=== PATIENT | male | born 1960 | race Caucasian/White ===

== ENCOUNTER 2022-02-22 08:51 | Emergency (ER) | payer OTHER, SELFPAY ==
[2022-02-22 09:31] VITALS: BP 150/79; PULSE 61; RESP 18; TEMP 36.1; O2SAT 99; BMI 26.2
--- NOTE | 2022-02-22 10:17 | ED_ITS ---
HPI - Dental/Oral General Chief complaint: Dental/Oral Stated complaint: Mouth abscess Time Seen by Provider: 02/22/22 09:41 Source: patient Mode of arrival: ambulatory History of Present Illness HPI Narrative: 61-year-old male with past medical history of dental abscesses, presenting to the ED complaining of recurrent dental abscess to left upper tooth times a couple days. States at home usually pops them on his own, however this one is too painful. Denies drainage from area, fever, oral swelling, difficulty swallowing, inability to swallow MD Complaint: tooth pain Related Data Previous Rx's Medication Instructions Recorded amoxicillin 875 mg-potassium 1 tab PO BID 7 Days #14 tab 02/22/22 clavulanate 125 mg tablet Allergies Allergy/AdvReac Type Severity Reaction Status Date / Time naproxen [Naproxen] AdvReac Mild STOMACH Unverified 07/09/20 16:04 UPSET Naproxen Allergy Unknown Uncoded 10/01/12 00:00 Review of Systems Review of Systems: Constitutional: No Fever, No Chills ENT/Mouth: No Ear Pain, No Nasal Congestion, No Sinus Pain, No Hoarseness, No sore throat, No Rhinorrhea, No Swallowing Difficulty, + dental pain Cardiovascular: No Chest Pain, No SOB Respiratory: No Cough, No Sputum, No Wheezing Gastrointestinal: No Nausea, No Vomiting, No Diarrhea, No Constipation, No Abdominal pain Musculoskeletal: No joint pain, No Myalgias, No Joint Swelling Skin: No Skin Lesions, No rash Neuro: No Weakness, No Numbness, No Paresthesias Yes all other systems are reviewed and are negative [facility] Past Medical History Attestation statement: The following information was validated with the patient. Social History Social History Advance Directives: No Advance Directives Information Provided: Yes Physical Exam Vital Signs: Vital Signs: Last Vital Signs Temp 97 F 02/22/22 09:31 Pulse 61 02/22/22 09:31 Resp 18 02/22/22 09:31 BP 150/79 H 02/22/22 09:31 Pulse Ox 99 02/22/22 09:31 BMI result Body Mass Index 26.2 Const: General: cooperative, healthy appearing and no acute distress Orientation/consciousness: patient oriented x3 Limitations: no limitations HEENT: Other: + left upper 2nd molar with gingival swelling, erythema, and tenderness to palpation. No appreciable pointing, fluctuance or induration. No draining No appreciable facial swelling Head: Yes normal to inspection and Yes atraumatic Ears: hearing grossly normal bilaterally General nose exam: Normal external nose present Face and sinus: Yes normal facial exam Mouth: Normal oral and palatal mucosa present and no drooling Teeth and gingiva: poor dentition Throat: Yes posterior oropharynx normal, Yes uvula midline and No uvular edema Eyes: General: appearance normal, both eyes and all related structures EOM: EOMs intact bilaterally Neck: Neck: Yes normal visual inspection and Yes no meningeal signs Resp: Effort & Inspection: normal respiratory effort and no respiratory distress Cardio: Rate: regular rate Skin: Rashes: no rashes Wounds: no wounds Neuro: General: patient oriented x3, tone normal and no meningeal signs Gait exam (Neuro): Normal gait present Extrem: General: Yes normal to inspection MDM - Dental/Oral MDM Narrative Medical decision making narrative: 61-year-old male with past medical history of dental abscesses, presenting to the ED complaining of recurrent dental abscess to left upper tooth times a couple days. On exam vital signs stable, NAD/nontoxic, physical exam as above. Concern for dental abscess versus infection versus gingivitis. No drainable area at this time. Will give patient Augmentin and stressed importance of Dentistry follow-up Differential Diagnosis Differential diagnosis: Likely gingival abscess, dental caries, toothache and dental abscess Medical Records Attestation: I reviewed the patient's medical records. Lab Data Attestation: I reviewed the patient's lab results. Discharge Plan Discharge Clinical Impression: Dental abscess Patient Disposition: Home, Self-Care Instructions: Dental Abscess (ED) Additional Instructions: Augmentin is an antibiotic please take as prescribed. In addition take Tylenol for pain. You need to follow-up with her dentist LIA. if area begins to worsen, you have fever, swelling in your mouth, or inability to swallow please return to the ED Prescriptions: New amoxicillin-pot clavulanate 875-125 mg tablet 1 tab PO BID 7 Days Qty: 14 0RF Referrals: Prince Darling MD [Primary Care Provider] - 3 days
== END 2022-02-22 10:49 | disposition home or self-care (01) ==
PROVIDERS: Emergency Provider Emergency Medicine; PCP Family Medicine
DX: K04.7 Periapical abscess without sinus (principal); Z79.899 Other long term (current) drug therapy
CPT/HCPCS: 99283

== ENCOUNTER 2022-04-05 06:03 | Outpatient (REF) | payer OTHER, SELFPAY ==
[2022-04-05 06:13] LABS: MANUAL DIFF FLAG NO
[2022-04-05 07:27] LABS: Basophils Percent Auto 0.3 % (0-2); Eosinophils Absolute Auto 0.2 X10*3/uL (0.0-0.4); Eosinophils Percent Auto 2.1 % (0-4); Hematocrit 44.4 % (42.0-52.0); Hemoglobin 14.3 g/dl (14.0-18.0); Imm Gran Abs Auto 0.03 X10*3/uL (0.00-0.03); Imm Gran Pct Auto 0.4 % (0.0-0.4); Lymphocytes Absolute Auto 2.3 X10*3/uL (1.2-4.9); Lymphocytes Percent Auto 30.9 % (20-40); Mean Corpuscular HGB Conc 32.2 g/dl (31.0-36.0); Mean Corpuscular Hemoglobin 28.6 pg (27.0-33.0); Mean Corpuscular Volume 88.8 fL (80.0-98.0); Mean Platelet Volume 10.9 fL (9.4-12.4); Monocytes Absolute Auto 0.7 X10*3/uL (0.1-1.2); Monocytes Percent Auto 9.1 % (2-11); Neutrophils Absolute Auto 4.3 x10*3/uL (2.0-8.3); Neutrophils Percent Auto 57.2 % (45-73); Platelet Count 321 X10*3/uL (160-400); Red Cell Distribution Width 12.5 % (11.0-16.0); White Blood Count 7.5 X10*3/uL (4.8-10.8)
[2022-04-05 08:01] LABS: Alanine Aminotransferase 17 U/L (0-40); Albumin Level 4.1 g/dL (3.5-5.0); Alkaline Phosphatase 62 U/L (39-117); Anion Gap 12 (12-20); Aspartate Amino Transferase 19 U/L (5-37); Bilirubin Total 0.5 mg/dL (0.0-1.0); Blood Urea Nitrogen 18 mg/dL (9-16); Calcium 9.8 mg/dL (8.4-10.2); Carbon Dioxide 30 mmol/L (22-29); Chloride 103 mmol/L (96-108); Cholesterol 233 mg/dL; Estimated Glomerular Filt Rate > 60; Glucose Fasting 101 mg/dL (60-99); HDL Cholesterol 52 mg/dL; LDL Cholesterol Calculated 164 mg/dl; Potassium 5.5 mmol/L (3.3-5.1); Sodium 139 mmol/L (135-145); Total Protein 8.2 g/dL (6.5-8.0); Triglycerides 87 mg/dL
[2022-04-05 09:17] LABS: Prostate Specific Antigen Scr 8.67 ng/mL (<0.05-4.0)
[2022-04-05 09:49] LABS: Free T4 (Free Thyroxine) 0.85 ng/dL (0.71-1.85)
== END 2022-04-05 06:04 | disposition home or self-care (01) ==
LOC: HO.LAB 06:03
PROVIDERS: PCP Family Medicine; Visit Provider Family Medicine
DX: Z00.00 Encounter for general adult medical examination without abnormal findings (principal); I10 Essential (primary) hypertension; Z12.5 Encounter for screening for malignant neoplasm of prostate
CPT/HCPCS: 36415; 80053; 80061; 84153; 84439; 84443; 85025

== ENCOUNTER 2022-06-13 13:09 | Outpatient (REF) | payer OTHER, SELFPAY ==
--- NOTE | ~2022-06-13 | XR_ITS ---
EXAMINATION: XR CHEST CLINICAL INFORMATION: Other specified symptoms and signs involving the circulatory system . COMPARISON: Chest radiograph 10/02/2012. TECHNIQUE: 2 views of the chest were obtained. FINDINGS: Normal cardiomediastinal silhouette. No focal airspace opacity, pleural effusion or pneumothorax. Thoracic spondylosis. No acute osseous abnormalities. The visualized upper abdomen is within normal limits. XR/XR chest 2V IMPRESSION: No acute cardiopulmonary findings.
[2022-06-13 14:40] LABS: Influenza A PCR NEGATIVE (Negative); Influenza B PCR NEGATIVE (Negative); Resp Syncy Virus RNA Qual PCR NEGATIVE (Negative); SARS COV2 PCR INHOUSE NEGATIVE (Negative)
== END 2022-06-13 13:10 | disposition home or self-care (01) ==
LOC: HO.XRAY 13:09
PROVIDERS: PCP Family Medicine; Visit Provider Family Medicine
DX: R09.89 Other specified symptoms and signs involving the circulatory and respiratory systems (principal); Z20.822 Contact with and (suspected) exposure to COVID-19
CPT/HCPCS: 0241U; 71046

== ENCOUNTER 2022-08-12 08:44 | Outpatient (REF) | payer OTHER, SELFPAY ==
[2022-08-12 09:25] LABS: Appearance Urine Clear; Color Urine Yellow; Glucose Urine UA Negative (Negative); Leukocyte Esterase Urine Negative (Negative); Nitrite Urine Negative (Negative); Specific Gravity - Urine 1.015 (1.005-1.025); Urine Blood Negative (Negative); Urine Ketones Negative (Negative); Urine Protein Negative (Neg-Trace)
[2022-08-12 09:48] LABS: Anion Gap 16 (12-20); Blood Urea Nitrogen 19 mg/dL (9-16); Calcium 9.8 mg/dL (8.4-10.2); Carbon Dioxide 27 mmol/L (22-29); Chloride 106 mmol/L (96-108); Estimated Glomerular Filt Rate > 60; Glucose Random 101 mg/dL (60-115); Potassium 5.6 mmol/L (3.3-5.1); Sodium 143 mmol/L (135-145)
[2022-08-12 10:00] LABS: Creatinine Urine 109.86 mg/dL; Microalbumin Urine < 5.0 mg/L
[2022-08-12 10:10] LABS: Free T4 (Free Thyroxine) 0.94 ng/dL (0.71-1.85); Thyroid Stimulating Hormone 2.79 uIU/mL (0.32-4.0)
[2022-08-14 15:37] LABS: Triiodothyronine T3 Total 123 ng/dL (76-181)
== END 2022-08-12 08:45 | disposition home or self-care (01) ==
LOC: HO.LAB 08:44
PROVIDERS: PCP Family Medicine; Visit Provider Family Medicine
DX: Z00.00 Encounter for general adult medical examination without abnormal findings (principal); E03.9 Hypothyroidism, unspecified; R79.89 Other specified abnormal findings of blood chemistry; E87.5 Hyperkalemia; I10 Essential (primary) hypertension
CPT/HCPCS: 36415; 80048; 81003; 82043; 84439; 84443; 84480

== ENCOUNTER → 2022-09-29 10:58 | Outpatient (BNVA) | payer OTHER, SELFPAY | PROVIDERS: PCP Family Medicine; Visit Provider Urology | DX: N40.1 Benign prostatic hyperplasia with lower urinary tract symptoms (principal); R97.20 Elevated prostate specific antigen [PSA]; R39.11 Hesitancy of micturition; R35.1 Nocturia | CPT/HCPCS: 51798; 99202 ==

== ENCOUNTER 2022-10-04 06:58 | Outpatient (REF) | payer OTHER, SELFPAY ==
[2022-10-04 08:15] LABS: Alanine Aminotransferase 17 U/L (0-40); Albumin Level 4.2 g/dL (3.5-5.0); Alkaline Phosphatase 54 U/L (39-117); Anion Gap 12 (12-20); Aspartate Amino Transferase 19 U/L (5-37); Bilirubin Total 0.6 mg/dL (0.0-1.0); Blood Urea Nitrogen 22 mg/dL (9-16); Calcium 9.3 mg/dL (8.4-10.2); Carbon Dioxide 28 mmol/L (22-29); Chloride 106 mmol/L (96-108); Cholesterol 225 mg/dL; Estimated Glomerular Filt Rate > 60; Glucose Fasting 97 mg/dL (60-99); Glucose Random 97 mg/dL (60-115); HDL Cholesterol 47 mg/dL; LDL Cholesterol Calculated 149 mg/dl; PSA,Total (Free>4and<10) 1.27 ng/mL (0.00-4.00); Potassium 4.2 mmol/L (3.3-5.1); Sodium 142 mmol/L (135-145); Total Protein 7.4 g/dL (6.5-8.0); Triglycerides 145 mg/dL
[2022-10-04 09:17] LABS: Appearance Urine Clear; Color Urine Yellow; Glucose Urine UA Negative (Negative); Leukocyte Esterase Urine Negative (Negative); Nitrite Urine Negative (Negative); PH 5.5 (5.0-9.0); Specific Gravity - Urine 1.025 (1.005-1.025); Urine Blood Negative (Negative); Urine Ketones Negative (Negative); Urine Protein Negative (Neg-Trace)
[2022-10-04 09:34] LABS: Creatinine Urine 137.73 mg/dL; Microalbumin Urine < 5.0 mg/L
== END 2022-10-04 06:59 | disposition home or self-care (01) ==
LOC: HO.LAB 06:58
PROVIDERS: PCP Family Medicine; Visit Provider Urology
DX: Z00.00 Encounter for general adult medical examination without abnormal findings (principal); E87.5 Hyperkalemia; R97.20 Elevated prostate specific antigen [PSA]; I10 Essential (primary) hypertension; E78.00 Pure hypercholesterolemia, unspecified; R73.01 Impaired fasting glucose
CPT/HCPCS: 36415; 80048; 80053; 80061; 81003; 82043; 84153

== ENCOUNTER 2022-10-12 13:15 | Outpatient (REF) | payer OTHER, SELFPAY | END 2022-10-12 13:16 | disposition home or self-care (01) | LOC: HO.US 13:15 | PROVIDERS: Visit Provider Urology | DX: N40.1 Benign prostatic hyperplasia with lower urinary tract symptoms (principal) | CPT/HCPCS: 76775 ==

== ENCOUNTER 2022-10-31 12:15 | Outpatient (REF) | payer OTHER, SELFPAY ==
[2022-10-31 14:19] LABS: Appearance Urine Clear; Color Urine Yellow; Glucose Urine UA Negative (Negative); Leukocyte Esterase Urine Negative (Negative); Nitrite Urine Negative (Negative); PH 5.5 (5.0-9.0); UMIC TRIGGER UA YES; Urine Blood Small (1+) (Negative); Urine Ketones Negative (Negative); Urine Protein Negative (Neg-Trace)
[2022-10-31 14:32] LABS: Bacteria Urine None Seen (None Seen); Hyaline Casts Urine 0-2 /LPF (0-2); Squamous Epithelial Cell Urine 0-2 /HPF (0-2); WBC Urine 0-5 /HPF (0-5)
== END 2022-10-31 12:16 | disposition home or self-care (01) ==
LOC: HO.LAB 12:15
PROVIDERS: PCP Family Medicine; Visit Provider Urology
DX: N40.1 Benign prostatic hyperplasia with lower urinary tract symptoms (principal)
CPT/HCPCS: 81001; 87086

== ENCOUNTER 2022-12-02 07:05 | Outpatient (REF) | payer OTHER, SELFPAY ==
[2022-12-02 08:30] LABS: PSA,Total (Free>4and<10) 1.24 ng/mL (0.00-4.00)
== END 2022-12-02 07:06 | disposition home or self-care (01) ==
LOC: HO.LAB 07:05
PROVIDERS: PCP Family Medicine; Visit Provider Urology
DX: Z12.5 Encounter for screening for malignant neoplasm of prostate (principal); N40.1 Benign prostatic hyperplasia with lower urinary tract symptoms
CPT/HCPCS: 36415; 84153

== ENCOUNTER → 2022-12-30 10:31 | Outpatient (BNVA) | payer OTHER, SELFPAY | PROVIDERS: PCP Family Medicine; Visit Provider Urology | DX: N40.1 Benign prostatic hyperplasia with lower urinary tract symptoms (principal); R97.20 Elevated prostate specific antigen [PSA] | CPT/HCPCS: 51798; 99212 ==

== ENCOUNTER 2023-06-16 08:24 | Outpatient (AMB) | payer OTHER, SELFPAY ==
--- NOTE | 2023-06-16 08:36 | MHC.PC.OV ---
Vital Signs 06/16/23 08:38 Height 5 ft 9.5 in Weight 198 lb 8 oz BMI 28.9 BP 120/80 Blood Pressure Location Rt brachial Position Sitting Respiration 12 Pulse 78 Pulse Source Pulse Oximeter Temp 97.8 F Temp Source Temporal Artery Scan Pulse Oximetry (%) 98 Oxygen Delivery Method Room Air Intake Visit Reasons: discuss ortho ref Intake Note: Patient would like the referral due to right knee go through orthoscopic surgery and swells after 15 minutes of being on it. Patient states that he had to install grab bars in order to get himself off the toilet and to sit in the bathroom. Patient also states that using stairs are a hassle and a task. Patient states he has a limited range of flexion in right knee. Patient states that the left knee is also in pain but not as much as right. 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 Accompanied by: Self / Same As Patient Allergies naproxen [Naproxen] Adverse Reaction (Mild, Verified 06/16/23 08:44) STOMACH UPSET Tobacco use date assessed: 08/23/22 Fall risk assessment: 2 + Falls in past year Last assessed Fall Risk: 06/16/23 Dental Screening Dental Screen Date: 06/16/23 Did you have a dental visit in the last 12 months?: Yes Did you have a dental problem in the last 6 months where you did not have access to dental care?: No Was dental information given to patient?: Patient has dentist HPI discuss ortho ref HPI Details 62 y/o male presents to discuss ortho referral due to R knee pain. Patient states that he had to install grab bars in order to get himself off the toilet and to sit in the bathroom. Patient also states that using stairs are a hassle and a task. Patient states he has a limited range of flexion in right knee. Patient states that the left knee is also in pain but not as much as right. No recent x-rays for his knees. He reports hx of knee surgery about 16 years ago to repair his meniscus/clean it out - pt states symptoms feel different. He has been using tylenol for relief. Pt reports a sharp stabbing pain behind his eyes/temples. He also reports a twitch on his thumb along with memory changes. He notes he does have a lot of screen time on his phone. HPI Comments History of Present Illness Details Documentation assistance for Prince Darling MD, was provided by Ben Ricks,? Water Resource Engineering Specialist on 06/16/2023 8:40 AM [facility]. I, Dr. Darling, have read, observed, and verified documentation.? [facility] Surgical History History of rotator cuff surgery History of shoulder surgery Family History (Updated 06/16/23 @ 08:52 by Sandra Sepulveda MA) Father Dementia Social History Housing: House Patient Tobacco Use Status: Former Tobacco user Tobacco use type: Cigarette e-Cigarette/Vaping Use: Former Use Second Hand Smoke Exposure: No service: Yes Current occupational status: retired Current occupational exposures/hazards: No Cognitive needs: Yes Hearing needs: No Vision needs: Yes Questionnaire Thrive Questionnaire Date Thrive assessed: 03/30/22 CHAUNCEY-7 AMB Questionnaire CHAUNCEY-7 Date CHAUNCEY - 7 assessed: 03/30/22 Source: Developed by Drs. Migue Ferrera, Trisha Adams, Ghulam Sharp and colleagues, with an educational lucas from [employer]. Review of Systems Const Denies chills, Denies fatigue, Denies fever(s), Denies headache(s) and Denies weakness ENT Denies dizziness and Denies headache(s) Card Denies chest pain, Denies lightheadedness, Denies dyspnea and Denies other (Palpitations) Resp Denies cough, Denies dyspnea, Denies wheezing and Denies other ( shortness of breath) Musc Details: Knee pain Denies numbness and Denies tingling Neuro Denies dizziness, Denies headache(s), Denies numbness, Denies tingling, Denies paresthesias and Denies weakness Psych Denies anxiety and Denies depression Endo Denies fatigue Aller/Immun Denies wheezing Physical exam (Primary Care) Vital Signs: Last Vital Signs Temp 97.8 F 06/16/23 08:38 Pulse 78 06/16/23 08:38 Resp 12 06/16/23 08:38 BP 120/80 06/16/23 08:38 Pulse Ox 98 06/16/23 08:38 Oxygen Delivery Method Room Air 08/25/23 08:38 BMI result Body Mass Index 28.9 Tobacco/Smoking Status: Tobacco use Status Tobacco use date assessed 08/23/22 06/16/23 08:52 Patient Tobacco Use Status Former Tobacco user 06/16/23 08:52 Tobacco use type Cigarette 06/16/23 08:52 e-Cigarette/Vaping Use Former Use 06/16/23 08:52 Thrive Assessment: Date of Thrive Assessment Date Thrive assessed 03/30/22 06/16/23 08:52 Const General: no acute distress and well developed Nutritional Appearance: well nourished Orientation/consciousness: patient oriented x3 HENMT Head: Yes normocephalic and Yes atraumatic Eyes General: appearance normal, both eyes and all related structures Pupils: Equal, round and reactive pupils present EOM: EOMs intact bilaterally Resp Effort & Inspection: normal respiratory effort Auscultation: clear to auscultation bilaterally Cardio Rate: regular rate Rhythm: regular rhythm Heart sounds: S1 normal heart sound present, S2 normal heart sound present, no gallops, no murmurs and no rubs Neuro Other: Twitching and tremor to his fingers General: patient oriented x3 and gait normal Cranial nerves: Yes Equal, round and reactive pupils present Psych Affect: normal affect Assessment and Plan Assessment & Plan (1) Knee pain: Code(s): M25.569 - Pain in unspecified knee Plan: Right knee pain with walking and bearing weight Referred to Ortho and checking x-ray Continue using Tylenol and topical NSAIDs Continue ice/heat (2) Twitch: Code(s): R25.3 - Fasciculation Plan: Memory changes and word-finding difficulty as well as new tremor in his hands/fingers Referred to neurology (3) Memory changes: Code(s): R41.3 - Other amnesia Plan: As above (4) Hypercholesterolemia: Code(s): E78.00 - Pure hypercholesterolemia, unspecified Plan: Had been following his lipids at and they had improved but were still high. He had been working on diet but says that this has become more difficult and he would like to trial medication. Starting atorvastatin Orders: Orders Comprehensive Keyes. Panel Fast Today Z00.00 - Encounter for general adult medical examination without abnormal findings Lipid Panel Today Z00.00 - Encounter for general adult medical examination without abnormal findings TSH reflex Free T4 Today Z00.00 - Encounter for general adult medical examination without abnormal findings Microalbumin, Random (w Creat) Today I10 - Essential (primary) hypertension UA and rflx microscopic Today Z00.00 - Encounter for general adult medical examination without abnormal findings XR knee RT 3V Today M25.569 - Pain in unspecified knee Referrals Orthopedics Referral M25.569 - Pain in unspecified knee Neurology Referral R25.1 - Tremor, unspecified, R25.3 - Fasciculation, R41.3 - Other amnesia Medications: New atorvastatin 20 mg PO BEDTIME 30 tabs 1RF 30 days Coding Level of Care Code Est Pt Level 4 (60049) Diagnoses Knee pain M25.569 Twitch R25.3 Memory changes R41.3 Hypercholesterolemia E78.00
[2023-06-16 08:38] VITALS: BP 120/80; PULSE 78; RESP 12; TEMP 36.6; O2SAT 98; BMI 28.9
== END 2023-06-16 09:11 | disposition home or self-care (01) ==
PROVIDERS: PCP Family Medicine; Visit Provider Family Medicine
DX: M25.569 Pain in unspecified knee (principal); R25.3 Fasciculation; R41.3 Other amnesia; E78.00 Pure hypercholesterolemia, unspecified
CPT/HCPCS: 99214

== ENCOUNTER 2023-06-16 09:39 | Outpatient (REF) | payer OTHER, SELFPAY ==
--- NOTE | ~2023-06-16 | XR_ITS ---
EXAMINATION: XR KNEE, RIGHT CLINICAL INFORMATION: Pain. COMPARISON: None available. TECHNIQUE: Three views of the right knee. FINDINGS: Advanced tricompartmental joint space narrowing and subchondral sclerosis with prominent marginal osteophytes. This background limits evaluation of subtle fractures, however accounting for limitations, no discrete fracture is noted. No subluxation. No erosive changes. No abnormal soft tissue calcifications. Small joint effusion. XR/XR knee RT 3V IMPRESSION: 1. Advanced tricompartmental degenerative osteoarthritis. 2. Small joint effusion.
== END 2023-06-16 09:40 | disposition home or self-care (01) ==
LOC: HO.XRAY 09:39
PROVIDERS: PCP Family Medicine; Visit Provider Family Medicine
DX: M25.561 Pain in right knee (principal)
CPT/HCPCS: 73562

== ENCOUNTER 2023-06-28 09:44 | Outpatient (REF) | payer OTHER, SELFPAY ==
[2023-06-28 10:18] LABS: Appearance Urine Clear; Color Urine Yellow; Glucose Urine UA Negative (Negative); Leukocyte Esterase Urine Negative (Negative); Nitrite Urine Negative (Negative); Specific Gravity - Urine 1.025 (1.005-1.025); Urine Blood Negative (Negative); Urine Ketones Negative (Negative); Urine Protein Negative (Neg-Trace)
[2023-06-28 10:58] LABS: Alanine Aminotransferase 15 U/L (0-40); Alkaline Phosphatase 57 U/L (39-117); Anion Gap 13 (12-20); Aspartate Amino Transferase 18 U/L (5-37); Bilirubin Total 0.5 mg/dL (0.0-1.0); Blood Urea Nitrogen 17 mg/dL (9-16); Calcium 9.5 mg/dL (8.4-10.2); Carbon Dioxide 27 mmol/L (22-29); Chloride 107 mmol/L (96-108); Cholesterol 172 mg/dL (<200); Estimated Glomerular Filt Rate > 60; Glucose Fasting 111 mg/dL (60-99); HDL Cholesterol 48 mg/dL (>40); LDL Cholesterol Calculated 89 mg/dL (<100); Potassium 4.1 mmol/L (3.3-5.1); Sodium 143 mmol/L (135-145); TSH reflex Free T4 2.88 uIU/mL (0.32-4.0); Total Protein 7.4 g/dL (6.5-8.0); Triglycerides 175 mg/dL (<150)
[2023-06-28 11:00] LABS: Prostate Specific Antigen 1.38 ng/mL (<0.05-4.0)
[2023-06-28 11:11] LABS: Creatinine Urine 182.11 mg/dL; Microalbum/Creatinine Ratio Ur 2.7 ug/mg cr (<30)
== END 2023-06-28 09:45 | disposition home or self-care (01) ==
LOC: HO.LAB 09:44
PROVIDERS: PCP Family Medicine; Visit Provider Urology
DX: N40.1 Benign prostatic hyperplasia with lower urinary tract symptoms (principal); I10 Essential (primary) hypertension
CPT/HCPCS: 36415; 80053; 80061; 81003; 82043; 82570; 84153; 84443

== ENCOUNTER 2023-07-03 11:19 | Outpatient (AMB) | payer OTHER, SELFPAY ==
--- NOTE | 2023-07-03 11:20 | MHC.OFFVIS ---
Intake Intake Visit Reasons: 6m/PSA Intake Note: Patient presents today for a follow-up on PSA: Meds- Tamsulosin & Sildenafil Allergies to Antibiotic- No Known Allergies Blood Thinner- Aspirin PSA- 1.38 ng/mL 06/28/2023 Receptionist Doctor'S Office Required: No Accompanied by: Self / Same As Patient Allergies naproxen [Naproxen] Adverse Reaction (Mild, Verified 07/05/23 14:09) STOMACH UPSET HPI HPI Comments History of Present Illness Details Bharathi is a 62-year-old male who presents today via tele-health visit for a follow-up. He is followed today for PSA. He was last seen by me on 12/30/2022 for elevated PSA. The patient was advised will continue to monitor closely, and to follow-up with PSA in 6 months. Discussed prostate bx to be considered pending repeat PSA. FU PSA was WNL. The patient has been taking Flomax and notes that he had improved urine flow at this time. Reviewed recent PSA- 06/28/23--1.38 Review of charts: PSA 04/05/22 -- 8.67. He is on tamsulosin for LUTS hesitency, nocturia. Denies gross hematuria, denies urinary incontinence.? PSA-12/02/2022- 1.24 ng/mL 07/03/2023: Plan: Will continue to monitor PSA closely. Follow up in 6 months with PSA prior. [facility] Surgical History (Updated 07/05/23 @ 14:18 by NICOLA Burkett) Hx of arthroscopy of right knee History of shoulder surgery History of rotator cuff surgery Family History (Updated 06/16/23 @ 08:52 by Sandra Sepulveda MA) Father Dementia Social History Housing: House Patient Tobacco Use Status: Former Tobacco user Tobacco use type: Cigarette e-Cigarette/Vaping Use: Former Use Second Hand Smoke Exposure: No service: Yes Current occupational status: retired Current occupational exposures/hazards: No Cognitive needs: Yes Hearing needs: No Vision needs: Yes Review of Systems Const All systems reviewed & are unremarkable except as noted in HPI and below Reports no additional complaints Eyes Reports no additional complaints ENT Denies neck pain Card Denies leg edema Resp Denies cough GI Denies constipation Musc Reports no additional complaints and Denies neck pain Skin/Breast Denies rash Neuro Reports no additional complaints Psych Reports no additional complaints Endo Reports no additional complaints Kevin/Lymph Reports no additional complaints Aller/Immun Reports no additional complaints Assessment & Plan Assessment & Plan (1) BPH loc w urin obs/LUTS: Code(s): N40.1 - Benign prostatic hyperplasia with lower urinary tract symptoms Plan Will continue to monitor PSA closely. Follow up in 6 months with PSA prior. Orders: Orders Prostate Specific Antigen 06/28/23 N40.1 - Benign prostatic hyperplasia with lower urinary tract symptoms PSA,Total (Free>4and<10) 06/30/23 Z12.5 - Encounter for screening for malignant neoplasm of prostate, R97.20 - Elevated prostate specific antigen [PSA] Patient Instructions: The patient had an opportunity to ask questions regarding treatment plan. All questions were answered. Imaging, Laboratory studies and physical exam results were discussed and reviewed in detail. No major barriers to understanding were identified. The patient expressed understanding and agreement with the above treatment plan.? ? ? The patient is aware they should contact our office by phone for worsening of their current condition or the appearance of new symptoms. Compliance is encouraged with any medications and followup testing that is ordered.? ? ? It is a privilege to be allowed the opportunity to participate in the urologic care of your patient. If you have any questions or concerns regarding treatment for the above conditions please do not hesitate to contact me. The office telephone contact is [phone].? ? ? This note is constructed in part using voice recognition software. While every effort has been made to ensure accuracy agency appointments supervisor errors may have been included.? ? ? Yours sincerely,? ? ? Curt Mccarty MD? Telehealth Telehealth Location of provider rendering services: practice address Location of patient: address on file Patient Identification confirmed using: Name, : Yes Telehealth method: voice only Patient verbally consented to treatment: Yes Patient verbally consented to billing insurance company: Yes Patient informed of any privacy concerns related to visit: Yes Minutes spent on Phone/Video with Pt.: 15 Coding Level of Care Code Tele Est Pt Level 3 (32562) Diagnoses BPH loc w urin obs/LUTS N40.1
== END 2023-07-03 14:12 | disposition home or self-care (01) ==
LOC: HO.HUSH 11:19
PROVIDERS: PCP Family Medicine; Visit Provider Urology
DX: N40.1 Benign prostatic hyperplasia with lower urinary tract symptoms (principal)
CPT/HCPCS: 99213

== ENCOUNTER → 2023-07-03 11:19 | Outpatient (BNVA) | payer OTHER, SELFPAY | PROVIDERS: PCP Family Medicine; Visit Provider Urology | DX: Z12.5 Encounter for screening for malignant neoplasm of prostate (principal); R97.20 Elevated prostate specific antigen [PSA] ==

== ENCOUNTER 2023-07-05 13:50 | Outpatient (AMB) | payer OTHER, SELFPAY ==
--- NOTE | 2023-07-05 14:01 | A.OFFVIS_ITS ---
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 Patient reports pain presented a couple of years and has been getting worse. He has swelling with activity and limited ROM. He has difficulty with stair use or exercises. No previous tx. Finds support with knee brace but was affecting his circulation. Finds little to no relief with ibuprofen or Tylenol. Diclfenac topical cream no longer provides relief. HX of right knee at [facility] [place]. 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 He states he has worsening pain in his knee and also c/o swelling and limited ROM with activities, stair use and exercises which makes him unable to bend his knee. He finds relief with the knee brace but his circulation was affected with the brace use. He finds minimal relief with ibuprofen and Tylenol and he no longer finds relief with diclofenac topical cream. He has not had any treatment in the past. He has a history of right knee at [facility] [place]. He also has a history of prediabetes. He is currently not working. [facility] Surgical History (Updated 07/05/23 @ 14:18 by NICOLA Burkett) Hx of arthroscopy of right knee History of shoulder surgery History of rotator cuff surgery Family History (Updated 06/16/23 @ 08:52 by Sandra Sepulveda MA) Father Dementia Social History Housing: House Patient Tobacco Use Status: Former Tobacco user Tobacco use type: Cigarette e-Cigarette/Vaping Use: Former Use Second Hand Smoke Exposure: No service: Yes Current occupational status: retired Current occupational exposures/hazards: No Cognitive needs: Yes Hearing needs: No Vision needs: Yes Review of Systems Const All systems reviewed & are unremarkable except as noted in HPI and below Physical Exam Vital Signs: BMI result Body Mass Index 28.8 Const General: cooperative, healthy appearing, comfortable, no acute distress, well developed and alert Orientation/consciousness: patient oriented x3 HEENT Head: Yes normal to inspection, Yes normocephalic and Yes atraumatic Eyes General: appearance normal, both eyes and all related structures Resp Effort & Inspection: normal respiratory effort and able to speak in complete sentences Cardio Rate: regular rate Peripheral pulses: Peripheral pulses 2+ throughout GI Palpation (GI): Soft to palpation Skin Lesions: no lesions Rashes: no rashes Neuro General: patient oriented x3 Extrem Other: Right knee: Skin intact, no erythema or joint effusion. Diffused tenderness along the medial joint line. Full ROM with crepitus. Negative Angela?s. No ligamentous laxity. NVI. Results Reviewed Results Reviewed: xrays of the right knee obtained on 06/16/23 show tricompartmental oa with osteophyte formation Assessment & Plan Assessment & Plan (1) Osteoarthritis of right knee: Code(s): M17.11 - Unilateral primary osteoarthritis, right knee Qualifiers: Osteoarthritis type: primary Qualified Code(s): M17.11 - Unilateral primary osteoarthritis, right knee Plan We had a lengthy discussion about the extent of his osteoarthritis and options available which include surgical intervention. He is interested in pursuing Total knee arthroplasty to improve his functional capacity and daily activities. I explained to him the procedure in detail, the hospital stays and details about post op rehab and precautions. He does understand all this and would like to move forward. I did put him in contact with our Nurse Navigator, Florecita, who will set him up with pre op planning and book accordingly. All questions were answered. Patient Instructions: Scribed for Jammie Todd PA-C, by Van Cleveland medical staff assistant, on 07/05/2023 at 2:00 PM EST. IJammie PA-C, have personally reviewed and agree with the information entered by the scribe. Coding Level of Care Code New Pt Level 4 (94726) Diagnoses Primary osteoarthritis of right knee M17.11 Osteoarthritis type: primary
[2023-07-05 14:15] VITALS: BMI 28.8
== END 2023-07-05 14:34 | disposition home or self-care (01) ==
PROVIDERS: PCP Family Medicine; Visit Provider Physician Assistant
DX: M17.11 Unilateral primary osteoarthritis, right knee (principal)
CPT/HCPCS: 99204

== ENCOUNTER → 2023-07-05 13:50 | Outpatient (BNVA) | payer OTHER, SELFPAY | PROVIDERS: PCP Family Medicine; Visit Provider Physician Assistant ==

== ENCOUNTER 2023-12-01 08:51 | Outpatient (REF) | payer MEDICARE, MEDICAID, SELFPAY ==
[2023-12-01 11:40] LABS: MANUAL DIFF FLAG NO
[2023-12-01 11:48] LABS: Basophils Percent Auto 0.4 % (0-2); Eosinophils Absolute Auto 0.1 X10*3/uL (0.0-0.4); Hematocrit 41.6 % (42.0-52.0); Hemoglobin 13.8 g/dl (14.0-18.0); Imm Gran Abs Auto 0.02 X10*3/uL (0.00-0.03); Imm Gran Pct Auto 0.4 % (0.0-0.4); Lymphocytes Absolute Auto 0.9 X10*3/uL (1.2-4.9); Lymphocytes Percent Auto 18.7 % (20-40); Mean Corpuscular HGB Conc 33.2 g/dl (31.0-36.0); Mean Corpuscular Hemoglobin 29.3 pg (27.0-33.0); Mean Corpuscular Volume 88.3 fL (80.0-98.0); Mean Platelet Volume 11.3 fL (9.4-12.4); Monocytes Absolute Auto 0.4 X10*3/uL (0.1-1.2); Monocytes Percent Auto 7.8 % (2-11); Neutrophils Absolute Auto 3.6 x10*3/uL (2.0-8.3); Neutrophils Percent Auto 70.7 % (45-73); Platelet Count 217 X10*3/uL (160-400); Red Blood Count 4.71 X10*6/uL (4.60-5.80); Red Cell Distribution Width 12.5 % (11.0-16.0)
[2023-12-01 14:56] LABS: Alanine Aminotransferase 18 U/L (0-40); Albumin Level 3.9 g/dL (3.5-5.0); Alkaline Phosphatase 63 U/L (39-117); Anion Gap 11 (12-20); Aspartate Amino Transferase 20 U/L (5-37); Bilirubin Direct 0.2 mg/dL (0.0-0.5); Bilirubin Total 0.6 mg/dL (0.0-1.0); Blood Urea Nitrogen 17 mg/dL (9-16); Calcium 9.2 mg/dL (8.4-10.2); Carbon Dioxide 26 mmol/L (22-29); Chloride 108 mmol/L (96-108); Estimated Glomerular Filt Rate > 60; Glucose Random 93 mg/dL (60-115); Potassium 4.4 mmol/L (3.3-5.1); Sodium 141 mmol/L (135-145); Total Protein 7.4 g/dL (6.5-8.0)
== END 2023-12-01 08:52 | disposition home or self-care (01) ==
LOC: HO.HHCL 08:51
PROVIDERS: Visit Provider Family Medicine
DX: Z20.2 Contact with and (suspected) exposure to infections with a predominantly sexual mode of transmission (principal)
CPT/HCPCS: 36415; 80048; 80076; 85025

== ENCOUNTER 2023-12-20 08:20 | Outpatient (REF) | payer MEDICARE, SELFPAY ==
[2023-12-20 10:07] LABS: PSA,Total (Free>4and<10) 0.98 ng/mL (0.00-4.00)
== END 2023-12-20 08:21 | disposition home or self-care (01) ==
LOC: HO.LAB 08:20
PROVIDERS: PCP Family Medicine; Visit Provider Urology
DX: Z12.5 Encounter for screening for malignant neoplasm of prostate (principal); R97.20 Elevated prostate specific antigen [PSA]
CPT/HCPCS: 36415; 84153

== ENCOUNTER → 2023-12-26 09:57 | Outpatient (BNVA) | payer MEDICARE, SELFPAY | PROVIDERS: PCP Family Medicine; Visit Provider Orthopaedic Surgery ==

== ENCOUNTER → 2023-12-26 09:57 | Outpatient (BNVA) | payer MEDICARE, SELFPAY | PROVIDERS: PCP Family Medicine; Visit Provider Orthopaedic Surgery ==

== ENCOUNTER 2024-01-01 13:54 | Outpatient (AMB) | payer MEDICARE, SELFPAY ==
--- NOTE | 2024-01-01 13:56 | A.OFFVIS_ITS ---
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 [employer] Required: No Accompanied by: Self / Same As Patient Allergies naproxen [Naproxen] Adverse Reaction (Mild, Verified 07/05/23 14:09) STOMACH UPSET Medication List - Last Reconciled 01/01/24 by Curt Mccarty MD albuterol sulfate 90 mcg/actuation (ProAir HFA) 2 puffs inhalation Q4-6H PRN 30 days aspirin 81 mg PO DAILY atorvastatin 20 mg PO BEDTIME 90 days clonidine HCl 0.2 mg (2 x 0.1 mg) PO BEDTIME 30 days sildenafil 100 mg PO DAILY PRN 28 days tamsulosin (Flomax) 0.4 mg PO BEDTIME 90 days vitamin B complex (B Complex-Vitamin B12 tablet) 1 tab PO DAILY HPI HPI Comments History of Present Illness Details 01/01/2024----Bharathi is a 63-year-old ma le was initially evaluated elevated PSA. PSA in March 2022 was 8.67. Follow-up PSAs since then has been normal. He is on tamsulosin for lower urinary tract symptoms from BPH. I have reviewed recent PSA obtained on 12/20/2023--0.98 ng/mL The patient complains that he had a contact sexual exposure 0n 11/29/23 with someone and he is concerned about obtaining an STD. He did go to a clinic on 12/01/2023 was tested and was started on prophylactic HIV retroviral medication. He is advised that he needed to have the HIV antibody antigen retested in 4-6 weeks. He is requesting that I order the lab work. He denies any new urinary symptoms. He states he is having right knee surgery done in February and orthopedics is requesting clearance. 30 minutes spent in review of records pe rtaining to this visit and including [id number] discussion with the patient and documentation of this visit. 07/03/23--Bharathi is a 62-year-old male w ho presents today via tele-health visit for a follow-up. He is followed today for PSA. He was last seen by me on 12/30/2022 for elevated PSA. The patient was advised will continue to monitor closely, and to follow-up with PSA in 6 months. Discussed prostate bx to be considered pending repeat PSA. FU PSA was WNL. The patient has been taking Flomax and notes that he had improved urine flow at this time. Reviewed recent PSA- 06/28/23--1.3 Review of chart: PSA 04/05/22 -- 8.67. He is on tamsulosin for LUTS hesitency, nocturia. Denies gross hematuria, denies urinary incontinence.? PSA-12/02/2022- 1.24 ng/mL 01/01/2024---PLAN: Urinalysis is negative, 12/20/2023 PSA is normal, in regards to orthopedic surgery that is planned there is no restrictions he is cleared pain perspective for any surgical procedure that is needed. Repeat HIV antibody/antigen ordered Follow-up in 1 year with PSA prior [facility] Surgical History Hx of arthroscopy of right knee History of shoulder surgery History of rotator cuff surgery Family History Father Dementia Social History Housing: House Patient Tobacco Use Status: Former Tobacco user Tobacco use type: Cigarette e-Cigarette/Vaping Use: Former Use Second Hand Smoke Exposure: No service: Yes Current occupational status: retired Current occupational exposures/hazards: No Cognitive needs: Yes Hearing needs: No Vision needs: Yes Review of Systems Const All systems reviewed & are unremarkable except as noted in HPI and below Reports no additional complaints Eyes Reports no additional complaints ENT Reports no additional complaints Card Denies dyspnea Resp Denies cough and Denies dyspnea GI Reports no additional complaints Musc Reports no additional complaints Skin/Breast Denies rash and Denies unusual bruising Neuro Reports no additional complaints Psych Reports no additional complaints Endo Reports no additional complaints Kevin/Lymph Reports no additional complaints Aller/Immun Reports no additional complaints Office Procedures Post Void Residual Post Residual Void Post Void Residual (PVR): 21 [id number] Void Residual by ultrasound Results AMB Urinalysis, Automated UA Leukoctes 0 Raulito/uL Last Edit by NICOLA Cano on 01/01/24 14:10 UA Nitrite Negative Last Edit by Donna Barriga Monica on 01/01/24 14:10 UA Urobilinogen 0.2 mg/dL Last Edit by Donna Barriga Monica on 01/01/24 14:1 0 UA Protein 0 mg/dL Last Edit by Donna Barriga Monica on 01/01/24 14:10 UA pH 6.0 Last Edit by Donna Barriga [facility] on 01/01/24 14:10 UA Blood 0 Paulo/uL Last Edit by Donna Barriga Monica on 01/01/24 14:10 UA Specific [place] 1.015 Last Edit by Donna Barriga [facility] on 01/01/24 14: 10 UA Ketone Negative Last Edit by Donna Barriga Monica on 01/01/24 14:10 UA Bilirubin 0 mg/dL Last Edit by Donna Barriga Monica on 01/01/24 14:10 UA Glucose 0 mg/dL Last Edit by Donna Barriga Monica on 01/01/24 14:10 Results Reviewed Results Reviewed: Laboratory Last Values Urine pH (Auto) 6.0 01/01/24 14:00 Specific [place] (Auto) 1.015 01/01/24 14:00 Urine Protein (Auto) 0 mg/dL 01/01/24 14:00 Glucose (UA)(Auto) 0 mg/dL 01/01/24 14:00 Urine Ketones (Auto) Negative 01/01/24 14:00 Urine Blood (Auto) 0 Paulo/uL 01/01/24 14:00 Urine Nitrite (Auto) Negative 01/01/24 14:00 Urine Bilirubin (Auto) 0 mg/dL 01/01/24 14:00 Urine Urobilinogen (Auto) 0.2 mg/dL 01/01/24 14:00 Leukocyte Esterase (Auto) 0 Raulito/uL 01/01/24 14:00 Assessment & Plan Assessment & Plan (1) Elevated PSA: Code(s): R97.20 - Elevated prostate specific antigen [PSA] (2) BPH loc w urin obs/LUTS: Code(s): N40.1 - Benign prostatic hyperplasia with lower urinary tract symptoms Plan Continue tamsulosin 0.4 mg daily Urinalysis is negative, 12/20/2023 PSA is normal, in regards to orthopedic surgery that is planned there is no restrictions he is cleared pain perspective for any surgical procedure that is needed. Repeat HIV antibody/antigen ordered Follow-up in 1 year with PSA prior Orders: Orders AMB Urinalysis Automated Today Z13.9 - Encounter for screening, unspecified AMB Post Void Residual by ultrasound Today N39.8 - Other specified disorders of urinary system HIV Ab/Ag Today Z11.3 - Encounter for screening for infections with a predominantly sexual mode of transmission PSA,Total (Free>4and<10) 10 Months R97.20 - Elevated prostate specific antigen [PSA] Medications: Refilled tamsulosin (Flomax) 0.4 mg PO BEDTIME 90 caps 3RF 90 days Patient Instructions: The patient had an opportunity to ask questions regarding treatment plan. All questions were answered. Imaging, Laboratory studies and physical exam results were discussed and reviewed in detail. No major barriers to understanding were identified. The patient expressed understanding and agreement with the above treatment plan. The patient is aware they should contact our office by phone for worsening of their current condition or the appearance of new symptoms. Compliance is encouraged with any medications and followup testing that is ordered. It is a privilege to be allowed the opportunity to participate in the urologic care of your patient. If you have any questions or concerns regarding treatment for the above conditions please do not hesitate to contact me. The office telephone contact is [phone]. This note is constructed in part using voice recognition software. While every effort has been made to ensure accuracy irrigation teacher errors may have been included. Yours sincerely, Curt Mccarty MD Coding Level of Care Code Est Pt Level 4 (24537) Diagnoses Elevated PSA R97.20 BPH loc w urin obs/LUTS N40.1 CPT Codes Post Residual Void - PVR CPT Code: 74823-Pcso Void Residual by ultrasound ([id number])
== END 2024-01-01 15:07 | disposition home or self-care (01) ==
PROVIDERS: PCP Family Medicine; Visit Provider Urology
DX: R97.20 Elevated prostate specific antigen [PSA] (principal); N40.1 Benign prostatic hyperplasia with lower urinary tract symptoms; Z13.9 Encounter for screening, unspecified
CPT/HCPCS: 99214

== ENCOUNTER → 2024-01-01 13:54 | Outpatient (BNVA) | payer MEDICARE, SELFPAY | PROVIDERS: PCP Family Medicine; Visit Provider Urology | DX: N40.1 Benign prostatic hyperplasia with lower urinary tract symptoms (principal); R97.20 Elevated prostate specific antigen [PSA] | CPT/HCPCS: 51798; 81003; 99212 ==

== ENCOUNTER 2024-01-18 11:30 | Outpatient (REF) | payer MEDICARE, SELFPAY ==
[2024-01-18 12:54] LABS: Alanine Aminotransferase 29 U/L (0-40); Albumin Level 4.2 g/dL (3.5-5.0); Alkaline Phosphatase 67 U/L (39-117); Aspartate Amino Transferase 27 U/L (5-37); Bilirubin Direct 0.2 mg/dL (0.0-0.5); Bilirubin Total 0.4 mg/dL (0.0-1.0); Total Protein 8.1 g/dL (6.5-8.0)
[2024-01-19 04:00] LABS: Syphilis Screen Nonreactive (Nonreactive)
[2024-01-19 04:06] LABS: HIV AB/AG Nonreactive (Nonreactive); HIV Num 1 0.06 S/CO (0.00-0.99)
[2024-01-19 04:13] LABS: ~HepC Num1 0.15 S/CO (0.00-0.79); ~Hepatitis C Antibody Nonreactive (Nonreactive)
== END 2024-01-18 11:31 | disposition home or self-care (01) ==
LOC: HO.LAB 11:30
PROVIDERS: Family Medicine; Visit Provider Urology
DX: Z11.3 Encounter for screening for infections with a predominantly sexual mode of transmission (principal); Z20.2 Contact with and (suspected) exposure to infections with a predominantly sexual mode of transmission
CPT/HCPCS: 36415; 80076; 86780; 86803; 87389

== ENCOUNTER 2024-01-23 08:12 | Outpatient (REF) | payer MEDICARE, SELFPAY ==
[2024-01-23 10:41] LABS: CT PCR NOT DETECTED (Not Detect.); NG PCR NOT DETECTED (Not Detect.)
== END 2024-01-23 08:13 | disposition home or self-care (01) ==
LOC: HO.LNP 08:12
PROVIDERS: Visit Provider Family Medicine
DX: Z20.2 Contact with and (suspected) exposure to infections with a predominantly sexual mode of transmission (principal)
CPT/HCPCS: 0353U

== ENCOUNTER 2024-02-01 08:51 | Outpatient (AMB) | payer MEDICARE, MEDICAID, SELFPAY ==
[2024-02-01 08:57] VITALS: BP 110/72; PULSE 66; O2SAT 97; BMI 29.1
--- NOTE | 2024-02-01 08:57 | MHC.PC.OV ---
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: No Allergies No Known Allergies Allergy (Verified 02/01/24 09:15) Medication List - Last Reconciled 02/01/24 by Clark Anguiano MD albuterol sulfate 90 mcg/actuation (ProAir HFA) 2 puffs inhalation Q4-6H PRN 30 days atorvastatin 20 mg PO BEDTIME 90 days clonidine HCl 0.2 mg (2 x 0.1 mg) PO BEDTIME 30 days naproxen sodium 220 mg PO BID PRN sildenafil 100 mg PO DAILY PRN 28 days tamsulosin (Flomax) 0.4 mg PO BEDTIME 90 days vitamin B complex (B Complex-Vitamin B12 tablet) 1 tab PO DAILY walker Folding Front wheeled walker Tobacco use date assessed: 02/01/24 Fall risk assessment: No Falls in past year Last assessed Fall Risk: 02/01/24 Dental Screening Dental Screen Date: 02/01/24 Did you have a dental visit in the last 12 months?: Yes Did you have a dental problem in the last 6 months where you did not have access to dental care?: No Was dental information given to patient?: Patient has dentist 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 Momo Cox for a preoperative medical examination for clearance for surgery He is scheduled to undergo a total right knee arthroplasty under spinal anesthesia on 03/04/2024 Patient states that other than his knee pains/symptoms, he feels okay He denies any headaches or dizziness Denies any chest pains, no increased SOB - has exercise-induced asthma and uses his Albuterol inhaler usually before he goes to the gym No nausea/vomiting, no abdominal pain No change in bowel habits noted He denies any acute urinary symptoms Adds that he has trouble sleeping at night for years and has been taking his daughter's Diphenhydramine at 75 mg Q HS for a while now to help him sleep at night and he would now like to get his own Rx Relates (+) Hx of anxiety and depression and recalls being diagnosed with borderline personality disorder in the past - recalls taking Depakote many years ago but states that he has been doing okay with his mental health over the past few years and currently does not require any Rx for mood disorder Also recalls experiencing some word-finding difficulty sometime about 1 to 2 years ago but states that this has been a lot better since he has been going to the gym and working out regularly [facility] Medical History (Updated 02/01/24 @ 10:54 by Clark Anguiano MD) Overweight (BMI 25.0-29.9) Insomnia Essential hypertension Exercise-induced asthma Benign prostatic hyperplasia Pure hypercholesterolemia Surgical History (Updated 02/01/24 @ 09:39 by Clark Anguiano MD) Hx of colonoscopy History of repair of hiatal hernia Hx of right inguinal hernia repair Hx of arthroscopy of right knee History of shoulder surgery History of rotator cuff surgery Family History Father Dementia Social History (Updated 02/01/24 @ 09:54 by Clark Anguiano MD) Housing: House Patient Tobacco Use Status: Former Tobacco user Quit Date: ~1997 Tobacco use type: Cigarette e-Cigarette/Vaping Use: Former Use Second Hand Smoke Exposure: No service: Yes Current occupational status: retired Current occupational exposures/hazards: No Cognitive needs: Yes Hearing needs: No Vision needs: Yes Questionnaire PHQ-9 Over the last 2 weeks, how often have you been bothered by any of the following problems? 1. Little interest or pleasure in doing things: not at all 2. Feeling down, depressed, or hopeless: not at all 3. Trouble falling or staying asleep, or sleeping too much: not at all 4. Feeling tired or having little energy: not at all 5. Poor appetite or overeating: not at all 6. Feeling bad about yourself - or that you are a failure or have let yourself or your family down: not at all 7. Trouble concentrating on things, such as reading the newspaper or watching television: not at all 8. Moving or speaking so slowly that other people could have noticed. Or the opposite - being so fidgety or restless that you have been moving around a lot more than usual: not at all 9. Thoughts that you would be better off or of hurting yourself in some way: not at all Total score: 0 Depression Screening Interpretation: Negative Depression Screening Done: Yes 19714 - PHQ-9 Billing: Yes Source: Developed by Drs. Migue Ferrera, Trisha Adams, Ghulam Sharp and colleagues, with an educational lucas from [employer]. Thrive Questionnaire Date Thrive assessed: 02/01/24 I am a: Patient What is your living situation today?: I have a steady place to live Within the past 12 months, did the food you bought not last and you didn't have the money to get more?: Never true Within the past 12 months, did you worry whether your food would run out before you got money to buy more?: Never true Do you have trouble paying for medicines?: No Do you have trouble getting transportation to medical appointments?: No Do you have trouble paying your heating and electricity bill?: No Do you have trouble taking care of your child, family member or friend?: No Do you have trouble with day-to-day activities such as bathing, preparing meals, shopping, managing finances, etc.?: No Are you currently unemployed and looking for a job?: No Are you interested in more education?: No Please select the resources that you would like help with: None Currently or been in a relationship where the following occur: no concerns reported THRIVE Score: 0 AUDIT C Alcohol Use Questionnaire (AUDIT-C) 1. How often do you have a drink containing alcohol?: Never 3. How often do you have six or more drinks on one occasion?: Never Total Score: 0 Score Reviewed/Action Taken: Yes CHAUNCEY-7 AMB Questionnaire CHAUNCEY-7 Date CHAUNCEY - 7 assessed: 02/01/24 Feeling nervous, anxious, or on edge: 0 = Not at all Not being able to stop or control worryin = Not at all Worrying too much about different things: 0 = Not at all Trouble relaxin = Not at all Being so restless that it is hard to sit still: 0 = Not at all Becoming easily annoyed or irritable: 0 = Not at all Feeling afraid as if something awful might happen: 0 = Not at all Total CHAUNCEY-7 score (0-4 normal; 5-9 mild; 10-14 moderate; 15-21 severe): 0 Source: Developed by Drs. Migue Ferrera, Trisha Adams, Ghulam Sharp and colleagues, with an educational lucas from [employer]. CHAUNCEY-7 Assessment Billing CHAUNCEY-7 Assessment Tool: CHAUNCEY-7 Assessment 99664 Review of Systems Const Denies chills, Reports difficulty sleeping, Denies fatigue, Denies fever(s) and Denies headache(s) ENT Denies dysphagia, Denies dizziness, Denies otalgia, Denies headache(s), Denies neck pain, Denies odynophagia and Denies sore throat Card Denies chest pain, Denies palpitations and Denies dyspnea Resp Denies chest congestion, Denies cough, Denies dyspnea and Denies wheezing GI Denies abdominal pain, Denies constipation, Denies dysphagia, Denies heartburn, Denies diarrhea, Denies nausea, Denies odynophagia and Denies vomiting Denies dysuria, Denies nocturia and Denies urinary frequency Musc Denies back pain, Reports arthralgias (both knees, R > L) and Denies neck pain Skin/Breast Denies rash Neuro Denies dizziness and Denies headache(s) Endo Denies fatigue and Denies palpitations Aller/Immun Denies wheezing Physical exam (Primary Care) Vital Signs: Last Vital Signs Pulse 66 02/01/24 08:57 BP 110/72 02/01/24 08:57 Pulse Ox 97 02/01/24 08:57 Oxygen Delivery Method Room Air 02/01/24 08:57 BMI result Body Mass Index 29.1 Tobacco/Smoking Status: Tobacco use Status Tobacco use date assessed 02/01/24 02/01/24 09:05 Patient Tobacco Use Status Former Tobacco user 02/01/24 09:05 Tobacco use type Cigarette 02/01/24 09:05 e-Cigarette/Vaping Use Former Use 02/01/24 09:05 PHQ-9: PHQ-9 Score PHQ-9: Total score 0 02/01/24 14:23 Depression Screening Interpretation: Negative Thrive Assessment: Date of Thrive Assessment Date Thrive assessed 02/01/24 02/01/24 09:05 Currently or been in a relationship where the following occur: no concerns reported Const General: no acute distress and alert HENMT Ears: TM's normal bilaterally and EAC's normal Throat: Yes posterior oropharynx normal and Yes tonsils normal (no TP congestion) Neck Neck: Yes no lymphadenopathy and Yes supple Resp Auscultation: clear to auscultation bilaterally, no rales, rhonchi (occasional - states that he just got over a cold about a week ago) upper bilaterally and no wheezes Cardio Rate: regular rate Rhythm: regular rhythm Heart sounds: no murmurs GI Palpation (GI): Soft to palpation and nontender Auscultation: normal bowel sounds General: Yes no CVA tenderness Back/Spine/Pelvis Back: no CVA tenderness Thoracic/Lumbar Spine: No lumbar spinal tenderness Skin Rashes: no rashes Extrem General: Yes no clubbing, cyanosis or edema Right lower extremity: knee Details: tenderness; no swelling Left lower extremity: knee Details: tenderness; no swelling Assessment and Plan Assessment & Plan (1) Preoperative examination: Code(s): Z01.818 - Encounter for other preprocedural examination Plan: Patient currently appears to be at an acceptable risk category for planned intermediate cardiac risk procedure As he is a new patient to the practice and I do not have any additional information regarding him other than what he has provided, we will send him for some preop labs as well as a 12 lead EKG for further evaluation (2) Osteoarthritis of right knee: Code(s): M17.11 - Unilateral primary osteoarthritis, right knee Qualifiers: Osteoarthritis type: primary Qualified Code(s): M17.11 - Unilateral primary osteoarthritis, right knee Plan: He is scheduled to undergo a total right knee arthroplasty under spinal anesthesia with Dr. Cox next month on 03/04/2024 Continue Naproxen 220 mg BID PRN BUT he is reminded to STOP taking this and all other NSAIDs around 7 days before his surgery (3) Essential hypertension: Code(s): I10 - Essential (primary) hypertension Plan: Reinforced low sodium diet - goal is systolic BP of at least 120 mm or less Continue Clonidine 0.2 mg Q HS He is reminded to monitor his blood pressure regularly (4) Pure hypercholesterolemia: Code(s): E78.00 - Pure hypercholesterolemia, unspecified Plan: Reinforced low cholesterol diet His total and LDL cholesterol were both under excellent control (total = 172, LDL = 89) when they were last checked in June 2023 Continue Atorvastatin 20 mg Q HS Will have patient recheck his labs and fasting lipids in 3 months for follow up (5) Exercise-induced asthma: Code(s): J45.990 - Exercise induced bronchospasm Plan: Continue Albuterol HFA 2 inhalations Q 6 hours PRN Patient states that he only uses his inhaler preventively, mostly just before he starts working out or exercising (6) Elevated fasting glucose: Code(s): R73.01 - Impaired fasting glucose Plan: His FBS was elevated at 111 mg/dl back in June 2023 but he did have a normal RBS at 93 mg/dl when last checked in November 2023 Will check his HgbA1c for further evaluation Reinforced low calorie/low carb diet (7) Benign prostatic hyperplasia: Code(s): N40.0 - Benign prostatic hyperplasia without lower urinary tract symptoms Qualifiers: Lower urinary tract symptom presence: unspecified whether lower urinary tract symptoms present Qualified Code(s): N40.0 - Benign prostatic hyperplasia without lower urinary tract symptoms Plan: Continue Tamsulosin 0.4 mg Q HS Follow up with urology as scheduled (8) Insomnia: Code(s): G47.00 - Insomnia, unspecified Qualifiers: Insomnia type: unspecified Qualified Code(s): G47.00 - Insomnia, unspecified Plan: Sleep hygiene discussed Per request, will send in Rx for Diphenhydramine 75 mg Q HS for his insomnia - he has been taking his daughter's Rx for the same for the past few months (9) Overweight (BMI 25.0-29.9): Code(s): E66.3 - Overweight Plan: Reinforced diet/exercise as tolerated/lose weight - this may not be as easy to do at this time due to his ongoing knee issues Plan Patient currently appears to be optimized for surgery but we will wait for the results of his preop labs and EKG before providing final clearance - patient is advised to get these done LIA Follow up in 3 months Orders: Orders Comprehensive Met. Panel Today M17.11 - Unilateral primary osteoarthritis, right knee, Z01.818 - Encounter for other preprocedural examination Comprehensive [place]. Panel Fast 3 Months E78.00 - Pure hypercholesterolemia, unspecified Lipid Panel 3 Months E78.00 - Pure hypercholesterolemia, unspecified Complete Blood Count Auto Diff 3 Months D64.9 - Anemia, unspecified TSH reflex Free T4 3 Months E78.00 - Pure hypercholesterolemia, unspecified UA CC w/rflx Micro + Cult 3 Months R30.0 - Dysuria Vitamin D 25-OH Total 3 Months E55.9 - Vitamin D deficiency, unspecified Complete Blood Count Auto Diff Today D64.9 - Anemia, unspecified, M17.11 - Unilateral primary osteoarthritis, right knee, Z01.818 - Encounter for other preprocedural examination UA CC w/rflx Micro + Cult Today M17.11 - Unilateral primary osteoarthritis, right knee, R30.0 - Dysuria, Z01.818 - Encounter for other preprocedural examination ECG 12 lead EKG Today M17.11 - Unilateral primary osteoarthritis, right knee, Z01.818 - Encounter for other preprocedural examination Hemoglobin A1c Today R73.01 - Impaired fasting glucose Medications: New diphenhydramine HCl 75 mg (3 x 25 mg) PO BEDTIME 30 days PRN 90 tabs 3RF sleep Coding Level of Care Code New Pt Level 4 (57549) Diagnoses Preoperative examination Z01.818 Primary osteoarthritis of right knee M17.11 Osteoarthritis type: primary Essential hypertension I10 Pure hypercholesterolemia E78.00 Exercise-induced asthma J45.990 Elevated fasting glucose R73.01 Benign prostatic hyperplasia, unspecified whether lower urinary tract symptoms present N40.0 Lower urinary tract symptom presence: unspecified whether lower urinary tract symptoms present Insomnia, unspecified type G47.00 Insomnia type: unspecified Overweight (BMI 25.0-29.9) E66.3 Additional Codes CHAUNCEY-7 Assessment Billing - CHAUNCEY-7 Assessment Tool: CHAUNCEY-7 Assessment 78808 ([id number])
== END 2024-02-01 09:47 | disposition home or self-care (01) ==
PROVIDERS: PCP Family Medicine; Visit Provider Internal Medicine
DX: M17.11 Unilateral primary osteoarthritis, right knee (principal); I10 Essential (primary) hypertension; E78.00 Pure hypercholesterolemia, unspecified; Z01.818 Encounter for other preprocedural examination; R73.01 Impaired fasting glucose; J45.990 Exercise induced bronchospasm; N40.0 Benign prostatic hyperplasia without lower urinary tract symptoms; G47.00 Insomnia, unspecified; E66.3 Overweight
CPT/HCPCS: 99204

== ENCOUNTER → 2024-02-02 08:06 | Outpatient (BNV) | payer MEDICARE, MEDICAID, SELFPAY | PROVIDERS: Admitting Provider Orthopaedic Surgery; PCP Internal Medicine; Visit Provider Internal Medicine Cardiovascular Disease | DX: D64.9 Anemia, unspecified (principal); Z01.810 Encounter for preprocedural cardiovascular examination; I10 Essential (primary) hypertension | CPT/HCPCS: 93010 ==

== ENCOUNTER 2024-02-26 | Outpatient (REF) | payer MEDICARE, MEDICAID, SELFPAY ==
--- NOTE | 2024-02-02 08:06 | ECG_ITS ---
Test Reason : PREPROC EXAM Blood Pressure : / mmHG Vent. Rate : 060 BPM Atrial Rate : 060 BPM P-R Int : 170 ms QRS Dur : 102 ms QT Int : 414 ms P-R-T Axes : 028 -19 022 degrees QTc Int : 414 ms Normal sinus rhythm Normal ECG When compared with ECG of 03-DEC-2004 08:52, No significant change was found Referred By: Clark Anguiaon Electronically Signed By:Clyde Ariza
[2024-02-02 08:24] LABS: MANUAL DIFF FLAG NO
[2024-02-02 09:25] LABS: Basophils Percent Auto 0.3 % (0-2); Eosinophils Absolute Auto 0.3 X10*3/uL (0.0-0.4); Eosinophils Percent Auto 4.6 % (0-4); Hematocrit 41.1 % (42.0-52.0); Hemoglobin 13.8 g/dl (14.0-18.0); Imm Gran Abs Auto 0.03 X10*3/uL (0.00-0.03); Imm Gran Pct Auto 0.5 % (0.0-0.4); Lymphocytes Absolute Auto 1.5 X10*3/uL (1.2-4.9); Lymphocytes Percent Auto 22.9 % (20-40); Mean Corpuscular HGB Conc 33.6 g/dl (31.0-36.0); Mean Corpuscular Hemoglobin 29.6 pg (27.0-33.0); Mean Corpuscular Volume 88.2 fL (80.0-98.0); Mean Platelet Volume 10.7 fL (9.4-12.4); Monocytes Absolute Auto 0.7 X10*3/uL (0.1-1.2); Monocytes Percent Auto 9.9 % (2-11); Neutrophils Absolute Auto 4.1 x10*3/uL (2.0-8.3); Neutrophils Percent Auto 61.8 % (45-73); Platelet Count 244 X10*3/uL (160-400); Red Blood Count 4.66 X10*6/uL (4.60-5.80); Red Cell Distribution Width 12.9 % (11.0-16.0); White Blood Count 6.6 X10*3/uL (4.8-10.8)
[2024-02-02 09:31] LABS: Appearance Urine Clear; Color Urine Yellow; Glucose Urine UA Negative (Negative); Leukocyte Esterase Urine Negative (Negative); Nitrite Urine Negative (Negative); Specific Gravity - Urine 1.025 (1.005-1.025); Urine Blood Negative (Negative); Urine Ketones Negative (Negative); Urine Protein Negative (Neg-Trace)
[2024-02-02 09:35] LABS: Estimated Average Glucose 120 mg/dL; Hemoglobin A1c % 5.8 % (<6.0)
[2024-02-02 09:46] LABS: Alanine Aminotransferase 17 U/L (0-40); Albumin Level 3.9 g/dL (3.5-5.0); Alkaline Phosphatase 60 U/L (39-117); Anion Gap 12 (12-20); Aspartate Amino Transferase 18 U/L (5-37); Bilirubin Total 0.8 mg/dL (0.0-1.0); Blood Urea Nitrogen 21 mg/dL (9-16); Calcium 9.3 mg/dL (8.4-10.2); Carbon Dioxide 29 mmol/L (22-29); Chloride 107 mmol/L (96-108); Estimated Glomerular Filt Rate > 60; Glucose Random 98 mg/dL (60-115); Potassium 4.5 mmol/L (3.3-5.1); Sodium 143 mmol/L (135-145); Total Protein 7.6 g/dL (6.5-8.0)
[2024-02-26 13:09] VITALS: BP 141/78; PULSE 66; RESP 20; O2SAT 97; BMI 28.7
--- NOTE | 2024-02-26 13:22 | HO.ANESPROP2 ---
HPI - Anesthesia Eval Consult details Narrative: Pt cx'd self. 63yo M for Right Knee Replacement Total Optimized for surgery per PCP No recent illness No CP/SOB COPD/Asthma. Former smoker. Rescue inhaler only pre-exercise. Denies FREDERICK. Vertigo with certain neck movement. ? inner ear crystal movement. Some muscle numbmess, ? anxiety. Goes away with regulation of breathing, sitting. Never LOC, never fall. Last occurence 2 weeks prior to surgery. Stopped with massaging trap muscles PMFSH Active Problems Active Problems: All Active Problems Preoperative examination (Acute) Osteoarthritis of right knee (Acute) Twitch (Acute) Knee pain (Acute) Elevated PSA (Acute) BPH loc w urin obs/LUTS (Acute) Cerumen impaction (Acute) Elevated fasting glucose (Acute) Erectile dysfunction (Acute) Sleep apnea (Acute) Hypercholesterolemia (Acute) Elevated TSH (Acute) Elevated PSA (Acute) Memory changes (Acute) Abnormal lung sounds (Acute) Viral illness (Acute) Hyperkalemia (Acute) Neoplasm of uncertain behavior of skin (Acute) Hand tendonitis (Acute) Urinary retention (Acute) Xanthelasma (Acute) Screening for colon cancer (Acute) Screening for prostate cancer (Acute) Adult general medical exam (Acute) History of COVID-19 (Acute) Asthma (Acute) COPD (chronic obstructive pulmonary disease) (Acute) Laboratory exam ordered as part of routine general medical examination (Acute) Hypertension (Acute) Anxiety (Acute) Overweight (BMI 25.0-29.9) (Acute) Insomnia (Acute) Essential hypertension (Acute) Exercise-induced asthma (Acute) Benign prostatic hyperplasia (Acute) Pure hypercholesterolemia (Acute) Past Medical History Medical History (Updated 02/27/24 @ 11:01 by Claudy Cox MD) Vertigo ADHD (attention deficit hyperactivity disorder) Osteoarthritis COPD (chronic obstructive pulmonary disease) Sleep apnea Overweight (BMI 25.0-29.9) Insomnia Essential hypertension Exercise-induced asthma Benign prostatic hyperplasia Pure hypercholesterolemia Family History Family History Father Dementia Surgical History Surgical History (Updated 02/26/24 @ 13:02 by Quiana Lennon RN) Hx of arthroscopy of shoulder Hx of excision of mass Hx of colonoscopy History of repair of hiatal hernia Hx of right inguinal hernia repair Hx of arthroscopy of right knee History of rotator cuff surgery Social History Social History (Updated 02/01/24 @ 09:54 by Clark Anguiano MD) Housing: House Are you a primary manager urgent care to a significant other at home: No Do you presently have visiting nurse or other home services: No Patient Tobacco Use Status: Former Tobacco user Quit Date: 1997 Tobacco use type: Cigarette Years Smoked: 14 e-Cigarette/Vaping Use: Former Use Second Hand Smoke Exposure: No service: Yes Current occupational status: retired Current occupational exposures/hazards: No Cognitive needs: Yes Hearing needs: No Vision needs: Yes Meds Allergies Allergy/AdvReac Type Severity Reaction Status Date / Time No Known Allergies Allergy Verified 02/27/24 10:36 Home Medications ?Medication ?Instructions ?Recorded ?Confirmed ?Last Taken ?Type vitamin B complex (B 1 tab PO DAILY 06/16/23 02/27/24 Unknown History Complex-Vitamin B12 tablet) naproxen sodium 220 mg capsule 220 mg PO BID PRN Pain 02/01/24 02/27/24 Unknown History calcium carbonate 600 mg-vitamin 1 tab PO QAM 02/26/24 02/27/24 Unknown History D3 5 mcg (200 unit) tablet turmeric 400 mg capsule 400 mg PO QAM 02/26/24 02/27/24 Unknown History Exam Height,Weight and Vital Signs: Height 5 ft 9.5 in Weight 89.358 kg Last Vital Signs Pulse 66 02/26/24 13:09 Resp 20 02/26/24 13:09 BP 141/78 H 02/26/24 13:09 Pulse Ox 97 02/26/24 13:09 O2 Del Method Room Air 02/26/24 13:09 Pertinent Lab Results Pertinent Lab Results: Laboratory Tests 02/02/24 08:23 WBC 6.6 RBC 4.66 Hgb 13.8 L Hct 41.1 L MCV 88.2 MCH 29.6 MCHC 33.6 RDW 12.9 Plt Count 244 MPV 10.7 Immature Gran % (Auto) 0.5 H Neut % (Auto) 61.8 Lymph % (Auto) 22.9 [place] % (Auto) 9.9 Eos % (Auto) 4.6 H Baso % (Auto) 0.3 Lymph # (Auto) 1.5 [place] # (Auto) 0.7 Eos # (Auto) 0.3 Baso # (Auto) 0.0 Abs Immat Gran (auto) 0.03 Absolute Neuts (auto) 4.1 Absolute Nucleated RBC 0.000 Nucleated RBC % (auto) 0.0 Sodium 143 Potassium 4.5 Chloride 107 Carbon Dioxide 29 Anion Gap 12 BUN 21 H Creatinine 0.95 Estim Creat Clear Calc TNP Estimated GFR > 60 Random Glucose 98 Estimat Average Glucose 120 Hemoglobin A1c % 5.8 Calcium 9.3 Total Bilirubin 0.8 AST 18 ALT 17 Alkaline Phosphatase 60 Total Protein 7.6 Albumin 3.9 Urine Color Yellow Urine Appearance Clear Urine pH 6.0 Ur Specific [place] 1.025 Urine Protein Negative Urine Glucose (UA) Negative Urine Ketones Negative Urine Blood Negative Urine Nitrite Negative Ur Leukocyte Esterase Negative Narrative Narrative: EKG 01/2024 Vent. Rate : 060 BPM Atrial Rate : 060 BPM P-R Int : 170 ms QRS Dur : 102 ms QT Int : 414 ms P-R-T Axes : 028 -19 022 degrees QTc Int : 414 ms Normal sinus rhythm Normal ECG When compared with ECG of 03-DEC-2004 08:52, No significant change was found Airway Mallampati Class: I TM Dist: >3cm Neck ROM: Limited (has episodes of vertigo with certain neck movement) Loose/Missing/Broken Teeth: Yes (Missing throughout) Heart: RRR Lungs: CTAB Assessment and Plan Assessment Anesthesia Assessment: Anesthesia Plan Discussed and PAT Visit
[2024-02-26 16:18] LABS: MRSA Nasal PCR NEGATIVE (Negative); SA Nasal PCR POSITIVE (Negative)
== END 2024-02-26 00:01 | disposition home or self-care (01) ==
LOC: HO.PAT
PROVIDERS: Physician Assistant; PCP Internal Medicine; Visit Provider Orthopaedic Surgery
DX: Z01.818 Encounter for other preprocedural examination (principal)
CPT/HCPCS: 36415; 80053; 81003; 83036; 85025; 86850; 86900; 86901; 87640; 87641; 93005

== ENCOUNTER 2024-02-27 10:22 | Outpatient (AMB) | payer MEDICARE, MEDICAID, SELFPAY ==
[2024-02-27 10:25] VITALS: BMI 29.1
--- NOTE | 2024-02-27 10:25 | MHC.OFFVIS ---
Vital Signs 02/27/24 10:25 Height 5 ft 9.5 in Weight 200 lb BMI 29.1 Intake Visit Reasons: Bilateral knee pain Intake Note: Bharathi is a 63 year old male who presents with complaints of progressively worsening bilateral knee pains. The patient was initially scheduled to undergo right total knee replacement surgery over the next few weeks. He wishes to hold off on surgery because at this point his left knee pain and mechanical symptoms are more bothersome to him than his right knee pain. The patient states that he injured his left knee several years ago. He twisted his knee and had acute onset of pain. Most of the pain is along the medial aspect of his left knee. States that his left knee will give out several times per day. He denies any mechanical symptoms in his right knee. Has had cortisone injections in the past which gave him minimal relief. He has also done physical therapy which aggravated his pain. Has tried Tylenol and anti-inflammatory medicines which gave him minimal relief. . Allergies No Known Allergies Allergy (Verified 02/27/24 10:36) Medication List - Last Reconciled 02/27/24 by Claudy Cox MD albuterol sulfate 90 mcg/actuation (ProAir HFA) 2 puffs inhalation Q4-6H PRN 30 days atorvastatin 20 mg PO BEDTIME 90 days calcium carbonate-vitamin D3 600 mg-5 mcg (200 unit) 1 tab PO QAM clonidine HCl 0.2 mg (2 x 0.1 mg) PO BEDTIME 30 days naproxen sodium 220 mg PO BID PRN sildenafil 100 mg PO DAILY PRN 28 days tamsulosin (Flomax) 0.4 mg PO BEDTIME 90 days turmeric 400 mg PO QAM vitamin B complex (B Complex-Vitamin B12 tablet) 1 tab PO DAILY walker Folding Front wheeled walker [facility] Medical History (Updated 02/27/24 @ 11:01 by Claudy Cox MD) Vertigo ADHD (attention deficit hyperactivity disorder) Osteoarthritis COPD (chronic obstructive pulmonary disease) Sleep apnea Overweight (BMI 25.0-29.9) Insomnia Essential hypertension Exercise-induced asthma Benign prostatic hyperplasia Pure hypercholesterolemia Surgical History (Updated 02/26/24 @ 13:02 by Quiana Lennon RN) Hx of arthroscopy of shoulder Hx of excision of mass Hx of colonoscopy History of repair of hiatal hernia Hx of right inguinal hernia repair Hx of arthroscopy of right knee History of rotator cuff surgery Family History Father Dementia Social History (Updated 02/01/24 @ 09:54 by Clark Anguiano MD) Housing: House Are you a primary manager medicare marketing to a significant other at home: No Do you presently have visiting nurse or other home services: No Patient Tobacco Use Status: Former Tobacco user Quit Date: 1997 Tobacco use type: Cigarette Years Smoked: 14 e-Cigarette/Vaping Use: Former Use Second Hand Smoke Exposure: No Use of substances other than those prescribed or required for medical reasons: Yes Substance Use Type Other:: CBD gummies only Have you been hit, kicked, punched, or otherwise hurt by someone within the past year? If so, by whom?: No Are you DNR?: No Advance Directives: No Advance Directives Information Provided: Yes (brochure given) Advance Directives on File: No Recently lost weight without trying: No Eating poorly because of decreased appetite: No Nutrition Risks: No Nutritional Risk Poor oral hygiene: No (missing teeth upper & lower) service: Yes Current occupational status: retired Current occupational exposures/hazards: No Cognitive needs: Yes Hearing needs: No Vision needs: Yes Physical Exam Vital Signs: BMI result Body Mass Index 29.1 Const Other: Well-nourished well-developed very friendly male awake alert and oriented x3 in no acute distress Extrem Other: Bilateral lower extremity examination shows good capillary refill, no skin lesions noted, normal sensation light touch Left knee examination shows a minimal effusion, minimal crepitus with range of motion, tenderness along his medial joint line, positive Antwon's test, no instability Right knee examination shows a minimal effusion, palpable crepitus with range of motion, pain with range of motion, negative Antwon's test, range of motion from -3 degrees to 115 degrees, no instability Results Reviewed Results Reviewed: X-rays of the patient's right knee show severe joint space narrowing, subchondral sclerosis, osteophyte formation, no acute bony abnormalities Assessment & Plan Assessment & Plan (1) Left knee pain: Code(s): M25.562 - Pain in left knee Category: Medical (2) Pain in both knees: Code(s): M25.561 - Pain in right knee; M25.562 - Pain in left knee Plan Mr. Sandoval presents with progressively worsening left knee pain and mechanical symptoms most likely due to a tear of his medial meniscus. The patient also has right knee pain due to severe degenerative joint disease. At this point we will hold off on right total knee replacement surgery as per the patient's request. I will send him for an MRI of his left knee for further evaluation. I we will see him back following the MRI to discuss the findings and treatment options. Feel free to call me at any time should questions regarding his orthopedic management arise. I spent 21 minutes in reviewing the patient's records and imaging studies, seeing the patient and documenting in the medical record. Orders: Orders MR knee LT wo con Today M25.562 - Pain in left knee Coding Level of Care Code Est Pt Level 3 (86340) Diagnoses Left knee pain M25.562 Pain in both knees M25.561; M25.562
== END 2024-02-27 11:06 | disposition home or self-care (01) ==
LOC: HO.HOS 10:22
PROVIDERS: PCP Internal Medicine; Visit Provider Orthopaedic Surgery
DX: M25.562 Pain in left knee (principal); M25.561 Pain in right knee
CPT/HCPCS: 99213

== ENCOUNTER → 2024-02-27 10:22 | Outpatient (BNVA) | payer MEDICARE, MEDICAID, SELFPAY | PROVIDERS: PCP Internal Medicine; Visit Provider Orthopaedic Surgery | DX: M25.562 Pain in left knee (principal); M17.11 Unilateral primary osteoarthritis, right knee | CPT/HCPCS: 99212 ==

== ENCOUNTER 2024-04-01 19:30 | Outpatient (REF) | payer MEDICARE, MEDICAID, SELFPAY ==
--- NOTE | ~2024-04-01 | MR_ITS ---
EXAMINATION: MR KNEE WITHOUT CONTRAST, LEFT CLINICAL INFORMATION: Left knee pain and weakness. COMPARISON: None available. TECHNIQUE: MRI of the knee without contrast was performed using routine sequences on a high-field scanner. FINDINGS: MENISCI: Medial Meniscus: Possible minimal inner margin fraying of the meniscal body. Edema along the periphery of the posteromedial meniscus which could represent a nondisplaced meniscocapsular injury. Lateral Meniscus: Oblique tibial articular surface tearing of the meniscal body extending through the posterior horn. Attenuation and irregularity of the posterior horn/root junction, consistent with complex tearing. Flattening and complex tearing of the anterior horn and root with a central parameniscal cyst measuring up to 0.9 cm. LIGAMENTS: Cruciate: Thickening and increased T2 signal with intrasubstance fluid signal in the anterior cruciate ligament consistent with mucoid degeneration. More mild degenerative signal within the posterior cruciate ligament. Collateral: Intact. EXTENSOR MECHANISM: Intact. ARTICULAR CARTILAGE/BONE: Patellofemoral Compartment: Inferior patellar median ridge partial-thickness articular cartilage loss. Central and medial trochlea partial-thickness articular cartilage loss and signal heterogeneity. Tiny marginal osteophytes. Medial Compartment: Probable healed weightbearing medial femoral condyle osteochondral lesion which measures approximately 2.2 x 1.5 cm (AP x ML). No marrow edema or evidence of acute injury. No evidence of fragmentation or instability. Diffuse weightbearing medial femoral condyle articular cartilage signal heterogeneity and surface irregularity with small marginal osteophytes. Lateral Compartment: Weightbearing articular cartilage thinning and signal heterogeneity with extension to the posterior non-weightbearing lateral femoral condyle. Posterolateral tibial plateau full-thickness articular cartilage loss. Marginal osteophytes. JOINT FLUID AND BURSAE: Small joint effusion. Loose body within the popliteal tendon sheath measuring up to 0.8 cm. MR/MR knee LT wo con IMPRESSION: 1. Oblique tibial articular surface tearing of the lateral meniscal body extending through the posterior horn. Attenuation and complex tearing of the posterior horn/root junction. Complex tearing of the anterior horn and root with a central parameniscal cyst measuring up to 0.9 cm. 2. Possible minimal inner margin fraying of the medial meniscal body. Edema along the periphery of the posteromedial meniscus which could represent a nondisplaced meniscocapsular injury. 3. Mucoid degeneration of the anterior cruciate ligament with more mild degenerative signal within the posterior cruciate ligament. 4. Mild tricompartmental osteoarthritis. Small joint effusion. Loose body within the popliteal tendon sheath measuring up to 0.8 cm.
== END 2024-04-01 19:31 | disposition home or self-care (01) ==
LOC: HO.MRI 19:30
PROVIDERS: PCP Internal Medicine; Visit Provider Orthopaedic Surgery
DX: M25.562 Pain in left knee (principal)
CPT/HCPCS: 73721

== ENCOUNTER 2024-04-02 08:42 | Outpatient (REF) | payer MEDICARE, MEDICAID, SELFPAY ==
--- NOTE | ~2024-04-02 | XR_ITS ---
EXAMINATION: XR SHOULDER, LEFT CLINICAL INFORMATION: Pain in left shoulder. COMPARISON: None available. TECHNIQUE: 2 views of the left shoulder. FINDINGS: Mild degenerative changes. The bones are diffusely demineralized. No abnormal soft tissue calcifications identified adjacent to the humeral head. Narrowing of the subacromial space. Sclerotic focus overlying the proximal humerus, possibly representing a bone island. XR/XR shoulder LT min 2V IMPRESSION: Degenerative changes with narrowing of the subacromial space as detailed above.
== END 2024-04-02 08:43 | disposition home or self-care (01) ==
LOC: HO.HOSX 08:42
PROVIDERS: Visit Provider Orthopaedic Surgery
DX: M25.512 Pain in left shoulder (principal)
CPT/HCPCS: 73030; 99212

== ENCOUNTER 2024-04-02 09:18 | Outpatient (AMB) | payer MEDICARE, MEDICAID, SELFPAY ==
--- NOTE | 2024-04-02 09:25 | MHC.OFFVIS ---
Vital Signs 04/02/24 09:36 Height 5 ft 9.5 in Weight 195 lb BMI 28.4 Intake Visit Reasons: Left shoulder pain Intake Note: Bharathi is a 63 year old male who presents today for a new problem visit for left shoulder pain and weakness. The patient states that he did undergo ?left shoulder reconstructive surgery? approximately 15 years ago. He states that he re-injured his left shoulder several months ago while bench pressing heavy weight. Had acute onset of pain. Since that time he has had difficulty lifting his left hand above shoulder height. Has had injections in the past which gave him minimal relief. He has failed the last 6 weeks of conservative treatment. Has tried Tylenol and anti-inflammatory medicines which gave him minimal relief. Allergies No Known Allergies Allergy (Verified 04/02/24 09:36) Medication List - Last Reconciled 04/02/24 by Claudy Cox MD albuterol sulfate 90 mcg/actuation (ProAir HFA) 2 puffs inhalation Q4-6H PRN 30 days atorvastatin 20 mg PO BEDTIME 90 days calcium carbonate-vitamin D3 600 mg-5 mcg (200 unit) 1 tab PO QAM clonidine HCl 0.2 mg (2 x 0.1 mg) PO BEDTIME 30 days naproxen sodium 220 mg PO BID PRN sildenafil 100 mg PO DAILY PRN 28 days tamsulosin (Flomax) 0.4 mg PO BEDTIME 90 days turmeric 400 mg PO QAM vitamin B complex (B Complex-Vitamin B12 tablet) 1 tab PO DAILY walker Folding Front wheeled walker [facility] Medical History (Updated 03/28/24 @ 10:13 by Claudy Cox MD) Vertigo ADHD (attention deficit hyperactivity disorder) Osteoarthritis COPD (chronic obstructive pulmonary disease) Sleep apnea Overweight (BMI 25.0-29.9) Insomnia Essential hypertension Exercise-induced asthma Benign prostatic hyperplasia Pure hypercholesterolemia Surgical History (Updated 02/26/24 @ 13:02 by Quiana Lennon RN) Hx of arthroscopy of shoulder Hx of excision of mass Hx of colonoscopy History of repair of hiatal hernia Hx of right inguinal hernia repair Hx of arthroscopy of right knee History of rotator cuff surgery Family History Father Dementia Social History (Updated 02/01/24 @ 09:54 by Clark Anguiano MD) Housing: House Are you a primary foster care therapist to a significant other at home: No Do you presently have visiting nurse or other home services: No Patient Tobacco Use Status: Former Tobacco user Tobacco use type: Cigarette Years Smoked: 14 e-Cigarette/Vaping Use: Former Use Second Hand Smoke Exposure: No service: Yes Current occupational status: retired Current occupational exposures/hazards: No Cognitive needs: Yes Hearing needs: No Vision needs: Yes Physical Exam Vital Signs: BMI result Body Mass Index 28.4 Const Other: Well-nourished well-developed very friendly male awake alert and oriented x3 in no acute distress Extrem Other: Bilateral upper extremity examination shows good capillary refill, no skin lesions noted, normal sensation light touch Left shoulder examination shows full passive range of motion but decreased active range of motion when compared to his right shoulder, 4/5 strength with supraspinatus testing, positive impingement signs, tenderness over his acromioclavicular joint, no instability Results Reviewed Results Reviewed: X-rays of the patient's left shoulder taken today show severe acromioclavicular joint narrowing, a type 2 acromion, no acute bony abnormalities Assessment & Plan Assessment & Plan (1) Left shoulder pain: Code(s): M25.512 - Pain in left shoulder Category: Medical Plan Mr. Sandoval presents with progressively worsening left shoulder pain and weakness most likely due to a recurrent rotator cuff tear. Thus, I will send the patient for an MRI of his left shoulder for further evaluation. I will see him back once the MRI is completed to discuss the findings and treatment options. He will continue with his activity modifications in the meantime. Feel free to call me at any time should questions regarding his orthopedic management arise. I spent 21 minutes in reviewing the patient's records and imaging studies, seeing the patient and documenting in the medical record. Orders: Orders XR shoulder LT min 2V Today M25.512 - Pain in left shoulder MR shoulder LT wo con Today M25.512 - Pain in left shoulder Coding Level of Care Code Est Pt Level 3 (42074) Diagnoses Left shoulder pain M25.512
[2024-04-02 09:36] VITALS: BMI 28.4
== END 2024-04-02 09:51 | disposition home or self-care (01) ==
PROVIDERS: PCP Internal Medicine; Visit Provider Orthopaedic Surgery
DX: M25.512 Pain in left shoulder (principal)
CPT/HCPCS: 99213

== ENCOUNTER 2024-05-09 09:20 | Outpatient (AMB) | payer MEDICARE, SELFPAY ==
--- NOTE | 2024-05-09 09:33 | MHC.PC.OV ---
Vital Signs 05/09/24 09:34 Height 5 ft 9.5 in Weight 191 lb 2 oz BMI 27.8 BP 112/74 Blood Pressure Location Lt brachial Position Sitting Pulse 89 Pulse Source Pulse Oximeter Pulse Oximetry (%) 96 Oxygen Delivery Method Room Air Intake Visit Reasons: hyperlipidemia, OA Allergies No Known Allergies Allergy (Verified 05/09/24 10:01) Medication List - Last Reconciled 05/09/24 by Clark Anguiano MD albuterol sulfate 90 mcg/actuation 2 puffs inhalation Q4-6H PRN 30 days atorvastatin 20 mg PO BEDTIME 90 days calcium carbonate-vitamin D3 600 mg-5 mcg (200 unit) 1 tab PO QAM clonidine HCl 0.2 mg (2 x 0.1 mg) PO BEDTIME 30 days naproxen sodium 220 mg PO BID PRN sildenafil 100 mg PO DAILY PRN 28 days tamsulosin (Flomax) 0.4 mg PO BEDTIME 90 days turmeric 400 mg PO QAM vitamin B complex (B Complex-Vitamin B12 tablet) 1 tab PO DAILY walker Folding Front wheeled walker Tobacco use date assessed: 02/01/24 Dental Screening Dental Screen Date: 02/01/24 HPI hyperlipidemia, OA HPI Details Patient comes in today for his follow up visit Relates that he got dehydrated [place] the beach with [place] about 3 weeks ago He has lost a lot of weight and has been experiencing recurrent headaches, dry mouth, loss of appetite, trouble sleeping at night and other symptoms since States that most of these symptoms are starting to ease up and his appetite is starting to return He also was not able to get his knee surgery done as previously scheduled because he suffered a left shoulder injury He will be getting an MRI of his left shoulder next week for further evaluation after which he will then see orthopedics for follow up States that the plan is to get his left shoulder issues addressed first, then go back and take care of his knee He denies any chest pains, no SOB No nausea/vomiting, no abdominal pain No change in bowel habits noted He was not able to get his follow up labs done prior to appt today - states that he will go get these done as soon as he leaves the office after his appt today [facility] Medical History Vertigo ADHD (attention deficit hyperactivity disorder) Osteoarthritis COPD (chronic obstructive pulmonary disease) Sleep apnea Overweight (BMI 25.0-29.9) Insomnia Essential hypertension Exercise-induced asthma Benign prostatic hyperplasia Pure hypercholesterolemia Surgical History Hx of arthroscopy of shoulder Hx of excision of mass Hx of colonoscopy History of repair of hiatal hernia Hx of right inguinal hernia repair Hx of arthroscopy of right knee History of rotator cuff surgery Family History Father Dementia Social History Housing: House Are you a primary team primary care physician to a significant other at home: No Do you presently have visiting nurse or other home services: No Patient Tobacco Use Status: Former Tobacco user Tobacco use type: Cigarette Years Smoked: 14 e-Cigarette/Vaping Use: Former Use Second Hand Smoke Exposure: No service: Yes Current occupational status: retired Current occupational exposures/hazards: No Cognitive needs: Yes Hearing needs: No Vision needs: Yes Questionnaire Thrive Questionnaire Date Thrive assessed: 02/01/24 CHAUNCEY-7 AMB Questionnaire CHAUNCEY-7 Date CHAUNCEY - 7 assessed: 02/01/24 Source: Developed by Drs. Migue Ferrera, Trisha Adams, Ghulam Sharp and colleagues, with an educational lucas from [employer]. Review of Systems Const Denies chills, Reports difficulty sleeping, Denies fatigue, Denies fever(s) and Denies headache(s) ENT Denies dysphagia, Denies dizziness, Denies otalgia, Denies headache(s), Denies neck pain, Denies odynophagia and Denies sore throat Card Denies chest pain, Denies palpitations and Denies dyspnea Resp Denies chest congestion, Denies cough, Denies dyspnea and Denies wheezing GI Denies abdominal pain, Denies constipation, Denies dysphagia, Denies heartburn, Denies diarrhea, Denies nausea, Denies odynophagia and Denies vomiting Denies dysuria, Denies nocturia and Denies urinary frequency Musc Denies back pain, Reports arthralgias (both knees, R > L; now also has left shoulder pain) and Denies neck pain Skin/Breast Denies rash Neuro Denies dizziness and Denies headache(s) Endo Denies fatigue and Denies palpitations Aller/Immun Denies wheezing Physical exam (Primary Care) Vital Signs: Last Vital Signs Pulse 89 05/09/24 09:34 BP 112/74 05/09/24 09:34 Pulse Ox 96 05/09/24 09:34 Oxygen Delivery Method Room Air 05/09/24 09:34 BMI result Body Mass Index 27.8 Tobacco/Smoking Status: Tobacco use Status Tobacco use date assessed 02/01/24 05/09/24 09:33 Patient Tobacco Use Status Former Tobacco user 05/09/24 09:33 Tobacco use type Cigarette 05/09/24 09:33 e-Cigarette/Vaping Use Former Use 05/09/24 09:33 Thrive Assessment: Date of Thrive Assessment Date Thrive assessed 02/01/24 05/09/24 09:33 Const General: no acute distress and alert HENMT Ears: TM's normal bilaterally and EAC's normal Throat: Yes posterior oropharynx normal and Yes tonsils normal (no TP congestion) Neck Neck: Yes no lymphadenopathy and Yes supple Thyroid: Thyroid normal Resp Auscultation: clear to auscultation bilaterally, no rales and no wheezes Cardio Rate: regular rate Rhythm: regular rhythm Heart sounds: no murmurs GI Palpation (GI): Soft to palpation and nontender Auscultation: normal bowel sounds General: Yes no CVA tenderness Back/Spine/Pelvis Back: no CVA tenderness Thoracic/Lumbar Spine: No lumbar spinal tenderness Skin Rashes: no rashes Extrem General: Yes no clubbing, cyanosis or edema Left upper extremity: shoulder/upper arm Details: tenderness Location: of the A-C joint; no swelling Right lower extremity: knee Details: tenderness; no swelling Left lower extremity: knee Details: tenderness; no swelling Assessment and Plan Assessment & Plan (1) Osteoarthritis of right knee: Code(s): M17.11 - Unilateral primary osteoarthritis, right knee Qualifiers: Osteoarthritis type: primary Qualified Code(s): M17.11 - Unilateral primary osteoarthritis, right knee Plan: He was originally scheduled to undergo a total right knee arthroplasty under spinal anesthesia with Dr. Cox on 03/04/2024 but was sent first for an MRI of the knee, which was eventually done in early March 2024 He ended up hurting his left shoulder and is now trying to get his left shoulder issue addressed first before going back to his knee(s) Continue Naproxen 220 mg BID PRN for now (2) Essential hypertension: Code(s): I10 - Essential (primary) hypertension Plan: Reinforced low sodium diet - goal is systolic BP of at least 120 mm or less Continue Clonidine 0.2 mg Q HS He is reminded to monitor his blood pressure regularly (3) Pure hypercholesterolemia: Code(s): E78.00 - Pure hypercholesterolemia, unspecified Plan: He was not able to get his follow up labs done prior to today's visit - states that he will go and get these done after he leaves the office today Reinforced low cholesterol diet His total and LDL cholesterol were both under excellent control (total = 172, LDL = 89) when they were last checked in June 2023 Continue Atorvastatin 20 mg Q HS Will have patient recheck his labs and fasting lipids in 3 months for follow up (4) Exercise-induced asthma: Comment: uses inhaler before exercising Code(s): J45.990 - Exercise induced bronchospasm Plan: Continue Albuterol HFA 2 inhalations Q 6 hours PRN Patient states that he only uses his inhaler preventively, mostly just before he starts working out or exercising (5) Elevated fasting glucose: Code(s): R73.01 - Impaired fasting glucose Plan: His FBS was elevated at 111 mg/dl back in June 2023 but he did have a normal RBS at 93 mg/dl when last checked in November 2023 HgbA1c was normal at 5.8% back in January 2024 Reinforced low calorie/low carb diet (6) Benign prostatic hyperplasia: Code(s): N40.0 - Benign prostatic hyperplasia without lower urinary tract symptoms Qualifiers: Lower urinary tract symptom presence: unspecified whether lower urinary tract symptoms present Qualified Code(s): N40.0 - Benign prostatic hyperplasia without lower urinary tract symptoms Plan: Continue Tamsulosin 0.4 mg Q HS Follow up with urology as scheduled (7) Insomnia: Code(s): G47.00 - Insomnia, unspecified Qualifiers: Insomnia type: unspecified Qualified Code(s): G47.00 - Insomnia, unspecified Plan: Sleep hygiene reinforced Continue Diphenhydramine 75 mg Q HS for insomnia (8) Overweight (BMI 25.0-29.9): Code(s): E66.3 - Overweight Plan: Reinforced diet/exercise as tolerated/lose weight, although this may be difficult given his ongoing knee issues and recent left shoulder injury Plan Follow up in 3 months Orders: Orders Comprehensive Wilson. Panel Fast 3 Months E78.00 - Pure hypercholesterolemia, unspecified Lipid Panel 3 Months E78.00 - Pure hypercholesterolemia, unspecified Complete Blood Count Auto Diff 3 Months D64.9 - Anemia, unspecified Coding Level of Care Code Est Pt Level 4 (07464) Diagnoses Primary osteoarthritis of right knee M17.11 Osteoarthritis type: primary Essential hypertension I10 Pure hypercholesterolemia E78.00 Exercise-induced asthma J45.990 Elevated fasting glucose R73.01 Benign prostatic hyperplasia, unspecified whether lower urinary tract symptoms present N40.0 Lower urinary tract symptom presence: unspecified whether lower urinary tract symptoms present Insomnia, unspecified type G47.00 Insomnia type: unspecified Overweight (BMI 25.0-29.9) E66.3
[2024-05-09 09:34] VITALS: BP 112/74; PULSE 89; O2SAT 96; BMI 27.8
== END 2024-05-09 10:38 | disposition home or self-care (01) ==
PROVIDERS: PCP Internal Medicine; Visit Provider Internal Medicine
DX: M17.11 Unilateral primary osteoarthritis, right knee (principal); I10 Essential (primary) hypertension; E78.00 Pure hypercholesterolemia, unspecified; J45.990 Exercise induced bronchospasm; R73.01 Impaired fasting glucose; N40.0 Benign prostatic hyperplasia without lower urinary tract symptoms; G47.00 Insomnia, unspecified; E66.3 Overweight
CPT/HCPCS: 99214

== ENCOUNTER 2024-05-09 10:24 | Outpatient (REF) | payer MEDICARE, SELFPAY ==
[2024-05-09 11:32] LABS: Hematocrit 43.1 % (42.0-52.0); Mean Corpuscular HGB Conc 32.5 g/dl (31.0-36.0); Mean Corpuscular Hemoglobin 29.2 pg (27.0-33.0); Mean Corpuscular Volume 89.8 fL (80.0-98.0); Mean Platelet Volume 9.8 fL (9.4-12.4); Platelet Count 259 X10*3/uL (160-400); Red Cell Distribution Width 12.8 % (11.0-16.0); White Blood Count 11.1 X10*3/uL (4.8-10.8)
[2024-05-09 12:17] LABS: Alanine Aminotransferase 49 U/L (0-40); Albumin Level 3.8 g/dL (3.5-5.0); Alkaline Phosphatase 91 U/L (39-117); Anion Gap 14 (12-20); Aspartate Amino Transferase 42 U/L (5-37); Bilirubin Total 0.6 mg/dL (0.0-1.0); Blood Urea Nitrogen 11 mg/dL (9-16); Calcium 9.1 mg/dL (8.4-10.2); Carbon Dioxide 26 mmol/L (22-29); Chloride 104 mmol/L (96-108); Cholesterol 119 mg/dL (<200); Estimated Glomerular Filt Rate > 60; Glucose Fasting 102 mg/dL (60-99); HDL Cholesterol 28 mg/dL (>40); LDL Cholesterol Calculated 67 mg/dL (<100); Potassium 4.3 mmol/L (3.3-5.1); Sodium 140 mmol/L (135-145); Total Protein 7.6 g/dL (6.5-8.0); Triglycerides 124 mg/dL (<150)
[2024-05-09 12:26] LABS: TSH reflex Free T4 2.71 uIU/mL (0.32-4.0); Vitamin D 25-OH Total 21.5 ng/mL (>30)
[2024-05-09 12:37] LABS: Atypical Lymph Absolute Manual 0.6 x10*3/uL; Atypical Lymphs Percent Manual 5 % (0-6); Band Neutrophils Percent 2 % (3-5); Basophils Abs Manual 0.1 X10*3/uL (0.0-0.2); Basophils Percent Manual 1 % (0-2); Lymphocytes Absolute Manual 7.7 X10*3/uL (1.2-4.9); Lymphocytes Percent Manual 69 % (20-40); Monocytes Absolute Manual 0.7 X10*3/uL (0.1-1.2); Monocytes Percent Manual 6 % (2-11); Neutrophils Absolute Manual 2.1 X10*3/uL (2.0-8.3); Neutrophils Percent Manual 17 % (45-73)
[2024-05-09 12:40] LABS: RBC Morphology NOTED
[2024-05-09 12:43] LABS: Burr Cells 1+ (0-2) /OIF; Ovalocytes 1+ (5-14) /OIF; Polychromasia 1+ (0-2) /OIF
[2024-05-09 12:44] LABS: Platelet Estimate NORMAL (NORMAL); Platelet Morphology Comment NORMAL
[2024-05-09 12:51] LABS: Smudge Cells PRESENT
[2024-05-09 12:52] LABS: Appearance Urine Clear; Color Urine Yellow; Glucose Urine UA Negative (Negative); Leukocyte Esterase Urine Negative (Negative); Nitrite Urine Negative (Negative); PH 5.5 (5.0-9.0); Specific Gravity - Urine 1.015 (1.005-1.025); Urine Blood Negative (Negative); Urine Ketones Negative (Negative); Urine Protein Negative (Neg-Trace)
== END 2024-05-09 10:25 | disposition home or self-care (01) ==
LOC: HO.LAB 10:24
PROVIDERS: PCP Internal Medicine; Visit Provider Internal Medicine
DX: E78.00 Pure hypercholesterolemia, unspecified (principal); R30.0 Dysuria; E55.9 Vitamin D deficiency, unspecified
CPT/HCPCS: 36415; 80053; 80061; 81003; 82306; 84443; 85007; 85025; 85027

== ENCOUNTER 2024-05-16 07:06 | Outpatient (REF) | payer MEDICARE, SELFPAY ==
--- NOTE | ~2024-05-16 | MR_ITS ---
EXAMINATION: MR SHOULDER WITHOUT CONTRAST, LEFT CLINICAL INFORMATION: Left shoulder pain COMPARISON: Radiographs 04/02/2024 TECHNIQUE: MRI of the shoulder without contrast was performed on a high-field scanner. FINDINGS: ROTATOR CUFF: Evidence of previous surgery with micrometallic artifact. The supraspinatus tendon is completely torn and retracted beyond the apex of the humeral head. Full-thickness tearing involves the anterior infraspinatus tendon. High-grade partial tearing of the subscapularis tendon which is markedly attenuated superiorly, with superficial fibers remaining intact. Moderate atrophy of the superior portion of the subscapularis muscle and mild supraspinatus and infraspinatus muscle atrophy. BICEPS: The biceps tendon is completely torn and retracted. CORACOACROMIAL ARCH: The undersurface of the acromion is post acromioplasty with no subacromial spur. Mild acromioclavicular osteoarthritis. LABRUM/CAPSULE: The superior labrum is blunted and diminutive. GLENOHUMERAL JOINT/MARROW: Small joint effusion. Degenerative spurring along the greater tuberosity. MR/MR shoulder LT wo con IMPRESSION: 1. Completely torn and retracted supraspinatus tendon. Full-thickness tearing of the anterior infraspinatus tendon. High-grade partial tearing of the subscapularis tendon with moderate muscle atrophy. Mild supraspinatus/infraspinatus muscle atrophy. 2. Completely torn and retracted biceps tendon. 3. Mild acromioclavicular and glenohumeral osteoarthritis with a small joint effusion.
== END 2024-05-16 07:07 | disposition home or self-care (01) ==
LOC: HO.MRI 07:06
PROVIDERS: PCP Internal Medicine; Visit Provider Orthopaedic Surgery
DX: M25.512 Pain in left shoulder (principal)
CPT/HCPCS: 73221

== ENCOUNTER 2024-05-27 08:50 | Outpatient (REF) | payer MEDICARE, SELFPAY ==
[2024-05-27 09:07] LABS: MANUAL DIFF FLAG NO
[2024-05-27 09:10] LABS: Basophils Percent Auto 0.3 % (0-2); Eosinophils Absolute Auto 0.2 X10*3/uL (0.0-0.4); Eosinophils Percent Auto 2.4 % (0-4); Hematocrit 41.7 % (42.0-52.0); Hemoglobin 13.7 g/dl (14.0-18.0); Imm Gran Abs Auto 0.02 X10*3/uL (0.00-0.03); Imm Gran Pct Auto 0.3 % (0.0-0.4); Lymphocytes Absolute Auto 3.6 X10*3/uL (1.2-4.9); Lymphocytes Percent Auto 46.4 % (20-40); Mean Corpuscular HGB Conc 32.9 g/dl (31.0-36.0); Mean Corpuscular Volume 88.2 fL (80.0-98.0); Monocytes Absolute Auto 0.7 X10*3/uL (0.1-1.2); Monocytes Percent Auto 8.6 % (2-11); Neutrophils Absolute Auto 3.3 x10*3/uL (2.0-8.3); Platelet Count 164 X10*3/uL (160-400); Red Blood Count 4.73 X10*6/uL (4.60-5.80); Red Cell Distribution Width 12.8 % (11.0-16.0); White Blood Count 7.8 X10*3/uL (4.8-10.8)
[2024-05-27 09:58] LABS: Syphilis Screen Nonreactive (Nonreactive)
[2024-05-27 10:14] LABS: HBS Num1 2.76 mIU/mL (0-7.99); HBc Num1 0.43 S/CO (0.00-0.79); HBsAGNum1 0.23 S/CO (0.00-0.99); HIV AB/AG Nonreactive (Nonreactive); HIV Num 1 0.06 S/CO (0.00-0.99); Hepatitis B Core Antibody Nonreactive (Nonreactive); Hepatitis B Surface Antigen Negative (Negative); ~HepC Num1 1.32 S/CO (0.00-0.79); ~Hepatitis B Surface Antibody NONREACTIVE (Nonreactive); ~Hepatitis C Antibody Reactive (Nonreactive)
== END 2024-05-27 08:51 | disposition home or self-care (01) ==
LOC: HO.LAB 08:50
PROVIDERS: PCP Internal Medicine; Visit Provider Internal Medicine
DX: Z11.4 Encounter for screening for human immunodeficiency virus [HIV] (principal); D64.9 Anemia, unspecified; Z20.2 Contact with and (suspected) exposure to infections with a predominantly sexual mode of transmission
CPT/HCPCS: 36415; 85025; 86704; 86706; 86780; 86803; 87340; 87389

== ENCOUNTER 2024-06-06 08:08 | Outpatient (AMB) | payer MEDICARE, SELFPAY ==
[2024-06-06 08:12] VITALS: BP 106/60; PULSE 62; O2SAT 94
--- NOTE | 2024-06-06 08:12 | AM.OFFWIN_ITS ---
Intake Vital Signs 06/06/24 08:12 Weight 198 lb BP 106/60 Blood Pressure Location Rt brachial Position Sitting Pulse 62 Pulse Source Pulse Oximeter Pulse Oximetry (%) 94 Oxygen Delivery Method Room Air Intake Visit Reasons: Hemorrhoid Intake Note: Patient here for Hemorrhoid for about 2 weeks and has tried OTC meds. hx of polyps. Patient Tobacco Use Status: Former Tobacco user Allergies No Known Allergies Allergy (Verified 06/06/24 08:13) Do you need a note to return to daycare/school/sports/work: No HPI HPI Comments History of Present Illness Details 63 y/o male patient who presents to the walk in clinic with c/o Hemorroids. Reports noticing it 2 weeks ago. He has been using Pre-H with no much relief. Denies Rectal bleeding or itching. [facility] Medical History Vertigo ADHD (attention deficit hyperactivity disorder) Osteoarthritis COPD (chronic obstructive pulmonary disease) Sleep apnea Overweight (BMI 25.0-29.9) Insomnia Essential hypertension Exercise-induced asthma Benign prostatic hyperplasia Pure hypercholesterolemia Surgical History Hx of arthroscopy of shoulder Hx of excision of mass Hx of colonoscopy History of repair of hiatal hernia Hx of right inguinal hernia repair Hx of arthroscopy of right knee History of rotator cuff surgery Family History Father Dementia Social History Housing: House Are you a primary aged or disabled carer to a significant other at home: No Do you presently have visiting nurse or other home services: No Patient Tobacco Use Status: Former Tobacco user Tobacco use type: Cigarette Years Smoked: 14 e-Cigarette/Vaping Use: Former Use Second Hand Smoke Exposure: No service: Yes Current occupational status: retired Current occupational exposures/hazards: No Cognitive needs: Yes Hearing needs: No Vision needs: Yes Review of Systems Const All systems reviewed & are unremarkable except as noted in HPI and below Physical Exam Vital Signs: Last Vital Signs Pulse 62 06/06/24 08:12 BP 106/60 06/06/24 08:12 Pulse Ox 94 06/06/24 08:12 Oxygen Delivery Method Room Air 06/06/24 08:12 Const General: comfortable and no acute distress Orientation/consciousness: patient oriented x3 GI Rectal Exam - Male: Yes normal sphincter tone, Yes External hemorrhoid(s) present (medium size Hemorrhoid ~ 1cm external. ), No Lesions present (GI), No Fistula present (GI) and Yes hemorrhoids General: Yes no CVA tenderness Back/Spine/Pelvis Back: no CVA tenderness Neuro General: patient oriented x3, gait normal and moves all extremities Psych Speech and movement: Normal speech and movement present Assessment & Plan Assessment & Plan (1) External hemorrhoid: Code(s): K64.4 - Residual hemorrhoidal skin tags Plan: Prescribed Anusol Supp Increased Fiber intake Advised Prob to f/u with Colorectal surgeons for excision procedure. Medications: New hydrocortisone acetate (Anusol-HC) 25 mg DC BID 24 ea 1RF K64.4 - Residual hemorrhoidal skin tags Coding Level of Care Code Est Pt Level 3 (75218) Diagnoses External hemorrhoid K64.4 Time Spent (min) 15
== END 2024-06-06 09:07 | disposition home or self-care (01) ==
PROVIDERS: PCP Internal Medicine; Visit Provider Nurse Practitioner Family
DX: K64.4 Residual hemorrhoidal skin tags (principal)
CPT/HCPCS: 99213

== ENCOUNTER 2024-06-19 11:11 | Outpatient (AMB) | payer MEDICARE, SELFPAY ==
--- NOTE | 2024-06-19 11:11 | A.OFFVIS_ITS ---
Vital Signs 06/19/24 11:12 Height 5 ft 9.5 in Weight 198 lb BMI 28.8 Intake Visit Reasons: OV- left shoulder MRI review Intake Note: Bharathi is a 63 year old male who presents with complaints of left shoulder pain and weakness. The patient states that he did undergo ?left shoulder reconstructive surgery? approximately 15 years ago. He states that he re- injured his left shoulder several months ago while bench pressing heavy weight. Had acute onset of pain. Since that time he has had difficulty lifting his left hand above shoulder height. Has had injections in the past which gave him minimal relief. He has failed the last 6 weeks of conservative treatment. Has tried Tylenol and anti-inflammatory medicines which gave him minimal relief. Allergies No Known Allergies Allergy (Verified 06/19/24 11:12) Medication List - Last Reconciled 06/19/24 by Claudy Cox MD albuterol sulfate 90 mcg/actuation 2 puffs inhalation Q4-6H PRN 30 days atorvastatin 20 mg PO BEDTIME 90 days calcium carbonate-vitamin D3 600 mg-5 mcg (200 unit) 1 tab PO QAM clonidine HCl 0.2 mg (2 x 0.1 mg) PO BEDTIME 30 days hydrocortisone acetate (Anusol-HC) 25 mg NE BID naproxen sodium 220 mg PO BID PRN sildenafil 100 mg PO DAILY PRN 28 days tamsulosin (Flomax) 0.4 mg PO BEDTIME 90 days turmeric 400 mg PO QAM vitamin B complex (B Complex-Vitamin B12 tablet) 1 tab PO DAILY walker Folding Front wheeled walker [facility] Medical History Vertigo ADHD (attention deficit hyperactivity disorder) Osteoarthritis COPD (chronic obstructive pulmonary disease) Sleep apnea Overweight (BMI 25.0-29.9) Insomnia Essential hypertension Exercise-induced asthma Benign prostatic hyperplasia Pure hypercholesterolemia Surgical History Hx of arthroscopy of shoulder Hx of excision of mass Hx of colonoscopy History of repair of hiatal hernia Hx of right inguinal hernia repair Hx of arthroscopy of right knee History of rotator cuff surgery Family History Father Dementia Social History Housing: House Are you a primary healthcare science specialist to a significant other at home: No Do you presently have visiting nurse or other home services: No Patient Tobacco Use Status: Former Tobacco user Tobacco use type: Cigarette Years Smoked: 14 e-Cigarette/Vaping Use: Former Use Second Hand Smoke Exposure: No service: Yes Current occupational status: retired Current occupational exposures/hazards: No Cognitive needs: Yes Hearing needs: No Vision needs: Yes Physical Exam Vital Signs: BMI result Body Mass Index 28.8 Const Other: Well-nourished well-developed very friendly male awake alert and oriented x3 in no acute distress Extrem Other: Bilateral upper extremity examination shows good capillary refill, no skin lesions noted, normal sensation light touch Left shoulder examination shows slightly decreased range of motion when compared to his right shoulder, 3/5 strength with supraspinatus testing, positive impingement signs, no instability Results Reviewed Results Reviewed: MRI of the patient's left shoulder shows chronic tearing of the supraspinatus and infraspinatus tendons with retraction almost to the lip of the glenoid, no acute bony abnormalities Assessment & Plan Assessment & Plan (1) Left shoulder pain: Code(s): M25.512 - Pain in left shoulder Category: Medical Plan Mr. Sandoval presents with left shoulder pain and weakness due to a large rotator cuff tear. I had a lengthy discussion with the patient regarding the treatment options. I am not sure that the patient's rotator cuff tear is reparable at this point. The patient may be a candidate for a repair using a bridging patch. The patient may also be a candidate for reverse total shoulder replacement surgery. Thus, I will have him evaluated by my partner, Dr. Bee, who can further discuss these possible treatment options with the patient. He will continue with his range of motion exercises in the meantime. Feel free to call me at any time should questions regarding his orthopedic management arise. I spent 20 minutes in reviewing the patient's records and imaging studies, seeing the patient and documenting in the medical record. Coding Level of Care Code Est Pt Level 3 (43402) Diagnoses Left shoulder pain M25.512
[2024-06-19 11:12] VITALS: BMI 28.8
== END 2024-06-19 12:02 | disposition home or self-care (01) ==
PROVIDERS: PCP Internal Medicine; Visit Provider Orthopaedic Surgery
DX: M75.122 Complete rotator cuff tear or rupture of left shoulder, not specified as traumatic (principal)
CPT/HCPCS: 99213

== ENCOUNTER → 2024-06-19 11:11 | Outpatient (BNVA) | payer MEDICARE, SELFPAY | PROVIDERS: PCP Internal Medicine; Visit Provider Orthopaedic Surgery | DX: M25.512 Pain in left shoulder (principal); R53.1 Weakness | CPT/HCPCS: 99212 ==

== ENCOUNTER 2024-10-22 12:59 | Outpatient (REF) | payer OTHER, SELFPAY ==
--- OUTSIDE RECORDS SUMMARY | 2024-10-24 14:05 | XMS_ITS ---
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 This section includes the names of all active insurance providers for the patient. Insurance Provider Type of Coverage Plan Name Start of Policy Coverage End of Policy Coverage Group Number Member ID Insurance Provider's Telephone Number Policy De Dios's Name Patient's Relationship to Policy De Dios [facility] MEDICAID MEDICAID MEDIC AID Jul 23, 2014 MEDICAI D [id number] JETT MARIN PATIENT MEDICAID MEDICAID [facility] ST[facility] [place] Jul 23, 2014 MEDICAI D [id number] [facility] Selected Encounter This section includes the information on record at [place] for the Encounter. Date/Time Encounter Type Encounter Description Reason Pro vider Source Jul 19, 2024 12:30 PM Outpatient Encounter PRIMARY CARE/MEDICINE IHE Encounter Template Text not used by [place] Plan of Treatment: Future Appointments (+ 6 months) and Future Tests (+/- 45 days) The Plan of Treatment section includes future care activities for the patient from all VA treatmentfacilities. This section includes future appointments and future orders which are active, pending or scheduled. Future Appointments This section includes appointments that were scheduled to occur 6 months from the date of the Encounter, up to a maximum of 20 appointments. The data comes from all [facility]. Appointment Date/Time Appointment Type Appointme nt Facility Name Jul 23, 2024 02:00 PM [facility]ORY [facility] Aug 27, 2024 02:00 PM [facility]UL[facility]ORY - MEDICINE [facility] Oct 22, 2024 12:40 PM AM[facility]UL[facility]ORY [facility]ICINE [facility] [place] [facility] Oct 22, 2024 02:45 PM AMBULATORY - MEDICINE [facility] [place] [facility] Oct 24, 2024 11:40 AM AMBULATORY - NONE [facility] [place] [facility] Dec 19, 2024 11:30 AM AMBULATORY - NONE [facility] [place] [facility] Dec 30, 2024 08:30 AM AMBULATORY - PSYCHIATRY [facility] [place] [facility] Jan 02, 2025 01:00 PM AMBULATORY - MEDICINE [place] [facility] [place] [facility] Active, Pending, and Scheduled Orders This section includes a listing of several types of active, pending, and scheduled orders, including clinic medications orders, diagnostic test orders, procedure orders and consult orders; where the start date of the order is 45 days before the date of the Encounter or 45 days after the date of theEncounter. The data comes from all [facility]. Test Date/Time Test Type Test Details Facility Name Aug 27, 2024 12:00 AM Laboratory - Chemistry Order LIPID PANEL FASTING BLOOD (SST-SERUM) [facility] Aug 27, 2024 12:00 AM Laboratory - Chemistry Order CBC BLOOD (LAV-BLOOD) [facility] Aug 27, 2024 12:00 AM Laboratory - Chemistry Order HEMOGLOBIN A1C PANEL BLOOD (LAV-BLOOD) [facility] Aug 27, 2024 12:00 AM Laboratory - Chemistry Order TSH BLOOD (SST-SERUM) [facility] Aug 27, 2024 12:00 AM Laboratory - Chemistry Order PSA BLOOD (SST-SERUM) [facility] Aug 27, 2024 12:00 AM Laboratory - Chemistry Order URINALYSIS URINE [facility] Aug 27, 2024 12:00 AM Laboratory - Chemistry Order HEPATITIS C ANTIBODY (HCV)-ARC BLOOD (MARBLED-TOP SERUM) [facility] Aug 27, 2024 12:00 AM Laboratory - Chemistry Order HIV 1&2 Ag/Ab SCREEN BLOOD (SST-SERUM) [facility] Aug 27, 2024 12:00 AM Laboratory - Chemistry Order BASIC METABOLIC PANEL (non-fasting) BLOOD (SST-SERUM) [facility] Aug 27, 2024 12:00 AM Laboratory - Chemistry Order LIVER FUNCTION BLOOD (SST-SERUM) [facility] Aug 27, 2024 02:25 PM Consult Order [facility]-COLONOSCOPY SCREENING Cons Parking Regulation Enforcement Officer's [facility] Aug 27, 2024 06:22 PM Consult Order [facility] Cons Parking Regulation Enforcement Officer's [facility] Aug 27, 2024 06:22 PM Consult Order [facility] Cons Parking Regulation Enforcement Officer's [facility] Aug 27, 2024 06:22 PM Consult Order [facility]-UROLOGY Cons Parking Regulation Enforcement Officer's [facility] Aug 27, 2024 06:22 PM Consult Order [facility]-OPTOMETRY ROUTINE EYE EXAM Cons Parking Regulation Enforcement Officer's [facility] Aug 27, 2024 06:22 PM Consult Order NEUROPSYCH OLOGICAL TESTING OUTPT Cons Parking Regulation Enforcement Officer's [facility] Social History: Smoking Status (Most current) and Tobacco Use (All prior to encounter date) This section includes the most current, and the historical, smoking and tobacco- related health factors from the [place] facility where the Encounter took place. Current Smoking Status This section includes the most current smoking, or tobacco-related health factor, from the [place] facility where the Encounter took place. Date/Time Current Smoking Status Comment Facil ity May 26, 2021 08:00 AM VA-TOBACCO FORMER USER [facility] Tobacco Use History This section includes a history of the smoking, or tobacco-related health factors, that were collected on or before the date of the Encounter. The data comes from the [place] facility where the Encounter took place. Date/Time Smoking Status/Tobacco Use Comment F acility May 26, 2021 08:00 AM [place]-TOBACCO QUIT [facility] YRS OR [facility] Nov 17, 2019 11:32 AM VA-TOBACCO [facility] Nov 17, 2019 11:32 AM [place]-TOBACCO QUIT 15 YRS OR MORE [facility] Advance Directives: All historical and current Section Date Range: From patient's date of to the date document was created. This section includes ALL of a patient's completed or amended [place] Advance and Rescinded Directives. The entries below indicate that a directive exists for the patient, but an actual copy is not included with this document. The data comes from all [place] facilities. Date Advance Directives Provider Source Aug 27, 2024 ADVANCE DIRECTIVE SHAY MILLERSPRING ELD Encounter Notes: All associated encounter notes This section contains the clinical notes associated to the Encounter. Date/Time Encounter Note(s) Provider Source Jul 19, 2024 12:30 PM PRIMARY CARE TELEP KEIRY ENCOUNTER NOTE: LOCAL TITLE: TELEPHONE NOTE/PRIMARY CARE STANDARD TITLE: PRIMARY CARE TELEPHONE ENCOUNTER NOTE DATE OF NOTE: JUL 19, 2024@12:30 ENTRY DATE: JUL 19, 2024@12:30:26 AUTHOR: SHEEBA CASTELLANO EXP COSIGNER: URGENCY: STATUS: COMPLETED Applications Tester called to [ ] Schedule primary care appt [ ] Reschedule primary care appt. [X} Remind of upcoming primary care appt. SPOKE WITH: [place] [ ] Fasting blood work needed, and vet reminded. [ ] Non fasting blood work needed, and vet reminded. [X} No labs needed. outside provider is [facility] JENNA MALDONADO MD [address] [place] [address],[address] [place] [address] (P)[phone] (F)[phone] [facility] SIMÓN VANEGAS MD(UROLOGIST) [address] [place] [address],[id number] [place], [place] (P)[phone] /es/ SHEEBA CASTELLANO ADVANCED PI/SENIOR RESEARCH ASSOCIATE Signed: 07/19/2024 12:51 SHEEBA CASTELLANO
--- OUTSIDE RECORDS SUMMARY | 2024-10-24 14:05 | XMS_ITS | Encounter Summary ---
Author Name [facility] [place] [facility] [place] [facility] [place] Address [address] [place] [address] Care Team Providers Care Rn Post Partum Name Role Phone ANAYA JACOB Primary Care [...] Name Patient's Relationship to Policy De Dios [facility] MEDICAID MEDICAID MEDIC AID Jul 23, 2014 MEDICAI D [id number] JETT MARIN PATIENT MEDICAID MEDICAID [facility] Jul 23, 2014 MEDICAI D [id number] [facility] [place] PATIENT Selected Encounter This section includes the information on record at [place] for the Encounter. Date/Time Encounter Type Encounter Description Reason Pro vider Source Sep 01, 2024 12:00 AM Outpatient Encounter EVENT (HISTORICAL) IHE Encounter Template Text not used by VA Plan of Treatment: Future Appointments (+ 6 [...] 20 appointments. The data comes from all [facility]. Appointment Date/Time Appointment Type Appointme nt Facility Name Oct 22, 2024 12:40 PM AMBULATORY - MEDICINE [facility] [place] [facility] Oct 22, 2024 02:45 PM AMBULATORY - MEDICINE [facility] [place] [facility] Oct 24, 2024 11:40 AM AMBULATORY - NONE [facility] [place] [facility] Dec 19, 2024 11:30 AM AMBULATORY - NONE [facility] [place] [facility] Dec 30, 2024 08:30 AM AMBULATORY - PSYCHIATRY [place] [facility] [place] [facility] Jan 02, 2025 01:00 PM AMBULATORY - MEDICINE [facility] [place] [facility] February 25, 2025 01:00 PM AMBULATORY - MEDICINE [place] [facility] [place] [facility] Active, Pending, and Scheduled Orders This section includes a listing of several types of active, pending, and scheduled orders, including clinic medications orders, diagnostic test orders, procedure orders and consult orders; where the start date of the order is 45 days before the date of the Encounter or 45 days after the date of theEncounter. The data comes from all [facility]. Test Date/Time Test Type Test Details Facility Name Aug 27, 2024 12:00 AM Laboratory - Chemistry Order LIPID PANEL FASTING BLOOD (SST-SERUM) [facility] Aug 27, 2024 12:00 AM Laboratory - Chemistry Order CBC BLOOD (LAV-BLOOD) [facility] Aug 27, 2024 12:00 AM Laboratory - Chemistry Order HEMOGLOBIN A1C PANEL BLOOD (LAV-BLOOD) [facility] Aug 27, 2024 12:00 AM Laboratory - Chemistry Order TSH BLOOD (SST-SERUM) [facility] Aug 27, 2024 12:00 AM Laboratory - Chemistry Order URINALYSIS URINE [facility] Aug 27, 2024 12:00 AM Laboratory - Chemistry Order PSA BLOOD (SST-SERUM) [facility] Aug 27, 2024 12:00 AM Laboratory - Chemistry Order HIV 1&2 Ag/Ab SCREEN BLOOD (SST-SERUM) [facility] Aug 27, 2024 12:00 AM Laboratory - Chemistry Order HEPATITIS C ANTIBODY (HCV)-ARC BLOOD (MARBLED-TOP SERUM) [facility] Aug 27, 2024 12:00 AM Laboratory - Chemistry Order BASIC METABOLIC PANEL (non-fasting) BLOOD (SST-SERUM) [facility] Aug 27, 2024 12:00 AM Laboratory - Chemistry Order LIVER FUNCTION BLOOD (SST-SERUM) [facility] Aug 27, 2024 02:25 PM Consult Order [facility]-COLONOSCOPY SCREENING Cons Physical Therapy Director's [facility] Aug 27, 2024 06:22 PM Consult Order [facility] Cons Physical Therapy Director's [facility] Aug 27, 2024 06:22 PM Consult Order [facility] Cons Physical Therapy Director's [facility] Aug 27, 2024 06:22 PM Consult Order [facility]-UROLOGY Cons Physical Therapy Director's [facility] Aug 27, 2024 06:22 PM Consult Order [facility]-OPTOMETRY ROUTINE EYE EXAM Cons Physical Therapy Director's [facility] Aug 27, 2024 06:22 PM Consult Order NEUROPSYCH OLOGICAL TESTING OUTPT Cons Physical Therapy Director's [facility] Social History: Smoking Status (Most current) and Tobacco Use (All prior to encounter date) This section includes the most current, and the historical, smoking and tobacco- related health factors from the [place] facility where the Encounter took place. Current Smoking Status This section includes the most current smoking, or tobacco-related health factor, from the [place] facility where the Encounter took place. Date/Time Current Smoking Status Comment Facil ity May 26, 2021 08:00 AM [place]-TOBACCO QUIT 15 YRS OR MORE [facility] Tobacco Use History This section includes a history of the smoking, or tobacco-related health factors, that were collected on or before the date of the Encounter. The data comes from the [place] facility where the Encounter took place. Date/Time Smoking Status/Tobacco Use Comment F acility May 26, 2021 08:00 AM [place]-TOBACCO QUIT 15 YRS OR MORE [facility] [place] Nov 17, 2019 11:32 AM [place]-TOBACCO FORMER USER [place] [facility] [place] [facility] Nov 17, 2019 11:32 AM [place]-TOBACCO QUIT 15 YRS OR MORE [facility] Advance Directives: All historical and current Section Date Range: From patient's date of to the date document was created. This section includes ALL of a patient's completed or amended [place] Advance and Rescinded Directives. The entries below indicate that a directive exists for the patient, but an actual copy is not included with this document. The data comes from all [place] facilities. Date Advance Directives Provider Source Aug 27, 2024 ADVANCE DIRECTIVE SHAY MILLER
--- OUTSIDE RECORDS SUMMARY | 2024-10-24 14:05 | XMS_ITS | Encounter Summary ---
Author Name [facility] [place] [facility] [place] Address [address] [place] [address] Care Team Providers Care Thermal Technician Name Role Phone ANAYA JACOB Primary Care [...] Name Patient's Relationship to Policy De Dios [facility] MEDICAID MEDICAID MEDIC AID Jul 23, 2014 MEDICAI D [id number] JETT MARIN PATIENT MEDICAID MEDICAID [facility] [place] Jul 23, 2014 MEDICAI D [id number] [facility] Isael PATIENT Selected Encounter This section includes the information on record at [place] for the Encounter. Date/Time Encounter Type Encounter Description Reason Pro vider Source May 27, 2024 12:00 PM Outpatient Encounter EVENT (HISTORICAL) IHE Encounter Template [...] 20 appointments. The data comes from all [place] treatment facilities. Appointment Date/Time Appointment Type Appointme nt Facility Name Jul 23, 2024 02:00 PM AMBULATORY - MEDICINE [facility] [place] Aug 27, 2024 02:00 PM AMBULATORY - MEDICINE [facility] [place] Oct 22, 2024 12:40 PM [facility] [place] [facility] Oct 22, 2024 02:45 PM [place] [facility] Oct 24, 2024 11:40 AM [facility] Social History: Smoking Status (Most current) and Tobacco Use (All prior to encounter date) This section includes the most current, and the historical, smoking and tobacco- related health factors from the [place] facility where the Encounter took place. Current Smoking Status This section includes the most current smoking, or tobacco-related health factor, from the [place] facility where the Encounter took place. Date/Time Current Smoking Status Comment Facil ity May 26, 2021 08:00 AM [facility] Tobacco Use History This section includes a history of the smoking, or tobacco-related health factors, that were collected on or before the date of the Encounter. The data comes from the [place] facility where the Encounter took place. Date/Time Smoking Status/Tobacco Use Comment F acility May 26, 2021 08:00 AM VA-TOBACCO QUIT 15 YRS OR [facility] Nov 17, 2019 11:32 AM [facility]-TOBACCO [facility] Nov 17, 2019 11:32 AM VA-TOBACCO QUIT 15 YRS OR MORE [facility] Advance Directives: All historical and current Section Date Range: From patient's date of to the date document was created. This section includes ALL of a patient's completed or amended [place] Advance and Rescinded Directives. The entries below indicate that a directive exists for the patient, but an actual copy is not included with this document. The data comes from all [place] facilities. Date Advance Directives Provider Source Aug 27, 2024 ADVANCE DIRECTIVE SHAY MILLER Encounter Notes: All associated encounter notes This section contains the clinical notes associated to the Encounter. Date/Time Encounter Note(s) Provider Source May 27, 2024 12:00 PM NONVA NOTE: LOCAL TITLE: NON-VA OUTPATIENT NOTES STANDARD TITLE: NONVA NOTE DATE OF NOTE: MAY 27, 2024@12:00 ENTRY DATE: AUG 20, 2024@09:24:56 AUTHOR: SCOT BLUM EXP COSIGNER: URGENCY: STATUS: COMPLETED VistA Imaging - Scanned Document LABORATORY - [facility] LAB RESULTS SCANNED DOCUMENT SIGNATURE NOT REQUIRED Electronically Filed: 08/20/2024 by: SCOT BLUM [facility] Specialist SCOT BLUM [place] [facility] [facility]
--- OUTSIDE RECORDS SUMMARY | 2024-10-24 14:05 | XMS_ITS | Encounter Summary ---
Author Name [place] Address [address] [place] [address] Care Team Providers Care Registration Clerk Name Role Phone ANAYA JACOB Primary Care [...] Patient's Relationship to Policy De Dios [facility] MEDICAID MEDICAID MEDIC AID Jul 23, 2014 MEDICAI D [id number] JETT MARIN PATIENT MEDICAID MEDICAID [facility] Jul 23, 2014 MEDICAI D [id number] [facility] Selected Encounter This section includes the information on record at [place] for the Encounter. Date/Time Encounter Type Encounter Description Reason Pro vider Source Jul 23, 2024 02:42 PM Outpatient Encounter PRIMARY CARE/MEDICINE IHE Encounter Template Text not used by [place] Plan of Treatment: Future Appointments (+ 6 [...] 20 appointments. The data comes from all [facility]. Appointment Date/Time Appointment Type Appointme nt Facility Name Aug 27, 2024 02:00 PM [facility] Oct 22, 2024 12:40 PM [facility]IC[facility] [place] [facility] Oct 22, 2024 02:45 PM AMBULATORY - MEDICINE [facility] [place] [facility] Oct 24, 2024 11:40 AM AMBULATORY - NONE [facility] [place] [facility] Dec 19, 2024 11:30 AM AMBULATORY - NONE [facility] [place] [facility] Dec 30, 2024 08:30 AM AMBULATORY - PSYCHIATRY [facility] [place] [facility] Jan 02, 2025 01:00 PM [place]ORY [place] [facility] [place] [facility] Active, Pending, and Scheduled Orders This section includes a listing of several types of active, pending, and scheduled orders, including clinic medications orders, diagnostic test orders, procedure orders and consult orders; where the start date of the order is 45 days before the date of the Encounter or 45 days after the date of theEncounter. The data comes from all [facility]. Test Date/Time Test Type Test Details Facility Name Aug 27, 2024 12:00 AM Laboratory - Chemistry Order LIPID [facility]EL [facility] Aug 27, 2024 12:00 AM Laboratory - Chemistry Order CBC BLOOD [facility]BLOOD[facility] Aug 27, 2024 12:00 AM Laboratory - Chemistry Order HEMOGLOBIN A1C PANEL BLOOD ([facility]BLOOD[facility] Aug 27, 2024 12:00 AM Laboratory - Chemistry Order TSH BLOOD (SST-SERUM) [facility] Aug 27, 2024 12:00 AM Laboratory - Chemistry Order URINALYSIS URINE [facility] Aug 27, 2024 12:00 AM Laboratory - Chemistry Order PSA BLOOD ([facility]ST-SERUM) [facility] Aug 27, 2024 12:00 AM Laboratory - Chemistry Order HIV 1&2 Ag/Ab SCREEN BLOOD (SST-SERUM) [facility] Aug 27, 2024 12:00 AM Laboratory - Chemistry Order HEPATITIS C ANTIBODY (HCV)-ARC BLOOD (MARBLED-TOP SERUM) [facility] Aug 27, 2024 12:00 AM Laboratory - Chemistry Order BASIC METABOLIC PANEL (non-fasting) BLOOD (SST-SERUM) [facility] Aug 27, 2024 12:00 AM Laboratory - Chemistry Order LIVER FUNCTION BLOOD ([facility]SERUM) [facility] Aug 27, 2024 02:25 PM Consult Order [facility]-COLONOSCOPY SCREENING Cons Medical I D Sales's [facility] Aug 27, 2024 06:22 PM Consult Order [facility] Cons Medical I D Sales[facility] Aug 27, 2024 06:22 PM Consult Order [facility] Cons Medical I D Sales[facility] Aug 27, 2024 06:22 PM Consult Order [facility]-UROLOGY Cons Medical I D Sales's [facility] Aug 27, 2024 06:22 PM Consult Order [facility]-OPTOMETRY ROUTINE EYE EXAM Cons Medical [facility] D Sales[facility] Aug 27, 2024 06:22 PM Consult Order NEUROPSYCH OLOGICAL TESTING OUTPT Cons Medical I D Sales[facility] Social History: Smoking Status (Most current) and Tobacco Use (All prior to encounter date) This section includes the most current, and the historical, smoking and tobacco- related health factors from the [place] facility where the Encounter took place. Current Smoking Status This section includes the most current smoking, or tobacco-related health factor, from the [place] facility where the Encounter took place. Date/Time Current Smoking Status Comment Facil ity May 26, 2021 08:00 AM [place]-TOBACCO QUIT 15 YRS OR MORE [facility] Tobacco Use History This section includes a history of the smoking, or tobacco-related health factors, that were collected on or before the date of the Encounter. The data comes from the [place] facility where the Encounter took place. Date/Time Smoking Status/Tobacco Use Comment F acility May 26, 2021 08:00 AM [place]-TOBACCO QUIT 15 YRS OR MORE [facility] Nov 17, 2019 11:32 AM [place]-TOBACCO FORMER USER [facility] Nov 17, 2019 11:32 AM [place]-TOBACCO QUIT 15 YRS OR MORE [facility] Advance Directives: All historical and current Section Date Range: From patient's date of to the date document was created. This section includes ALL of a patient's completed or amended [place] Advance and Rescinded Directives. The entries below indicate that a directive exists for the patient, but an actual copy is not included with this document. The data comes from all [place] facilities. Date Advance Directives Provider Source Aug 27, 2024 ADVANCE DIRECTIVE SHAY MILLER Encounter Notes: All associated encounter notes This section contains the clinical notes associated to the Encounter. Date/Time Encounter Note(s) Provider Source Jul 23, 2024 02:42 PM NURSING NOTE: LOCAL TITLE: PRIMARY CARE NURSE NOTE STANDARD TITLE: NURSING NOTE DATE OF NOTE: JUL 23, 2024@14:42 ENTRY DATE: JUL 23, 2024@14:42:30 AUTHOR: ASIA PETERSEN EXP COSIGNER: URGENCY: STATUS: COMPLETED was a NO SHOW to his appointment with PACT 7. /mikie/ CASSANDRA PETERSEN LPN LPN Signed: 07/23/2024 14:42 Receipt Acknowledged By: 07/24/2024 11:18 /mikie/ SHEEBA CASTELLANO ADVANCED CERTIFIED NURSE PRACTITIONER CASSANDRA PETERSEN
--- OUTSIDE RECORDS SUMMARY | 2024-10-24 14:05 | XMS_ITS | Encounter Summary ---
Author Name [facility] [place] Address [address] [place] [id number] Care Team Providers Care Real Estate Attorney Name Role Phone ANAYA JACOB Primary Care [...] MEDIC AID Jul 23, 2014 MEDICAI D [id number] JETT MARIN PATIENT MEDICAID MEDICAID [facility] STAND [place] Jul 23, 2014 MEDICAI D [id number] MINA MARIN JR PATIENT Selected Encounter This section includes the information on record at [place] for the Encounter. Date/Time Encounter Type Encounter Description Reason Pro vider Source Jul 23, 2024 02:00 PM Outpatient Encounter PRIMARY CARE/MEDICINE IHE Encounter [...] 20 appointments. The data comes from all [place] treatment [facility]. Appointment Date/Time Appointment Type Appointme nt Facility Name Aug 27, 2024 02:00 PM [facility] Oct 22, 2024 12:40 PM [facility]IC[facility] [place] [facility] Oct 22, 2024 02:45 PM AMBULATORY - MEDICINE [facility] [place] [facility] Oct 24, 2024 11:40 AM AMBULATORY - NONE [facility] [place] [facility] Dec 19, 2024 11:30 AM AMBULATORY - NONE [facility] [place] [facility] Dec 30, 2024 08:30 AM AMBULATORY - PSYCHIATRY [facility] [place] [facility] Jan 02, 2025 01:00 PM AMBULATORY - MEDICINE [facility] [place] [facility] [...] of theEncounter. The data comes from all [facility]. Test Date/Time Test Type Test Details Facility Name Aug 27, 2024 12:00 AM Laboratory - Chemistry Order LIPID PANEL FASTING BLOOD (SST-SERUM) [facility] Aug 27, 2024 12:00 AM Laboratory - Chemistry Order CBC BLOOD (LAV-BLOOD) [facility] Aug 27, 2024 12:00 AM Laboratory - Chemistry Order HEMOGLOBIN A1C PANEL BLOOD (LAV-BLOOD) [facility] Aug 27, 2024 12:00 AM Laboratory - Chemistry Order TSH BLOOD (SST-SERUM) [facility] Aug 27, 2024 12:00 AM Laboratory - Chemistry Order URINALYSIS URINE [facility] Aug 27, 2024 12:00 AM Laboratory - Chemistry Order PSA BLOOD (SST-SERUM) [facility] Aug 27, 2024 12:00 AM Laboratory - Chemistry Order HEPATITIS C ANTIBODY (HCV)-ARC BLOOD (MARBLED-TOP SERUM) [facility] Aug 27, 2024 12:00 AM Laboratory - Chemistry Order HIV 1&2 Ag/Ab SCREEN BLOOD (SST-SERUM) [facility] Aug 27, 2024 12:00 AM Laboratory - Chemistry Order BASIC METABOLIC PANEL (non-fasting) BLOOD (SST-SERUM) [facility] Aug 27, 2024 12:00 AM Laboratory - Chemistry Order LIVER FUNCTION BLOOD (SST-SERUM) [facility] Aug 27, 2024 02:25 PM Consult Order [facility]-COLONOS[facility] SCREENING Cons Technology Development Intern's [facility] Aug 27, 2024 06:22 PM Consult Order [facility] Cons [employer] Development [facility] Aug 27, 2024 06:22 PM Consult Order [facility] Cons [employer] [facility] Aug 27, 2024 06:22 PM Consult Order [facility]-UROLOG[facility] [employer] [facility] Aug 27, 2024 06:22 PM Consult Order [facility]-OPTOMETRY ROUTINE EYE EXAM Cons [employer] Aug 27, 2024 06:22 PM Consult Order NEUROPSYCH OLOGICAL TESTING OUTPT Cons [employer] [facility] [facility] Social History: Smoking Status (Most current) and Tobacco Use (All prior to encounter date) This section includes the most current, and the historical, smoking and tobacco- related health factors from the [place] facility where the Encounter took place. Current Smoking Status This section includes the most current smoking, or tobacco-related health factor, from the [place] facility where the Encounter took place. Date/Time Current Smoking Status Comment Facil ity Oct 22, 2009 09:38 AM QUIT TOBACCO USE > 7 YEARS AGO Pt. quit smoking in 1995 [place] Advance Directives: All historical and current Section Date Range: From patient's date of to the date document was created. This section includes ALL of a patient's completed or amended CT Advance and Rescinded Directives. The entries below indicate that a directive exists for the patient, but an actual copy is not included with this document. The data comes from all [place] facilities. Date Advance Directives Provider Source Aug 27, 2024 ADVANCE DIRECTIVE SHAY MILLER Encounter Notes: All associated encounter notes This section contains the clinical notes associated to the Encounter. Date/Time Encounter Note(s) Provider Source Aug 21, 2024 02:24 PM ADDENDUM: LOCAL TITLE: Addendum STANDARD TITLE: ADDENDUM DATE OF NOTE: AUG 21, 2024@14:24:35 ENTRY DATE: AUG 21, 2024@14:24:36 AUTHOR: FARHEEN WADE COSIGNER: URGENCY: STATUS: COMPLETED Approved. Please reassign to [facility] PACT 9 and establish an appointment within the next 60-90 days. Thank you /mikie/ FARHEEN WADE NP NURSE PRACTITIONER Signed: 08/21/2024 14:24 Receipt Acknowledged By: 08/27/2024 07:56 /es/ AMILCAR PITT CAPABILITY LEAD 08/22/2024 14:28 /es/ PAM Lanier [facility] Specialist 08/21/2024 16:14 /es/ JENISE BROOKS AMSA ======== --- Original Document --- 08/20/24 ADMINISTRATIVE NOTE: [place] is requesting a new primary care provider. Form has been completed with kem. Breanna current provider: is requesting...NIDIA [ ] Review of my opioid medication treatment [X} New provider in the same location SPOPC [ ] New primary care provider at a new location [ ] NHM [ ] POPC [ ] GOPC [ ] WOPC [ ] FOPC WAS WITH CWM/SO/PACT 9 IN 2019 /mikie/ SHEEBA CASTELLANO ADVANCED SENIOR ENVIRONMENTAL PRACTICE LEADER Signed: 08/20/2024 14:03 Receipt Acknowledged By: 08/21/2024 14:24 /mikie/ FARHEEN WADE NP NURSE PRACTITIONER FARHEEN WADE [place] Aug 20, 2024 01:57 PM ADMINISTRATIVE NOT E: LOCAL TITLE: ADMINISTRATIVE NOTE STANDARD TITLE: ADMINISTRATIVE NOTE DATE OF NOTE: AUG 20, 2024@13:57 ENTRY DATE: AUG 20, 2024@13:58:05 AUTHOR: SHEEBA CASTELLANO EXP COSIGNER: URGENCY: STATUS: COMPLETED ADMINISTRATIVE NOTE Has ADDENDA [place] is requesting a new primary care provider. Form has been completed with veteran. Carlos current provider: [place] is requesting...NIDIA [ ] Review of my opioid medication treatment [X} New provider in the same location SPOPC [ ] New primary care provider at a new location [ ] NHM [ ] POPC [ ] GOPC [ ] WOPC [ ] FOPC WAS WITH CWM/SO/PACT 9 IN 2019 /mis CASTELLANO ADVANCED SENIOR ENVIRONMENTAL PRACTICE LEADER Signed: 08/20/2024 14:03 Receipt Acknowledged By: 08/21/2024 14:24 /mikie/ FARHEEN WADE NP NURSE PRACTITIONER 08/21/2024 ADDENDUM STATUS: COMPLETED Approved. Please reassign to [facility] PACT 9 and establish an appointment within the next 60-90 days. Thank you /mikie/ FARHEEN WADE NP NURSE PRACTITIONER Signed: 08/21/2024 14:24 Receipt Acknowledged By: * AWAITING SIGNATURE * AMILCAR PITT * AWAITING SIGNATURE * PAM OSULLIVAN * AWAITING SIGNATURE * JENISE BROOKS [place] [facility] [place] Aug 20, 2024 01:51 PM PRIMARY CARE TELEP [place] ENCOUNTER NOTE: LOCAL TITLE: TELEPHONE NOTE/PRIMARY CARE STANDARD TITLE: PRIMARY CARE TELEPHONE ENCOUNTER NOTE DATE OF NOTE: AUG 20, 2024@13:51 ENTRY DATE: AUG 20, 2024@13:52:04 AUTHOR: SHEEBA CASTELLANO EXP COSIGNER: URGENCY: STATUS: COMPLETED This is a reminder call for your upcoming PCP appt (X)NO BLOODWORK needed for appt Bloodwork already completed Action taken: [ ] Called , left voice message [ ] Called , unable to leave voice mail [X] Spoke to /healthcare translator to remind them of upcoming appt Upcoming Appointments: 08/27/2024 14:00 CWM/SO/PACT 7 /mikie/ SHEEBA CASTELLANO ADVANCED SENIOR ENVIRONMENTAL PRACTICE LEADER Signed: 08/20/2024 13:57 SHEEBA CASTELLANO Jul 23, 2024 02:52 PM CLERICAL NOTE: LOCAL TITLE: APPOINTMENT NO SHOW STANDARD TITLE: CLERICAL NOTE DATE OF NOTE: JUL 23, 2024@14:52 ENTRY DATE: JUL 23, 2024@14:53:02 AUTHOR: SHEEBA CASTELLANO EXP COSIGNER: URGENCY: STATUS: COMPLETED Patient Name: JETT MARIN JR Patient SSN: [id number] Date and time of Appointment No show : 07/23/24 14:00 PATIENT PHONE - NONE FOUND PHONE NUMBER [CELLULAR] - NONE FOUND Patient's medical record was reviewed. Follow-up actions were determined and initiated: Please check/complete as applies: [X]Telephoned Directly Scheduled new appointment with provider [ ]Re-scheduled for next available appt [ ]Sent a N0-show letter ( must call for appointment) [ ]Other (Emergent/Overbook, etc.): Additional Comments: Future Clinic Visits No data available /mikie/ SHEEBA CASTELLANO ADVANCED SENIOR ENVIRONMENTAL PRACTICE LEADER Signed: 07/24/2024 11:13 SHEEBA CASTELLANO [place]
--- OUTSIDE RECORDS SUMMARY | 2024-10-24 14:05 | XMS_ITS | Encounter Summary ---
Author Name [facility] [facility] [place] [facility] [place] Address [address] [place] [id number] Care Team Providers Care Boat Officer Name Role Phone ANAYA JACOB Primary Care [...] Name Patient's Relationship to Policy De Dios [facility] MEDICAID MEDICAID MEDIC AID Jul 23, 2014 MEDICAI D [id number] JETT MARIN PATIENT MEDICAID MEDICAID [facility] KIZZY Jul 23, 2014 MEDICAI D [id number] MINA MARIN JR PATIENT Selected Encounter This section includes the information on record at [place] for the Encounter. Date/Time Encounter Type Encounter Description Reason Provider Source Aug 27, 2024 02:00 PM OFFICE O/P NEW HI 60 MIN PRIMARY CARE/MEDICINE ICD-10-CM I10 Essential (primary) hypertension CHARISSE YANEZ Rosmery Encounter Template Text not used by [facility] Assessments - Encounter Diagnoses This section includes the primary and secondary diagnoses documented for the Encounter. Date/Time Primary/Secondary Diagnosis Diagnosis Name Provider Source Sep 01, 2024 12:34 PM PRIMARY Essential (primary) hypertension ZOHAIB YANEZ Sep 01, 2024 12:34 PM SECONDARY Alcohol dependence, in remission ZOHAIB YANEZ [facility] Sep 01, 2024 12:34 PM SECONDARY Attn-defct hyperactivity disorder, predom inattentive type ZOHAIB YANEZ [facility] Sep 01, 2024 12:34 PM SECONDARY Benign prostatic hyperplasia with lower urinary tract symp ZOHAIB YANEZ [facility] Sep 01, 2024 12:34 PM SECONDARY Encounter for screening for malignant neoplasm of colon ZOHAIB YANEZ [facility] Sep 01, 2024 12:34 PM SECONDARY Insomnia, unspecified ZOHAIB YANEZ [facility] Sep 01, 2024 12:34 PM SECONDARY Mild intermittent asthma, uncomplicated ZOHAIB YANEZ [facility] Sep 01, 2024 12:34 PM SECONDARY Mixed hyperlipidemia ZOHAIB YANEZ [facility] Sep 01, 2024 12:34 PM SECONDARY Oth symptoms and signs w cognitive functions and awareness ZOHAIB YANEZ [facility] Sep 01, 2024 12:34 PM SECONDARY Other specified postprocedural states ZOHAIB YANEZ [facility] Sep 01, 2024 12:34 PM SECONDARY Personal history of nicotine dependence ZOHAIB YANEZ [facility] Sep 01, 2024 12:34 PM SECONDARY Polyosteoarthritis, unspecified ZOHAIB YANEZ [facility] Sep 01, 2024 12:34 PM SECONDARY Unspecified retinal disorder ZOHAIB YANEZ [facility] Plan of Treatment: Future Appointments (+ 6 months) and Future Tests (+/- 45 days) The Plan of Treatment section includes future care activities for the patient from all [facility]. This section includes future appointments and future orders which are active, pending or scheduled. Future Appointments This section includes appointments that were scheduled to occur 6 months from the date of the Encounter, up to a maximum of 20 appointments. The data comes from all [place] treatment facilities. Appointment Date/Time Appointment Type Appointme nt Facility Name Oct 22, 2024 12:40 PM AMBULATORY - MEDICINE [facility] Oct 22, 2024 02:45 PM AMBULATORY - [facility]ICINE [facility] [place] [facility] Oct 24, 2024 11:40 AM [facility] Dec 19, 2024 11:30 AM [facility] NONE [facility] Dec 30, 2024 08:30 AM AMBULATORY [place]IAT[place] [facility] [place] [facility] Jan 02, 2025 01:00 PM AMBULATORY - MEDICINE [facility] Active, Pending, and Scheduled Orders This section includes a listing of several types of active, pending, and scheduled orders, including clinic medications orders, diagnostic test orders, procedure orders and consult orders; where the start date of the order is 45 days before the date of the Encounter or 45 days after the date of theEncounter. The data comes from all [place] treatment facilities. Test Date/Time Test Type Test Details Facility Name Aug 27, 2024 12:00 AM Laboratory - Chemistry Order LIPID PANEL FASTING BLOOD (SST-SERUM) [facility] Aug 27, 2024 12:00 AM Laboratory - Chemistry Order CBC BLOOD (LAV-BLOOD) [facility] Aug 27, 2024 12:00 AM Laboratory - Chemistry Order HEMOGLOBIN A1C PANEL BLOOD (LAV-BLOOD) [facility] Aug 27, 2024 12:00 AM Laboratory - Chemistry Order TSH BLOOD (SST-SERUM) [facility] Aug 27, 2024 12:00 AM Laboratory - Chemistry Order URINALYSIS URINE [facility] Aug 27, 2024 12:00 AM Laboratory - Chemistry Order PSA BLOOD (SST-SERUM) [facility] Aug 27, 2024 12:00 AM Laboratory - Chemistry Order HEPATITIS C ANTIBODY (HCV)-ARC BLOOD (MARBLED-TOP SERUM) [facility] Aug 27, 2024 12:00 AM Laboratory - Chemistry Order HIV 1&2 Ag/Ab SCREEN BLOOD (SST-SERUM) [facility] Aug 27, 2024 12:00 AM Laboratory - Chemistry Order BASIC METABOLIC PANEL (non-fasting) BLOOD (SST-SERUM) [facility] Aug 27, 2024 12:00 AM Laboratory - Chemistry Order LIVER FUNCTION BLOOD (SST-SERUM) [facility] Aug 27, 2024 02:25 PM Consult Order COMMUNITY CARE-COLONOSCOPY SCREENING Cons Claims Administrator's Choice [facility] Aug 27, 2024 06:22 PM Consult Order COMMUNITY CARE-ORTHO GENERAL Cons Claims Administrator's Choice [facility] Aug 27, 2024 06:22 PM Consult Order COMMUNITY CARE-ORTHO GENERAL Cons Claims Administrator's Choice [facility] Aug 27, 2024 06:22 PM Consult Order COMMUNITY CARE-UROLOGY Cons Claims Administrator's Choice [facility] Aug 27, 2024 06:22 PM Consult Order COMMUNITY CARE-OPTOMETRY ROUTINE EYE EXAM Cons Claims Administrator's Choice [facility] Aug 27, 2024 06:22 PM Consult Order NEUROPSYCH OLOGICAL TESTING OUTPT [facility] Claims Administrator's [facility] Vital Signs: All taken on the encounter date This section contains inpatient and outpatient Vital Signs collected on the date of the Encounter. Date/Time Temperature Pulse Blood Pressure Respiratory Rate SP02 Pain Height Weight Body Mass Index Source Aug 27, 2024 01:44 PM 96 136/86 96 199 29 [facility] Social History: Smoking Status (Most current) and Tobacco Use (All prior to encounter date) This section includes the most current, and the historical, smoking and tobacco- related health factors from the [place] facility where the Encounter took place. Current Smoking Status This section includes the most current smoking, or tobacco-related health factor, from the [place] facility where the Encounter took place. Date/Time Current Smoking Status Comment Facil ity Aug 27, 2024 02:00 PM VA-TOBACCO FORMER USER [facility] Tobacco Use History This section includes a history of the smoking, or tobacco-related health factors, that were collected on or before the date of the Encounter. The data comes from the [place] facility where the Encounter took place. Date/Time Smoking Status/Tobacco Use Comment F acility Aug 27, 2024 02:00 PM [place]-TOBACCO QUIT 15 YRS OR MORE [facility] Oct 22, 2009 09:38 AM QUIT TOBACCO USE > 7 YEARS AGO Pt. quit smoking in 1995 [facility] Advance Directives: All historical and current Section Date Range: From patient's date of to the date document was created. This section includes ALL of a patient's completed or amended [place] Advance and Rescinded Directives. The entries below indicate that a directive exists for the patient, but an actual copy is not included with this document. The data comes from all [place] facilities. Date Advance Directives Provider Source Aug 27, 2024 ADVANCE DIRECTIVE SHAY MILLER ELIsael Encounter Notes: All associated encounter notes This section contains the clinical notes associated to the Encounter. Date/Time Encounter Note(s) Provider Source Aug 27, 2024 02:02 PM PRIMARY CARE NURSE PRACTITIONER OUTPATIENT NOTE: LOCAL TITLE: NURSE PRACTITIONER OUTPATIENT NOTE STANDARD TITLE: PRIMARY CARE NURSE PRACTITIONER OUTPATIENT NOTE DATE OF NOTE: AUG 27, 2024@14:02 ENTRY DATE: AUG 27, 2024@14:02:19 AUTHOR: ZOHAIB YANEZ EXP COSIGNER: URGENCY: STATUS: COMPLETED PRIMARY CARE VISIT - NEW PATIENT JETT JEFFERSON TOMAS, is a 63 y/o WHITE MALE [place] who [facility] today at the [place] [facility]. TYPE OF VISIT: Face to face HPI: 1. Essential hypertension - home BP averages 110/80. On clonidine daily. 2. Insomnia - takes Benadryl at HS. 3. ADD - Attention deficit disorder. Since childhood. Has difficulty concentrating, easily distracted. 4. Retinopathy OU - followed by Ophthalmology. Report floaters, sees circles of light, has sharp pains behind eyes. Has hx retinal hemorrhage 5. Lower urinary tract symptoms due to benign prostatic hypertrophy. On Flomax, symptoms stable. Followed by urology. 6. Osteoarthritis of multiple joints - bilateral knees, left shoulder. States he needs TKA of right knee. Has hx bicep tear causing left shoulder pain. Takes Naproxen PRN. 7. Asthma, mild intermittent. Last CXR JAN 03: No Acute Process. Has PRN inhaler in place. 8. Mild cognitive impairment - hx multiple concussions. Reports difficulty with word retrieval, forgetful. 9. Mixed hyperlipidemia - on statin therapy. All medications were reconciled/confirmed during this visit. No labs available for review. HEALTHCARE PROVIDERS: urology Ophth Ortho SOCIAL HISTORY: Marital status - One daughter Tobacco use/history - former smoker from [id number] Alcohol use/history - hx ETOH quit 1981 Drug use/history - none SURGICAL HISTORY: see problem list FAMILY HISTORY: see problem list HISTORY: PERIOD OF SERVICE - [employer] FROM May TO Jan COMBAT SERVICE INDICATED: No VITAL SIGNS: Blood Pressure: 136/86 (08/27/2024 13:44) Pain: 6 (05/26/2021 08:06) Patient Height: 70 in [177.8 cm] (07/17/2015 09:36) Patient Weight: 199 lb [90.26 kg] (08/27/2024 13:44) Pulse: 96 (08/27/2024 13:44) Respiration: 20 (05/26/2021 08:06) Temperature: 98.8 F [37.1 C] (05/26/2021 08:06) REVIEW OF SYSTEMS: CONSTITUTIONAL: No fevers, chills, unexpected weight changes. EENT: No changes in hearing. Has vision changes, floaters, sees circles of light. Denies sneezing, congestion, rhinorrhea, anosmia, sore throat or ageusia. CARDIOVASCULAR: No chest pain, palpitations or peripheral edema. RESPIRATORY: No SOB, cough, sputum. Occasional wheezing with asthma. GASTROINTESTINAL: Denies abdominal pain, N/V/D/C. No melena or hematochezia. GENITOURINARY: No dysuria, urinary frequency or urgency. No nocturia or hematuria. MUSCULOSKELETAL: Chronic pain b/l knees, R>L, and left shoulder. SKIN: Denies rashes, open areas or concerns PSYCHIATRIC: No anxiety or depression. + sleep disturbance. NEUROLOGIC: No headaches, dizziness, numbness/tingling in the extremities or unilateral weakness. Forgetful, difficulty with word retrieval, difficulty concentrating and easily distracted. PHYSICAL EXAMINATION: General: Well-appearing in no obvious distress. Mental Status: Alert and oriented x4. Head: Normocephalic, atraumatic. Eyes: PERRL. EOMI. Anicteric sclerae. ENT: TM and ear canals normal bilaterally. Moist oral mucosa. Posterior pharynx unremarkable. Good dentition. Neck: Supple. No lymphadenopathy. No carotid bruit. Thyroid unremarkable. Lungs: CTAB. Normal chest excursion. Eupneic respirations. CV: Heart tones S1, S2. RRR. No M/G/R. No peripheral edema. GI: Abdomen is soft and nontender. No palpable mass or organomegaly. : No CVA tenderness. Digital prostate exam deferred. MS: Limited ROM right knee, crepitus b/l knees. Pain with ROM left shoulder, no joint deformity. Neuro: CN II through XII grossly intact. Normal speech. Normal gait. Integument: Skin warm and dry. No rashes or lesions on visible areas. Psych: Normal mood and affect. Normal judgment. Cooperative with exam, follows commands. ALLERGIES: NAPROXEN HEALTH MAINTENANCE - see end of note PREVENTIVE MEDICINE GOALS Hepatitis C Testing DUE NOW HIV Screening DUE NOW Lipid Screening DUE NOW Primary Care Provider Search DUE NOW Screen for Abd Aortic Aneurysm DUE NOW Medication Reconciliation DUE NOW Herpes Zoster (Shingles) Vaccine DUE NOW (Optional) Whole Health Documentation DUE NOW ASSESSMENT/PLAN: Active problems - Computerized Problem List is the source for the followin. Essential hypertension - stable on Rx. 2. Insomnia - OK to continue Benadryl PRN for sleep. 3. ADD - Attention deficit disorder. Not on Rx. Sx since childhood. 4. Retinopathy - followed by Ophthalmology. Not on Rx. 5. Lower urinary tract symptoms due to benign prostatic hypertrophy - continue Flomax. Followed by Urology. 6. Osteoarthritis of multiple joints - followed by Ortho. Will likely need right TKA soon. Continue naproxen PRN. 7. Former smoker - quit 1996 8. H/O: alcoholism - quit 1981. 9. Mixed hyperlipidaemia - continue statin therapy. Labs ordered. No hx vascular event. 10. Screening for malignant neoplasm of colon - ordered today. 11. Asthma, mild intermittent - stable, continue PRN Rx. 12. Cognitive impairment - with hx multiple concussions. Referral made to Neuropsych for eval. Routine and screening labs ordered. FOLLOW UP: Return to clinic as noted below and/or sooner PRN UPCOMING APPOINTMENTS: No data available No barriers noted; patient understands and agrees to current treatment plan. If patient has any questions, concerns or changes in current health status he/she will call or come in to the [facility]. A total of 60 minutes were spent F2F with the patient during this encounter and over half that time was spent on counseling and coordination of care. We discussed in depth all current health conditions and management of these conditions. Appropriate referrals were made. HM: Colonoscopy GAP Reminder: Recommendations are needed in the clinical reminder system following the patient's most recent colorectal cancer screening/surveillance test (Colonoscopy, Sigmoidoscopy or CT Colonography) Screening is due now. Colonoscopy consult has been ordered. See orders tab for details. Hepatitis C Testing: Patient has given verbal consent for HCV antibody testing. An HCV lab test has been ordered - see orders tab. HIV Screening: Patient has given verbal consent for HIV antibody testing, and the risks, benefits, and alternatives to HIV testing have been discussed. An order for an HIV Antibody test has been entered - see orders tab. Lipid Screening: Lipid profile ordered at this encounter. Primary Care Provider Search: Patient desires Primary Care at this [facility] - established today Screen for Abd Aortic Aneurysm: The patient declines to undergo ultrasound to screen for possible abdominal aortic aneurysm. Comment: declines screening for now Medication Reconciliation: Outpatient: Has the patient been taking medications as documented in the EMLR? YES: The patient has been taking medications as documented in the EMLR. Essential Medication List for Review used to complete this medication reconciliation. INCLUDED IN THIS LIST: Alphabetical list of active outpatient prescriptions dispensed from this [place] (local) and dispensed from another [place] or [facility] facility (remote) as well as inpatient orders (local, pending and active), local clinic medications, locally documented non-VA medications, and local prescriptions that have or been discontinued in the past 90 days. - All changes in medications, including all non-VA/Herbal/OTC medications were entered into CPRS. - If there were any medications the patient should no longer take, they were discontinued. - The patient/caregiver was instructed to update this list, discard old lists, and take this list to the next appointment, whether with a VA or non-VA provider. Herpes Zoster (Shingles) Vaccine: The patient declines to receive the recommended dose of zoster (shingles) vaccine. Immunization: ZOSTER RECOMBINANT Refusal Reason: PATIENT DECISION Patient refuses all immunization(s) in the ZOSTER group Comment: states he has had one Shingles vaccine, currently declines the second Date Documented: 09/01/24 12:31 /mikie/ JOSELITO VALENTINO CERTIFIED NURSE PRACTITIONER Signed: 09/01/2024 12:35 ZOHAIB YANEZ [facility] Aug 27, 2024 01:45 PM PREVENTIVE MEDICIN E NURSING NOTE: LOCAL TITLE: CLINICAL REMINDERS/NURSING STANDARD TITLE: PREVENTIVE MEDICINE NURSING NOTE DATE OF NOTE: AUG 27, 2024@13:45 ENTRY DATE: AUG 27, 2024@13:45:57 AUTHOR: GEORGIANA JEFFRIES COSIGNER: URGENCY: STATUS: COMPLETED Cigarette Pack Year History: The patient previously used cigarettes and quit smoking greater than or equal to 15 years ago. Advance Directive Screen MH AD: Patient does not have a completed advance directive on file at any facility, [facility] or outside. S/he is not interested in completing one at this time. The patient received education about Advance Directives and written notification of his/her rights. Suicide Screen: C-SSRS Screening [place] Suicide Severity Rating Scale (C-SSRS) screener 1. Over the past month, have you wished you were or wished you could go to sleep and not wake up? No 2. Over the past month, have you had any actual thoughts of killing yourself? No 3. Over the past month, have you been thinking about how you might do this? Response not required due to responses to other questions. 4. Over the past month, have you had these thoughts and had some intention of acting on them? Response not required due to responses to other questions. 5. Over the past month, have you started to work out or worked out the details of how to kill yourself? Response not required due to responses to other questions. 6. If yes, at any time in the past month did you intend to carry out this plan? Response not required due to responses to other questions. 7. In your lifetime, have you ever done anything, started to do anything, or prepared to do anything to end your life (for example, collected pills, obtained a gun, gave away valuables, went to the roof but didn't jump)? No 8. If YES, was this within the past 3 months? Response not required due to responses to other questions. Toxic Exposure Screening: The Bohannon/caregiver was asked if they believe the experienced any toxic exposure(s), such as Airborne Hazards and Open [place], [place] War related exposures, Agent [place], Radiation, contaminated water at [place] or other such exposures, while serving in the Armed Forces. Bohannon has no concerns about toxic exposure(s) while serving in the [employer] The /caregiver was informed that we will continue to ask this screening question every 5 years. They can contact their provider/healthcare team if they have concerns about exposures and would like to be screened sooner. Printed information was offered and provided if desired. Homelessness/Food Insecurity Screen: In the past 2 months, have you been living in stable housing that you own, rent, or stay in as part of a household? Yes - Living in stable housing. Are you worried or concerned that in the next 2 months you may NOT have stable housing that you own, rent, or stay in as part of a household? No - Not worried about housing near future The Bohannon reports the following: Within the past 12 months, you worried whether your food would run out before you got money to buy more. Never true Within the past 12 months, the food you bought just didn't last and you didn't have money to get more. Never true Colonoscopy GAP Reminder: Recommendations are needed in the clinical reminder system following the patient's most recent colorectal cancer screening/surveillance test (Colonoscopy, Sigmoidoscopy or CT Colonography) Screening is due now. Colonoscopy consult has been ordered. See orders tab for details. Depression Screening: Perform PHQ-2 A PHQ-2 screen was performed. The score was 0 which is a negative screen for depression. Over the past two weeks, how often have you been bothered by the following problems? 1. Little interest or pleasure in doing things Not at all 2. Feeling down, depressed, or hopeless Not at all Pneumococcal Conjugate Vaccine (PCV15/PCV20): Refuses PCV vaccine Immunization: PNEUMOCOCCAL CONJUGATE, UNSPECIFIED FORMULATION Refusal Reason: PATIENT DECISION Patient refuses all immunization(s) in the PneumoPCV group Date Documented: 08/27/24 13:48 PTSD Screening: PC-PTSD-5 A PTSD screening test (PC-PTSD-5) was negative (score=0). IN THE PAST MONTH, have you ever had any experience that was so frightening, horrible or traumatic. For example: A serious accident or fire a physical or sexual assault or abuse An earthquake or flood A war Seeing someone be killed or seriously injured Having a loved one through homicide or suicide 1. Have you ever experienced this kind of event? NO 2. Had nightmares about the event(s) or thought about the event(s) when you did not want to? Response not required due to responses to other questions. 3. Tried hard not to think about the event(s) or went out of your way to avoid situations that reminded you of the event(s)? Response not required due to responses to other questions. 4. Been constantly on guard, watchful, or easily startled? Response not required due to responses to other questions. 5. Sebastian numb or detached from people, activities, or your surroundings? Response not required due to responses to other questions. 6. Sebastian guilty or unable to stop blaming yourself or others for the event(s) or any problems the event(s) may have caused? Response not required due to responses to other questions. Tobacco Use Screening: The patient is a former tobacco user. The patient quit fifteen or more years ago. Influenza Immunization: The patient has received the seasonal influenza vaccine for the current season at another location. Documented: INFLUENZA, UNSPECIFIED FORMULATION Historical Date Administered: Jun 2024 Exact date unknown Outside Location: Outside Healthcare Provider Information Source: SOURCE UNSPECIFIED Alcohol Use Screen (AUDIT-C): Alcohol Screen: SCREEN FOR ALCOHOL (AUDIT-C) An alcohol screening test (AUDIT-C) was negative (score=0). 1. How often did you have a drink containing alcohol in the past year? Consider a drink to be a 12 ounce can or bottle of regular beer, 8 ounces of malt liquor, a 5 ounce glass of table wine, or a 1.5 ounce shot of liquor (like scotch, gin, or vodka). Never 2. How many drinks containing alcohol did you have on a typical day when you were drinking in the past year? Response not required due to responses to other questions. 3. How often did you have six or more drinks on one occasion in the past year? Response not required due to responses to other questions. COVID-19 Immunization: Referred to another clinic for immunization (desired vaccine unavailable at this location) Tdap Immunization: The patient declines to receive the recommended dose of Tdap vaccine. Immunization: TDAP Refusal Reason: PATIENT DECISION Patient refuses all immunization(s) in the TDAP group Date Documented: 08/27/24 13:49 Herpes Zoster (Shingles) Vaccine: Prior Herpes Zoster vaccination The patient has been vaccinated in the past but written documentation of vaccination is not available today. Patient instructed to obtain a written record of the prior vaccine and bring it to the next appointment. Sexual Orientation: The patient thinks of their sexual orientation as: Straight or Heterosexual RHS Screen: RHS Screen Environmental Check Upon inquiry, the individual reports that the environment is safe to proceed. Informed Consent to Screen and Document The individual consents to proceed with screening. The individual consents to documentation of responses. PRIMARY SCREEN: In the past 12 months, how often did a current or former intimate partner (e.g., boyfriend, girlfriend, , , sexual partner): 1. Scream or curse at you Never 2. Insult or talk down to you Never 3. Threaten you with harm Never 4. Physically hurt you Never 5. Force or pressure you to have sexual contact against your will, or when you were unable to say no Never ?? The HITS tool (items 1-4 above) is [place] copyright protected by Eliazar Conti MD, and the user has full rights to use it throughout the [place] system. PRIMARY SCREEN RESULT: The Primary Screen is NEGATIVE. The individual answered never to all forms of IPV above (i.e., answered never to all 5 items) The individual accepts education and/or resources: No EDUCATION: The individual indicated readiness to learn. Education offered during this session as noted above. The individual indicated understanding by asking relevant questions and making appropriate comments. No barriers to learning were observed or identified. /mikie/ GEORGIANA JEFFRIES LPN Licensed Practical Nurse Signed: 08/27/2024 13:51 GEORGIANA JEFFRIES [facility]
--- OUTSIDE RECORDS SUMMARY | 2024-10-24 14:05 | XMS_ITS | Encounter Summary ---
Author Name [facility] [place] Address [address] [place] [address] Care Team Providers Care Tenterer Name Role Phone ANAYA JACOB Primary Care [...] Name Patient's Relationship to Policy De Dios [facility] MEDICAID MEDICAID MEDIC AID Jul 23, 2014 MEDICAI D [id number] JETT MARIN PATIENT MEDICAID MEDICAID [facility] Jul 23, 2014 MEDICAI D [id number] [facility]ZZY [facility]IN [facility] Isael PATIENT Selected Encounter This section includes the information on record at [place] for the Encounter. Date/Time Encounter Type Encounter Description Reason Pro vider Source Aug 27, 2024 12:00 AM Outpatient Encounter EVENT (HISTORICAL) [...] 20 appointments. The data comes from all [facility]. Appointment Date/Time Appointment Type Appointme nt Facility Name Oct 22, 2024 12:40 PM AMBULATORY [place]ICINE [place] [facility] [place] [facility] Oct 22, 2024 02:45 PM AMBULATORY [place]ICINE [place] [facility] [place] [facility] Oct 24, 2024 11:40 AM AMBULATORY - NONE [place] [facility] [place] [facility] Dec 19, 2024 11:30 AM AMBULATORY - NONE [place] [facility] [place] [facility] Dec 30, 2024 08:30 AM AMBULATORY - PSYCHIATRY [place] [facility] [facility] Jan 02, 2025 01:00 PM [facility] [place] [facility] Active, Pending, and Scheduled Orders This section includes a listing of several types of active, pending, and scheduled orders, including clinic medications orders, diagnostic test orders, procedure orders and consult orders; where the start date of the order is 45 days before the date of the Encounter or 45 days after the date of theEncounter. The data comes from all [facility]. Test Date/Time Test Type Test Details Facility Name Aug 27, 2024 12:00 AM Laboratory - Chemistry Order CBC BLOOD (LAV-BLOOD) [facility] Aug 27, 2024 12:00 AM Laboratory - Chemistry Order HEMOGLOBIN A1C PANEL BLOOD (LAV-BLOOD) [facility] Aug 27, 2024 12:00 AM Laboratory - Chemistry Order TSH BLOOD (SST-SERUM) [facility] Aug 27, 2024 12:00 AM Laboratory - Chemistry Order URINALYSIS URINE [facility] Aug 27, 2024 12:00 AM Laboratory - Chemistry Order PSA BLOOD (SST-SERUM) [facility] Aug 27, 2024 12:00 AM Laboratory - Chemistry Order HEPATITIS C ANTIBODY (HCV)-ARC BLOOD (MARBLED-TOP SERUM) [facility] Aug 27, 2024 12:00 AM Laboratory - Chemistry Order HIV 1&2 Ag/Ab SCREEN BLOOD (SST-SERUM) [facility] Aug 27, 2024 12:00 AM Laboratory - Chemistry Order BASIC METABOLIC PANEL (non-fasting) BLOOD (SST-SERUM) [facility] Aug 27, 2024 12:00 AM Laboratory - Chemistry Order LIPID PANEL FASTING BLOOD (SST-SERUM) [facility] Aug 27, 2024 12:00 AM Laboratory - Chemistry Order LIVER FUNCTION BLOOD (SST-SERUM) [facility] Aug 27, 2024 02:25 PM Consult Order [facility]COLONOS[facility] SCREENING Cons [employer] [facility] Aug 27, 2024 06:22 PM Consult Order [facility] Cons [employer] [facility] Aug 27, 2024 06:22 PM Consult Order [facility] Cons [employer] [facility] Aug 27, 2024 06:22 PM Consult Order [facility]-UROLOGY Cons [employer] [facility] Aug 27, 2024 06:22 PM Consult Order [facility]-OPTOMETRY ROUTINE EYE EXAM Cons [employer] [facility] Aug 27, 2024 06:22 PM Consult Order NEUROPSYCH OLOGICAL TESTING OUTPT Cons [employer] [facility] Social History: Smoking [...] 26, 2021 08:00 AM VA-TOBACCO FORMER USER [facility] Tobacco Use History This section includes a history of the smoking, or tobacco-related health factors, that were collected on or before the date of the Encounter. The data comes from the [place] facility where the Encounter took place. Date/Time Smoking Status/Tobacco Use Comment F acility May 26, 2021 08:00 AM VA-TOBACCO QUIT [facility] YRS [facility] Nov 17, 2019 11:32 AM VA-TOBACCO FORMER USER [place] [facility] [place] [facility] Nov 17, 2019 11:32 AM [place]-TOBACCO QUIT 15 YRS OR MORE [facility] Advance Directives: All historical and current Section Date Range: From patient's date of to the date document was created. This section includes ALL of a patient's completed or amended [place] Advance and Rescinded Directives. The entries below indicate that a directive exists for the patient, but an actual copy is not included with this document. The data comes from all [place] facilities. Date Advance Directives Provider Source Aug 27, 2024 ADVANCE DIRECTIVE SHAY MILLER
--- OUTSIDE RECORDS SUMMARY | 2024-10-24 14:05 | XMS_ITS | Encounter Summary ---
Author Name Department of [place] Address [address] [place] [address] Care Team Providers Care Electrical Parts Reconditioner Name Role Phone ANAYA JACOB Primary Care [...] Name Patient's Relationship to Policy De Dios [facility] MEDICAID MEDICAID MEDIC AID Jul 23, 2014 MEDICAI D [id number] JETT MARIN PATIENT MEDICAID [facility]ICAID [facility] Jul 23, 2014 MEDICAI D [id number] OZZY MARIN JR Isael PATIENT Selected Encounter This section includes the information on record at [place] for the Encounter. Date/Time Encounter Type Encounter Description Reason Pro vider Source Jun 06, 2024 12:00 AM Outpatient Encounter EVENT (HISTORICAL) [...] 20 appointments. The data comes from all [place] treatment facilities. Appointment Date/Time Appointment Type Appointme nt Facility Name Jul 23, 2024 02:00 PM AMBULATORY - MEDICINE [facility] [place] Aug 27, 2024 02:00 PM AMBULATORY - MEDICINE [facility] [place] Oct 22, 2024 12:40 PM [facility] [place] [facility] Oct 22, 2024 02:45 PM AMBULATORY - MEDICINE [place] [facility] Oct 24, 2024 11:40 AM AMBULATORY - NONE [facility] Social History: Smoking Status (Most current) and Tobacco Use (All prior to encounter date) This section includes the most current, and the historical, smoking and tobacco- related health factors from the [place] facility where the Encounter took place. Current Smoking Status This section includes the most current smoking, or tobacco-related health factor, from the [place] facility where the Encounter took place. Date/Time Current Smoking Status Comment Facil ity May 26, 2021 08:00 AM [place]-TOBACCO QUIT 15 YRS OR MORE [facility] Tobacco Use History This section includes a history of the smoking, or tobacco-related health factors, that were collected on or before the date of the Encounter. The data comes from the [place] facility where the Encounter took place. Date/Time Smoking Status/Tobacco Use Comment F acility May 26, 2021 08:00 AM VA-TOBACCO QUIT 15 YRS OR MORE [facility] [place] [facility] Nov 17, 2019 11:32 AM VA-TOBACCO FORMER USER [place] [facility] [place] [facility] Nov 17, 2019 11:32 AM VA-TOBACCO QUIT 15 YRS OR MORE [facility] Advance Directives: All historical and current Section Date Range: From patient's date of to the date document was created. This section includes ALL of a patient's completed or amended [place] Advance and Rescinded Directives. The entries below indicate that a directive exists for the patient, but an actual copy is not included with this document. The data comes from all [place] facilities. Date Advance Directives Provider Source Aug 27, 2024 ADVANCE DIRECTIVE SHAY MILLER Encounter Notes: All associated encounter notes This section contains the clinical notes associated to the Encounter. Date/Time Encounter Note(s) Provider Source Jun 06, 2024 12:00 AM NONVA NOTE: LOCAL TITLE: COMMUNITY CARE-URGENT CARE RECORD STANDARD TITLE: NONVA NOTE DATE OF NOTE: JUN 06, 2024 ENTRY DATE: AUG 12, 2024@11:44:27 AUTHOR: SHEFALI DENNISON COSIGNER: URGENCY: STATUS: COMPLETED VistA Imaging - Scanned Document SCANNED DOCUMENT SIGNATURE NOT REQUIRED Electronically Filed: 08/12/2024 by: SHEFALI CHAVIRA [facility]
--- OUTSIDE RECORDS SUMMARY | 2024-10-24 14:05 | XMS_ITS ---
Author Name [place] Address [address] [place] [address] Care Team Providers Care Professor Of Spanish Name Role Phone ANAYA JACOB Primary Care [...] Name Patient's Relationship to Policy De Dios [facility] MEDICAID MEDICAID MEDIC AID Jul 23, 2014 MEDICAI D [id number] JETT MARIN PATIENT MEDICAID MEDICAID [facility] Jul 23, 2014 MEDICAI D [id number] [facility] PATIENT Selected Encounter This section includes the information on record at [place] for the Encounter. Date/Time Encounter Type Encounter Description Reason Pro vider Source Jun 25, 2024 09:42 AM Outpatient Encounter PRIMARY CARE/MEDICINE IHE Encounter Template Text not used by [place] Plan of Treatment: Future Appointments (+ 6 [...] AMBULATORY - MEDICINE [place] [facility] Oct 22, 2024 02:45 PM AMBULATORY - MEDICINE [place] [facility] [place] [place] [facility] Oct 24, 2024 11:40 AM AMBULATORY - NONE [place] [facility] [place] [facility] Dec 19, 2024 11:30 AM AMBULATORY - NONE [place] [facility] [place] [facility] Social History: Smoking Status (Most current) and Tobacco Use (All prior to encounter date) This section includes the most current, and the historical, smoking and tobacco- related health factors from the [place] facility where the Encounter took place. Current Smoking Status This section includes the most current smoking, or tobacco-related health factor, from the [place] facility where the Encounter took place. Date/Time Current Smoking Status Comment Facil ity May 26, 2021 08:00 AM [place]-TOBACCO QUIT 15 YRS OR MORE [facility] Tobacco Use History This section includes a history of the smoking, or tobacco-related health factors, that were collected on or before the date of the Encounter. The data comes from the [place] facility where the Encounter took place. Date/Time Smoking Status/Tobacco Use Comment F acility May 26, 2021 08:00 AM VA-TOBACCO QUIT 15 YRS OR MORE [place] [facility] [place] [facility] Nov 17, 2019 11:32 AM VA-TOBACCO FORMER USER [place] [facility] [place] [facility] Nov 17, 2019 11:32 AM VA-TOBACCO QUIT 15 YRS OR [facility] Advance Directives: All historical and current [...] Aug 27, 2024 ADVANCE DIRECTIVE SHAY MILLER ELD Encounter Notes: All associated encounter notes This section contains the clinical notes associated to the Encounter. Date/Time Encounter Note(s) Provider Source Jun 25, 2024 09:52 AM ADMINISTRATIVE NOT E: LOCAL TITLE: ADMINISTRATIVE NOTE STANDARD TITLE: ADMINISTRATIVE NOTE DATE OF NOTE: JUN 25, 2024@09:52 ENTRY DATE: JUN 25, 2024@09:52:39 AUTHOR: RENETTA DEAN EXP COSIGNER: URGENCY: STATUS: COMPLETED ADMINISTRATIVE NOTE Has ADDENDA CUSTODIAL OPERATIONS MANAGER APPT BOOKED FOR 07/23/24 F2F WITH SO PACT 7 FOR 60 MINS. CUSTODIAL OPERATIONS MANAGER PACKET GIVEN APPT LETTER ATTACHED. NON VA PROVIDER PCP Clark Anguiano [address] [place] [address] Dr Cristobal, KAREN Davison [phone] /mikie/ RENETTA DEAN AMSA Signed: 06/25/2024 10:00 Receipt Acknowledged By: 06/25/2024 10:40 /es/ GEORGIANA JEFFRIES LPN Licensed Practical Nurse for CASSANDRA PETERSEN 06/25/2024 13:14 /es/ SHEEBA CASTELLANO ADVANCED ANALOG CIRCUIT DESIGNER 06/25/2024 11:23 /es/ MALIHA CAMARILLO RN REGISTERED NURSE 06/25/2024 ADDENDUM STATUS: COMPLETED AMSA REQUESTED NON VA RECORDS DIRECTED FROM CONTACT LISTED BELOW FOR UPCOMING APPT: Clark Anguiano MD [address] [place] [address] Dr Cristobal, [place] [address] [phone] /mikie/ SHEEBA CASTELLANO ADVANCED ANALOG CIRCUIT DESIGNER Signed: 06/25/2024 13:14 RENETTA DEAN Jun 25, 2024 09:42 AM LETTERS: LOCAL TITLE: PATIENT LETTER (T) STANDARD TITLE: LETTERS DATE OF NOTE: JUN 25, 2024@09:42 ENTRY DATE: JUN 25, 2024@09:43:01 AUTHOR: RENETTA DEAN EXP COSIGNER: URGENCY: STATUS: COMPLETED DEPARTMENT OF [facility] Toll Free Number Primary Care Telephone Assistance can be reached at extension [phone] [facility] scheduling can be reached at extension [phone] [facility] scheduling can be reached at ext [phone] TOM BEAN TOMAS [address], [place], [address] Dear Sierra, Welcome to Patient Aligned Care Team PACT 7 . Prior to meeting you at your new patient appointment we are requesting some of your past medical history so that we may provide you with the exceptional care you deserve. Please note that it is very helpful to have these documents at least two days prior to your appointment date as the more information we have the better we will be able to meet your needs: * Last History & Physical * Immunization records * Medication list * Diagnosis list * Most recent labs * Diagnostic screens (Colonoscopy, Abdominal Aortic Aneurysm screen, Mammograms, PAPS, etc.) You may either drop the requested records off in person to [address] [place] [address] or you may have them faxed to: [phone] ATTN: PACT *Also please complete the enclosed new patient packet and drop it off at our [place] location: [address] [place] [address]* If you have any questions please do not hesitate to contact the Department of 's Affairs call center at . We look forward to providing your health care! Sincerely, Sincerely, Your Primary Care Team [facility] [address] [facility] [address] [place] [address] [place] [address] [phone] [place] [facility] [address] [place] [address] [place] [address] [phone] [facility] [address] [facility] [place] [address] [place] [address] RENETTA DEAN LA [place]
--- OUTSIDE RECORDS SUMMARY | 2024-10-24 14:05 | XMS_ITS | Encounter Summary ---
Author Name Department of [place] Organization [place] Address [address] [place] [address] Care Team Providers Care Cold Roll Operator Name Role Phone ANAYA JACOB Primary Care [...] Name Patient's Relationship to Policy De Dios [facility] MEDICAID MEDICAID MEDIC AID Jul 23, 2014 MEDICAI D [id number] JETT MARIN PATIENT MEDICAID MEDICAID [facility] [place] Jul 23, 2014 MEDICAI D [id number] [facility]ZZ[facility] Isael PATIENT Selected Encounter This section includes the information on record at [place] for the Encounter. Date/Time Encounter Type Encounter Description Reason Pro vider Source Jun 23, 2024 12:00 AM Outpatient Encounter EVENT (HISTORICAL) [...] 20 appointments. The data comes from all [place] treatment facilities. Appointment Date/Time Appointment Type Appointme nt Facility Name Jul 23, 2024 02:00 PM AMBULATORY - MEDICINE [facility] [place] Aug 27, 2024 02:00 PM AMBULATORY - MEDICINE [place] [place] Oct 22, 2024 12:40 PM AMBULATORY - MEDICINE [place] [facility] Oct 22, 2024 02:45 PM AMBULATORY - MEDICINE [place] [facility] Oct 24, 2024 11:40 AM [facility]ORY - NONE [facility] [place] [facility] Dec 19, 2024 11:30 AM [facility] Immunizations: All administered on the encounter date This section contains immunizations associated to the Encounter. Immunization Series Date Issued Reaction Comments INFLUENZA, UNSPECIFIED FORMULATION Jun 23, 2024 Social History: Smoking Status (Most current) and Tobacco Use (All prior to encounter date) This section includes the most current, and the historical, smoking and tobacco- related health factors from the [place] facility where the Encounter took place. Current Smoking Status This section includes the most current smoking, or tobacco-related health factor, from the [place] facility where the Encounter took place. Date/Time Current Smoking Status Comment Facil ity May 26, 2021 08:00 AM VA-TOBACCO FORMER USER [facility] Tobacco Use History This section includes a history of the smoking, or tobacco-related health factors, that were collected on or before the date of the Encounter. The data comes from the [place] facility where the Encounter took place. Date/Time Smoking Status/Tobacco Use Comment F acility May 26, 2021 08:00 AM [place]-TOBACCO QUIT 15 YRS OR [facility] Nov 17, 2019 11:32 AM VA-TOBACCO FORMER USER [facility] Nov 17, 2019 11:32 AM [place]-TOBACCO QUIT 15 YRS OR MORE [facility] Advance Directives: All historical and current Section Date Range: From patient's date of to the date document was created. This section includes ALL of a patient's completed or amended [place] Advance and Rescinded Directives. The entries below indicate that a directive exists for the patient, but an actual copy is not included with this document. The data comes from all [place] facilities. Date Advance Directives Provider Source Aug 27, 2024 ADVANCE DIRECTIVE SHAY MILLER
--- OUTSIDE RECORDS SUMMARY | 2024-10-24 14:05 | XMS_ITS | Encounter Summary ---
Author Name [facility] [place] [facility] [place] [facility] [place] Address [address] [place] [address] Care Team Providers Care Teller Head Name Role Phone ANAYA JACOB Primary Care [...] MEDIC AID Jul 23, 2014 MEDICAI D [id number] JETT MARIN PATIENT MEDICAID MEDICAID [facility] Jul 23, 2014 MEDICAI D [id number] [facility]Y [facility] PATIENT Selected Encounter This section includes the information on record at [place] for the Encounter. Date/Time Encounter Type Encounter Description Reason Pro vider Source Aug 27, 2024 02:00 PM Outpatient Encounter EVENT (HISTORICAL) IHE Encounter [...] 20 appointments. The data comes from all [facility]. Appointment Date/Time Appointment Type Appointme nt Facility Name Oct 22, 2024 12:40 PM AMBULATORY - MEDICINE [facility] [place] [facility] Oct 22, 2024 02:45 PM AMBULATORY - MEDICINE [facility] [place] [facility] Oct 24, 2024 11:40 AM AMBULATORY - NONE [facility] [place] [facility] Dec 19, 2024 11:30 AM AMBULATORY - NONE [facility] [place] [facility] Dec 30, 2024 08:30 AM AMBULATORY - PSYCHIATRY [facility] [place] [facility] Jan 02, 2025 01:00 PM [facility] Active, Pending, and Scheduled Orders This section includes a listing of several types of active, pending, and scheduled orders, including clinic medications orders, diagnostic test orders, procedure orders and consult orders; where the start date of the order is 45 days before the date of the Encounter or 45 days after the date of theEncounter. The data comes from all [facility]. Test Date/Time Test Type Test Details Facility Name Aug 27, 2024 12:00 AM Laboratory - Chemistry Order LIPID PANEL FASTING BLOOD (SST-SERUM) [facility] Aug 27, 2024 12:00 AM Laboratory - Chemistry Order CBC BLOOD (LAV-BLOOD) [facility] Aug 27, 2024 12:00 AM Laboratory - Chemistry Order HEMOGLOBIN A1C PANEL BLOOD (LAV-BLOOD) [facility] Aug 27, 2024 12:00 AM Laboratory - Chemistry Order TSH BLOOD (SST-SERUM) [facility] Aug 27, 2024 12:00 AM Laboratory - Chemistry Order PSA BLOOD (SST-SERUM) [facility] Aug 27, 2024 12:00 AM Laboratory - Chemistry Order URINALYSIS URINE [facility] Aug 27, 2024 12:00 AM Laboratory - Chemistry Order HEPATITIS C ANTIBODY (HCV)-ARC BLOOD (MARBLED-TOP SERUM) SP [facility] Aug 27, 2024 12:00 AM Laboratory - Chemistry Order HIV 1&2 Ag/Ab SCREEN BLOOD (SST-SERUM) [facility] Aug 27, 2024 12:00 AM Laboratory - Chemistry Order BASIC METABOLIC PANEL (non-fasting) BLOOD (SST-SERUM) [facility] Aug 27, 2024 12:00 AM Laboratory - Chemistry Order LIVER FUNCTION BLOOD (SST-SERUM) [facility] Aug 27, 2024 02:25 PM Consult Order [facility]-COLONOSCOPY SCREENING [employer] Courtesy Clerk's [facility] Aug 27, 2024 06:22 PM Consult Order [facility] [employer] [facility] Aug 27, 2024 06:22 PM Consult Order [facility] [employer] Court[facility] Clerk[facility] Aug 27, 2024 06:22 PM Consult Order [facility]-UROLOGY [employer] [facility] Clerk[facility] Aug 27, 2024 06:22 PM Consult Order [facility]-OPTOMETRY ROUTINE EYE EXAM [employer] [facility] Aug 27, 2024 06:22 PM Consult Order NEUROPSYCH OLOGICAL TESTING OUTPT [employer] [facility] Social History: Smoking Status (Most current) and Tobacco Use (All prior to encounter date) This section includes the most current, and the historical, smoking and tobacco- related health factors from the [place] facility where the Encounter took place. Current Smoking Status This section includes the most current smoking, or tobacco-related health factor, from the [place] facility where the Encounter took place. Date/Time Current Smoking Status Comment Facil ity May 26, 2021 08:00 AM VA-TOBACCO FORMER USER [facility] Tobacco Use History This section includes a history of the smoking, or tobacco-related health factors, that were collected on or before the date of the Encounter. The data comes from the [place] facility where the Encounter took place. Date/Time Smoking Status/Tobacco Use Comment F acility May 26, 2021 08:00 AM [facility]CO [facility]IT [facility] Nov 17, 2019 11:32 AM VA-TOBACCO FORMER USER [facility] [place] [facility] Nov 17, 2019 11:32 AM [place]-TOBACCO QUIT 15 YRS OR MORE [facility] Advance Directives: All historical and current Section Date Range: From patient's date of to the date document was created. This section includes ALL of a patient's completed or amended [place] Advance and Rescinded Directives. The entries below indicate that a directive exists for the patient, but an actual copy is not included with this document. The data comes from all [place] facilities. Date Advance Directives Provider Source Aug 27, 2024 ADVANCE DIRECTIVE SHAY MILLER
--- OUTSIDE RECORDS SUMMARY | 2024-10-24 14:05 | XMS_ITS | Encounter Summary ---
Author Name [facility] [place] [facility] [place] [facility] [place] [facility] [place] Address [address] [place] [address] Care Team Providers Care Power Generation Turbine Room Operator Name Role Phone ANAYA JACOB Primary [...] Name Patient's Relationship to Policy De Dios [facility] MEDICAID MEDICAID MEDIC AID Jul 23, 2014 MEDICAI D [id number] JETT MARIN PATIENT MEDICAID MEDICAID [facility] Jul 23, 2014 MEDICAI D [id number] [facility] Selected Encounter This section includes the information on record at [place] for the Encounter. Date/Time Encounter Type Encounter Description Reason Pro vider Source Aug 27, 2024 03:09 PM Outpatient Encounter PRIMARY CARE/MEDICINE IHE Encounter Template Text not used by [place] Plan of Treatment: Future Appointments (+ 6 [...] 20 appointments. The data comes from all [facility]. Appointment Date/Time Appointment Type Appointme nt Facility Name Oct 22, 2024 12:40 PM AMBULATORY - MEDICINE [facility] [place] [facility] Oct 22, 2024 02:45 PM AMBULATORY - MEDICINE [facility] [place] [facility] Oct 24, 2024 11:40 AM AMBULATORY - NONE [facility] [place] [facility] Dec 19, 2024 11:30 AM AMBULATORY - NONE [facility] [place] [facility] Dec 30, 2024 08:30 AM AMBULATORY - PSYCHIATRY [facility] [place] [facility] Jan 02, 2025 01:00 PM AMBULATORY [facility] Active, Pending, and Scheduled Orders This section includes a listing of several types of active, pending, and scheduled orders, including clinic medications orders, diagnostic test orders, procedure orders and consult orders; where the start date of the order is 45 days before the date of the Encounter or 45 days after the date of theEncounter. The data comes from all [facility]. Test Date/Time Test Type Test Details Facility Name Aug 27, 2024 12:00 AM Laboratory - Chemistry Order CBC BLOOD (LAV-BLOOD) [facility] Aug 27, 2024 12:00 AM Laboratory - Chemistry Order HEMOGLOBIN A1C PANEL BLOOD (LAV-BLOOD) [facility] Aug 27, 2024 12:00 AM Laboratory - Chemistry Order TSH BLOOD (SST-SERUM) [facility] Aug 27, 2024 12:00 AM Laboratory - Chemistry Order URINALYSIS URINE [facility] Aug 27, 2024 12:00 AM Laboratory - Chemistry Order PSA BLOOD (SST-SERUM) [facility] Aug 27, 2024 12:00 AM Laboratory - Chemistry Order HEPATITIS C ANTIBODY (HCV)-ARC BLOOD (MARBLED-TOP SERUM) [facility] Aug 27, 2024 12:00 AM Laboratory - Chemistry Order HIV 1&2 Ag/Ab SCREEN BLOOD (SST-SERUM) [facility] Aug 27, 2024 12:00 AM Laboratory - Chemistry Order BASIC METABOLIC PANEL (non-fasting) BLOOD (SST-SERUM) [facility] Aug 27, 2024 12:00 AM Laboratory - Chemistry Order LIPID PANEL FASTING BLOOD (SST-SERUM) [facility] Aug 27, 2024 12:00 AM Laboratory - Chemistry Order LIVER FUNCTION BLOOD (SST-SERUM) [facility] Aug 27, 2024 02:25 PM Consult Order [facility]COLONOS[facility] SCREENING Cons [employer] Monitor's [facility] Aug 27, 2024 06:22 PM Consult Order [facility] [employer] Monitor[facility] Aug 27, 2024 06:22 PM Consult Order [facility] [employer] Monitor[facility] Aug 27, 2024 06:22 PM Consult Order [facility]-UROLOGY [employer] Monitor[facility] Aug 27, 2024 06:22 PM Consult Order [facility]-OPTOMETRY ROUTINE EYE EXAM [employer] Monitor[facility] Aug 27, 2024 06:22 PM Consult Order NEUROPSYCH OLOGICAL TESTING OUTPT [employer] Monitor's [facility] Social History: Smoking Status (Most current) and Tobacco Use (All prior to encounter date) This section includes the most current, and the historical, smoking and tobacco- related health factors from the [place] facility where the Encounter took place. Current Smoking Status This section includes the most current smoking, or tobacco-related health factor, from the [place] facility where the Encounter took place. Date/Time Current Smoking Status Comment Facil ity May 26, 2021 08:00 AM VA-TOBACCO FORMER USER [facility] Tobacco Use History This section includes a history of the smoking, or tobacco-related health factors, that were collected on or before the date of the Encounter. The data comes from the [place] facility where the Encounter took place. Date/Time Smoking Status/Tobacco Use Comment F acility May 26, 2021 08:00 AM VA-TOBACCO [facility]IT [facility]RS [facility] Nov 17, 2019 11:32 AM VA-TOBACCO FORMER USER [facility] [place] [facility] Nov 17, 2019 11:32 AM AR-TOBACCO QUIT 15 YRS OR MORE [facility] Advance Directives: All historical and current Section Date Range: From patient's date of to the date document was created. This section includes ALL of a patient's completed or amended [place] Advance and Rescinded Directives. The entries below indicate that a directive exists for the patient, but an actual copy is not included with this document. The data comes from all [place] facilities. Date Advance Directives Provider Source Aug 27, 2024 ADVANCE DIRECTIVE SHAY MILLER [facility] Encounter Notes: All associated encounter notes This section contains the clinical notes associated to the Encounter. Date/Time Encounter Note(s) Provider Source Aug 27, 2024 03:13 PM CLINICAL WARNING: LOCAL TITLE: COMMUNICATION AUTHORIZATION STANDARD TITLE: CLINICAL WARNING DATE OF NOTE: AUG 27, 2024@15:13 ENTRY DATE: AUG 27, 2024@15:13:40 AUTHOR: SHAY MILLER EXP COSIGNER: URGENCY: STATUS: COMPLETED COMMUNICATION AUTHORIZATION Has ADDENDA Family/Caregiver Name: Primary: GIORGIO ACHARYA Secondary: ESTEFANÍA MARIN Tertiary: Authorized Clinic & Topics: All Clinic's & Topics: All Care/Coordination Primary Care: All Care/Coordination Mental Health: All Care/Coordination Specialty Care: All Care/Coordination 7332 Protected Info: [ ] Drug Abuse [ ] Alcohol Abuse [ ] HIV [ ] Sickle Cell Expiration: Date: [ ] At [X] Through [ ] At end of care /mikie/ SHAY MILLER ADVANCE REVENUE ACCOUNTING MANAGER Signed: 08/27/2024 15:15 08/30/2024 ADDENDUM STATUS: COMPLETED Please see corrections below to Authorized Clinic & [place]ics: [place] [id number] Protected Info: Authorized Clinic & Topics: All Clinic's & Topics: All Care/Coordination, Prescriptions, Test Results Primary Care: All Care/Coordination, Prescriptions, Test Results Mental Health: All Care/Coordination, Prescriptions, Test Results Specialty Care: All Care/Coordination, Prescriptions, Test Results 7332 Protected Info: [X] Drug Abuse [X] Alcohol Abuse [X] HIV [X] Sickle Cell /mikie/ [facility] Signed: 08/30/2024 13:42 SHAY MILLER Aug 27, 2024 03:09 PM ADVANCE DIRECTIVE: LOCAL TITLE: ADVANCE DIRECTIVE STANDARD TITLE: ADVANCE DIRECTIVE DATE OF NOTE: AUG 27, 2024@15:09 ENTRY DATE: AUG 27, 2024@15:09:25 AUTHOR: SHAY MILLER EXP COSIGNER: URGENCY: STATUS: COMPLETED [place] Advance Directive Form [id number] Advance directive reviewed, forwarded to [facility] for scanning. Name of Healthcare Agent: GIORGIO ZENDEJAS Relationship to [place]: SIGNFICANT OTHER Name of Alternate Healthcare Agent: ESTEFANÍA MARIN Relationship to [place]: DAUGHTER /es/ SHAY MILLER ADVANCE REVENUE ACCOUNTING MANAGER Signed: 08/27/2024 15:12 SHAY MILLER
== END 2024-10-22 13:00 | disposition home or self-care (01) ==
LOC: HO.HOSX 12:59
PROVIDERS: Visit Provider Orthopaedic Surgery
DX: Z13.89 Encounter for screening for other disorder (principal)

== ENCOUNTER 2024-11-19 09:18 | Outpatient (AMB) | payer OTHER, SELFPAY ==
--- NOTE | 2024-11-19 09:27 | MHC.OFFVIS ---
Vital Signs 11/19/24 09:28 Height 5 ft 9.5 in Weight 198 lb BMI 28.8 Intake Visit Reasons: Bilateral knee osteoarthritis Intake Note: Bharathi is a 64 year old male who presents with complaints of progressively worsening bilateral knee pains. He describes his pains as sharp and severe in nature. His pains have gotten worse over the last few years in spite of continued non operative treatments. The patient states that he has had cortisone injections given into both of his shoulders in the past. Those injections gave him no relief. He has failed the last 3 months of conservative treatment which has included physical therapy exercises, Tylenol, anti-inflammatory medicines and topical gels. The patient's bilateral knee pains are now interfering with his activities of daily living and his ability to sleep well through the night. The patient wishes to hold off on total knee replacement surgery if at all possible. Allergies No Known Allergies Allergy (Verified 11/19/24 09:28) Medication List - Last Reconciled 11/19/24 by Claudy Cox MD albuterol sulfate 90 mcg/actuation 2 puffs inhalation Q4-6H PRN 30 days atorvastatin 20 mg PO BEDTIME 90 days calcium carbonate-vitamin D3 600 mg-5 mcg (200 unit) 1 tab PO QAM clonidine HCl 0.2 mg (2 x 0.1 mg) PO BEDTIME 30 days hydrocortisone acetate (Anusol-HC) 25 mg ME BID naproxen sodium 220 mg PO BID PRN sildenafil 100 mg PO DAILY PRN 28 days tamsulosin (Flomax) 0.4 mg PO BEDTIME 90 days turmeric 400 mg PO QAM vitamin B complex (B Complex-Vitamin B12 tablet) 1 tab PO DAILY walker Folding Front wheeled walker [facility] Medical History Vertigo ADHD (attention deficit hyperactivity disorder) Osteoarthritis COPD (chronic obstructive pulmonary disease) Sleep apnea Overweight (BMI 25.0-29.9) Insomnia Essential hypertension Exercise-induced asthma Benign prostatic hyperplasia Pure hypercholesterolemia Surgical History Hx of arthroscopy of shoulder Hx of excision of mass Hx of colonoscopy History of repair of hiatal hernia Hx of right inguinal hernia repair Hx of arthroscopy of right knee History of rotator cuff surgery Family History Father Dementia Social History Housing: House Are you a primary career and technology education teacher to a significant other at home: No Do you presently have visiting nurse or other home services: No Patient Tobacco Use Status: Former Tobacco user Tobacco use type: Cigarette Years Smoked: 14 e-Cigarette/Vaping Use: Former Use Second Hand Smoke Exposure: No service: Yes Current occupational status: retired Current occupational exposures/hazards: No Cognitive needs: Yes Hearing needs: No Vision needs: Yes Physical Exam Vital Signs: BMI result Body Mass Index 28.8 Const Other: Well-nourished well-developed very friendly male awake alert and oriented x3 in no acute distress Extrem Other: Bilateral lower extremity examination shows good capillary refill, no skin lesions noted, normal sensation light touch Bilateral knee examination shows minimal effusions, palpable crepitus with range of motion, pain with range of motion, range of motion from -3 degrees to 115 degrees, no instability Results Reviewed Results Reviewed: X-rays of the patient's bilateral knees taken previously show joint space narrowing, subchondral sclerosis, no acute bony abnormalities Assessment & Plan Assessment & Plan (1) Osteoarthritis of left knee: Code(s): M17.12 - Unilateral primary osteoarthritis, left knee Category: Medical (2) Osteoarthritis of right knee: Code(s): M17.11 - Unilateral primary osteoarthritis, right knee Category: Medical Qualifiers: Osteoarthritis type: primary Qualified Code(s): M17.11 - Unilateral primary osteoarthritis, right knee Plan Mr. Sandoval presents with bilateral knee pains due to osteoarthritis. I had a lengthy discussion with the patient regarding the treatment options. He wishes to hold off on total knee replacement surgery for as long as possible. I agree with this plan. I will see whether or not the patient's insurance company will cover a viscosupplementation injection, such as Durolane, for both of his knees. I will see him back once the injections are available. Feel free to call me at any time should questions regarding his orthopedic management arise. I spent 21 minutes in reviewing the patient's records and imaging studies, seeing the patient and documenting in the medical record. Coding Level of Care Code Est Pt Level 3 (41835) Complex EM visit Add On G2211 Diagnoses Osteoarthritis of left knee M17.12 Primary osteoarthritis of right knee M17.11 Osteoarthritis type: primary
[2024-11-19 09:28] VITALS: BMI 28.8
--- OUTSIDE RECORDS SUMMARY | 2024-11-19 09:47 | XMS_ITS | Encounter Summary ---
Author Name [facility] [place] Address [address] [place] [address] Care Team Providers Care Claim Professional Name Role Phone ANAYA JACOB Primary Care [...] Name Patient's Relationship to Policy De Dios [facility] MEDICAID MEDICAID MEDIC AID Jul 23, 2014 MEDICAI D [id number] JETT MARIN PATIENT MEDICAID MEDICAID [facility] STAND KIZZY Jul 23, 2014 MEDICAI D [id number] [facility] D PATIENT Selected Encounter This section includes the information on [place] at [place] for the Encounter. Date/Time Encounter Type Encounter Description Reason Pro vider Source Nov 04, 2024 10:50 AM Outpatient Encounter OPTOMETRY IHE Encounter Template Text not used by [...] 20 appointments. The data comes from all [place] treatment facilities. Appointment Date/Time Appointment Type Appointme nt Facility Name Nov 19, 2024 09:30 AM AM[place]ULATORY [place]ICINE [place] [facility] Nov 26, 2024 08:45 AM AM[place]UL[place]ORY [place]ICINE [place] [facility] Dec 19, 2024 11:30 AM AMBULATORY - NONE [place] [facility] [place] [facility] Dec 30, 2024 08:30 AM AMBULATORY - [place]IATRY [place] [facility] [place] [facility] Jan 02, 2025 01:00 PM AM[place]UL[place]ORY [place]ICINE [place] [facility] February 25, 2025 01:00 PM AMBULATORY - MEDICINE [facility] Social History: Smoking Status (Most current) [...] 26, 2021 08:00 AM VA-TOBACCO [facility]ER [facility] Tobacco Use History This section includes a history of the smoking, or tobacco-related health factors, that were collected on or before the date of the Encounter. The data comes from the [place] facility where the Encounter took place. Date/Time Smoking Status/Tobacco Use Comment F acility May 26, 2021 08:00 AM VA-TOBACCO QUIT 15 YRS OR MORE [place] [facility] [facility] Nov 17, 2019 11:32 AM VA-TOBACCO FORMER USER [place] [facility] [place] [facility] Nov 17, 2019 11:32 AM [place] QUIT 15 YRS OR MORE [facility] Advance Directives: All historical and current Section Date Range: From patient's date of to the date document was created. This section includes ALL of a patient's completed or amended [place] Advance and Rescinded Directives. The entries below indicate that a directive exists for the patient, but an actual copy is not included with this document. The data comes from all [place] facilities. Date Advance Directives Provider Source Aug 27, 2024 ADVANCE DIRECTIVE SHAY MILLER [facility] Encounter Notes: All associated encounter notes This section contains the clinical notes associated to the Encounter. Date/Time Encounter Note(s) Provider Source Nov 04, 2024 11:36 AM ADDENDUM: LOCAL TITLE: Addendum STANDARD TITLE: ADDENDUM DATE OF NOTE: NOV 04, 2024@11:36:34 ENTRY DATE: NOV 04, 2024@11:36:35 AUTHOR: JANENE ZELAYA EXP COSIGNER: URGENCY: STATUS: COMPLETED ok to order PALs clear ansd sun with CC eyeglasses RX. /es/ Jnaene Zelaya OD CHIEF OF OPTOMETRY Signed: 11/04/2024 11:37 Receipt Acknowledged By: 11/04/2024 12:13 /es/ KRISTAL CHRISTINE MINING MANAGER === --- Original Document --- 11/04/24 OPTOMETRY NOTE: seen today for fittings appointment. Has outside rx from Dr. Lopez written 10/24/2024 expires 2 years. [place] requests progressive glasses both clear and sun. Adding provider and Health Clinic Lead for approval. The quote provided below is for informational purposes only. Please verify prior to the creation of a purchase order. [facility] 6825 RX INFORMATION OD -2.75 -2.00 X90 Add:+2.25 Pzm:0.00 Dir: Prz2:0.00 Dir2: OS -3.00 -1.00 X90 Add:+2.25 Pzm:0.00 Dir: Prz2:0.00 Dir2: FITTING INFORMATION FPD: NPD: Yell:R:29 L:31 SEG HT:R:21 L:21 Tint:[place] Shade:3 VA Billable Items FRAME: LUZMARIA MORRISON [id number] Right Lens: 1.67 VA PROGRESSIVE 1.67 HIGH INDEX Left Lens: 1.67 VA PROGRESSIVE 1.67 HIGH INDEX SOLID TINT CLIN items 0004 - Progressive - Glass Plastic Poly Open Market - Hi Index 1.67 ------- The quote provided below is for informational purposes only. Please verify prior to the creation of a purchase order. [facility] 6825 RX INFORMATION OD -2.75 -2.00 X90 Add:+2.25 Pzm:0.00 Dir: Prz2:0.00 Dir2: OS -3.00 -1.00 X90 Add:+2.25 Pzm:0.00 Dir: Prz2:0.00 Dir2: FITTING INFORMATION FPD: NPD: Yell:R:29 L:31 SEG HT:R:21 L:21 Tint:None Shade:None VA Billable Items FRAME: LUZMARIA MORRISON [id number] Right Lens: 1.67 VA PROGRESSIVE 1.67 HIGH INDEX Left Lens: 1.67 VA PROGRESSIVE 1.67 HIGH INDEX CLIN items 0004 - Progressive - Glass Plastic Poly Open Market - Hi Index 1.67 /mikie/ KRISTAL CHRISTINE MINING MANAGER Signed: 11/04/2024 10:56 Receipt Acknowledged By: * AWAITING SIGNATURE * NANCYMALIKBAUDILIO INFANTE 11/04/2024 11:36 /es/ Janene Zelaya OD CHIEF OF OPTOMETRY JANENE ZELAYA [facility] [place] [facility] Nov 04, 2024 10:50 AM OPTOMETRY NOTE: LOCAL TITLE: OPTOMETRY NOTE STANDARD TITLE: OPTOMETRY NOTE DATE OF NOTE: NOV 04, 2024@10:50 ENTRY DATE: NOV 04, 2024@10:50:12 AUTHOR: KRISTAL CHRISTINE EXP COSIGNER: URGENCY: STATUS: COMPLETED OPTOMETRY NOTE Has ADDENDA seen today for fittings appointment. Has outside rx from Dr. Lopez written 10/24/2024 expires 2 years. [place] requests progressive glasses both clear and sun. Adding provider and Health Clinic Lead for approval. The quote provided below is for informational purposes only. Please verify prior to the creation of a purchase order. [facility] 6825 RX INFORMATION OD -2.75 -2.00 X90 Add:+2.25 Pzm:0.00 Dir: Prz2:0.00 Dir2: OS -3.00 -1.00 X90 Add:+2.25 Pzm:0.00 Dir: Prz2:0.00 Dir2: FITTING INFORMATION FPD: NPD: Yell:R:29 L:31 SEG HT:R:21 L:21 Tint:CARLTON Shade:3 VA Billable Items FRAME: LUZMARIA MORRISON [id number] Right Lens: 1.67 VA PROGRESSIVE 1.67 HIGH INDEX Left Lens: 1.67 VA PROGRESSIVE 1.67 HIGH INDEX SOLID TINT CLIN items 0004 - Progressive - Glass Plastic Poly Open Market - Hi Index 1.67 ------- The quote provided below is for informational purposes only. Please verify prior to the creation of a purchase order. [facility] 6825 RX INFORMATION OD -2.75 -2.00 X90 Add:+2.25 Pzm:0.00 Dir: Prz2:0.00 Dir2: OS -3.00 -1.00 X90 Add:+2.25 Pzm:0.00 Dir: Prz2:0.00 Dir2: FITTING INFORMATION FPD: NPD: Yell:R:29 L:31 SEG HT:R:21 L:21 Tint:None Shade:None VA Billable Items FRAME: LUZMARIA MORRISON [id number] Right Lens: 1.67 VA PROGRESSIVE 1.67 HIGH INDEX Left Lens: 1.67 VA PROGRESSIVE 1.67 HIGH INDEX CLIN items 0004 - Progressive - Glass Plastic Poly Open Market - Hi Index 1.67 /es/ KRISTAL CHRISTINE MINING MANAGER Signed: 11/04/2024 10:56 Receipt Acknowledged By: 11/04/2024 12:18 /es/ Malik Davila Optometry Health Clinic Lead 11/04/2024 11:36 /es/ Janene Zelaya OD CHIEF OF OPTOMETRY 11/04/2024 ADDENDUM STATUS: COMPLETED ok to order PALs clear ansd sun with CC eyeglasses RX. /mikie/ Janene Zelaya OD CHIEF OF OPTOMETRY Signed: 11/04/2024 11:37 Receipt Acknowledged By: 11/04/2024 12:13 /mikie/ KRISTAL MENARD [facility] [place] [facility]
--- OUTSIDE RECORDS SUMMARY | 2024-11-19 09:48 | XMS_ITS ---
Author Name [facility] [place] Address [address] [place] [address] Care Team Providers Care Parquet Floor Layer Name Role Phone ANAYA JACOB Primary Care [...] Name Patient's Relationship to Policy De Dios [facility] MEDICAID MEDICAID MEDIC AID Jul 23, 2014 MEDICAI D [id number] JETT MARIN PATIENT MEDICAID MEDICAID [facility] STAND KIZZY Jul 23, 2014 MEDICAI D [id number] [facility] Isael PATIENT Selected Encounter This section includes the information on record at [place] for the Encounter. Date/Time Encounter Type Encounter Description Reason Provider Source Nov 04, 2024 10:40 AM FIT SPECTACLES MULTIFOCAL OPTOMETRY ICD-10-CM Z46.0 Encounter for fit/adjst of spectacles and contact lenses PIEDAD CRUZ Rosmery Encounter Template Text not used by VA Assessments - Encounter Diagnoses This section includes the primary and secondary diagnoses documented for the Encounter. Date/Time Primary/Secondary Diagnosis Diagnosis Name Provider Source Nov 04, 2024 12:16 PM PRIMARY Encounter for fit/adjst of spectacles and contact lenses [facility] Plan of Treatment: Future Appointments (+ 6 months) and Future Tests (+/- 45 days) The Plan of Treatment section includes future care activities for the patient [facility] [place] [facility]. This section includes future appointments and future orders which are active, pending or scheduled. Future Appointments This section includes appointments that were scheduled to occur 6 months from the date of the Encounter, up to a maximum of 20 appointments. The data comes from all [place] treatment facilities. Appointment Date/Time Appointment Type Appointme nt Facility Name Nov 19, 2024 09:30 AM AMBULATORY - MEDICINE [facility] [place] [facility] Nov 26, 2024 08:45 AM [facility]BULATORY - [facility]IC[facility] Dec 19, 2024 11:30 AM [facility] Dec 30, 2024 08:30 AM [facility] Jan 02, 2025 01:00 PM AMBULATORY - MEDICINE [facility] [place] [facility] February 25, 2025 01:00 PM [facility] Social History: Smoking Status (Most current) and Tobacco Use (All prior to encounter date) This section includes the most current, and the historical, smoking and tobacco- related health factors from the [place] facility where the Encounter took place. Current Smoking Status This section includes the most current smoking, or tobacco-related health factor, from the [place] facility where the Encounter took place. Date/Time Current Smoking Status Comment Facil ity May 26, 2021 08:00 AM VA-TOBACCO [facility] Tobacco Use History This section includes a history of the smoking, or tobacco-related health factors, that were collected on or before the date of the Encounter. The data comes from the [place] facility where the Encounter took place. Date/Time Smoking Status/Tobacco Use Comment F acility May 26, 2021 08:00 AM [place]-TOBACCO QUIT 15 YRS OR MORE [facility] Nov 17, 2019 11:32 AM VA-TOBACCO [facility] Nov 17, 2019 11:32 AM MD-TOBACCO QUIT 15 YRS OR MORE [facility] Advance Directives: All historical and current Section Date Range: From patient's date of to the date document was created. This section includes ALL of a patient's completed or amended [place] Advance and Rescinded Directives. The entries below indicate that a directive exists for the patient, but an actual copy is not included with this document. The data comes from all [place] facilities. Date Advance Directives Provider Source Aug 27, 2024 ADVANCE DIRECTIVE SHAY MILLER Encounter Notes: All associated encounter notes This section contains the clinical notes associated to the Encounter. Date/Time Encounter Note(s) Provider Source Nov 04, 2024 12:15 PM OPTOMETRY NOTE: LOCAL TITLE: OPTOMETRY NOTE STANDARD TITLE: OPTOMETRY NOTE DATE OF NOTE: NOV 04, 2024@12:15 ENTRY DATE: NOV 04, 2024@12:15:56 AUTHOR: MALIK CRUZ CHR EXP COSIGNER: URGENCY: STATUS: COMPLETED PDS Radiation Therapy Technician saw [place] today for fittings appointment. Has outside rx from Dr. Lopez written 10/24/2024 expires 2 years. [place] requests progressive glasses both clear and sun. 2 pairs of PAL eyeglasses ordered, approved by provider. /mikie/ Malik Cruz [facility] Health Local Delivery Driver Signed: 11/04/2024 12:16 MALIK CRUZ [facility]
--- OUTSIDE RECORDS SUMMARY | 2024-11-19 09:48 | XMS_ITS | Continuity of Care Document ---
Author Name [facility] Organization [facility] Care Team Providers Care [facility] Nurse Practitioner Name Role Phone [facility] Unavailable Unavailable Problems Combined list of problems from Department of Defense and Veterans Affairs facilities. It does not include entries that were removed or entered in error. Problem Status Onset Date Problem Type Date of Resolution Comments Source Cognitive impairment Active 999 Condition Sep 01, 2024 Entered By: ZOHAIB YANEZ Comment: hx multiple concussions [place] ADD - Attention deficit disorder Active Condition [facility] Asthma Active Condition Sep 01 Entered By: ZOHAIB YANEZ Comment: mild intermittentMar 2013 Entered By: EDGAR GONZALES Comment: Mixture of COPD and AsthmaMar 2013 Entered By: EDGAR GONZALES Comment: last CXR JAN 03: No Acute Processes [place] Essential hypertension Active Condition [facility] Family medical history Active Condition Sep 01, 2024 Entered By: ZOHAIB YANEZ Comment: father - dementia, bladder CANov 2023 Entered By: ZOHAIB YANEZ Comment: paternal grandmother - dementia, breast CANov 2023 Entered By: ZOHAIB YANEZ Comment: mother - ETOH, CHFNov 2023 Entered By: ZOHAIB YANEZ Comment: paternal aunt - cancer unknown type [facility] Former smoker Active Condition Aug Entered By: ZOHAIB YANEZ Comment: smoked [id number], 1ppd [facility] H/O: alcoholism Active Condition Sep 01, 2024 Entered By: ZOHAIB YANEZ Comment: quit 1981 [facility] History of surgery Active Condition N ov 2023 Entered By: ZOHAIB YANEZ Comment: abdominal hernia repair 2023 Entered By: ZOHAIB YANEZ Comment: right inguinal hernia repair 2023 Entered By: ZOHAIB YANEZ Comment: right shoulder arthroscopy 2023 Entered By: ZOHAIB YANEZ Comment: left shoulder reconstruction 2023 Entered By: ZOHAIB YANEZ Comment: ORIF right hand fracture 2023 Entered By: ZOHAIB YANEZ Comment: right menisectomy 2006 [facility] Insomnia Active Condition [facility] Lower urinary tract symptoms due to benign prostatic hypertrophy Active Condition [facility] Mixed hyperlipidaemia Active Condition [facility] Osteoarthritis of multiple joints Active Condition Sep 01, 2024 Entered By: ZOHAIB YANEZ Comment: bilateral knees, left shoulder [facility] Retinopathy Active Condition Sep 01, 2024 Entered By: ZOHAIB YANEZ Comment: OU - followed by OphthalmologySep 01, 2024 Entered By: ZOHAIB YANEZ Comment: has floaters, sees circles of light, has sharp pains behind eyesSep 01, 2024 Entered By: ZOHAIB YANEZ Comment: hx retinal hemorrhage [facility] Screening for malignant neoplasm of colon done Active Condition Jan 08, 2014 Entered By: EDGAR GONZALES Comment: Screen Colonoscopy approx 2011: Neg CRC; +Polyps (benign)Aug 23, 2024 Entered By: ZOHAIB YANEZ Comment: [facility]; repeat 2023 Entered By: ZOHAIB YANEZ Comment: 09/08/2020 negative FIT [place] Under care of multiple providers Active Condition Sep 01 Entered By: ZOHAIB YANEZ Comment: Ortho - [facility] 01, 2024 Entered By: ZOHAIB YANEZ Comment: urology - Dr. Nguyen 2023 Entered By: ZOHAIB YANEZ Comment: Ophthalmology - Dr. Lopez [facility] Ventral hernia [facility] Depressive disorder (SNOMED CT [id number]) Inactive Condition 08/27/2024 [place] Gastroesophageal reflux disease with hiatal hernia Inactive Condition 08/27/2024 [facility] Retinal Hemorrhage (ICD-9-CM 362.81) Inactive Condition 09/01/2024 Nov 13 Entered By: SKYE OLIVA OD Comment: isolated cluster of small dot hemorrhages [facility] Diagnosis: ICD-10-CM Z46.0 Encounter for fit/adjst of spectacles and contact lenses Active Diagnosis [facility] Diagnosis: ICD-10-CM I10 Essential (primary) hypertension Active Diagnosis [place] Medications Combined list of outpatient medications from Department of Defense and Veterans Affairs facilities.Medications provided include 1) outpatient medications from the last 15 months, and 2) patient-reported medications. Medication Details Route Status Patient Instructions Prescription Expires Prescription Number Last Dispense Date Ordering Provider Order Date Order Qty Source ALBUTEROL 90MCG/ACTUA T (CFC-F) INHL,ORAL,8 .5GM DOSE COUNTER INHALE 1 TO 2 PUFFS BY MOUTH EVERY 6 HOURS NEEDED FOR [facility] RESPIR ATORY (INHAL ATION) ACTIVE 08/28/2025 [id number] 4 Jim YANEZ 2023 3 IELD ATORVASTATI N CA 40MG TAB TAKE ONE-HALF TABLET BY MOUTH AT BEDTIME FOR HIGH CHOLESTE ROL ORAL ACTIVE 08/28/2025 [id number] 4 Jim YANEZ 2023 45 IELD CLONIDINE HCL 0.1MG TAB TAKE ONE TABLET BY MOUTH ONCE DAILY TO CONTROL BLOOD PRESSURE ORAL ACTIVE 08/28/2025 [id number] 4 Jim YANEZ 2023 90 IELD NAPROXEN 500MG TAB TAKE ONE TABLET BY MOUTH AT BEDTIME FOR PAIN TAKE WITH FOOD ORAL ACTIVE 08/28/2025 [id number] 4 Jim YANEZ 2023 90 IELD TAMSULOSIN HCL 0.4MG CAP TAKE ONE CAPSULE BY MOUTH AT BEDTIME FOR ENLARGED PROSTATE ORAL ACTIVE 08/28/2025 [id number] 4 Jim YANEZ 2023 [facility] Allergies, Adverse Reactions, Alerts Combined list of allergies from Department of Defense and Veterans Affairs facilities. It does not include entries that were removed or entered in error. Substance Category Reaction Severity Reaction type Status Date Reported Comments Source NAPROXEN Propensity to adverse reactions to drug (finding) Indigestion active 8 [facility] NAPROXEN Propensity to adverse reactions to drug (finding) active 6 [facility] Immunizations Combined list of available immunizations from the Department of Defense and Veterans Affairs facilities. Immunization Series Date Given Administered By Site Reaction Lot Number CVX Code Drug Lime Trimmer Status Comments Source INFLUENZA, UNSPECIFIED FORMULATION 2023 88 complet ed [facility] COVID-19 (MODERNA), MRNA, LNP-S, PF, 100 MCG OR 50 MCG DOSE 3 2020 207 complet ed MOD; [id number]; 2 [place] COVID-19 (MODERNA), MRNA, LNP-S, PF, 100 MCG/0.5 ML DOSE 2 2020 207 complet ed [facility] COVID-19 (MODERNA), MRNA, LNP-S, PF, 100 MCG/0.5 ML DOSE 1 2020 207 complet ed [facility] INFLUENZA, INJECTABLE, QUADRIVALENT, PRESERVATIVE FREE 2019 150 complet ed [facility] FLU,3 YRS (HISTORICAL) 2008 88 complet ed 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 [facility] Vital Signs Combined list of inpatient and outpatient Vital Signs from Department of Defense and Veterans Affairs, ranging from 12 months to all on record, depending upon the facility. Vital Sign Value Date Comments Source SYSTOLIC BLOOD PRESSURE 136 08/27/2024 13:44:42 [place] DIASTOLIC BLOOD PRESSURE 86 08/27/2024 13:44:42 [place] PULSE OXIMETRY 96 08/27/2024 13:44:42 S KRISTINA WEIGHT 199 08/27/2024 13:44:42 [place] [facility] BMI 29kg/m2 08/27/2024 13:44:42 [facility] [facility] PULSE 96 08/27/2024 13:44:42 [place] Encounters Combined list of: 1) Encounters from Department of Veterans Affairs facilities going back up to thelast 18 months. 2) Encounters from the Department of Defense facilities going back up to 280 months. Location Location Details Encounter Type Encounter Number Reason For Visit Attending Provider ADM Date DC Date Status Disposition Source [facility] Outpatient Encounter [id number] 09/03 [facility] [id number] 05/27 [facility] [id number] 06/06 [facility] En[facility] [id number] 1.06/23 [facility] [id number] 06/25 [facility] En[facility] [id number] 07/19 [facility] [place] Outpatient Encounter [id number] 07/23 [place] [facility] Out[facility] Encounter [id number] [facility] En[facility] [id number] 1[facility]08/27 [facility] [id number] 1.08/27 [facility] [place] O/P [place] 60 MIN [id number] Diagnos is: ICD-10- CM I10 Essenti al (primar y) hyperte nsion<b r/> MARY ALICE YANEZ NDRMonica C 08[facility]27 [facility] Outpatient Encounter [id number] 1.08/27 [facility] Outpatient Encounter [id number] 1.09/01 [facility] FIT SPECTACLES MULTIFOCAL [id number] 1. Diagnos is: ICD-10- CM Z46.0 Encount er for fit/adj st of spectac les and contact lenses< br/> ARIES CRUZ 11/04 [facility] Outpatient Encounter [id number] 1.11/04 [facility] Social History Combined list of available smoking, tobacco, and other social history from Department of Defense and Veterans Affairs facilities. Social History Type Response Date Comment Source Tobacco smoking status [facility] QUIT 15 YRS OR MORE 08/27/2024 [place] History of tobacco use [facility] FORMER [facility] 08/27/2024 [place] History of tobacco use [facility] FOR[facility] 05/26/2021 [facility] [place] [facility] History of tobacco use QUIT TOBACCO USE > 7 YEARS AGO 10/22/2009 Pt. quit smoking in 1995 [place] Plan of Care List of future care activities from Department of Veterans Affairs facilities. Additional future care activities may be listed in the Assessment and Plan section. Date/Time Care Activity Care Activity Detail Facili ty 11/19/2024 AMBULATORY - MEDICINE AMBULATORY - MEDICI [facility] 11/26/2024 AMBULATORY - MEDICINE AMBULATORY - MEDICI [place] [facility] 12/19/2024 AMBULATORY - NONE AMBULATORY - NONE [facility] 12/30/2024 AMBULATORY - PSYCHIATRY AMBULATORY - PSYC HIATRY [facility] 01/02/2025 AMBULATORY - MEDICINE AMBULATORY - MEDICI [place] [facility] 02/25/2025 AMBULATORY - MEDICINE AMBULATORY - MEDICI [facility] Advance Directives List of completed, amended, or rescinded Advance Directives on record at Department of Veterans Affairs facilities. An actual copy of the Directive is not included. Date Advance Directive Provider Source 08/27/2024 ADVANCE DIRECTIVE SHAY MILLER
== END 2024-11-19 09:46 | disposition home or self-care (01) ==
PROVIDERS: PCP Internal Medicine; Visit Provider Orthopaedic Surgery
DX: M17.0 Bilateral primary osteoarthritis of knee (principal)
CPT/HCPCS: 99213; G2211

== ENCOUNTER → 2024-11-19 09:18 | Outpatient (BNVA) | payer OTHER, SELFPAY | PROVIDERS: PCP Internal Medicine; Visit Provider Orthopaedic Surgery | DX: M17.0 Bilateral primary osteoarthritis of knee (principal) | CPT/HCPCS: 99212 ==

== ENCOUNTER 2025-01-10 10:51 | Outpatient (AMB) | payer OTHER, SELFPAY ==
--- NOTE | 2025-01-10 11:00 | A.OFFVIS_ITS ---
Intake Visit Reasons: OV - Left Shoulder MRI Review - Dr. Cox Referral Intake Note: Bharathi is a 64 year old male who presents today for a follow up visit of his left shoulder, to discuss possible surgical intervention. Patient was last seen with Dr. Cox who recommended discussion of surgery IMPRESSION: 1. Completely torn and retracted supraspinatus tendon. Full-thickness tearing of the anterior infraspinatus tendon. High-grade partial tearing of the subscapularis tendon with moderate muscle atrophy. Mild supraspinatus/infraspinatus muscle atrophy. 2. Completely torn and retracted biceps tendon. 3. Mild acromioclavicular and glenohumeral osteoarthritis with a small joint effusion. Allergies No Known Allergies Allergy (Verified 11/19/24 09:28) HPI HPI OV - Left Shoulder MRI Review - Dr. Cox Referral: Details: Bharathi is a 64 year old male who presents today for a follow up visit of his left shoulder, to discuss possible surgical intervention. Patient was last seen with Dr. Cox who recommended discussion of surgery. He has full range of motion but he does describe difficulty moving his arm at night and with internal and external rotation. He does not do any heavy lifting. He feels like he hurt it about 6-9 months ago. He is left-hand dominant. Is on done physical therapy. He has not had injections recently but remotely and he does describe a history of remote rotator cuff surgery on both shoulders. He had an MRI and comes in today for review. [facility] Medical History Vertigo ADHD (attention deficit hyperactivity disorder) Osteoarthritis COPD (chronic obstructive pulmonary disease) Sleep apnea Overweight (BMI 25.0-29.9) Insomnia Essential hypertension Exercise-induced asthma Benign prostatic hyperplasia Pure hypercholesterolemia Surgical History Hx of arthroscopy of shoulder Hx of excision of mass Hx of colonoscopy History of repair of hiatal hernia Hx of right inguinal hernia repair Hx of arthroscopy of right knee History of rotator cuff surgery Family History Father Dementia Social History Housing: House Are you a primary medical care manager to a significant other at home: No Do you presently have visiting nurse or other home services: No Patient Tobacco Use Status: Former Tobacco user Tobacco use type: Cigarette Years Smoked: 14 e-Cigarette/Vaping Use: Former Use Second Hand Smoke Exposure: No service: Yes Current occupational status: retired Current occupational exposures/hazards: No Cognitive needs: Yes Hearing needs: No Vision needs: Yes Physical Exam Extrem Other: Full range of motion. 4-/5 strength with empty can testing on the left. Negative lift-off Results Reviewed Results Reviewed: I personally reviewed the MR images. IMPRESSION: 1. Completely torn and retracted supraspinatus tendon. Full-thickness tearing of the anterior infraspinatus tendon. High-grade partial tearing of the subscapularis tendon with moderate muscle atrophy. Mild supraspinatus/infraspinatus muscle atrophy. 2. Completely torn and retracted biceps tendon. 3. Mild acromioclavicular and glenohumeral osteoarthritis with a small joint effusion. Assessment & Plan Assessment & Plan (1) Rotator cuff arthropathy of left shoulder: Code(s): M12.812 - Other specific arthropathies, not elsewhere classified, left shoulder Category: Medical Plan: This is a 64-year-old gentleman with rotator cuff arthropathy of the left shoulder. We discussed surgical versus nonsurgical options as well as arthroplasty versus rotator cuff repair. I do think it would be reasonable to attempt rotator cuff repair but I think the recovery would be long and there is significant retraction and [id number] atrophy so there is a good chance it would not even be possible. S for arthroplasty I do not think she has pain or lack of motion are significant enough to warrant this at this time. He understood the discussion and I answered his questions and he will contact me if he would like to pursue treatment but at this time he will continue activity as tolerated. Coding Level of Care Code Est Pt Level 4 (02618) Diagnoses Rotator cuff arthropathy of left shoulder M12.812
== END 2025-01-10 11:37 | disposition home or self-care (01) ==
LOC: HO.HOS 10:52
PROVIDERS: PCP Internal Medicine; Visit Provider Orthopaedic Surgery
DX: M12.812 Other specific arthropathies, not elsewhere classified, left shoulder (principal)
CPT/HCPCS: 99213

== ENCOUNTER → 2025-01-10 10:51 | Outpatient (BNVA) | payer OTHER, SELFPAY | PROVIDERS: PCP Internal Medicine; Visit Provider Orthopaedic Surgery | DX: M12.812 Other specific arthropathies, not elsewhere classified, left shoulder (principal) | CPT/HCPCS: 99212 ==

== ENCOUNTER 2025-01-28 13:18 | Outpatient (AMB) | payer OTHER, SELFPAY ==
--- NOTE | 2025-01-28 13:26 | A.OFFVIS_ITS ---
Vital Signs 01/28/25 13:29 Height 5 ft 9.5 in Weight 198 lb BMI 28.8 Intake Visit Reasons: Bilateral knee pains Intake Note: Bharathi is a 64 year old male who presents with complaints of bilateral knee pains. He describes his pains as sharp in nature. He has failed the last 3 months of conservative treatment which has included a home exercise program, Tylenol and anti-inflammatory medicines. He has had cortisone injections which gave him minimal relief. He wishes to hold off on surgery for as long as possible. Allergies No Known Allergies Allergy (Verified 01/28/25 13:29) Medication List - Last Reconciled 01/28/25 by Claudy Cox MD albuterol sulfate 90 mcg/actuation 2 puffs inhalation Q4-6H PRN 30 days atorvastatin 20 mg PO BEDTIME 90 days calcium carbonate-vitamin D3 600 mg-5 mcg (200 unit) 1 tab PO QAM clonidine HCl 0.2 mg (2 x 0.1 mg) PO BEDTIME 30 days hydrocortisone acetate (Anusol-HC) 25 mg [place] BID naproxen sodium 220 mg PO BID PRN sildenafil 100 mg PO DAILY PRN 28 days tamsulosin (Flomax) 0.4 mg PO BEDTIME 90 days turmeric 400 mg PO QAM vitamin B complex (B Complex-Vitamin B12 tablet) 1 tab PO DAILY walker Folding Front wheeled walker [facility] Medical History Vertigo ADHD (attention deficit hyperactivity disorder) Osteoarthritis COPD (chronic obstructive pulmonary disease) Sleep apnea Overweight (BMI 25.0-29.9) Insomnia Essential hypertension Exercise-induced asthma Benign prostatic hyperplasia Pure hypercholesterolemia Surgical History Hx of arthroscopy of shoulder Hx of excision of mass Hx of colonoscopy History of repair of hiatal hernia Hx of right inguinal hernia repair Hx of arthroscopy of right knee History of rotator cuff surgery Family History Father Dementia Social History Housing: House Are you a primary patient care technician instructor to a significant other at home: No Do you presently have visiting nurse or other home services: No Patient Tobacco Use Status: Former Tobacco user Tobacco use type: Cigarette Years Smoked: 14 e-Cigarette/Vaping Use: Former Use Second Hand Smoke Exposure: No service: Yes Current occupational status: retired Current occupational exposures/hazards: No Cognitive needs: Yes Hearing needs: No Vision needs: Yes Physical Exam Vital Signs: BMI result Body Mass Index 28.8 Const Other: Well-nourished well-developed very friendly male awake alert and oriented x3 in no acute distress Extrem Other: Bilateral lower extremity examination shows good capillary refill, no skin lesions noted, normal sensation light touch Bilateral knee exam shows minimal effusions, palpable crepitus with range of, pain with range of motion, no instability Office Procedures AMB Joint Injection/Aspiration Joint Injection/Aspiration Primary Site: left knee Prep: site was prepped using aseptic technique Injected: 20 mg of (Euflexxa viscosupplementation) and 1% plain lidocaine Procedure: The patient tolerated the procedure well Coding 60528 - Large joint Procedure code (CPT) selection complete AMB Joint Injection/Aspiration Joint Injection/Aspiration Primary Site: right knee Prep: site was prepped using aseptic technique Injected: 20 mg of (Euflexxa viscosupplementation) and 1% plain lidocaine Procedure: The patient tolerated the procedure well Coding 95061 - Large joint Procedure code (CPT) selection complete Results Reviewed Results Reviewed: X-rays of the patient's bilateral knees taken previously show joint space narrowing, subchondral sclerosis, no acute bony abnormalities Assessment & Plan Assessment & Plan (1) Osteoarthritis of left knee: Code(s): M17.12 - Unilateral primary osteoarthritis, left knee Category: Medical (2) Osteoarthritis of right knee: Code(s): M17.11 - Unilateral primary osteoarthritis, right knee Category: Medical Qualifiers: Osteoarthritis type: primary Qualified Code(s): M17.11 - Unilateral primary osteoarthritis, right knee Plan Mr. Sandoval presents with bilateral knee pains due to osteoarthritis. The risks and benefits of bilateral knee Euflexxa viscosupplementation injections were discussed at length with the patient. The patient wished to proceed. He tolerated the injections well. He will continue with his home exercise program. He will follow up next week as scheduled. Feel free to call me at any time should questions regarding his orthopedic management arise. I spent 20 minutes in reviewing the patient's records and imaging studies, seeing the patient and documenting in the medical record. Orders: Orders AMB Joint Injection/Aspiration 04 M17.12 - Unilateral primary osteoarthritis, left knee AMB Joint Injection/Aspiration 04 M17.11 - Unilateral primary osteoarthritis, right knee Coding Level of Care Code Est Pt Level 3 (84442) Complex EM visit Add On G2211 Diagnoses Osteoarthritis of left knee M17.12 Primary osteoarthritis of right knee M17.11 Osteoarthritis type: primary CPT Codes Coding - 36104 Large joint: 87829 - Large joint ([id number]) Coding - 28366 Large joint: 39452 - Large joint ([id number])
[2025-01-28 13:29] VITALS: BMI 28.8
--- OUTSIDE RECORDS SUMMARY | 2025-01-28 16:12 | XMS_ITS | Clinical Summary ---
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 Name Role Phone Unavailable Primary Care Provider Unavailabl e Allergies No known active allergies Social History Tobacco Use Types Packs/Day Years Used Date Smoking Tobacco: Every Day Cigarettes Passive Smoke Exposure: Current Smokeless Tobacco: Never Tobacco Cessation:Ready to Q uit: Not Asked; Counseling Given: Not Answered Sex and Gender Information Value Date Recorded Sex Assigned at Male 11/30/2023 10:09 AM EST Legal Sex Male 10:08 AM EST Gender Identity Male 11/30/2023 10:09 AM EST Sexual Orientation Straight 11/30/2023 8: 10 PM EST Last Filed Vital Signs Vital Sign Reading Time Taken Comments Blood Pressure 138/87 11/30/2023 10:27 AM EST Pulse 69 11/30/2023 10:27 AM EST Temperature 36.7 ??C (98 ??F) 11/30/2023 10:27 AM EST Respiratory Rate 16 11/30/2023 10:27 AM EST Oxygen Saturation 96% 11/30/2023 10:27 AM EST Inhaled Oxygen Concentration - - Weight 91.4 kg (201 lb 9.6 oz) 11/30/2023 10:27 AM EST Height 175.3 cm (5' 9 ) 11/30/2023 10:27 AM EST Body Mass Index 29.77 11/30/2023 10:27 AM EST Plan of Treatment Health Maintenance Due Date Last Done Comments CT Colonography 1958 Colonoscopy 1958 Colorectal Cancer Screening 1958 Depression Screening 1958 FIT DNA/Cologuard 1958 FIT 1958 FOBT 1958 Lipid Panel 1958 SDOH Screening 1958 Sigmoidoscopy 1958 Alcohol/Substance Use Screening 1970 DTaP/Tdap/Td Vaccines (1 - Tdap) 1977 Zoster Vaccines (1 of 2) 2008 COVID-19 Vaccine (6 - season) 2024 09/09/2023, 10/20/2022, 10/02/2021, Additional history exists Influenza Vaccine (#1) 2024 08/24/2023 Tobacco Screening 11/30/2024 11/30/2023 RSV Patients and Patients Aged 60 years or older (1 - 1-dose 75+ series) 2033 Pneumococcal Vaccine: 50+ Years Completed 09/09/2023, 10/20/2022 Hepatitis C Screening Completed 01/18/2024 HIB Vaccines Aged Out No longer eligi ble based on patient's age to complete this topic HPV Vaccines Aged Out No longer eligi ble based on patient's age to complete this topic Hepatitis A Vaccines Aged Out No long er eligible based on patient's age to complete this topic Hepatitis B Vaccines Aged Out No long er eligible based on patient's age to complete this topic IPV Vaccines Aged Out No longer eligi ble based on patient's age to complete this topic Meningococcal Vaccine Aged Out No jose armando dennis eligible based on patient's age to complete this topic RSV under 20 months Aged Out No longe r eligible based on patient's age to complete this topic Rotavirus Vaccines Aged Out No longer eligible based on patient's age to complete this topic Procedures Procedure Name Priority Date/Time Associated Diagnosis Comments HEPATITIS C AB W/REFL TO HCV RNA, QN, PCR Routine 01/18/2024 11:44 AM EDT Contact with and (suspected) exposure to infections with a predominantly sexual mode of transmission from Last 3 Months or Most Recently Relevant to Health Maintenance Results * Hepatitis C Antibody with Reflex to HCV, RNA, Quantitative, Real-Time PCR (01/18/2024 11:44 AM EDT) Hepatitis C Antibody Nonreactive Nonreactive [facility] Comment:Antibodies to HCV no t detected; does not exclude early acuteHCV infection. Blood Venous blood specimen / Unknown 01/18/2024 11:44 AM EDT 01/18/2024 11:44 AM EDT us Nura Eddy MD LAB BLOOD ORDERABLES Final Resul t [facility] [address] [place] [address] [phone] from Last 3 Months or Most Recently Relevant to Health Maintenance Insurance [facility] MEDICARE [facility]
--- OUTSIDE RECORDS SUMMARY | 2025-01-28 16:12 | XMS_ITS | Continuity of Care Document ---
Author Name [facility] Organization [facility] Care Team Providers Care Non Acoustic Operator Name Role Phone [facility] Unavailable Unavailable Problems Combined list of problems from Department of Defense and Veterans Affairs facilities. It does not include entries that were removed or entered in error. Problem Status Onset Date Problem Type Date of Resolution Comments Source Cognitive impairment Active 999 Condition Sep 01, 2024 Entered By: ZOHAIB YANEZ Comment: hx multiple concussions [place] ADD - Attention deficit disorder Active Condition [facility] Asthma Active Condition Sep 01 Entered By: ZOHAIB YANEZ Comment: mild intermittentMar 2013 Entered By: EDGAR GONZALES Comment: Mixture of COPD and AsthmaMar 2013 Entered By: EDGAR GONZALES Comment: last CXR JAN 03: No Acute Processes [place] Depression Active Condition [facility] Essential hypertension Active Condition [facility] Aug Entered By: ZOHAIB YANEZ Comment: smoked [id number], 1ppd [facility] H/O: alcoholism Active Condition Sep 01, 2024 Entered By: ZOHAIB YANEZ Comment: quit 1981 [facility] History of surgery Active Condition N ov 2023 Entered By: ZOHAIB YANEZ Comment: abdominal hernia repair 2016Nov 2023 Entered By: ZOHAIB YANEZ Comment: right [...] 2024 Entered By: ZOHAIB YANEZ Comment: [facility]; repeat 2023 Entered By: ZOHAIB YANEZ Comment: 09/08/2020 negative FIT [place] Under care of multiple providers Active Condition Sep 01 024 Entered By: ZOHAIB YANEZ Comment: [facility]o - [facility], 2024 Entered By: ZOHAIB YANEZ Comment: urology - Dr. Nguyen 2023 Entered By: ZOHAIB YANEZ Comment: Ophthalmology - Dr. Lopez [facility] Vent[facility] hernia [facility] Depressive disorder (SNOMED CT [id number]) Inactive Condition 08/27/2024 [facility] Gastroesophageal reflux disease with hiatal hernia Inactive Condition 08/27/2024 [facility] Retinal Hemorrhage (ICD-9-CM 362.81) Inactive Condition 09/01/2024 Nov 13 10 Entered By: SKYE OLIVA OD Comment: isolated cluster of small dot hemorrhages [facility] Diagnosis: ICD-10-CM F90.0 Attn-defct hyperactivity disorder, predom inattentive type Active Diagnosis [facility] Diagnosis: ICD-10-CM R68.89 Other general symptoms and signs Active Diagnosis [facility] Diagnosis: ICD-10-CM Z46.0 Encounter for fit/adjst of spectacles and contact lenses Active Diagnosis [facility] Diagnosis: ICD-10-CM I10 Essential (primary) hypertension Active Diagnosis [facility] Medications Combined list of outpatient medications from [...] [facility] (INHAL ATION) ACTIVE 08/28/2025 [id number] Jim YANEZ 2023 3 [place] ATORVASTATI N CA 40MG TAB TAKE ONE-HALF TABLET BY MOUTH AT BEDTIME FOR HIGH CHOLESTE ROL ORAL ACTIVE 08/28/2025 [id number] Jim YANEZ 2023 45 [place] CLONIDINE HCL 0.1MG TAB TAKE ONE TABLET BY MOUTH ONCE DAILY TO CONTROL BLOOD PRESSURE ORAL ACTIVE 08/28/2025 [id number] Jim YANEZ 2023 90 [place] NAPROXEN 500MG TAB TAKE ONE TABLET BY MOUTH AT BEDTIME FOR PAIN TAKE WITH FOOD ORAL ACTIVE 08/28/2025 [id number] Jim YANEZ 2023 90 [place] TAMSULOSIN HCL 0.4MG CAP TAKE ONE CAPSULE BY MOUTH AT BEDTIME FOR ENLARGED PROSTATE ORAL ACTIVE 08/28/2025 [id number] Jim YANEZ 2023 90 [facility] [place] Allergies, Adverse Reactions, Alerts Combined list of allergies from Department of Defense and Veterans Affairs facilities. It does not include entries that were removed or entered in error. Substance Category Reaction Severity Reaction type Status Date Reported Comments Source NAPROXEN Propensity to adverse reactions to drug (finding) Indigestion active 8 [facility] NAPROXEN Propensity to adverse reactions to drug (finding) active 6 [facility] Immunizations Combined list of available immunizations from the Department of Defense and Veterans Affairs facilities. Immunization Series Date Given Administered By Site Reaction Lot Number CVX Code Drug Nursing Program Coordinator Status Comments Source INFLUENZA, UNSPECIFIED FORMULATION [address] [facility] COVID-19 (MODERNA), MRNA, LNP-S, PF, 100 MCG OR 50 MCG DOSE 3 2020 207 complet ed MOD; [id number]; 2 [place] COVID-19 (MODERNA), MRNA, LNP-S, PF, 100 MCG/0.5 ML DOSE 2 [address] [facility] COVID-19 (MODERNA), MRNA, LNP-S, PF, 100 MCG/0.5 ML DOSE 1 [address] [facility] [place] [facility] INFLUENZA, INJECTABLE, QUADRIVALENT, PRESERVATIVE FREE [address] [facility] FLU,3 YRS (HISTORICAL) 2008 88 complet ed 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 [facility] [place] [facility] Vital Signs Combined list of inpatient and outpatient Vital Signs from Department of Defense and Veterans Affairs, ranging from 12 months to all on record, depending upon the facility. Vital Sign Value Date Comments Source SYSTOLIC BLOOD PRESSURE 110 12/18/2024 09:03:48 [place] DIASTOLIC BLOOD PRESSURE 71 12/18/2024 09:03:48 [place] PULSE OXIMETRY 97 12/18/2024 09:03:48 [place] TEMPERATURE 98.3 12/18/2024 09:03:48 [place] PULSE 92 12/18/2024 09:03:48 [place] RESPIRATION 16 12/18/2024 09:03:48 [place] SYSTOLIC BLOOD PRESSURE 136 08/27/2024 13:44:42 [place] DIASTOLIC BLOOD PRESSURE 86 08/27/2024 13:44:42 [place] PULSE OXIMETRY 96 08/27/2024 13:44:42 [place] WEIGHT 199 08/27/2024 13:44:42 [place] BMI 29 kg/m2 08/27/2024 13:44:42 [place] PULSE 96 08/27/2024 13:44:42 [place] Encounters Combined list of: 1) Encounters from Department of Veterans Affairs facilities going backup to the last 18 months, not all VA inpatient encounters are included; 2) Encounters from the Department of [facility] facilities going backup to 280 months. Location Location Details Encounter Type Encounter Number Reason For Visit Attending Provider ADM Date DC Date Status Disposition Source [facility] Outpatient Encounter [id number] 09/03 [facility] Encounter [id number] 05/27 [facility] Out[facility] Encounter [id number] 06/06 [facility] Out[facility] Encounter [id number] 06/23 [facility] Out[facility] Encounter [id number] 06/25 [facility] Encounter [id number] 07/19 [facility] [place] Outpatient [facility]counter [id number] 07[place] [facility] Outpatient Encounter [id number] 1.07/23 [facility] Encounter [id number] 1.08/27 [facility] Out[facility] Encounter [id number] 1.08/27 [facility] 60 MIN [id number] Diagnos is: ICD-10- CM I10 Essenti al (primar y) hyperte nsMARY ALICE Fountain 08/27 [facility] [place] [facility] Out[facility] Encounter [id number] 1.08/27 [facility] Encounter [id number] 1.09/01 [facility] Out[facility] Encounter [id number] 10/24 [facility] FIT SPECTACLES MULTIFOCAL [id number] 1. Diagnos is: ICD-10- CM Z46.0 Encount er for fit/adj st of spectac les and contact lenses ARIES CRUZ 11/04 [facility] En[facility] [id number] 11/04 [facility] [place] OFF/OP EST MAY X REQ PHY/QHP [id number] Diagnos is: ICD-10- CM R68.89 Other general symptom s and signs AMAIRANIER IC K 12/18 [facility] [place] [facility] Outpatient Encounter [id number] 12/18 [facility] PSYCL/NRPS YC TST PHY/[place] [id number] 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, predom inatten tive type LAITH SERRATO W 12/30 [facility] Outpatient [facility]counter [id number] 01/10 [facility] NRPSYC [place] EV[place] [id number] 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, predom inatten tive type LAITH SERRATO 01/16 [facility] Social History Combined list of available smoking, tobacco, and other social history from Department of Defense and Veterans Affairs facilities. Social History Type Response Date Comment Source Tobacco smoking status WVIS [facility]-TOBACCO FORMER USER 08/27/2024 [place] History of tobacco use CT-TOBACCO QUIT 15 YRS OR MORE 08/27/2024 [place] History of tobacco use VA-TOBACCO FORMER USER 05/26/2021 [facility] History of tobacco use VA-TOBACCO FORMER USER 11/17/2019 [facility] History of tobacco use QUIT TOBACCO USE > 7 YEARS AGO 10/22/2009 Pt. quit smoking in 1995 [place] Plan of Care List of future care activities from Department of Veterans Affairs facilities. Additional future care activities may be listed in the Assessment and Plan section. Date/Time Care Activity Care Activity Detail Facili ty 02/24/2025 [facility] Advance Directives List of completed, amended, or rescinded Advance Directives on record at Department of Veterans Affairs facilities. An actual copy of the Directive is not included. Date Advance Directive Provider Source 08/27/2024 ADVANCE DIRECTIVE SHAY MILLER
== END 2025-01-28 13:55 | disposition home or self-care (01) ==
LOC: HO.HOS 13:18
PROVIDERS: PCP Internal Medicine; Visit Provider Orthopaedic Surgery
DX: M17.0 Bilateral primary osteoarthritis of knee (principal)
CPT/HCPCS: 20610; 99213

== ENCOUNTER → 2025-01-28 13:18 | Outpatient (BNVA) | payer OTHER, SELFPAY | PROVIDERS: PCP Internal Medicine; Visit Provider Orthopaedic Surgery | DX: M17.0 Bilateral primary osteoarthritis of knee (principal) | CPT/HCPCS: 20610; 99212; J2003; J7323 ==

== ENCOUNTER 2025-02-05 09:13 | Outpatient (AMB) | payer OTHER, SELFPAY ==
--- NOTE | 2025-02-05 09:14 | A.OFFVIS_ITS ---
Vital Signs 02/05/25 09:16 Height 5 ft 9.5 in Weight 198 lb BMI 28.8 Intake Visit Reasons: Inj-Bilateral Knee Euflexxa #2 Intake Note: Bharathi is a 64 year old male who presents today for their second dose of bilateral knee Euflexxa injections. He states that he got fairly good relief from the 1st set of injections. He continues with his home exercise program. Allergies No Known Allergies Allergy (Verified 02/05/25 09:16) Medication List - Last Reconciled 02/05/25 by Claudy Cox MD albuterol sulfate 90 mcg/actuation 2 puffs inhalation Q4-6H PRN 30 days atorvastatin 20 mg PO BEDTIME 90 days calcium carbonate-vitamin D3 600 mg-5 mcg (200 unit) 1 tab PO QAM clonidine HCl 0.2 mg (2 x 0.1 mg) PO BEDTIME 30 days hydrocortisone acetate (Anusol-HC) 25 mg UT BID naproxen sodium 220 mg PO BID PRN sildenafil 100 mg PO DAILY PRN 28 days tamsulosin (Flomax) 0.4 mg PO BEDTIME 90 days turmeric 400 mg PO QAM vitamin B complex (B Complex-Vitamin B12 tablet) 1 tab PO DAILY walker Folding Front wheeled walker [facility] Medical History Vertigo ADHD (attention deficit hyperactivity disorder) Osteoarthritis COPD (chronic obstructive pulmonary disease) Sleep apnea Overweight (BMI 25.0-29.9) Insomnia Essential hypertension Exercise-induced asthma Benign prostatic hyperplasia Pure hypercholesterolemia Surgical History Hx of arthroscopy of shoulder Hx of excision of mass Hx of colonoscopy History of repair of hiatal hernia Hx of right inguinal hernia repair Hx of arthroscopy of right knee History of rotator cuff surgery Family History Father Dementia Social History Housing: House Are you a primary family day carer to a significant other at home: No Do you presently have visiting nurse or other home services: No Patient Tobacco Use Status: Former Tobacco user Tobacco use type: Cigarette Years Smoked: 14 e-Cigarette/Vaping Use: Former Use Second Hand Smoke Exposure: No service: Yes Current occupational status: retired Current occupational exposures/hazards: No Cognitive needs: Yes Hearing needs: No Vision needs: Yes Physical Exam Vital Signs: BMI result Body Mass Index 28.8 Extrem Other: Bilateral knee examination shows minimal effusions, palpable crepitus with range of motion, pain with range of motion, no instability Office Procedures AMB Joint Injection/Aspiration Joint Injection/Aspiration Primary Site: left knee Prep: site was prepped using aseptic technique Injected: 20 mg of (Euflexxa viscosupplementation) and 1% plain lidocaine Procedure: The patient tolerated the procedure well Coding - Large joint Procedure code (CPT) selection complete AMB Joint Injection/Aspiration Joint Injection/Aspiration Primary Site: right knee Prep: site was prepped using aseptic technique Injected: 20 mg of (Euflexxa viscosupplementation) and 1% plain lidocaine Procedure: The patient tolerated the procedure well Coding - Large joint Procedure code (CPT) selection complete Results Reviewed Results Reviewed: X-rays of the patient's bilateral knees taken previously show joint space narrowing, subchondral sclerosis, no acute bony abnormalities Assessment & Plan Assessment & Plan (1) Osteoarthritis of left knee: Code(s): M17.12 - Unilateral primary osteoarthritis, left knee Category: Medical (2) Osteoarthritis of right knee: Code(s): M17.11 - Unilateral primary osteoarthritis, right knee Category: Medical Qualifiers: Osteoarthritis type: primary Qualified Code(s): M17.11 - Unilateral primary osteoarthritis, right knee Plan Mr. Sandoval presents with bilateral knee pains due to osteoarthritis. The risks and benefits of a 2nd set of Euflexxa injections were discussed at length with the patient. The patient wished to proceed. He tolerated the injections well. He will continue with his home exercise program. He will follow up next week as scheduled. Feel free to call me at any time should questions regarding his orthopedic management arise. Orders: Orders AMB Joint Injection/Aspiration Today M17.11 - Unilateral primary osteoarthritis, right knee AMB Joint Injection/Aspiration Today M17.12 - Unilateral primary osteoarthritis, left knee Coding Level of Care Code Procedure Only Diagnoses Osteoarthritis of left knee M17.12 Primary osteoarthritis of right knee M17.11 Osteoarthritis type: primary CPT Codes Coding - 83968 Large joint: 65528 - Large joint ([id number]) Coding - 16669 Large joint: 59477 - Large joint ([id number])
[2025-02-05 09:16] VITALS: BMI 28.8
--- OUTSIDE RECORDS SUMMARY | 2025-02-05 10:05 | XMS_ITS | Continuity of Care Document ---
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 It does not include entries that were removed or entered in error. Problem Status Onset Date Problem Type Date of Resolution Comments Source Cognitive impairment Active 999 Condition Sep 01, 2024 Entered By: ZOHAIB YANEZ Comment: hx multiple concussions [place] ADD - Attention deficit disorder Active Condition [facility] Asthma Active Condition Sep 01 Entered By: ZOHAIB AYNEZ Comment: mild intermittentMar 2013 Entered By: EDGAR GONZALES Comment: Mixture of COPD and AsthmaMar 2013 Entered By: EDGAR GONZALES Comment: last CXR JAN 03: No Acute Processes [place] Depression Active Condition [facility] [...] Aug Entered By: ZOHAIB YANEZ Comment: smoked [id number], 1ppd [facility] H/O: [...] Condition Sep 01, 2024 Entered By: ZOHAIB AYNEZ Comment: OU - followed by OphthalmologySep 01, [...] By: ZOHAIB YANEZ Comment: 09/08/2020 negative FIT [place] Under care of multiple providers Active Condition Sep 01 024 Entered By: ZOHAIB YANEZ Comment: Ortho - Saman [facility] OrthoSep 01, 2024 Entered By: ZOHAIB YANEZ Comment: urology - Dr. Nguyen 2023 Entered By: ZOHAIB YANEZ Comment: Ophthalmology - Dr. Lopez [facility] Depressive disorder (SNOMED CT [id number]) Inactive Condition 08/27/2024 [facility] Gastroesophageal reflux disease with hiatal hernia Inactive Condition 08/27/2024 [facility] Retinal Hemorrhage (ICD-9-CM 362.81) Inactive Condition 09/01/2024 Nov 13 10 Entered By: SKYE OLIVA OD Comment: isolated cluster of small dot hemorrhages [facility] Diagnosis: ICD-10-CM F90.0 Attn-defct hyperactivity disorder, predom inattentive type Active Diagnosis [facility] Diagnosis: ICD-10-CM R68.89 Other general symptoms and signs Active Diagnosis [facility] Diagnosis: ICD-10-CM Z46.0 Encounter for fit/adjst of spectacles and contact lenses Active Diagnosis [facility] Diagnosis: ICD-10-CM I10 Essential (primary) hypertension Active Diagnosis [place] Medications Combined list of outpatient medications from [...] [place] [facility] (INHAL ATION) ACTIVE 08/28/2025 [id number] Jim YANEZ 2023 3 [place] ATORVASTATI N CA 40MG TAB TAKE ONE-HALF TABLET BY MOUTH AT BEDTIME FOR HIGH CHOLESTE ROL ORAL ACTIVE 08/28/2025 [id number] Jim YANEZ 2023 45 [place] CLONIDINE HCL 0.1MG TAB TAKE ONE TABLET BY MOUTH ONCE DAILY TO CONTROL BLOOD PRESSURE ORAL ACTIVE 08/28/2025 [id number] Jim YANEZ 2023 90 [place] NAPROXEN 500MG TAB TAKE ONE TABLET BY MOUTH AT BEDTIME FOR PAIN TAKE WITH FOOD ORAL ACTIVE 08/28/2025 [id number] Jim YANEZ 2023 90 [place] TAMSULOSIN HCL 0.4MG CAP TAKE ONE CAPSULE BY MOUTH AT BEDTIME FOR ENLARGED PROSTATE ORAL ACTIVE 08/28/2025 [id number] Jim YANEZ 2023 90 [place] Allergies, Adverse Reactions, Alerts Combined list [...] adverse reactions to drug (finding) active 6 [facility] Immunizations Combined list of available immunizations from the Department of Defense and Veterans Affairs facilities. Immunization Series Date Given Administered By Site Reaction Lot Number CVX Code Drug Shank Turner Status Comments Source INFLUENZA, UNSPECIFIED FORMULATION 2023 88 complet ed HISTORICA L INFORMATI ON - SOURCE UNSPECIFI ED, [facility] [place] [facility] COVID-19 (MODERNA), MRNA, LNP-S, PF, 100 MCG OR 50 MCG DOSE 3 2020 207 complet ed MOD; [id number]; 2 [place] COVID-19 (MODERNA), MRNA, LNP-S, PF, 100 MCG/0.5 ML DOSE 2 2020 207 complet ed [facility] COVID-19 (MODERNA), MRNA, LNP-S, PF, 100 MCG/0.5 ML DOSE 1 2020 207 complet ed [facility] [place] [facility] INFLUENZA, INJECTABLE, QUADRIVALENT, PRESERVATIVE FREE 2019 150 complet ed [facility] [place] [facility] FLU,3 YRS (HISTORICAL) 2008 88 complet ed 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 [facility] Vital Signs Combined list of inpatient and outpatient Vital Signs from Department of Defense and Veterans Affairs, ranging from 12 months to all on record, depending upon the facility. Vital Sign Value Date Comments Source SYSTOLIC BLOOD PRESSURE 110 12/18/2024 09:03:48 [place] DIASTOLIC BLOOD PRESSURE 71 12/18/2024 09:03:48 [place] PULSE OXIMETRY 97 12/18/2024 09:03:48 [place] TEMPERATURE 98.3 12/18/2024 09:03:48 [place] PULSE 92 12/18/2024 09:03:48 [place] RESPIRATION 16 12/18/2024 09:03:48 [place] SYSTOLIC BLOOD PRESSURE 136 08/27/2024 13:44:42 [place] DIASTOLIC BLOOD PRESSURE 86 08/27/2024 13:44:42 [place] PULSE OXIMETRY 96 08/27/2024 13:44:42 [place] WEIGHT 199 08/27/2024 13:44:42 [place] BMI 29 kg/m2 08/27/2024 13:44:42 [place] PULSE 96 08/27/2024 13:44:42 [place] Encounters Combined list of: 1) Encounters from Department of Veterans Affairs facilities going backup to the last 18 months, not all VA inpatient encounters are included; 2) Encounters from the Department of [facility] facilities going backup to 280 months. Location Location Details Encounter Type Encounter Number Reason For Visit Attending Provider ADM Date DC Date Status Disposition Source [facility] Outpatient Encounter [id number] 09/03 [facility] Encounter [id number] 05/27 [facility] Out[facility] Encounter [id number] 06/06 [facility] Out[facility] Encounter [id number] 06/23 [facility] Out[facility]counter [id number] 06/25 [facility] Out[facility] Encounter [id number] 07/19 [facility] Outpatient Encounter [id number] 07/23 [facility] [place] [facility] Encounter [id number] 1.07/23 [facility] Encounter [id number] 1.08/27 [facility] Encounter [id number] 1.08/27 [facility] OFFICE O/P [place] 60 MIN [id number] Diagnos is: ICD-10- CM I10 Essenti al (primar y) hyperte nsion MARY ALICE YANEZ C 08/27 [facility] [place] [facility] Out[facility] Encounter [id number] 1.08/27 [facility] Encounter [id number] 1[facility]09/01 [facility] Out[facility] Encounter [id number] 10/24 [facility] FIT SPECTACLES MULTIFOCAL [id number]. Diagnos is: ICD-10- CM Z46.0 Encount er for fit/adj st of spectac les and contact lenses ARIES CRUZ 11/04 [facility] Out[facility] Encounter [id number] 11/04 [facility] [place] OFF/OP EST FEBRUARY X REQ PHY/QHP [id number] Diagnos is: ICD-10- CM R68.89 Other general symptom s and signs AMAIRANIER IC K 12/18 [place] [facility] Outpatient Encounter [id number] 12/18 [facility] PSYCL/NR[place] Y[place] TST PHY/[place] [id number] 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, predom inatten tive type LAITH SERRATO 12/30 [facility] Outpatient Encounter [id number] 01/10 [facility] NRPSY[place] [id number] 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, predom inatten tive type LAITH SERRATO 01/16 [facility] Social History Combined list of available smoking, tobacco, and other social history from Department of Defense and Veterans Affairs facilities. Social History Type Response Date Comment Source Tobacco smoking status [facility] VA-TOBACCO FORMER USER 08/27/2024 [place] History of tobacco use ME-TOBACCO QUIT 15 YRS OR MORE 08/27/2024 [place] History of tobacco use VA-TOBACCO FORMER USER 05/26/2021 [facility] History of tobacco use VA-TOBACCO QUIT 15 YRS OR MORE 11/17/2019 [facility] [place] [facility] History of tobacco use QUIT TOBACCO USE > 7 YEARS AGO 10/22/2009 Pt. quit smoking in 1995 [place] Plan of Care List of future care activities from Department of [facility] facilities. Additional future care activities may be listed in the Assessment and Plan section. Date/Time Care Activity Care Activity Detail Facili ty 02/24/2025 AMBULATORY - PS[facility] [place] [facility] Advance Directives List of completed, amended, or rescinded Advance Directives on record at Department of [facility] facilities. An actual copy of the Directive is not included. Date Advance Directive Provider Source 08/27/2024 ADVANCE DIRECTIVE SHAY MILLER
--- OUTSIDE RECORDS SUMMARY | 2025-02-05 10:05 | XMS_ITS | Clinical Summary ---
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 Blood Venous blood specimen / Unknown 01/18/2024 11:44 AM EDT 01/18/2024 11:44 AM EDT us Nura Eddy MD LAB BLOOD ORDERABLES Final Resul t [facility] [address] [place] [address] [phone] from Last 3 Months or Most Recently Relevant to Health Maintenance Insurance [facility] MEDICARE [facility]
== END 2025-02-05 09:38 | disposition home or self-care (01) ==
LOC: HO.HOS 09:14
PROVIDERS: PCP Internal Medicine; Visit Provider Orthopaedic Surgery
DX: M17.0 Bilateral primary osteoarthritis of knee (principal)
CPT/HCPCS: 20610

== ENCOUNTER → 2025-02-05 09:13 | Outpatient (BNVA) | payer OTHER, SELFPAY | PROVIDERS: PCP Internal Medicine; Visit Provider Orthopaedic Surgery | DX: M17.0 Bilateral primary osteoarthritis of knee (principal) | CPT/HCPCS: 20610; J2003; J7323 ==

== ENCOUNTER 2025-02-12 09:41 | Outpatient (AMB) | payer OTHER, SELFPAY ==
--- NOTE | 2025-02-12 09:48 | MHC.OFFVIS ---
Vital Signs 02/12/25 09:53 Height 5 ft 9.5 in Weight 198 lb BMI 28.8 Intake Visit Reasons: Inj-Bilateral Knee Euflexxa #3 Intake Note: Bharathi is a 64 year old male who presents today for his third dose of bilateral knee Euflexxa injections. He states that he has gotten mild relief from the injections so far. He continues with his home exercise program. Allergies No Known Allergies Allergy (Verified 02/12/25 09:52) Medication List - Last Reconciled 02/12/25 by Claudy Cox MD albuterol sulfate 90 mcg/actuation 2 puffs inhalation Q4-6H PRN 30 days atorvastatin 20 mg PO BEDTIME 90 days calcium carbonate-vitamin D3 600 mg-5 mcg (200 unit) 1 tab PO QAM clonidine HCl 0.2 mg (2 x 0.1 mg) PO BEDTIME 30 days hydrocortisone acetate (Anusol-HC) 25 mg AR BID naproxen sodium 220 mg PO BID PRN sildenafil 100 mg PO DAILY PRN 28 days tamsulosin (Flomax) 0.4 mg PO BEDTIME 90 days turmeric 400 mg PO QAM vitamin B complex (B Complex-Vitamin B12 tablet) 1 tab PO DAILY walker Folding Front wheeled walker [facility] Medical History Vertigo ADHD (attention deficit hyperactivity disorder) Osteoarthritis COPD (chronic obstructive pulmonary disease) Sleep apnea Overweight (BMI 25.0-29.9) Insomnia Essential hypertension Exercise-induced asthma Benign prostatic hyperplasia Pure hypercholesterolemia Surgical History Hx of arthroscopy of shoulder Hx of excision of mass Hx of colonoscopy History of repair of hiatal hernia Hx of right inguinal hernia repair Hx of arthroscopy of right knee History of rotator cuff surgery Family History Father Dementia Social History Housing: House Are you a primary gericare aide to a significant other at home: No Do you presently have visiting nurse or other home services: No Patient Tobacco Use Status: Former Tobacco user Tobacco use type: Cigarette Years Smoked: 14 e-Cigarette/Vaping Use: Former Use Second Hand Smoke Exposure: No service: Yes Current occupational status: retired Current occupational exposures/hazards: No Cognitive needs: Yes Hearing needs: No Vision needs: Yes Physical Exam Vital Signs: BMI result Body Mass Index 28.8 Extrem Other: Bilateral knee examination shows minimal effusions, palpable crepitus with range of motion, pain with range of motion, no instability Results Reviewed Results Reviewed: X-rays of the patient's bilateral knees taken previously show joint space narrowing, subchondral sclerosis, no acute bony abnormalities Assessment & Plan Assessment & Plan (1) Osteoarthritis of left knee: Code(s): M17.12 - Unilateral primary osteoarthritis, left knee Category: Medical (2) Osteoarthritis of right knee: Code(s): M17.11 - Unilateral primary osteoarthritis, right knee Category: Medical Qualifiers: Osteoarthritis type: primary Qualified Code(s): M17.11 - Unilateral primary osteoarthritis, right knee Plan Mr. Sandoval presents with bilateral knee pains due to osteoarthritis. The risks and benefits of a 3rd set of Euflexxa viscosupplementation injections were discussed at length with the patient. The patient wished to proceed. He tolerated the injections well. He will continue with his home exercise program. He will contact me prior to his follow-up appointment in 3 months should any questions or concerns arise. Feel free to call me at any time should questions regarding his orthopedic management arise. Orders: Orders AMB Joint Injection/Aspiration Today M17.12 - Unilateral primary osteoarthritis, left knee AMB Joint Injection/Aspiration Today M17.11 - Unilateral primary osteoarthritis, right knee Coding Level of Care Code Procedure Only Diagnoses Osteoarthritis of left knee M17.12 Primary osteoarthritis of right knee M17.11 Osteoarthritis type: primary
[2025-02-12 09:53] VITALS: BMI 28.8
--- OUTSIDE RECORDS SUMMARY | 2025-02-12 10:53 | XMS_ITS | Clinical Summary ---
Author Organization [employer] Address [address] [place] [address] [address] [place] [address] Care Team Providers Care Script Worker Name Role Phone Unavailable Primary Care Provider [...] AM EDT) Hepatitis C Antibody Nonreactive Nonreactive [facility] Comment:Antibodies to HCV no t detected; does not exclude early acuteHCV infection. Blood Venous blood specimen / Unknown 01/18/2024 11:44 AM EDT 01/18/2024 11:44 AM EDT us Nura Eddy MD LAB BLOOD ORDERABLES Final Resul t [facility] [address] [place] [address] [phone] from Last 3 Months or Most Recently Relevant to Health Maintenance Insurance [facility]
--- OUTSIDE RECORDS SUMMARY | 2025-02-12 10:53 | XMS_ITS | Continuity of Care Document ---
Author Name [facility] Organization [facility] Care Team Providers Care Insurance Administrator Name Role Phone [facility] Unavailable Unavailable Problems Combined list of problems from Department of Defense and Veterans Affairs facilities. It does not include entries that were removed or entered in error. Problem Status Onset Date Problem Type Date of Resolution Comments Source Cognitive impairment Active 999 Condition Sep 01, 2024 Entered By: ZOHAIB YANEZ Comment: hx multiple concussions [place] ADD - Attention deficit disorder Active Condition [facility] Asthma Active Condition Sep 01 Entered By: ZOHAIB YANEZ Comment: mild intermittentMar 2013 Entered By: EDGAR GONZALES Comment: Mixture of COPD and AsthmaMar 2013 Entered By: EDGAR GONZALES Comment: last CXR JAN 03: No Acute Processes [place] Depression Active Condition [facility] [...] Aug Entered By: ZOHAIB YANEZ Comment: smoked [id number], 1ppd [facility] H/O: [...] left shoulder reconstruction 2023 Entered By: ZOHAIB YNAEZ Comment: ORIF right hand fracture 2023 Entered [...] By: ZOHAIB YANEZ Comment: 09/08/2020 negative FIT [place] Under care of multiple providers Active Condition Sep 01 024 Entered By: ZOHAIB YANEZ Comment: Ortho - Saman [place] OrthoSep 01, 2024 Entered By: ZOHAIB YANEZ Comment: urology - Dr. Nguyen 2023 Entered By: ZOHAIB YANEZ Comment: Ophthalmology - Dr. Lopez [facility]ral [facility]nia [facility] Depressive disorder (SNOMED CT 95867984) Inactive Condition 08/27/2024 [facility] Gastroesophageal reflux disease with hiatal hernia Inactive Condition 08/27/2024 [facility] Retinal Hemorrhage (ICD-9-CM 362.81) Inactive Condition 09/01/2024 Nov 13 10 Entered By: SKYE OLIVA OD Comment: isolated cluster of small dot hemorrhages [facility] Diagnosis: ICD-10-CM F90.0 Attn-defct hyperactivity disorder, predom inattentive type Active Diagnosis [facility] Diagnosis: ICD-10-CM R68.89 Other general symptoms and signs Active Diagnosis [facility] Diagnosis: ICD-10-CM Z46.0 Encounter for fit/adjst of spectacles and contact lenses Active Diagnosis [facility] Diagnosis: ICD-10-CM I10 Essential (primary) hypertension Active Diagnosis [facility] Medications Combined list of outpatient medications from [...] [place] RESPIR ATORY (INHAL ATION) ACTIVE 08/28/2025 [id number] Jim YANEZ 2023 3 [place] ATORVASTATI N CA 40MG TAB TAKE ONE-HALF TABLET BY MOUTH AT BEDTIME FOR HIGH CHOLESTE ROL ORAL ACTIVE 08/28/2025 [id number] 4 Jim YANEZ 2023 45 [place] CLONIDINE HCL 0.1MG TAB TAKE ONE TABLET BY MOUTH ONCE DAILY TO CONTROL BLOOD PRESSURE ORAL ACTIVE 08/28/2025 [id number] 4 Jim YANEZ 2023 90 [place] NAPROXEN 500MG TAB TAKE ONE TABLET BY MOUTH AT BEDTIME FOR PAIN TAKE WITH FOOD ORAL ACTIVE 08/28/2025 [id number] 4 Jim YANEZ 2023 90 [place] TAMSULOSIN HCL 0.4MG CAP TAKE ONE CAPSULE BY MOUTH AT BEDTIME FOR ENLARGED PROSTATE ORAL ACTIVE 08/28/2025 [id number] 4 Jim YANEZ 2023 90 [place] [...] adverse reactions to drug (finding) active 6 [facility] Immunizations Combined list of available immunizations from the Department of Defense and Veterans Affairs facilities. Immunization Series Date Given Administered By Site Reaction Lot Number CVX Code Drug Composing Room Machinist Status Comments Source INFLUENZA, UNSPECIFIED FORMULATION 2023 88 complet ed HISTORICA L INFORMATI ON - SOURCE UNSPECIFI ED, [facility] [place] [facility] COVID-19 (MODERNA), MRNA, LNP-S, PF, 100 MCG OR 50 MCG DOSE 3 2020 207 complet ed MOD; [id number]; 2 [place] COVID-19 (MODERNA), MRNA, LNP-S, PF, 100 MCG/0.5 ML DOSE 2 2020 207 complet ed [facility] COVID-19 (MODERNA), MRNA, LNP-S, PF, 100 MCG/0.5 ML DOSE 1 2020 207 complet ed [facility] [place] [facility] INFLUENZA, INJECTABLE, QUADRIVALENT, PRESERVATIVE FREE 2019 150 complet ed [place] [facility] [place] [facility] FLU,3 YRS (HISTORICAL) 2008 88 complet ed 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 [facility] [place] [facility] Vital Signs Combined list of inpatient and outpatient Vital Signs from Department of Defense and Veterans Affairs, ranging from 12 months to all on record, depending upon the facility. Vital Sign Value Date Comments Source SYSTOLIC BLOOD PRESSURE 110 12/18/2024 09:03:48 [place] DIASTOLIC BLOOD PRESSURE 71 12/18/2024 09:03:48 [place] PULSE OXIMETRY 97 12/18/2024 09:03:48 [place] TEMPERATURE 98.3 12/18/2024 09:03:48 [place] PULSE 92 12/18/2024 09:03:48 [place] RESPIRATION 16 12/18/2024 09:03:48 [place] SYSTOLIC BLOOD PRESSURE 136 08/27/2024 13:44:42 [place] DIASTOLIC BLOOD PRESSURE 86 08/27/2024 13:44:42 [place] PULSE OXIMETRY 96 08/27/2024 13:44:42 [place] WEIGHT 199 08/27/2024 13:44:42 [place] BMI 29 kg/m2 08/27/2024 13:44:42 [place] PULSE 96 08/27/2024 13:44:42 [place] Encounters Combined list of: 1) Encounters from Department of Veterans Affairs facilities going backup to the last 18 months, not all VA inpatient encounters are included; 2) Encounters from the Department of [facility] facilities going backup to 280 months. Location Location Details Encounter Type Encounter Number Reason For Visit Attending Provider ADM Date DC Date Status Disposition Source [facility] Outpatient [facility]counter [id number] 09/03 [facility] Encounter [id number] 05/27 [facility] Encounter [id number] 06/06 [facility] Out[facility] Encounter [id number] 06/23 [facility] Encounter [id number] 06/25 [facility] Encounter [id number] 07/19 [facility] [place] Outpatient Encounter [id number] 23 07/23 [facility] [place] [facility] Encounter [id number] 1.07/23 [facility] Encounter [id number] 1.08/27 [facility] Encounter [id number] 1.08/27 [facility] [place] [place] [facility] OFFICE O/P [place] 60 MIN [id number] Diagnos is: ICD-10- CM I10 Essenti al (primar y) hyperte nsion MARY ALICE YANEZ C 08/27 [facility] [place] [facility] Encounter [id number] 1.08/27 [facility] Encounter [id number] 1.09/01 [facility] Out[facility] Encounter [id number] 10/24 [facility] FIT SPECTACLES MULTIFOCAL [id number] 1. Diagnos is: ICD-10- CM Z46.0 Encount er for fit/adj st of spectac les and contact lenses ARIES CRUZ 11/04 [facility] Out[facility] Encounter [id number] 11/04 [facility] [place] [facility] [place] OFF/OP EST FEBRUARY X REQ PHY/QHP [id number] 21 Diagnos is: ICD-10- CM R68.89 Other general symptom s and signs AMAIRANIER IC K 12/[place] [facility] Outpatient Encounter [id number] 12/18 [facility] PSYCL/NRPS Y[place] TST PHY/Q[place] [id number] 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, predom inatten tive type LAITH SERRATO 12/30 [facility] Outpatient Encounter [id number] 01/10 [facility] NRPSY[place] T[place] [id number] 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, predom inatten tive type LAITH SERRATO 01/16 [facility] [place] [facility] Social History Combined list of available smoking, tobacco, and other social history from Department of Defense and Veterans Affairs facilities. Social History Type Response Date Comment Source [facility] 08/27/2024 [place] History of tobacco use [place]-TOBACCO QUIT 15 YRS OR MORE 08/27/2024 [place] History of tobacco use VA-TOBACCO FORMER USER 05/26/2021 [facility] [place] [facility] History of tobacco use VA-TOBACCO QUIT 15 YRS OR MORE 11/17/2019 [facility] [place] [place] [facility] History of tobacco use QUIT TOBACCO USE > 7 YEARS AGO 10/22/2009 Pt. quit smoking in 1995 [place] Plan of Care List of future care activities from Department of [facility] facilities. Additional future care activities may be listed in the Assessment and Plan section. Date/Time Care Activity Care Activity Detail Facili ty 02/24/2025 [facility] [place] [facility] Advance Directives List of completed, amended, or rescinded Advance Directives on record at Department of [facility] facilities. An actual copy of the Directive is not included. Date Advance Directive Provider Source 08/27/2024 ADVANCE DIRECTIVE SHAY MILLER
== END 2025-02-12 10:08 | disposition home or self-care (01) ==
LOC: HO.HOS 09:42
PROVIDERS: PCP Internal Medicine; Visit Provider Orthopaedic Surgery
DX: M17.0 Bilateral primary osteoarthritis of knee (principal)
CPT/HCPCS: 20610

== ENCOUNTER → 2025-02-12 09:41 | Outpatient (BNVA) | payer OTHER, SELFPAY | PROVIDERS: PCP Internal Medicine; Visit Provider Orthopaedic Surgery | DX: M17.0 Bilateral primary osteoarthritis of knee (principal) | CPT/HCPCS: 20610; J2003; J7323 ==

== ENCOUNTER 2025-02-12 10:26 | Outpatient (REF) | payer OTHER, SELFPAY ==
[2025-02-12 11:54] LABS: PSA,Total (Free>4and<10) 1.84 ng/mL (0.00-4.00)
--- OUTSIDE RECORDS SUMMARY | 2025-02-12 12:19 | XMS_ITS | Clinical Summary ---
Author Organization [employer] Address [address] [place] [address] [address] [place] [address] Care Team Providers Care Materials Supervisor Name Role Phone Unavailable Primary Care Provider [...] AM EDT) Hepatitis C Antibody Nonreactive Nonreactive [facility] Comment:Antibodies to HCV no t detected; does not exclude early acuteHCV infection. Blood Venous blood specimen / Unknown 01/18/2024 11:44 AM EDT 01/18/2024 11:44 AM EDT us Nura Eddy MD LAB BLOOD ORDERABLES Final Resul t [facility] [address] [place] [address] [phone] from Last 3 Months or Most Recently Relevant to Health Maintenance Insurance [facility] MEDICARE [facility]
--- OUTSIDE RECORDS SUMMARY | 2025-02-12 12:19 | XMS_ITS | Continuity of Care Document ---
Author Name [facility] Organization [facility] Care Team Providers Care Fitness Coordinator Name Role Phone [facility] Unavailable Unavailable Problems Combined list of problems from Department of Defense and Veterans Affairs facilities. It does not include entries that were removed or entered in error. Problem Status Onset Date Problem Type Date of Resolution Comments Source Cognitive impairment Active 999 Condition Sep 01, 2024 Entered By: ZOHAIB YANEZ Comment: hx multiple concussions [place] ADD - Attention deficit disorder Active Condition [facility] Asthma Active Condition Sep 01 Entered By: ZOHAIB YANEZ Comment: mild intermittentMar 2013 Entered By: EDGAR GONZALES Comment: Mixture of COPD and AsthmaMar 2013 Entered By: EDGAR GONZALES Comment: last CXR JAN 03: No Acute Processes [place] Depression Active Condition [facility] [place] [...] Aug Entered By: ZOHAIB YANEZ Comment: smoked [phone], 1ppd [facility] H/O: [...] By: ZOHAIB YANEZ Comment: 09/08/2020 negative FIT [place] Under care of multiple providers Active Condition Sep 01 024 Entered By: ZOHAIB YANEZ Comment: Ortho - Saman [facility]ues[facility] OrthoSep 01, 2024 Entered By: ZOHAIB YANEZ Comment: urology - Dr. Nguyen 2023 Entered By: ZOHAIB YANEZ Comment: Ophthalmology - Dr. Lopez [facility]nia [facility] Depressive disorder (SNOMED CT [id number]) Inactive Condition 08/27/2024 [facility] Gastroesophageal reflux disease with hiatal hernia Inactive Condition 08/27/2024 [facility] Retinal Hemorrhage (ICD-9-CM 362.81) Inactive Condition 09/01/2024 Nov 13 10 Entered By: SKYE OLIVA OD Comment: isolated cluster of small dot hemorrhages [facility] Diagnosis: ICD-10-CM F90.0 Attn-defct hyperactivity disorder, predom inattentive type Active Diagnosis [facility] Diagnosis: ICD-10-CM R68.89 Other general symptoms and signs Active Diagnosis [facility] Diagnosis: ICD-10-CM Z46.0 Encounter for fit/adjst of spectacles and contact lenses Active Diagnosis [facility] Diagnosis: ICD-10-CM I10 Essential (primary) hypertension Active Diagnosis [place] Medications Combined list of outpatient medications from [...] [place] RESPIR ATORY (INHAL ATION) ACTIVE 08/28/2025 [id number] Jim YANEZ 2023 3 [place] ATORVASTATI N CA 40MG TAB TAKE ONE-HALF TABLET BY MOUTH AT BEDTIME FOR HIGH CHOLESTE ROL ORAL ACTIVE 08/28/2025 [id number] 4 Jim YANEZ 2023 45 [place] CLONIDINE HCL 0.1MG TAB TAKE ONE TABLET BY MOUTH ONCE DAILY TO CONTROL BLOOD PRESSURE ORAL ACTIVE 08/28/2025 [id number] 4 Jim YANEZ 2023 90 [place] NAPROXEN 500MG TAB TAKE ONE TABLET BY MOUTH AT BEDTIME FOR PAIN TAKE WITH FOOD ORAL ACTIVE 08/28/2025 [id number] 4 Jim YANEZ 2023 90 [place] TAMSULOSIN HCL 0.4MG CAP TAKE ONE CAPSULE BY MOUTH AT BEDTIME FOR ENLARGED PROSTATE ORAL ACTIVE 08/28/2025 [id number] 4 Jim YANEZ 2023 90 [place] [...] adverse reactions to drug (finding) active 6 [facility] Immunizations Combined list of available immunizations from the Department of Defense and Veterans Affairs facilities. Immunization Series Date Given Administered By Site Reaction Lot Number CVX Code Drug Telephone Installer Status Comments Source INFLUENZA, UNSPECIFIED FORMULATION 2023 88 complet ed HISTORICA L INFORMATI ON - SOURCE UNSPECIFI ED, [facility] [place] [facility] COVID-19 (MODERNA), MRNA, LNP-S, PF, 100 MCG OR 50 MCG DOSE 3 2020 207 complet ed MOD; [id number]; 2 [place] COVID-19 (MODERNA), MRNA, LNP-S, PF, 100 MCG/0.5 ML DOSE 2 2020 207 complet ed [facility] [place] [facility] [facility] COVID-19 (MODERNA), MRNA, LNP-S, PF, 100 MCG/0.5 ML DOSE 1 2020 207 complet ed [facility] [place] [facility] INFLUENZA, INJECTABLE, QUADRIVALENT, PRESERVATIVE FREE 2019 150 complet ed [place] [facility] [place] [facility] FLU,3 YRS (HISTORICAL) 2008 88 complet ed 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 [facility] [place] [facility] Vital Signs Combined list of inpatient and outpatient Vital Signs from Department of Defense and Veterans Affairs, ranging from 12 months to all on record, depending upon the facility. Vital Sign Value Date Comments Source SYSTOLIC BLOOD PRESSURE 110 12/18/2024 09:03:48 [place] DIASTOLIC BLOOD PRESSURE 71 12/18/2024 09:03:48 [place] PULSE OXIMETRY 97 12/18/2024 09:03:48 [place] TEMPERATURE 98.3 12/18/2024 09:03:48 [place] PULSE 92 12/18/2024 09:03:48 [place] RESPIRATION 16 12/18/2024 09:03:48 [place] SYSTOLIC BLOOD PRESSURE 136 08/27/2024 13:44:42 [place] DIASTOLIC BLOOD PRESSURE 86 08/27/2024 13:44:42 [place] PULSE OXIMETRY 96 08/27/2024 13:44:42 [place] WEIGHT 199 08/27/2024 13:44:42 [place] BMI 29 kg/m2 08/27/2024 13:44:42 [place] PULSE 96 08/27/2024 13:44:42 [place] Encounters Combined list of: 1) Encounters from Department of Veterans Affairs facilities going backup to the last 18 months, not all VA inpatient encounters are included; 2) Encounters from the Department of [facility] facilities going backup to 280 months. Location Location Details Encounter Type Encounter Number Reason For Visit Attending Provider ADM Date DC Date Status Disposition Source [facility] Outpatient Encounter [id number] 09/03 [facility] Outpatient Encounter [id number] 05/27 [facility] Outpatient Encounter [id number] 06/06 [facility] Outpatient Encounter [id number] 06/23 [facility] Out[facility] Encounter [id number] 06/25 [facility] Encounter [id number] 07/19 [facility] [place] [facility] Outpatient Encounter [id number] 23 07/23 [facility] [place] [facility] Encounter [id number] 1.07/23 [facility] Encounter [id number] 1.08/27 [facility] Outpatient Encounter [id number] 1.08/27 [facility] [place] [facility] [place] O/[place] 60 MIN [id number] Diagnos is: ICD-10- CM I10 Essenti al (primar y) hyperte nsion MARY ALICE YANEZ C 08/27 [facility] [place] [facility] Out[facility] Encounter [id number] 1.08/27 [facility] Encounter [id number] 1.09/01 [facility] Outpatient Encounter [id number] 10/24 [facility] FIT SPECTACLES MULTIFOCAL [id number] 1. Diagnos is: ICD-10- CM Z46.0 Encount er for fit/adj st of spectac les and contact lenses ARIES CRUZ 11/04 [facility] Out[facility] Encounter [id number] 11/04 [facility] [place] [facility] [place] OFF/OP EST FEBRUARY X REQ PHY/QHP [id number] 21 Diagnos is: ICD-10- CM R68.89 Other general symptom s and signs AMAIRANIER IC K 12/18 [place] [facility] [place] [facility] Outpatient Encounter [id number] 12/18 [facility] PSYCL/NR[place] YC TST PHY/Q[place] [id number] 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, predom inatten tive type LAITH SERRATO 12/30 [facility] Outpatient Encounter [id number] 01/10 [facility] [place]PSY[place] T[place] EVAL PHYS/[place] [id number] 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, predom inatten tive type LAITH SERRATO 01/16 [facility] [place] [facility] Social History Combined list of available smoking, tobacco, and other social history from Department of Defense and Veterans Affairs facilities. Social History Type Response Date Comment Source Tobacco smoking status [facility] VA-TOBACCO FORMER USER 08/27/2024 [place] History of tobacco use [place]-TOBACCO QUIT 15 YRS OR MORE 08/27/2024 [place] History of tobacco use VA-TOBACCO FORMER USER 05/26/2021 [facility] [place] [facility] History of tobacco use VA-TOBACCO QUIT 15 YRS OR MORE 11/17/2019 [facility] [place] [facility] History of tobacco use QUIT TOBACCO USE > 7 YEARS AGO 10/22/2009 Pt. quit smoking in 1995 [place] Plan of Care List of future care activities from Department of [facility] facilities. Additional future care activities may be listed in the Assessment and Plan section. Date/Time Care Activity Care Activity Detail Facili ty 02/24/2025 [facility] [place] [place] [facility] Advance Directives List of completed, amended, or rescinded Advance Directives on record at Department of [facility] facilities. An actual copy of the Directive is not included. Date Advance Directive Provider Source 08/27/2024 ADVANCE DIRECTIVE SHAY MILLER
== END 2025-02-12 10:27 | disposition home or self-care (01) ==
LOC: HO.LAB 10:26
PROVIDERS: Visit Provider Urology
DX: R97.20 Elevated prostate specific antigen [PSA] (principal); Z12.5 Encounter for screening for malignant neoplasm of prostate
CPT/HCPCS: 36415; 84153

== ENCOUNTER 2025-03-03 13:52 | Outpatient (AMB) | payer OTHER, SELFPAY ==
--- OUTSIDE RECORDS SUMMARY | 2025-03-03 14:10 | XMS_ITS ---
Author Name [facility] [place] [facility] [place] [facility] [place] Address [address] [place] [address] Care Team Providers Care Remelt Worker Name Role Phone ANAYA JACOB Primary [...] Name Patient's Relationship to Policy De Dios [facility] MEDICAID MEDICAID MEDIC AID Jul 23, 2014 MEDICAI D [id number] BHARATHI MARIN PATIENT MEDICAID MEDICAID [facility] Jul 23, 2014 MEDICAI D [id number] [facility] PATIENT Selected Encounter This section includes the information on record at [place] for the Encounter. Date/Time Encounter Type Encounter Description Reason Pro vider Source February 25, 2025 11:14 AM Outpatient Encounter ADMIN PAT ACTIVTIES (MASNONCT) IHE Encounter Template Text not used by [...] 20 appointments. The data comes from all [place] treatment facilities. Appointment Date/Time Appointment Type Appointme nt Facility Name March 03, 2025 02:00 PM AMBULATORY [facility] MEDICINE [facility] [place] [facility] March 04, 2025 01:00 PM [facility] March 07, 2025 02:00 PM AMBULATORY - NONE [facility] [place] [facility] Mar 28, 2025 09:00 AM AMBULATORY - PSYCHIATRY [facility] Apr 03, 2025 01:00 PM AMBULATORY - NONE [facility] [place] [facility] Apr 03, 2025 01:15 PM AMBULATORY - NONE [facility] [place] [facility] Aug 25, 2025 01:00 PM AMBULATORY - [facility]ICINE [facility] Active, Pending, and Scheduled Orders This section includes a listing of several types of active, pending, and scheduled orders, including clinic medications orders, diagnostic test orders, procedure orders and consult orders; where the start date of the order is 45 days before the date of the Encounter or 45 days after the date of theEncounter. The data comes from all [place] treatment facilities. Test Date/Time Test Type Test Details Facility Name Jan 16, 2025 03:50 PM Consult Order CBT-INSOMN IA/SPOPC OUTPT Cons Tree [facility] Jan 16, 2025 03:50 PM Consult Order BHIP [facility]/SPOPC OUTPT Cons Tree [facility] [place] [facility] Feb 15, 2025 12:00 AM Laboratory - Chemistry Order OCCULT BLOOD FIT X1 SCREEN(IN-HOUSE) STOOL FECES [facility] February 26, 2025 08:40 AM Procedure Order PULMONARY FUNCTION TEST CP PULMONARY FUNCTION TEST Proc Tree Topper[facility] Choice [facility] February 26, 2025 08:40 AM Consult Order COMM[facility]ITY [facility]-PULMONARY Cons Tree [facility] Choice [facility] [place] [facility] Apr 03, 2025 12:00 AM Imaging - Ultrasou nd Order ULTRASOUND AAA SCREENING [facility] Apr 03, 2025 12:00 AM Imaging - CT Scan Order CT THORAX W/O CONT [facility] Lab Results: +/- 30 days of the encounter This section includes the Chemistry and Hematology Lab Results on record with [place] for the patient. Radiology Reports and Pathology Reports are provided separately, in subsequent sections. Lab Results This section contains the Chemistry/Hematology Results that were resulted 30 days before or 30 daysafter the date of the Encounter. Date/Time Source Result Type Result - Unit Interpretation Reference Range Specimen Type Comment Feb 19, 2025 09:20 AM [facility] LIPID PANEL FASTING SERUM Specimen Type: SERUM No comment entered. Ordering Provider: JESUS PARADA Report Released Date/Time: Feb 19, 2025 09:18 AM Reporting Lab: [address] [address] Performing Lab: [address] [address] CHOLESTEROL 135 mg/dL TRIGLYCERIDE 84 mg/dL 0-150 LDL calculated 71 mg/dL 0-129 CHOL/HDL 2.9 HDL CHOLESTEROL 47 mg/dL >40 Feb 19, 2025 09:20 AM [facility] BASIC METABOLIC PANEL (fasting) SERUM Specime n Type: SERUM No comment entered. Ordering Provider: JESUS PARADA Report Released Date/Time: Feb 19, 2025 09:18 AM Reporting Lab: [address] [address] Performing Lab: [address] [address] UREA NITROGEN 17 mg/dL 8-26 GLUCOSE 101 mg/dL H 65-100 SODIUM 142 mmol/L 136-145 POTASSIUM 4.0 mmol/L 3.5-5.1 CHLORIDE 108 mmol/L H 98-107 CO2 27 meq/L 23-31 CALCIUM 9.3 mg/dL 8.8-10 CREATININE, Serum 0.90 mg/dL 0.72-1.25 eGFR(CKD-EPI 2020) >90 mL/min >60 Feb 19, 2025 09:20 AM [facility] LIVER FUNCTION SERUM Specimen Type: SERUM No comment entered. Ordering Provider: JESUS PARADA Report Released Date/Time: Feb 19, 2025 09:18 AM Reporting Lab: [facility] [address] [facility] [address] Performing Lab: [facility] [address] [facility] [address] PROTEIN,TOTAL 7.4 g/dL 6.4-8.3 ALBUMIN 3.8 g/dL 3.2-4.6 ALKALINE PHOSPHATASE 70 U/L 40-150 AST 27 U/L 5-34 ALT 23 U/L 0-55 BILIRUBIN, TOTAL 0.7 mg/dL 0.2-1.2 Feb 19, 2025 09:20 AM [facility] HEMOGLOBIN A1C PANEL BLOOD Specimen Type: BLO OD Comment: Values obtained from A1C measurements can vary. For atypical A1C assays, a reported value of 7.0 could actually be between 6.72 and 7.28 if measured by a reference method. A reported value of 9.0 could actually be between 8.73 and 9.27. Ref: http://www.ngsp.org/CAPdata.asp Ordering Provider: JESUS PARADA Report Released Date/Time: Feb 19, 2025 09:18 AM Reporting Lab: [facility] [address] [facility] [address] Performing Lab: [address] [address] HEMOGLOBIN A1C 5.8 H 4.0-5.6 Feb 19, 2025 09:20 AM [facility] TSH SERUM Specimen Type: SERUM No comment entered. Ordering Provider: JESUS PARADA Report Released Date/Time: Feb 19, 2025 09:18 AM Reporting Lab: [facility] [address] [facility] [address] Performing Lab: [address] [address] TSH 4.14 u[IU]/mL 0.35-4.94 Feb 19, 2025 09:20 AM [facility] CBC AND DIFF (AUTO) BLOOD Specimen Type: BLOO D No comment entered. Ordering Provider: JESUS PARADA Report Released Date/Time: Feb 19, 2025 09:18 AM Reporting Lab: [facility] [address] [facility] [address] Performing Lab: [facility] [address] [facility] [address] WBC 5.90 10*3/uL 4.50-11.00 RBC 4.25 10*6/uL 4.23-5.66 HGB 13.4 g/dL 12.8-17 HCT 38.3 L 39.2-50.4 MCV 90.1 fL 82-99 MCHC 35.0 g/dL 30.8-35.1 PLT 246 10*3/uL 140-360 MPV 11.0 fL 9.2-12.4 RDW-CV 13.1 12.0-16.0 MONO, ABS 0.42 10*3/uL 0.30-1.10 MCH 31.5 pg 26.2-32.6 NEUT % 42.9 L 43.7-75.8 LYMPH % 46.3 H 14.0-42.3 MONO % 7.1 5.1-13.7 EOS % 3.1 0.4-6.8 BASO % 0.3 0.1-2.0 NEUT, ABS 2.53 10*3/uL 2.20-7.60 LYMPH, ABS 2.73 10*3/uL 1.00-3.20 EOS, ABS 0.18 10*3/uL 0.03-0.44 BASO, ABS 0.02 10*3/uL 0.01-0.13 IMMATURE GRAN % 0.3 0.0-0.7 IMMATURE GRAN, ABS 0.02 10*3/uL 0.00-0.0 6 NRBC % 0.0 0.0-0.0 NRBC, ABS 0.00 10*3/uL 0.00-0.00 Feb 14, 2025 01:30 PM [facility] BASIC METABOLIC PANEL (fasting) SERUM Specimen Type: SERUM No comment entered. Ordering Provider: JOHANN LANDRY Report Released Date/Time: Feb 13, 2025 12:44 PM Reporting Lab: [address] [address] Performing Lab: [address] [address] UREA NITROGEN 21 mg/dL 8-26 GLUCOSE 120 mg/dL H 65-100 SODIUM 140 mmol/L 136-145 POTASSIUM 4.3 mmol/L 3.5-5.1 CHLORIDE 105 mmol/L 98-107 CO2 27 meq/L 23-31 CALCIUM 8.9 mg/dL 8.8-10 CREATININE, Serum 0.92 mg/dL 0.72-1.25 eGFR(CKD-EPI 2020) >90 mL/min >60 Feb 14, 2025 01:30 PM [facility] LIPID PANEL FASTING SERUM Specimen Ty pe: SERUM No comment entered. Ordering Provider: JOHANN LANDRY Report Released Date/Time: Feb 13, 2025 12:44 PM Reporting Lab: [address] [address] Performing Lab: [address] [address] CHOLESTEROL 128 mg/dL TRIGLYCERIDE 132 mg/dL 0-150 LDL calculated 62 mg/dL 0-129 CHOL/HDL 3.2 HDL CHOLESTEROL 40 mg/dL >40 Feb 14, 2025 01:30 PM [facility] HEMOGLOBIN A1C PANEL BLOOD Specimen T ype: BLOOD Comment: Values obtained from A1C measurements can vary. For atypical A1C assays, a reported value of 7.0 could actually be between 6.72 and 7.28 if measured by a reference method. A reported value of 9.0 could actually be between 8.73 and 9.27. Ref: http://www.ngsp.org/CAPdata.asp Ordering Provider: JOHANN LANDRY Report Released Date/Time: Feb 13, 2025 12:44 PM Reporting Lab: [address] [address] Performing Lab: [address] [address] HEMOGLOBIN A1C 5.7 H 4.0-5.6 Feb 14, 2025 01:30 PM [facility] LIVER FUNCTION SERUM Specimen Type: SERUM No comment entered. Ordering Provider: JOHANN LANDRY Report Released Date/Time: Feb 13, 2025 12:44 PM Reporting Lab: [address] [address] Performing Lab: [address] [address] PROTEIN,TOTAL 7.4 g/dL 6.4-8.3 ALBUMIN 3.7 g/dL 3.2-4.6 ALKALINE PHOSPHATASE 73 U/L 40-150 AST 23 U/L 5-34 ALT 17 U/L 0-55 BILIRUBIN, TOTAL 0.4 mg/dL 0.2-1.2 Feb 14, 2025 01:30 PM [facility] TSH SERUM Sp ecimen Type: SERUM No comment entered. Ordering Provider: JOHANN LANDRY Report Released Date/Time: Feb 13, 2025 12:44 PM Reporting Lab: [address] [address] Performing Lab: [address] [address] TSH 2.56 u[IU]/mL 0.35-4.94 Feb 14, 2025 01:30 PM [facility] CBC AND DIFF (AUTO) BLOOD Specimen Ty pe: BLOOD No comment entered. Ordering Provider: JOHANN LANDRY Report Released Date/Time: Feb 13, 2025 12:44 PM Reporting Lab: [address] [address] Performing Lab: [address] [address] WBC 5.92 10*3/uL 4.50-11.00 RBC 3.94 10*6/uL L 4.23-5.66 HGB 13.0 g/dL 12.8-17 HCT 36.5 L 39.2-50.4 MCV 92.6 fL 82-99 MCHC 35.6 g/dL H 30.8-35.1 PLT 252 10*3/uL 140-360 MPV 11.3 fL 9.2-12.4 RDW-CV 12.7 12.0-16.0 MONO, ABS 0.50 10*3/uL 0.30-1.10 MCH 33.0 pg H 26.2-32.6 NEUT % 50.1 43.7-75.8 LYMPH % 39.5 14.0-42.3 MONO % 8.4 5.1-13.7 EOS % 1.5 0.4-6.8 BASO % 0.3 0.1-2.0 NEUT, ABS 2.96 10*3/uL 2.20-7.60 LYMPH, ABS 2.34 10*3/uL 1.00-3.20 EOS, ABS 0.09 10*3/uL 0.03-0.44 BASO, ABS 0.02 10*3/uL 0.01-0.13 IMMATURE GRAN % 0.2 0.0-0.7 IMMATURE GRAN, ABS 0.01 10*3/uL 0.00-0.0 6 NRBC % 0.0 0.0-0.0 NRBC, ABS 0.00 10*3/uL 0.00-0.00 Feb 14, 2025 01:30 PM [facility] FERRITIN SERUM Sp ecimen Type: SERUM No comment entered. Ordering Provider: JOHANN LANDRY Report Released Date/Time: Feb 17, 2025 09:08 AM Reporting Lab: [address] [address] Performing Lab: [address] [address] FERRITIN 158.0 ng/mL 21.8-274.7 Feb 14, 2025 01:30 PM [facility] IRON & TIBC PANEL SERUM Specimen Type : SERUM No comment entered. Ordering Provider: JOHANN LANDRY Report Released Date/Time: Feb 17, 2025 09:08 AM Reporting Lab: [address] [address] Performing Lab: [address] [address] TIBC 224 ug/dL 204-475 IRON 64 ug/dL L 65-175 Transferrin Saturation 28.5 15-45 Transferrin (TRF) 170 mg/dL L 180-382 Feb 14, 2025 01:30 PM [facility] VITAMIN B12 SERUM Specimen Type: SERUM No comment entered. Ordering Provider: JOHANN LANDRY Report Released Date/Time: Feb 17, 2025 09:08 AM Reporting Lab: [facility] [address] [facility] [address] Performing Lab: [facility] [address] [facility] [address] VITAMIN B12 935 pg/mL H 213-816 Social History: Smoking Status (Most current) and Tobacco Use (All prior to encounter date) This section includes the most current, and the historical, smoking and tobacco- related health factors from the [place] facility where the Encounter took place. Current Smoking Status This section includes the most current smoking, or tobacco-related health factor, from the [place] facility where the Encounter took place. Date/Time Current Smoking Status Comment Facil ity May 26, 2021 08:00 AM [place]-TOBACCO FORMER USER [facility] Tobacco Use History This section includes a history of the smoking, or tobacco-related health factors, that were collected on or before the date of the Encounter. The data comes from the [place] facility where the Encounter took place. Date/Time Smoking Status/Tobacco Use Comment F acility May 26, 2021 08:00 AM [place]-TOBACCO QUIT 15 YRS OR MORE [facility] Nov 17, 2019 11:32 AM [place]-TOBACCO FORMER USER [facility] Nov 17, 2019 11:32 AM [place]-TOBACCO QUIT 15 YRS OR MORE [facility] Advance Directives: All historical and current Section Date Range: From patient's date of to the date document was created. This section includes ALL of a patient's completed or amended [place] Advance and Rescinded Directives. The entries below indicate that a directive exists for the patient, but an actual copy is not included with this document. The data comes from all [place] facilities. Date Advance Directives Provider Source Aug 27, 2024 ADVANCE DIRECTIVE SHAY MILLER BON Encounter Notes: All associated encounter notes This section contains the clinical notes associated to the Encounter. Date/Time Encounter Note(s) Provider Source February 25, 2025 11:14 AM TELEHEALTH NOTE: LOCAL TITLE: [facility] VIDEO CONNECT PRIMARY CARE STANDARD TITLE: TELEHEALTH NOTE DATE OF NOTE: FEBRUARY 25, 2025@11:14 ENTRY DATE: FEBRUARY 25, 2025@11:14:45 AUTHOR: SCOT DASH COSIGNER: URGENCY: STATUS: COMPLETED VIRTUAL EXAM ROOM: Attendees: Bharathi Draper VIDEO TELEHEALTH CONSENT Visit: Patient/caregiver verbally consented to visit via telehealth: Visit conducted by clinical . Patient Contact Details: Best contact number for backup communication with patient: PATIENT PHONE - NONE FOUND Emergency contact name/number: Heidy Lombardo [phone] Patient Location/Surroundings During Visit: Patient confirmed that he/she is in a private and safe location for visit. Patient location during visit: [place] [address] Other (address of current location, if available): Appointment Type: Routine CHIEF COMPLAINT/GOALS FOR VISIT: Routine f/u HISTORY OF PRESENT ILLNESS/INTERVAL HISTORY: 64 y/o male with PMH depression, HTN, HLD, insomnia, ADD, retinopathy, BPH with LUTs, OA, former tobacco use, hx of etoh use, abdominal hernia, hx of colon polyps, asthma, cognitive impairment here for follow up. He was last seen by PCP Su Mccoy 08/27/2024. Since then, has been seen by optometry, had neuropsych testing, and saw ortho. Today in clinic: He reports he is doing well overall. He denies any hospitalizations or ER visits since the last time he was seen. He confirms he is followed by the below shared care providers: [facility] Orth[facility]- Dr. Cox in [place] for his knees, Dr Jb Bee for L shoulder Dr. Krause in [place] Urology Dr. Bergman-[facility] [place] [facility] for colonoscopies Requesting a short term fill of benadryl. He uses this for his insomnia. He has upcoming appt w/ MH to discuss alternative options. Reports hx of asthma. Reports longstanding hx of JOHN and cough, symptoms stable and not worsening over time. Uses his albuterol inhaler a couple times per week with good effect. 20-25 pack year hx of smoking, quit in 1996. Reports asbestos exposure while in . He wants to meet with a human resources specialist. He otherwise denies any questions or concerns. PAST MEDICAL HISTORY: Active problems - Computerized Problem List is the source for the followin. Depression 2. Essential hypertension 3. Insomnia 4. ADD - Attention deficit disorder 5. Retinopathy OU - followed by Ophthalmology has floaters, sees circles of light, has sharp pains behind eyes hx retinal hemorrhage 6. Lower urinary tract symptoms due to benign prostatic hypertrophy 7. Osteoarthritis of multiple joints bilateral knees, left shoulder 8. Under care of multiple providers Ortho - Dr. Lyon, [place] [facility] urology - Dr. Krause Ophthalmology - Dr. Lopez 9. Family medical history father - dementia, bladder CA paternal grandmother - dementia, breast CA mother - ETOH, CHF paternal aunt - cancer unknown type 10. Former smoker smoked [id number], 1ppd 11. H/O: alcoholism quit 1981 12. Mixed hyperlipidaemia 13. History of surgery abdominal hernia repair 2016 right inguinal hernia repair 2007 right shoulder arthroscopy 1990 left shoulder reconstruction 2006 ORIF right hand fracture 1982 right menisectomy 2005 14. Screening for malignant neoplasm of colon done 09/08/2020 negative FIT Screen Colonoscopy approx 2012: Neg CRC; +Polyps (benign) colo [place] [facility]; repeat 2015 15. Asthma mild intermittent Mixture of COPD and Asthma last CXR JAN 03: No Acute Processes 16. Cognitive impairment hx multiple concussions REVIEW OF SYSTEMS: Otherwise negative per HPI MEDICATIONS: Active and Recently Outpatient Medications (excluding Supplies): Active Outpatient Medications Status 1) ALBUTEROL 90MCG (CFC-F) 200D ORAL INHL INHALE 1 TO 2 PUFFS ACTIVE BY MOUTH EVERY 6 HOURS NEEDED Indication: FOR BRONCHOSPASM 2) ATORVASTATIN CALCIUM 40MG TAB TAKE ONE-HALF TABLET BY MOUTH ACTIVE AT BEDTIME Indication: FOR HIGH CHOLESTEROL 3) CLONIDINE HCL 0.1MG TAB TAKE ONE TABLET BY MOUTH ONCE DAILY ACTIVE TO CONTROL BLOOD PRESSURE Indication: FOR HIGH BLOOD PRESSURE 4) NAPROXEN 500MG TAB TAKE ONE TABLET BY MOUTH AT BEDTIME TAKE ACTIVE WITH FOOD Indication: FOR PAIN 5) TAMSULOSIN HCL 0.4MG CAP TAKE ONE CAPSULE BY MOUTH AT ACTIVE BEDTIME Indication: FOR ENLARGED PROSTATE Active Non-VA Medications Status 1) Non-VA DIPHENHYDRAMINE HCL 25MG CAP 25MG BY MOUTH AT BEDTIME ACTIVE NEEDED Indication: FOR CHRONIC TROUBLE SLEEPING 6 Total Medications OBJECTIVE/VITALS: Exam is limited by VVC. is alert and oriented, well groomed. No acute distress. Answering questions appropriately. Pleasant affect. DIAGNOSTIC REPORTS: All labs from 02/19/2025 reviewed with ASSESSMENT/PLAN: #Insomnia -Will rx short term supply benadryl but discussed that this is not a recommended sleep agent and comes with many anticholinergic side effects -Has upcoming appt w/ MH to discuss alternative options #Asthma #Asbestos exposure -Symptoms stable x years, uses albuterol inhaler few times per week -Ordered PFTs, chest CT, pulm consult -Discussed s/s of asthma exacerbation and when to present to ER/UC #Anemia -Improved on repeat labs, H+H 13.4/38.3 -Iron studies 01/2025 with normal tsat and ferritin, denies any s/s of bleeding -Continue to monitor #Elevated B12 -WIll start taking b12 supplement every other day #Etoh use -Sober since 1981, congratulated and encouraged continued abstinence #HTN -Reports BPs well controlled on clonidine #HLD -LDL 71 01/2025 -Continue atorvastatin as prescribed #Prediabetes -A1c 5.8% 01/2025 -Discussed heart healthy diet, exercise, weight loss to prevent progression to DM -Declines nutrition/MOVE #Colon polyps -Has upcoming cscope scheduled for later this month #Chronic pain: knees, L shoulder -Continue naproxen -Continue f/u with nonVA ortho #BPH -Continue f/u with nonVA urology who monitors PSAs Health Maintenance Colon Cancer Screening: has upcoming cscope later this month Lung cancer screening: Quit 1996 AAA: Ordered Prostate cancer: urologist monitors his PSAs On the date of the encounter, I spent 40 minutes on some or all of the following: chart review, history, physical examination, treatment planning, education and counseling of the patient/family/transitions rn care coordinator, placing orders, communicating with other health care providers, and documentation in the electronic health record. Return to clinic: 6 mos or sooner PRN Send a Secure Message, or call as needed for questions or problems. Medication CHANGES made at this visit: as above Medication list was updated as necessary and reviewed in detail. /mikie/ Scot SALGUERO, AGNP Nurse Practitioner Signed: 02/26/2025 08:49 SCOT DASH [facility]
--- OUTSIDE RECORDS SUMMARY | 2025-03-03 14:10 | XMS_ITS | Encounter Summary ---
Author Name [facility] [place] [facility] [place] Address [address] [place] [id number] Care Team Providers Care Morale Officer Name Role Phone ANAYA JACOB Primary [...] Patient's Relationship to Policy De Dios [facility] MEDICAID MEDICAID MEDIC AID Jul 23, 2014 MEDICAI D [id number] JETT MARIN PATIENT MEDICAID MEDICAID [facility] Jul 23, 2014 MEDICAI D [id number] [facility] Selected Encounter This section includes the information on record at [place] for the Encounter. Date/Time Encounter Type Encounter Description Reason Provider Source February 25, 2025 01:00 PM OFFICE O/P EST MOD 30 MIN PRIMARY CARE/MEDICINE ICD-10-CM Z77.090 Contact with and (suspected) exposure to asbestos HANNA DASH Encounter Template Text not used by [place] Assessments - Encounter Diagnoses This section includes the primary and secondary diagnoses documented for the Encounter. Date/Time Primary/Secondary Diagnosis Diagnosis Name Provider Source February 26, 2025 12:18 PM PRIMARY Contact with and (suspected) exposure to asbestos HANNA DASH [facility] February 26, 2025 12:18 PM SECONDARY Insomnia, unspecified HANNA DASH [facility] February 26, 2025 12:18 PM SECONDARY Other asthma HANNA DASH [facility] Plan of Treatment: Future Appointments (+ 6 months) and Future Tests (+/- 45 days) The Plan of Treatment section includes future care activities for the patient from all [place] [facility] [place]. This section includes future appointments and future orders which are active, pending or scheduled. Future Appointments This section includes appointments that were scheduled to occur 6 months from the date of the Encounter, up to a maximum of 20 appointments. The data comes from all [place] treatment facilities. Appointment Date/Time Appointment Type Appointme nt Facility Name March 03, 2025 02:00 PM AM[place]ULATORY [place]IC[place] [facility] [place] [facility] March 04, 2025 01:00 PM AMBULATORY - [place]CHIATRY [place] [facility] [place] [facility] March 07, 2025 02:00 PM AMBULATORY - NONE [place] [facility] [place] [facility] Mar 28, 2025 09:00 AM AMBULATORY - PSYCHIATRY [facility] Apr 03, 2025 01:00 PM AMBULATORY - NONE [place] [facility] [place] [facility] Apr 03, 2025 01:15 PM AMBULATORY - NONE [place] [facility] [place] [facility] Aug 25, 2025 01:00 PM AM[place]ULATORY [place]ICINE [place] [facility] [place] [facility] Active, Pending, and Scheduled Orders This section includes a listing of several types of active, pending, and scheduled orders, including clinic medications orders, diagnostic test orders, procedure orders and consult orders; where the start date of the order is 45 days before the date of the Encounter or 45 days after the date of theEncounter. The data comes from all [place] treatment facilities. Test Date/Time Test Type Test Details Facility Name Jan 16, 2025 03:50 PM Consult Order CBT-INSOMN IA/SPOPC OUTPT Cons [facility] [place] [facility] Jan 16, 2025 03:50 PM Consult Order [facility]SPOPC OUTPT Cons Analytical Engineer's Choice [facility] Feb 15, 2025 12:00 AM Laboratory - Chemistry Order OCCULT BLOOD FIT X1 SCREEN(IN-HOUSE) STOOL FECES SP MARTÍN February 26, 2025 08:40 AM Procedure Order PULMONARY FUNCTION TEST CP PULMONARY FUNCTION TEST Proc Analytical Engineer's Choice [facility] February 26, 2025 08:40 AM Consult Order COMMUNITY CARE-PULMONARY Cons [facility] Apr 03, 2025 12:00 AM Imaging - Ultrasou nd Order ULTRASOUND AAA SCREENING [facility] Apr 03, 2025 12:00 AM Imaging - CT Scan Order CT THORAX W/O CONT [facility] Lab Results: +/- 30 days of the encounter This section includes the Chemistry and Hematology Lab Results on record with [place] for the patient. Radiology Reports and Pathology Reports are provided separately, in subsequent sections. Lab Results This section contains the Chemistry/Hematology Results that were resulted 30 days before or 30 daysafter the date of the Encounter. Date/Time Source Result Type Result - Unit Interpretation Reference Range Specimen Type Comment Feb 19, 2025 09:20 AM [facility] LIPID PANEL FASTING SERUM Specimen Type: SERUM No comment entered. Ordering Provider: JESUS PARADA Report Released Date/Time: Feb 19, 2025 09:18 AM Reporting Lab: [facility] [address] [facility] [facility] [address] Performing Lab: [address] [address] CHOLESTEROL 135 mg/dL TRIGLYCERIDE 84 mg/dL 0-150 LDL calculated 71 mg/dL 0-129 CHOL/HDL 2.9 HDL CHOLESTEROL 47 mg/dL >40 Feb 19, 2025 09:20 AM [facility] BASIC METABOLIC PANEL (fasting) SERUM Specime n Type: SERUM No comment entered. Ordering Provider: JESUS PARADA Report Released Date/Time: Feb 19, 2025 09:18 AM Reporting Lab: [facility] [address] [facility] [facility] [address] Performing Lab: [address] [address] UREA NITROGEN 17 mg/dL 8-26 GLUCOSE 101 mg/dL H 65-100 SODIUM 142 mmol/L 136-145 POTASSIUM 4.0 mmol/L 3.5-5.1 CHLORIDE 108 mmol/L H 98-107 CO2 27 meq/L 23-31 CALCIUM 9.3 mg/dL 8.8-10 CREATININE, Serum 0.90 mg/dL 0.72-1.25 eGFR(CKD-EPI 2020) >90 mL/min >60 Feb 19, 2025 09:20 AM [facility] LIVER FUNCTION SERUM Specimen Type: SERUM No comment entered. Ordering Provider: JESUS PARADA Report Released Date/Time: Feb 19, 2025 09:18 AM Reporting Lab: [facility] [address] [facility] [address] Performing Lab: [address] [address] PROTEIN,TOTAL 7.4 g/dL 6.4-8.3 ALBUMIN 3.8 g/dL 3.2-4.6 ALKALINE PHOSPHATASE 70 U/L 40-150 AST 27 U/L 5-34 ALT 23 U/L 0-55 BILIRUBIN, TOTAL 0.7 mg/dL 0.2-1.2 Feb 19, 2025 09:20 AM [facility] HEMOGLOBIN A1C PANEL BLOOD Specimen Type: [...] Feb 19, 2025 09:18 AM Reporting Lab: [facility] [address] [facility] [address] Performing Lab: [address] [address] HEMOGLOBIN A1C 5.8 H 4.0-5.6 Feb 19, 2025 09:20 AM [facility] TSH SERUM Specimen Type: SERUM No comment entered. Ordering Provider: JESUS PARADA Report Released Date/Time: Feb 19, 2025 09:18 AM Reporting Lab: [facility] [address] [facility] [facility] [address] Performing [facility]: [facility] [address] [facility] [facility] [address] TSH 4.14 u[IU]/mL 0.35-4.94 Feb 19, 2025 09:20 AM [facility] CBC AND DIFF (AUTO) BLOOD Specimen Type: BLOO D No comment entered. Ordering Provider: JESUS PARADA Report Released Date/Time: Feb 19, 2025 09:18 AM Reporting Lab: [facility] [address] [facility] [facility] [address] Performing Lab: [address] [address] WBC 5.90 10*3/uL 4.50-11.00 RBC 4.25 10*6/uL [...] 10*3/uL 0.00-0.00 Feb 14, 2025 01:30 PM [facility] BASIC METABOLIC PANEL (fasting) SERUM Specimen Type: SERUM No comment entered. Ordering Provider: JOHANN LANDRY Report Released Date/Time: Feb 13, 2025 12:44 PM Reporting [facility]: [facility] [address] [address] Performing Lab: [address] [address] UREA NITROGEN 21 mg/dL 8-26 GLUCOSE 120 mg/dL H 65-100 SODIUM 140 mmol/L 136-145 POTASSIUM 4.3 mmol/L 3.5-5.1 CHLORIDE 105 mmol/L 98-107 CO2 27 meq/L 23-31 CALCIUM 8.9 mg/dL 8.8-10 CREATININE, Serum 0.92 mg/dL 0.72-1.25 eGFR(CKD-EPI 2020) >90 mL/min >60 Feb 14, 2025 01:30 PM [facility] LIPID PANEL FASTING SERUM Specimen Ty pe: SERUM No comment entered. Ordering Provider: JOHANN LANDRY Report Released Date/Time: Feb 13, 2025 12:44 PM Reporting Lab: [address] [address] Performing Lab: [address] [address] CHOLESTEROL 128 mg/dL TRIGLYCERIDE 132 mg/dL 0-150 LDL calculated 62 mg/dL 0-129 CHOL/HDL 3.2 HDL CHOLESTEROL 40 mg/dL >40 Feb 14, 2025 01:30 PM [facility] LIVER FUNCTION SERUM Specimen Type: SERUM No comment entered. Ordering Provider: JOHANN LANDRY Report Released Date/Time: Feb 13, 2025 12:44 PM Reporting Lab: [address] [address] Performing Lab: [address] [address] PROTEIN,TOTAL 7.4 g/dL 6.4-8.3 ALBUMIN 3.7 g/dL 3.2-4.6 ALKALINE PHOSPHATASE 73 U/L 40-150 AST 23 U/L 5-34 ALT 17 U/L 0-55 BILIRUBIN, TOTAL 0.4 mg/dL 0.2-1.2 Feb 14, 2025 01:30 PM [facility] HEMOGLOBIN A1C PANEL BLOOD Specimen T ype: [...] Feb 13, 2025 12:44 PM Reporting Lab: [facility] [address] [address] Performing Lab: [facility] [address] [address] HEMOGLOBIN A1C 5.7 H 4.0-5.6 Feb 14, 2025 01:30 PM [facility] TSH SERUM Sp ecimen Type: SERUM No comment entered. Ordering Provider: JOHANN LANDRY Report Released Date/Time: Feb 13, 2025 12:44 PM Reporting Lab: [facility] [address] [address] Performing Lab: [facility] [address] TSH 2.56 u[IU]/mL 0.35-4.94 Feb 14, 2025 01:30 PM [facility] CBC AND DIFF (AUTO) BLOOD Specimen Ty pe: BLOOD No comment entered. Ordering Provider: JOHANN LANDRY Report Released Date/Time: Feb 13, 2025 12:44 PM Reporting Lab: [facility] [address] [address] Performing Lab: [facility] [address] [address] WBC 5.92 10*3/uL 4.50-11.00 RBC 3.94 10*6/uL [...] 10*3/uL 0.00-0.00 Feb 14, 2025 01:30 PM [facility] IRON & TIBC PANEL SERUM Specimen Type : SERUM No comment entered. Ordering Provider: JOHANN LANDRY Report Released Date/Time: Feb 17, 2025 09:08 AM Reporting Lab: [facility] [address] [facility] [address] Performing Lab: [address] [address] TIBC 224 ug/dL 204-475 IRON 64 ug/dL L 65-175 Transferrin Saturation 28.5 15-45 Transferrin (TRF) 170 mg/dL L 180-382 Feb 14, 2025 01:30 PM [facility] FERRITIN SERUM Sp ecimen Type: SERUM No comment entered. Ordering Provider: JOHANN LANDRY Report Released Date/Time: Feb 17, 2025 09:08 AM Reporting Lab: [facility] [address] [facility] [address] Performing Lab: [address] [address] FERRITIN 158.0 ng/mL 21.8-274.7 Feb 14, 2025 01:30 PM [facility] VITAMIN B12 SERUM Specimen Type: SERUM No comment entered. Ordering Provider: JOHANN LANDRY Report Released Date/Time: Feb 17, 2025 09:08 AM Reporting Lab: [facility] [address] [facility] [address] Performing Lab: [address] [address] VITAMIN B12 935 pg/mL H 213-816 Advance Directives: All historical and current Section [...] Source Aug 27, 2024 ADVANCE DIRECTIVE [facility] Encounter Notes: All associated encounter notes This section contains the clinical notes associated to the Encounter. Date/Time Encounter Note(s) Provider Source February 25, 2025 01:00 PM PRIMARY CARE ASSET MANAGEMENT LEAD NOTE: LOCAL TITLE: PRIMARY CARE CASE MANAGEMENT STANDARD TITLE: PRIMARY CARE ASSET MANAGEMENT LEAD NOTE DATE OF NOTE: FEBRUARY 25, 2025@13:00 ENTRY DATE: FEBRUARY 26, 2025@12:18:07 AUTHOR: HANNA DASH EXP COSIGNER: URGENCY: STATUS: COMPLETED [place] was seen on February 25 at 1PM by [facility] Primary Care provider Hanna Dash via [facility] in the following clinic: [facility] Primary Care note. TIME: 40 minutes Please see JL for clinic note at: [facility] // Hanna Dash MSN, AGNP Nurse Practitioner Signed: 02/26/2025 12:18 HANNA DASH [facility]
--- OUTSIDE RECORDS SUMMARY | 2025-03-03 14:10 | XMS_ITS ---
Author Name [facility] Organization [facility] Address [address] [place] [address] Care Team Providers Care Marketing Summer Intern Name Role Phone ANAYA JACOB Primary Care [...] Relationship to Policy De Dios [facility] MEDICAID MEDICAID MEDIC AID Jul 23, 2014 MEDICAI D [id number] JETT MARIN PATIENT MEDICAID MEDICAID [facility] Jul 23, 2014 MEDICAI D [id number] OZZY MARIN [facility] Isael PATIENT Selected Encounter This section includes the information on record at [place] for the Encounter. Date/Time Encounter Type Encounter Description Reason Pro vider Source February 27, 2025 12:39 PM Outpatient Encounter ADMIN PAT ACTIVTIES (MASNONCT) IHE [...] 20 appointments. The data comes from all [place] treatment facilities. Appointment Date/Time Appointment Type Appointme nt Facility Name March 03, 2025 02:00 PM AMBULATORY - MEDICINE [facility] [place] [facility] March 04, 2025 01:00 PM [facility] March 07, 2025 02:00 PM AMBULATORY - NONE [facility] [place] [facility] Mar 28, 2025 09:00 AM AMBULATORY - PSYCHIATRY [facility] Apr 03, 2025 01:00 PM AMBULATORY - NONE [facility] [place] [facility] Apr 03, 2025 01:15 PM AMBULATORY - NONE [facility] [place] [facility] Aug 25, 2025 01:00 PM [facility]ULATORY [facility] Active, Pending, and Scheduled Orders This section includes a listing of several types of active, pending, and scheduled orders, including clinic medications orders, diagnostic test orders, procedure orders and consult orders; where the start date of the order is 45 days before the date of the Encounter or 45 days after the date of theEncounter. The data comes from all [place] treatment facilities. Test Date/Time Test Type Test Details Facility Name Jan 16, 2025 03:50 PM Consult Order CBT-INSOMN [facility]/SPOPC OUTPT Cons Erp Project Manager's Choice [facility] Jan 16, 2025 03:50 PM Consult Order [facility]/SPOP[facility] OUTPT Cons Erp Project Manager's Choice [facility] [place] [facility] Feb 15, 2025 12:00 AM Laboratory - Chemistry Order OCCULT BLOOD FIT X1 SCREEN(IN-HOUSE) STOOL FECES [facility] February 26, 2025 08:40 AM Procedure Order PULMONARY FUNCTION TEST CP PULMONARY FUNCTION TEST Proc Erp Project Manager's Choice [facility] February 26, 2025 08:40 AM Consult Order COMMUNITY CARE-PULMONARY Cons Erp Project Manager's Choice [place] [facility] [place] [facility] Apr 03, 2025 12:00 AM Imaging - Ultrasou nd Order ULTRASOUND AAA SCREENING [facility] Apr 03, 2025 12:00 AM Imaging - CT Scan Order CT THORAX W/O CONT [facility] Lab Results: +/- 30 days of the encounter This section includes the Chemistry and Hematology Lab Results on record with [place] for the patient. Radiology Reports and Pathology Reports are provided separately, in subsequent sections. Lab Results This section contains the Chemistry/Hematology Results that were resulted 30 days before or 30 daysafter the date of the Encounter. Date/Time Source Result Type Result - Unit Interpretation Reference Range Specimen Type Comment Feb 19, 2025 09:20 AM [facility] LIPID PANEL FASTING SERUM Specimen Type: SERUM No comment entered. Ordering Provider: JESUS PARADA Report Released Date/Time: Feb 19, 2025 09:18 AM Reporting Lab: [address] [address] Performing Lab: [address] [address] CHOLESTEROL 135 mg/dL TRIGLYCERIDE 84 mg/dL 0-150 LDL calculated 71 mg/dL 0-129 CHOL/HDL 2.9 HDL CHOLESTEROL 47 mg/dL >40 Feb 19, 2025 09:20 AM [facility] BASIC METABOLIC PANEL (fasting) SERUM Specime n Type: SERUM No comment entered. Ordering Provider: JESUS PARADA Report Released Date/Time: Feb 19, 2025 09:18 AM Reporting Lab: [address] [address] Performing Lab: [address] [address] UREA NITROGEN 17 mg/dL 8-26 GLUCOSE 101 mg/dL H 65-100 SODIUM 142 mmol/L 136-145 POTASSIUM 4.0 mmol/L 3.5-5.1 CHLORIDE 108 mmol/L H 98-107 CO2 27 meq/L 23-31 CALCIUM 9.3 mg/dL 8.8-10 CREATININE, Serum 0.90 mg/dL 0.72-1.25 eGFR(CKD-EPI 2020) >90 mL/min >60 Feb 19, 2025 09:20 AM [facility] LIVER FUNCTION SERUM Specimen Type: SERUM No comment entered. Ordering Provider: JESUS PARADA Report Released Date/Time: Feb 19, 2025 09:18 AM Reporting Lab: [facility] [address] [facility] [address] Performing Lab: [facility] [address] [facility] [address] PROTEIN,TOTAL 7.4 g/dL 6.4-8.3 ALBUMIN 3.8 g/dL 3.2-4.6 ALKALINE PHOSPHATASE 70 U/L 40-150 AST 27 U/L 5-34 ALT 23 U/L 0-55 BILIRUBIN, TOTAL 0.7 mg/dL 0.2-1.2 Feb 19, 2025 09:20 AM [facility] HEMOGLOBIN A1C PANEL BLOOD Specimen Type: [...] Feb 19, 2025 09:18 AM Reporting Lab: [facility] [address] [facility] [address] Performing Lab: [address] [address] HEMOGLOBIN A1C 5.8 H 4.0-5.6 Feb 19, 2025 09:20 AM [facility] TSH SERUM Specimen Type: SERUM No comment entered. Ordering Provider: JESUS PARADA Report Released Date/Time: Feb 19, 2025 09:18 AM Reporting Lab: [facility] [address] [facility] [address] Performing Lab: [address] [address] TSH 4.14 u[IU]/mL 0.35-4.94 Feb 19, 2025 09:20 AM [facility] CBC AND DIFF (AUTO) BLOOD Specimen Type: BLOO D No comment entered. Ordering Provider: JESUS PARADA Report Released Date/Time: Feb 19, 2025 09:18 AM Reporting Lab: [facility] [address] [facility] [address] Performing Lab: [facility] [address] [facility] [address] WBC 5.90 10*3/uL 4.50-11.00 RBC 4.25 10*6/uL [...] 10*3/uL 0.00-0.00 Feb 14, 2025 01:30 PM [facility] BASIC METABOLIC PANEL (fasting) SERUM Specimen Type: SERUM No comment entered. Ordering Provider: JOHANN LANDRY Report Released Date/Time: Feb 13, 2025 12:44 PM Reporting Lab: [address] [address] Performing Lab: [address] [address] UREA NITROGEN 21 mg/dL 8-26 GLUCOSE 120 mg/dL H 65-100 SODIUM 140 mmol/L 136-145 POTASSIUM 4.3 mmol/L 3.5-5.1 CHLORIDE 105 mmol/L 98-107 CO2 27 meq/L 23-31 CALCIUM 8.9 mg/dL 8.8-10 CREATININE, Serum 0.92 mg/dL 0.72-1.25 eGFR(CKD-EPI 2020) >90 mL/min >60 Feb 14, 2025 01:30 PM [facility] LIPID PANEL FASTING SERUM Specimen Ty pe: SERUM No comment entered. Ordering Provider: JOHANN LANDRY Report Released Date/Time: Feb 13, 2025 12:44 PM Reporting Lab: [address] [address] Performing Lab: [address] [address] CHOLESTEROL 128 mg/dL TRIGLYCERIDE 132 mg/dL 0-150 LDL calculated 62 mg/dL 0-129 CHOL/HDL 3.2 HDL CHOLESTEROL 40 mg/dL >40 Feb 14, 2025 01:30 PM [facility] LIVER FUNCTION SERUM Specimen Type: SERUM No comment entered. Ordering Provider: JOHANN LANDRY Report Released Date/Time: Feb 13, 2025 12:44 PM Reporting Lab: [address] [address] Performing Lab: [address] [address] PROTEIN,TOTAL 7.4 g/dL 6.4-8.3 ALBUMIN 3.7 g/dL 3.2-4.6 ALKALINE PHOSPHATASE 73 U/L 40-150 AST 23 U/L 5-34 ALT 17 U/L 0-55 BILIRUBIN, TOTAL 0.4 mg/dL 0.2-1.2 Feb 14, 2025 01:30 PM [facility] HEMOGLOBIN A1C PANEL BLOOD Specimen T ype: [...] Feb 13, 2025 12:44 PM Reporting Lab: [address] [address] Performing Lab: [address] [address] HEMOGLOBIN A1C 5.7 H 4.0-5.6 Feb 14, 2025 01:30 PM [facility] TSH SERUM Sp ecimen Type: SERUM No comment entered. Ordering Provider: JOHANN LANDRY Report Released Date/Time: Feb 13, 2025 12:44 PM Reporting Lab: [address] [address] Performing Lab: [facility] [address] [address] TSH 2.56 u[IU]/mL 0.35-4.94 Feb 14, 2025 01:30 PM [facility] CBC AND DIFF (AUTO) BLOOD Specimen Ty pe: BLOOD No comment entered. Ordering Provider: JOHANN LANDRY Report Released Date/Time: Feb 13, 2025 12:44 PM Reporting Lab: [address] [address] Performing Lab: [facility] [address] [address] WBC 5.92 10*3/uL 4.50-11.00 RBC 3.94 10*6/uL [...] 10*3/uL 0.00-0.00 Feb 14, 2025 01:30 PM [facility] IRON & TIBC PANEL SERUM Specimen Type : SERUM No comment entered. Ordering Provider: JOHANN LANDRY Report Released Date/Time: Feb 17, 2025 09:08 AM Reporting Lab: [address] [address] Performing Lab: [address] [address] TIBC 224 ug/dL 204-475 IRON 64 ug/dL L 65-175 Transferrin Saturation 28.5 15-45 Transferrin (TRF) 170 mg/dL L 180-382 Feb 14, 2025 01:30 PM [facility] FERRITIN SERUM Sp ecimen Type: SERUM No comment entered. Ordering Provider: JOHANN LANDRY Report Released Date/Time: Feb 17, 2025 09:08 AM Reporting Lab: [address] [address] Performing Lab: [address] [address] FERRITIN 158.0 ng/mL 21.8-274.7 Feb 14, 2025 01:30 PM [facility] VITAMIN B12 SERUM Specimen Type: SERUM No comment entered. Ordering Provider: JOHANN LANDRY Report Released Date/Time: Feb 17, 2025 09:08 AM Reporting Lab: [facility] [address] [facility] [address] Performing Lab: [facility] [address] [facility] [address] VITAMIN B12 935 pg/mL H 213-816 Social History: Smoking Status (Most current) and Tobacco Use (All prior to encounter date) This section includes the most current, and the historical, smoking and tobacco- related health factors from the [place] facility where the Encounter took place. Current Smoking Status This section includes the most current smoking, or tobacco-related health factor, from the [place] facility where the Encounter took place. Date/Time Current Smoking Status Comment Facil ity May 26, 2021 08:00 AM [place]-TOBACCO FORMER USER [facility] Tobacco Use History This section includes a history of the smoking, or tobacco-related health factors, that were collected on or before the date of the Encounter. The data comes from the [place] facility where the Encounter took place. Date/Time Smoking Status/Tobacco Use Comment F acility May 26, 2021 08:00 AM [place]-TOBACCO QUIT 15 YRS OR MORE [facility] Nov 17, 2019 11:32 AM [place]-TOBACCO FORMER USER [facility] Nov 17, 2019 11:32 AM [place]-TOBACCO QUIT 15 YRS OR MORE [facility] Advance Directives: All historical and current Section Date Range: From patient's date of to the date document was created. This section includes ALL of a patient's completed or amended [place] Advance and Rescinded Directives. The entries below indicate that a directive exists for the patient, but an actual copy is not included with this document. The data comes from all [place] facilities. Date Advance Directives Provider Source Aug 27, 2024 AD[facility]IVE [facility] En[facility] Notes: All associated encounter notes This section contains the clinical notes associated to the Encounter. Date/Time Encounter Note(s) Provider Source February 27, 2025 12:39 PM ADMINISTRATIVE NOTE: LOCAL TITLE: CCC: SCHEDULING ADMINISTRATION STANDARD TITLE: ADMINISTRATIVE NOTE DATE OF NOTE: FEBRUARY 27, 2025@12:39:40 ENTRY DATE: FEBRUARY 27, 2025@12:39:40 AUTHOR: RY HERRERA COSIGNER: URGENCY: STATUS: COMPLETED CCC: SCHEDULING ADMINISTRATION Has ADDENDA Caller Verification Current Location: [place] Call Back Number: [phone] Emergency Contact: GIORGIO HUTCHISON Emergency Contact Caller/Recipient Relation to Patient: Self Caller Name: JETT MARIN Scheduling Open Request: None of the above Administrative Administrative Note Reason: Returned Call Administrative Note Comments: Patient is requesting call back to make primary care annual appointment . Call Center has no access to this provider schedule. Requesting call back ,. IMPORTANT: This note was created by [facility] Clinical Contact Center staff. Please do not alert the staff member by adding them as a signer for future communications. Alerts are not monitored by this user. /mikie/ LILIAN RESENDIZ 1 MARLINE QUINTANA Signed: 02/27/2025 12:39 Receipt Acknowledged By: 02/27/2025 12:43 /mis QUINTANA 02/27/2025 ADDENDUM STATUS: COMPLETED [employer] spoke with to make appointment provider. /mis QUINTANA Signed: 02/27/2025 12:43 RY HERRERA [place] [facility]
--- OUTSIDE RECORDS SUMMARY | 2025-03-03 14:10 | XMS_ITS | Clinical Summary ---
Author Organization [employer] Address [address] [place] [address] [address] [address] Care Team Providers Care Colorist Dyer Name Role Phone Unavailable Primary Care Provider [...] AM EDT) Hepatitis C Antibody Nonreactive Nonreactive [facility] Comment:Antibodies to HCV no t detected; does not exclude early acuteHCV infection. Blood Venous blood specimen / Unknown 01/18/2024 11:44 AM EDT 01/18/2024 11:44 AM EDT us Nura Eddy MD LAB BLOOD ORDERABLES Final Resul t [facility] [address] [place] [address] [phone] from Last 3 Months or Most Recently Relevant to Health Maintenance Insurance [facility] MEDICARE [facility] STANDARD
--- OUTSIDE RECORDS SUMMARY | 2025-03-03 14:10 | XMS_ITS | Encounter Summary ---
Author Name [facility] [facility] [place] Address [address] [place] [address] Care Team Providers Care Waste Elimination Name Role Phone ANAYA JACOB Primary Care [...] Name Patient's Relationship to Policy De Dios [facility] MEDICAID MEDICAID MEDIC AID Jul 23, 2014 MEDICAI D [id number] JETT MARIN PATIENT MEDICAID MEDICAID [facility] EALTH STAND KIZZY Jul 23, 2014 MEDICAI D [id number] MINA MARIN JR PATIENT Selected Encounter This section includes the information on record at NH for the Encounter. Date/Time Encounter Type Encounter Description Reason Pro vider Source February 24, 2025 09:00 AM Outpatient Encounter [facility] Encounter Template Text not used by VA [...] 20 appointments. The data comes from all [place] treatment facilities. Appointment Date/Time Appointment Type Appointme nt Facility Name February 25, 2025 01:00 PM AMBULATORY - [facility]INE [facility] March 03, 2025 02:00 PM AM[facility]ULATORY [facility]ICINE [facility] [place] [facility] March 04, 2025 01:00 PM AMBULATORY - PSYCHIATRY [facility] [place] [facility] March 07, 2025 02:00 PM AMBULATORY - NONE [facility] [place] [facility] Mar 28, 2025 09:00 AM AMBULATORY - PSYCHIATRY [facility] Apr 03, 2025 01:00 PM AMBULATORY - NONE [facility] [place] [facility] Apr 03, 2025 01:15 PM AMBULATORY - NONE [facility] [place] [facility] Aug 25, 2025 01:00 PM AMBULATORY - MEDICINE [facility] [place] [facility] Active, Pending, and Scheduled Orders This section includes a listing of several types of active, pending, and scheduled orders, including clinic medications orders, diagnostic test orders, procedure orders and consult orders; where the start date of the order is 45 days before the date of the Encounter or 45 days after the date of theEncounter. The data comes from all [place] treatment facilities. Test Date/Time Test Type Test Details Facility Name Jan 16, 2025 03:50 PM Consult Order CBT-INSOMN [facility]OP[facility] OUTPT Cons Director Of Cardiology Service Line's Choice [facility] Jan 16, 2025 03:50 PM Consult Order [facility] OUTPT Cons Director Of Cardiology Service Line's Choice [facility] [place] [facility] Feb 15, 2025 12:00 AM Laboratory - Chemistry Order OCCULT BLOOD FIT X1 SCREEN(IN-HOUSE) STOOL FECES [facility] February 26, 2025 08:40 AM Procedure Order PULMONARY FUNCTION TEST CP PULMONARY FUNCTION TEST Proc Director Of Cardiology Service Line's Choice [facility] [place] [facility] February 26, 2025 08:40 AM Consult Order COMMUNITY CARE-PULMONARY Cons Director Of Cardiology Service Line's Choice [facility] Apr 03, 2025 12:00 AM Imaging - Ultrasou nd Order ULTRASOUND AAA SCREENING [facility] Apr 03, 2025 12:00 AM Imaging - CT Scan Order CT THORAX W/O CONT [facility] Lab Results: +/- 30 days of the encounter This section includes the Chemistry and Hematology Lab Results on record with NH for the patient. Radiology Reports and Pathology Reports are provided separately, in subsequent sections. Lab Results This section contains the Chemistry/Hematology Results that were resulted 30 days before or 30 daysafter the date of the Encounter. Date/Time Source Result Type Result - Unit Interpretation Reference Range Specimen Type Comment Feb 19, 2025 09:20 AM [facility] LIPID PANEL FASTING SERUM Specimen Type: SERUM No comment entered. Ordering Provider: JESUS PARADA Report Released Date/Time: Feb 19, 2025 09:18 AM Reporting Lab: [address] [address] Performing Lab: [address] [address] CHOLESTEROL 135 mg/dL TRIGLYCERIDE 84 mg/dL 0-150 LDL calculated 71 mg/dL 0-129 CHOL/HDL 2.9 HDL CHOLESTEROL 47 mg/dL >40 Feb 19, 2025 09:20 AM [facility] BASIC METABOLIC PANEL (fasting) SERUM Specime n Type: SERUM No comment entered. Ordering Provider: JESUS PARADA Report Released Date/Time: Feb 19, 2025 09:18 AM Reporting Lab: [address] [address] Performing Lab: [address] [address] UREA NITROGEN 17 mg/dL 8-26 GLUCOSE 101 mg/dL H 65-100 SODIUM 142 mmol/L 136-145 POTASSIUM 4.0 mmol/L 3.5-5.1 CHLORIDE 108 mmol/L H 98-107 CO2 27 meq/L 23-31 CALCIUM 9.3 mg/dL 8.8-10 CREATININE, Serum 0.90 mg/dL 0.72-1.25 eGFR(CKD-EPI 2020) >90 mL/min >60 Feb 19, 2025 09:20 AM [facility] LIVER FUNCTION SERUM Specimen Type: SERUM No comment entered. Ordering Provider: JESUS PARADA Report Released Date/Time: Feb 19, 2025 09:18 AM Reporting Lab: [facility] [address] [facility] [address] Performing Lab: [facility] [address] [facility] [address] PROTEIN,TOTAL 7.4 g/dL 6.4-8.3 ALBUMIN 3.8 g/dL 3.2-4.6 ALKALINE PHOSPHATASE 70 U/L 40-150 AST 27 U/L 5-34 ALT 23 U/L 0-55 BILIRUBIN, TOTAL 0.7 mg/dL 0.2-1.2 Feb 19, 2025 09:20 AM [facility] HEMOGLOBIN A1C PANEL BLOOD Specimen Type: [...] Feb 19, 2025 09:18 AM Reporting Lab: [facility] [address] [facility] [address] Performing Lab: [address] [address] HEMOGLOBIN A1C 5.8 H 4.0-5.6 Feb 19, 2025 09:20 AM [facility] TSH SERUM Specimen Type: SERUM No comment entered. Ordering Provider: JESUS PARADA Report Released Date/Time: Feb 19, 2025 09:18 AM Reporting Lab: [facility] [address] [facility] [address] Performing Lab: [address] [address] TSH 4.14 u[IU]/mL 0.35-4.94 Feb 19, 2025 09:20 AM [facility] CBC AND DIFF (AUTO) BLOOD Specimen Type: BLOO D No comment entered. Ordering Provider: JESUS PARADA Report Released Date/Time: Feb 19, 2025 09:18 AM Reporting Lab: [facility] [address] [facility] [address] Performing Lab: [facility] [address] [facility] [address] WBC 5.90 10*3/uL 4.50-11.00 RBC 4.25 10*6/uL [...] 10*3/uL 0.00-0.00 Feb 14, 2025 01:30 PM [facility] LIPID PANEL FASTING SERUM Specimen Ty pe: SERUM No comment entered. Ordering Provider: JOHANN LANDRY Report Released Date/Time: Feb 13, 2025 12:44 PM Reporting Lab: [address] [address] Performing Lab: [address] [address] CHOLESTEROL 128 mg/dL TRIGLYCERIDE 132 mg/dL 0-150 LDL calculated 62 mg/dL 0-129 CHOL/HDL 3.2 HDL CHOLESTEROL 40 mg/dL >40 Feb 14, 2025 01:30 PM [facility] BASIC METABOLIC PANEL (fasting) SERUM Specimen Type: SERUM No comment entered. Ordering Provider: JOHANN LANDRY Report Released Date/Time: Feb 13, 2025 12:44 PM Reporting Lab: [address] [address] Performing Lab: [address] [address] UREA NITROGEN 21 mg/dL 8-26 GLUCOSE 120 mg/dL H 65-100 SODIUM 140 mmol/L 136-145 POTASSIUM 4.3 mmol/L 3.5-5.1 CHLORIDE 105 mmol/L 98-107 CO2 27 meq/L 23-31 CALCIUM 8.9 mg/dL 8.8-10 CREATININE, Serum 0.92 mg/dL 0.72-1.25 eGFR(CKD-EPI 2020) >90 mL/min >60 Feb 14, 2025 01:30 PM [facility] HEMOGLOBIN A1C PANEL BLOOD Specimen T ype: [...] Feb 13, 2025 12:44 PM Reporting Lab: [address] [address] Performing Lab: [address] [address] HEMOGLOBIN A1C 5.7 H 4.0-5.6 Feb 14, 2025 01:30 PM [facility] LIVER FUNCTION SERUM Specimen Type: SERUM No comment entered. Ordering Provider: JOHANN LANDRY Report Released Date/Time: Feb 13, 2025 12:44 PM Reporting Lab: [address] [address] Performing Lab: [address] [address] PROTEIN,TOTAL 7.4 g/dL 6.4-8.3 ALBUMIN 3.7 g/dL 3.2-4.6 ALKALINE PHOSPHATASE 73 U/L 40-150 AST 23 U/L 5-34 ALT 17 U/L 0-55 BILIRUBIN, TOTAL 0.4 mg/dL 0.2-1.2 Feb 14, 2025 01:30 PM [facility] TSH SERUM Sp ecimen Type: SERUM No comment entered. Ordering Provider: JOHANN LANDRY Report Released Date/Time: Feb 13, 2025 12:44 PM Reporting Lab: [address] [address] Performing Lab: [address] [address] TSH 2.56 u[IU]/mL 0.35-4.94 Feb 14, 2025 01:30 PM [facility] CBC AND DIFF (AUTO) BLOOD Specimen Ty pe: BLOOD No comment entered. Ordering Provider: JOHANN LANDRY Report Released Date/Time: Feb 13, 2025 12:44 PM Reporting Lab: [address] [address] Performing Lab: [address] [address] WBC 5.92 10*3/uL 4.50-11.00 RBC 3.94 10*6/uL [...] 10*3/uL 0.00-0.00 Feb 14, 2025 01:30 PM [facility] FERRITIN SERUM Sp ecimen Type: SERUM No comment entered. Ordering Provider: JOHANN LANDRY Report Released Date/Time: Feb 17, 2025 09:08 AM Reporting Lab: [address] [address] Performing Lab: [address] [address] FERRITIN 158.0 ng/mL 21.8-274.7 Feb 14, 2025 01:30 PM [facility] IRON & TIBC PANEL SERUM Specimen Type : SERUM No comment entered. Ordering Provider: JOHANN LANDRY Report Released Date/Time: Feb 17, 2025 09:08 AM Reporting Lab: [address] [address] Performing Lab: [address] [address] TIBC 224 ug/dL 204-475 IRON 64 ug/dL L 65-175 Transferrin Saturation 28.5 15-45 Transferrin (TRF) 170 mg/dL L 180-382 Feb 14, 2025 01:30 PM [facility] VITAMIN B12 SERUM Specimen Type: SERUM No comment entered. Ordering Provider: JOHANN LANDRY Report Released Date/Time: Feb 17, 2025 09:08 AM Reporting Lab: [facility] [address] [facility] [address] Performing Lab: [facility] [address] [facility] [address] VITAMIN B12 935 pg/mL H 213-816 Social History: Smoking Status (Most current) and Tobacco Use (All prior to encounter date) This section includes the most current, and the historical, smoking and tobacco- related health factors from the [place] facility where the Encounter took place. Current Smoking Status This section includes the most current smoking, or tobacco-related health factor, from the [place] facility where the Encounter took place. Date/Time Current Smoking Status Comment Facil ity Aug 27, 2024 02:00 PM NH-TOBACCO FORMER USER [facility] Tobacco Use History This section includes a history of the smoking, or tobacco-related health factors, that were collected on or before the date of the Encounter. The data comes from the NH facility where the Encounter took place. Date/Time Smoking Status/Tobacco Use Comment F acility Aug 27, 2024 02:00 PM NH-TOBACCO QUIT 15 YRS OR MORE [facility] Oct 22, 2009 09:38 AM QUIT TOBACCO USE > 7 YEARS AGO Pt. quit smoking in 1995 [facility] Advance Directives: All historical and current Section Date Range: From patient's date of to the date document was created. This section includes ALL of a patient's completed or amended [place] Advance and Rescinded Directives. The entries below indicate that a directive exists for the patient, but an actual copy is not included with this document. The data comes from all [place] facilities. Date Advance Directives Provider Source Aug 27, 2024 ADVANCE DIRECTIVE SHAY MILLER Encounter Notes: All associated encounter notes This section contains the clinical notes associated to the Encounter. Date/Time Encounter Note(s) Provider Source February 24, 2025 09:31 AM CLERICAL NOTE: LOCAL TITLE: APPOINTMENT NO SHOW STANDARD TITLE: CLERICAL NOTE DATE OF NOTE: FEBRUARY 24, 2025@09:31 ENTRY DATE: FEBRUARY 24, 2025@09:31:59 AUTHOR: NARESH LOYA COSIGNER: URGENCY: STATUS: COMPLETED APPOINTMENT NO SHOW Has ADDENDA Patient Name: JETT MARIN JR Patient SSN: [id number] Date and time of Appointment No show : 02/24/25 09:00 PATIENT PHONE - NONE FOUND PHONE NUMBER [CELLULAR] - NONE FOUND Patient's medical record was reviewed. Follow-up actions were determined and initiated: Please check/complete as applies: [X]Telephoned Directly [ ]Re-scheduled for next available appt [X]Sent a N0-show letter ( must call for appointment) [ ]Other (Emergent/Overbook, etc.): Additional Comments: Market Asset Protection Manager called and left a VM alerting him to his missed appointment today. [facility] this intake appointment. Future Clinic Visits 03/03/2025 14:00 COM CARE-UROLOGY 03/04/2025 13:00 [facility] PSYLG 4 03/07/2025 14:00 COM CARE-COLO SCRN /mikie/ NARESH LOYA CLINICAL PSYCHOLOGIST Signed: 02/24/2025 09:32 Receipt Acknowledged By: 02/24/2025 09:35 /mikie/ HAMILTON NORRIS Advanced [employer] Sh[employer]der 02/24/2025 ADDENDUM STATUS: COMPLETED No show marked. /mikie/ HAMILTON NORRIS Advanced [employer] Sh[employer]der Signed: 02/24/2025 09:36 NARESH LOYA [facility]
--- OUTSIDE RECORDS SUMMARY | 2025-03-03 14:10 | XMS_ITS | Continuity of Care Document ---
Author Name [facility] Organization [facility] Care Team Providers Care Dual Rate Dealer Name Role Phone [facility] Unavailable Unavailable Problems Combined list of problems from Department of Defense and Veterans Affairs facilities. It does not include entries that were removed or entered in error. Problem Status Onset Date Problem Type Date of Resolution Comments Source Cognitive impairment Active 999 Condition Sep 01, 2024 Entered By: ZOHAIB YANEZ Comment: hx multiple concussions WALKER ADD - Attention deficit disorder Active Condition [facility] Asthma Active Condition Sep 01 Entered By: ZOHAIB YANEZ Comment: mild intermittentMar 2013 Entered By: EDGAR GONZALES Comment: Mixture of COPD and AsthmaMar 2013 Entered By: EDGAR GONZALES Comment: last CXR JAN 03: No Acute Processes [facility]ALKER Depression Active Condition [facility] [place] [...] Aug Entered By: ZOHAIB YANEZ Comment: smoked [id number], 1ppd [facility] H/O: [...] By: ZOHAIB YANEZ Comment: 09/08/2020 negative FIT WALKER Under care of multiple providers Active Condition Sep 01 024 Entered By: ZOHAIB YANEZ Comment: Ortho - Saman Quesada OrthoSep 01, 2024 Entered By: ZOHAIB YANEZ Comment: urology - Dr. Nguyen 2023 Entered By: ZOHAIB YANEZ Comment: Ophthalmology - Dr. Lopez [facility] [place]ral [facility]nia [facility] Depressive disorder (SNOMED CT 10939497) Inactive Condition 08/27/2024 [facility] Gastroesophageal reflux disease with hiatal hernia Inactive Condition 08/27/2024 [facility] Retinal Hemorrhage (ICD-9-CM 362.81) Inactive Condition 09/01/2024 Nov 13 10 Entered By: SKYE OLIVA OD Comment: isolated cluster of small dot hemorrhages [facility] Diagnosis: ICD-10-CM Z77.090 Contact with and (suspected) exposure to asbestos Active Diagnosis [facility] Diagnosis: ICD-10-CM F90.0 Attn-defct hyperactivity disorder, predom inattentive type Active Diagnosis [facility] Diagnosis: ICD-10-CM R68.89 Other general symptoms and signs Active Diagnosis [facility] Diagnosis: ICD-10-CM Z46.0 Encounter for fit/adjst of spectacles and contact lenses Active Diagnosis [facility] Diagnosis: ICD-10-CM I10 Essential (primary) hypertension Active Diagnosis [facility] Medications Combined list of outpatient medications from [...] [facility] AT[facility] (INHAL ATION) ACTIVE 08/28/2025 [id number] Jim YANEZ 2023 3 [place] ATORVASTATI N CA 40MG TAB TAKE ONE-HALF TABLET BY MOUTH AT BEDTIME FOR HIGH CHOLESTE ROL ORAL DISCONT INUED (EDIT) 08/28/2025 [id number] Jim YANEZ 2023 45 [facility] IELD ATORVASTATI N CA 80MG TAB TAKE ONE-HALF TABLET BY MOUTH AT BEDTIME FOR HIGH CHOLESTE ROL ORAL ACTIVE 02/26/2026 [id number] Yolande DASH 2024 45 [facility] CLONIDINE HCL 0.1MG TAB TAKE ONE TABLET BY MOUTH ONCE DAILY TO CONTROL BLOOD PRESSURE ORAL ACTIVE 08/28/2025 [id number] Jim YANEZ 2023 90 [place] DIPHENHYDRA MINE HCL 50MG CAP TAKE ONE CAPSULE BY MOUTH AT BEDTIME NEEDED FOR INSOMNIA ORAL ACTIVE 03/27/2025 [id number] 5 Yolande DASH 2024 30 [facility] [place] [facility] NAPROXEN 500MG TAB TAKE ONE TABLET BY MOUTH AT BEDTIME FOR PAIN TAKE WITH FOOD ORAL ACTIVE 08/28/2025 [id number] 5 Jim YANEZ 2023 90 [place] TAMSULOSIN HCL 0.4MG CAP TAKE ONE CAPSULE BY MOUTH AT BEDTIME FOR ENLARGED PROSTATE ORAL ACTIVE 08/28/2025 [id number] Jim YANEZ 2023 90 [place] Allergies, Adverse Reactions, Alerts Combined list of allergies from Department of Defense and Veterans Affairs facilities. It does not include entries that were removed or entered in error. Substance Category Reaction Severity Reaction type Status Date Reported Comments Source NAPROXEN Propensity to adverse reactions to drug (finding) Indigestion active 8 [facility] NAPROXEN Propensity to adverse reactions to drug (finding) active 6 [facility] Immunizations Combined list of available immunizations from the Department of Defense and Veterans Affairs facilities. Immunization Series Date Given Administered By Site Reaction Lot Number CVX Code Drug Financial Planning Consultant Status Comments Source INFLUENZA, UNSPECIFIED FORMULATION 2023 88 complet ed HISTORICA L INFORMATI ON - SOURCE UNSPECIFI ED, [facility] COVID-19 (MODERNA), MRNA, LNP-S, PF, 100 MCG OR 50 MCG DOSE 3 2020 207 complet ed MOD; [id number]; 2 [place] COVID-19 (MODERNA), MRNA, LNP-S, PF, 100 MCG/0.5 ML DOSE 2 2020 207 complet ed [facility] [place] [facility] COVID-19 (MODERNA), MRNA, LNP-S, PF, 100 MCG/0.5 ML DOSE 1 2020 207 complet ed [facility] [place] [facility] [facility] INFLUENZA, INJECTABLE, QUADRIVALENT, PRESERVATIVE FREE 2019 150 complet ed [facility] [place] [facility] FLU,3 YRS (HISTORICAL) 2008 88 complet ed 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 [facility] [place] Results Combined list of recent chemistry, hematology and other laboratory results from Department of Defense and Veterans Affairs, ranging from 15 months to all on record, depending upon the facility. Order Name Results Value Reference Range Date Interpretation Specimen Comments Source LIPID PANEL FASTING CHOLESTEROL [MASS/VOLUM E] IN SERUM OR PLASMA 135 mg/dL 02/19 Specimen Type: SERUM No comment entered. Ordering Provider: KIRA PARADA Report Released Date/Time: Feb 19, 2025 09:18 AM Reporting Lab: [facility] [address] [facility] [address] Performing Lab: [facility] [address] [address] [facility] LIPID PANEL FASTING TRIGLYCERID E [MASS/VOLUM E] IN SERUM OR PLASMA 84 mg/dL 0 - 150 02/19 Specimen Type: SERUM No comment entered. Ordering Provider: KIRA PARADA Report Released Date/Time: Feb 19, 2025 09:18 AM Reporting Lab: [facility] [address] [facility] [address] Performing Lab: [facility]ITAL[facility] [address] [facility] [address] [facility] LIPID PANEL FASTING CHOLESTEROL IN LDL [MASS/VOLUM E] IN SERUM OR PLASMA BY CALCULATION 71 mg/dL 0 - 129 02/19 Specimen Type: SERUM No comment entered. Ordering Provider: KIRA PARADA Report Released Date/Time: Feb 19, 2025 09:18 AM Reporting Lab: [address] [address] Performing Lab: [facility] [place] [facility] [address] [address] [facility] LIPID PANEL FASTING CHOLESTEROL .TOTAL/CHOL ESTEROL IN HDL [MASS RATIO] IN SERUM OR PLASMA 2.9 02/19 Specimen Type: SERUM No comment entered. Ordering Provider: KIRA PARADA Report Released Date/Time: Feb 19, 2025 09:18 AM Reporting Lab: [facility] [place] [facility] [address] [facility] [address] Performing Lab: [facility]ITALRL [facility]N [facility] [address] [facility] [address] [facility] TRN [facility] LIPID PANEL FASTING CHOLESTEROL IN HDL [MASS/VOLUM E] IN SERUM OR PLASMA 47 mg/dL 40 02/19 Specimen Type: SERUM No comment entered. Ordering Provider: KIRA PARADA Report Released Date/Time: Feb 19, 2025 09:18 AM Reporting Lab: [facility] TRN [place] [facility] [address] [address] Performing Lab: [facility]ITALRL W[facility]N [facility]ITAL[facility]ETS [address] [address] [facility]ITALRL [facility]N [facility]ITALUSE [facility] BASIC METABOLIC PANEL (fasting) UREA NITROGEN [MASS/VOLUM E] IN SERUM OR PLASMA 17 mg/dL 8 - 26 02/19 Specimen Type: SERUM No comment entered. Ordering Provider: KIRA PARADA Report Released Date/Time: Feb 19, 2025 09:18 AM Reporting Lab: [facility] [place] [facility] [address] [address] Performing Lab: [facility]RL [place] [place] [address] [address] [facility]N [place] [facility] BASIC METABOLIC PANEL (fasting) GLUCOSE [MASS/VOLUM E] IN SERUM OR PLASMA 101 mg/dL 65 - 100 02/19 H Specimen Type: SERUM No comment entered. Ordering Provider: KIRA PARADA Report Released Date/Time: Feb 19, 2025 09:18 AM Reporting Lab: [facility] [place] [facility] [address] [facility] [address] Performing Lab: [facility]RL [facility] [place] [facility] [address] [address] [facility]RL W[facility]N [facility]ITALUSE [facility] BASIC METABOLIC PANEL (fasting) SODIUM [MOLES/VOLU ME] IN SERUM OR PLASMA 142 mmol/L 136 - 145 02/19 Specimen Type: SERUM No comment entered. Ordering Provider: KIRA PARADA Report Released Date/Time: Feb 19, 2025 09:18 AM Reporting Lab: [facility] [place] [facility] [address] [facility] [address] Performing Lab: [facility]PITALUSENY[facility] [address] [facility] [address] [facility]OSPITALRBRYAN [facility] HOSPITALTRN [facility]ITALUSE [facility] BASIC METABOLIC PANEL (fasting) POTASSIUM [MOLES/VOLU ME] IN SERUM OR PLASMA 4.0 mmol/L 3.5 - 5.1 02/19 Specimen Type: SERUM No comment entered. Ordering Provider: KIRA PARADA Report Released Date/Time: Feb 19, 2025 09:18 AM Reporting Lab: [facility] [place] [facility] [address] [facility] [address] Performing Lab: [facility]OSPITALUSENY[facility] [address] [address] [facility]ITALRL [facility]ITALN [facility]ITALUSE [facility] BASIC METABOLIC PANEL (fasting) CHLORIDE [MOLES/VOLU ME] IN SERUM OR PLASMA 108 mmol/L 98 - 107 02/19 H Specimen Type: SERUM No comment entered. Ordering Provider: KIRA PARADA Report Released Date/Time: Feb 19, 2025 09:18 AM Reporting Lab: [facility]PITAL[facility]ETS [facility] [address] [address] Performing Lab: [facility]PITALUSETS [facility] [address] [address] [facility]RL [facility]ITALN [facility]ITALUSE [facility] BASIC METABOLIC PANEL (fasting) CARBON DIOXIDE, TOTAL [MOLES/VOLU ME] IN SERUM OR PLASMA 27 meq/L 23 - 31 02/19 Specimen Type: SERUM No comment entered. Ordering Provider: KIRA PARADA Report Released Date/Time: Feb 19, 2025 09:18 AM Reporting Lab: [facility] [place] [facility] [address] [address] Performing Lab: [facility] [place] [facility] [address] [facility] [address] [facility] [place] [facility] BASIC METABOLIC PANEL (fasting) CALCIUM [MASS/VOLUM E] IN SERUM OR PLASMA 9.3 mg/dL 8.8 - 10 02/19 Specimen Type: SERUM No comment entered. Ordering Provider: KIRA PARADA Report Released Date/Time: Feb 19, 2025 09:18 AM Reporting Lab: [facility] [place] [facility] [address] [facility] [address] Performing Lab: [facility] [place] [facility] [address] [address] [facility]ITALRL [facility]N [place] [facility] BASIC METABOLIC PANEL (fasting) CREATININE [MASS/VOLUM E] IN SERUM OR PLASMA 0.90 mg/dL 0.72 - 1.25 02/19 Specimen Type: SERUM No comment entered. Ordering Provider: KIRA PARADA Report Released Date/Time: Feb 19, 2025 09:18 AM Reporting Lab: [facility] [place] [facility] [address] [address] Performing Lab: [facility] [place] [facility] [address] [address] [facility]ITALRL [facility]N [place] [facility] BASIC METABOLIC PANEL (fasting) GLOMERULAR FILTRATION RATE/1.73 SQ M.PREDICTED [VOLUME RATE/AREA] IN SERUM, PLASMA OR BLOOD BY CREATININE- BASED FORMULA (CKD-EPI 2020) >90mL/ min 60 02/19 Specimen Type: SERUM No comment entered. Ordering Provider: KIRA PARADA Report Released Date/Time: Feb 19, 2025 09:18 AM Reporting Lab: [facility] [place] [facility] [address] [address] Performing Lab: [facility] [place] [facility] [address] [address] [facility] LIVER FUNCTION PROTEIN [MASS/VOLUM E] IN SERUM OR PLASMA 7.4 g/dL 6.4 - 8.3 02/19 Specimen Type: SERUM No comment entered. Ordering Provider: KIRA PARADA Report Released Date/Time: Feb 19, 2025 09:18 AM Reporting Lab: [facility]OSPITALRVETERANS AFFAIRS MEDICAL [facility]MINGHAMN [facility] [address] [facility] [address] Performing Lab: [facility] HOSPITALRBRYAN WHIT[facility] HOSPITALTRN [facility]PITALUSENY[facility] [address] [address] [facility] LIVER FUNCTION ALBUMIN [MASS/VOLUM E] IN SERUM OR PLASMA BY BROMOCRESOL PURPLE (BCP) DYE BINDING METHOD 3.8 g/dL 3.2 - 4.6 02/19 Specimen Type: SERUM No comment entered. Ordering Provider: KIRA PARADA Report Released Date/Time: Feb 19, 2025 09:18 AM Reporting Lab: [facility]OSPITALRVETERANS AFFAIRS MEDICAL CENTER-BIRMINGHAMN [address] [address] Performing Lab: [facility]OSPITALRL [facility]OSPITALN [address] [address] [facility] LIVER FUNCTION ALKALINE PHOSPHATASE [ENZYMATIC ACTIVITY/VO LUME] IN SERUM OR PLASMA 70 U/L 40 - 150 02/19 Specimen Type: SERUM No comment entered. Ordering Provider: KIRA PARADA Report Released Date/Time: Feb 19, 2025 09:18 AM Reporting Lab: [facility]OSPITALRVETERANS AFFAIRS MEDICAL CENTER-BIRMINGHAMN [address] [address] Performing Lab: [facility]ITALRL [facility]OSPITALN [facility]ITALUSE[address] [address] [facility] LIVER FUNCTION ASPARTATE AMINOTRANSF ERASE [ENZYMATIC ACTIVITY/VO LUME] IN SERUM OR PLASMA BY WITH P-5'-P 27 U/L 5 - 34 02/19 Specimen Type: SERUM No comment entered. Ordering Provider: KIRA PARADA Report Released Date/Time: Feb 19, 2025 09:18 AM Reporting Lab: [facility]OSPITALRVETERANS AFFAIRS MEDICAL CENTER-BIRMINGHAMN [address] [address] Performing Lab: [facility] [address] [address] [facility]OSPITALRL TRN [facility]OSPITALUSE [facility] LIVER FUNCTION ALANINE AMINOTRANSF ERASE [ENZYMATIC ACTIVITY/VO LUME] IN SERUM OR PLASMA BY WITH P-5'-P 23 U/L 0 - 55 02/19 Specimen Type: SERUM No comment entered. Ordering Provider: KIRA PARADA Report Released Date/Time: Feb 19, 2025 09:18 AM Reporting Lab: [facility]OSPITALRL W[facility]N [facility] [address] [facility] [address] Performing Lab: [facility]OSPITALRL WSTRN [facility]ITALUSE[address] [address] [facility]ITALRL [facility]OS[facility]ITALN [facility]USE [facility] LIVER FUNCTION BILIRUBIN.T OTAL [MASS/VOLUM E] IN SERUM OR PLASMA 0.7 mg/dL 0.2 - 1.2 02/19 Specimen Type: SERUM No comment entered. Ordering Provider: KIRA PARADA Report Released Date/Time: Feb 19, 2025 09:18 AM Reporting Lab: [facility]OSPITALRL WSTRN [facility]ITALUSE[address] [address] Performing Lab: [facility]ITALUSE[address] [address] [facility]ITALRL [facility]OS[facility]ITALN [facility] HEMOGLOBI N A1C PANEL HEMOGLOBIN A1C/HEMOGLO BIN.TOTAL IN BLOOD BY IFCC PROTOCOL 5.8 4.0 - 5.6 02/19 H Specimen Type: BLOOD Comment: Values obtained from A1C measurement s can vary. For atypical A1C assays, a reported value of 7.0 could actually be between 6.72 and 7.28 if measured by a reference method. A reported value of 9.0 could actually be between 8.73 and 9.27. Ref: http://www. ngsp.org/[place] Pdata.asp Ordering Provider: KIRA PARADA Report Released Date/Time: Feb 19, 2025 09:18 AM Reporting Lab: [facility]OSPITALRBRYAN WHITFIELD MEMORIAL HOSPITALTRN [address] [address] Performing Lab: [facility]OSPITALRL [place] [place] [facility] [address] [address] [facility]OSPITALRL WSTRN [place] TS [facility] TSH THYROTROPIN [UNITS/VOLU ME] IN SERUM OR PLASMA BY DETECTION LIMIT <= 0.005 MIU/L 4.14 u[IU]/ mL 0.35 - 4.94 02/19 Specimen Type: SERUM No comment entered. Ordering Provider: KIRA PARADA Report Released Date/Time: Feb 19, 2025 09:18 AM Reporting Lab: [facility]ITALRL [place]N [place] [facility] [address] [address] Performing Lab: [facility]OSPITALRL TRN [facility] CENTERCHUSETS [address] [address] [facility]OSPITALRVETERANS AFFAIRS MEDICAL CENTER-BIRMINGHAMN [facility] MEDICAL CENTERCHUSE TS [facility] CBC AND DIFF (AUTO) LEUKOCYTES [#/VOLUME] IN BLOOD BY AUTOMATED COUNT 5.90 10*3/u L 4.50 - 11.00 02/19 Specimen Type: BLOOD No comment entered. Ordering Provider: KIRA PARADA Report Released Date/Time: Feb 19, 2025 09:18 AM Reporting Lab: [facility]ITALRL [place]N [place] [facility] [address] [address] Performing Lab: [facility]ITALRL TRN [place] [facility] [address] [facility] [address] [facility]OSPITALRVETERANS AFFAIRS MEDICAL CENTER-BIRMINGHAMN [facility]B MEDICAL CENTERCHUSE TS [facility] CBC AND DIFF (AUTO) ERYTHROCYTE S [#/VOLUME] IN BLOOD BY AUTOMATED COUNT 4.25 10*6/u L 4.23 - 5.66 02/19 Specimen Type: BLOOD No comment entered. Ordering Provider: KIRA PARADA Report Released Date/Time: Feb 19, 2025 09:18 AM Reporting Lab: [facility]ITALRL TRN [place] [address] [address] Performing Lab: [facility]ITALRL TRN [facility] CENTERCHUSETS [address] [address] [facility]PITALRVETERANS AFFAIRS MEDICAL CENTER-BIRMINGHAMN B[facility] MEDICAL CENTERCHUSE TS [facility] CBC AND DIFF (AUTO) HEMOGLOBIN [MASS/VOLUM E] IN BLOOD 13.4 g/dL 12.8 - 17 02/19 Specimen Type: BLOOD No comment entered. Ordering Provider: KIRA PARADA Report Released Date/Time: Feb 19, 2025 09:18 AM Reporting Lab: [facility] [place] [facility] [address] [facility] [address] Performing Lab: [facility] [place] [facility] [address] [facility] [address] [facility] [place] [facility] CBC AND DIFF (AUTO) HEMATOCRIT [VOLUME FRACTION] OF BLOOD BY AUTOMATED COUNT 38.3 39.2 - 50.4 02/19 L Specimen Type: BLOOD No comment entered. Ordering Provider: KIRA PARADA Report Released Date/Time: Feb 19, 2025 09:18 AM Reporting Lab: [facility] [place] [place] [facility] [address] [address] Performing Lab: [facility] [place] [place] [facility] [address] [address] [facility] [place] [facility] CBC AND DIFF (AUTO) MCV [ENTITIC VOLUME] BY AUTOMATED COUNT 90.1 fL 82 - 99 02/19 Specimen Type: BLOOD No comment entered. Ordering Provider: KIRA PARADA Report Released Date/Time: Feb 19, 2025 09:18 AM Reporting Lab: [facility] [place] [place] [facility] [address] [facility] [address] Performing Lab: [facility] [place] [facility] [address] [address] [facility] [place] [facility] CBC AND DIFF (AUTO) MCHC [MASS/VOLUM E] BY AUTOMATED COUNT 35.0 g/dL 30.8 - 35.1 02/19 Specimen Type: BLOOD No comment entered. Ordering Provider: KIRA PARADA Report Released Date/Time: Feb 19, 2025 09:18 AM Reporting Lab: [facility] [place] [facility] [address] [address] Performing Lab: [facility] [place] [facility] [address] [address] [facility] [place] [facility] CBC AND DIFF (AUTO) PLATELETS [#/VOLUME] IN BLOOD BY AUTOMATED COUNT 246 10*3/u L 140 - 360 02/19 Specimen Type: BLOOD No comment entered. Ordering Provider: KIRA PARADA Report Released Date/Time: Feb 19, 2025 09:18 AM Reporting Lab: [facility] [place] [facility] [address] [address] Performing Lab: [facility]OSPITALUSETS [facility] [address] [facility] [address] [facility] [place] [facility] CBC AND DIFF (AUTO) PLATELET MEAN VOLUME [ENTITIC VOLUME] IN BLOOD BY AUTOMATED COUNT 11.0 fL 9.2 - 12.4 02/19 Specimen Type: BLOOD No comment entered. Ordering Provider: KIRA PARADA Report Released Date/Time: Feb 19, 2025 09:18 AM Reporting Lab: [facility] [place] [place] [address] [address] Performing Lab: [facility]ENTERCHUSETS [address] [address] [facility]PITALRL WSTRN [facility] CENTERCHUSE TS [facility] CBC AND DIFF (AUTO) ERYTHROCYTE DISTRIBUTIO N WIDTH [RATIO] BY AUTOMATED COUNT 13.1 12.0 - 16.0 02/19 Specimen Type: BLOOD No comment entered. Ordering Provider: KIRA PARADA Report Released Date/Time: Feb 19, 2025 09:18 AM Reporting Lab: [facility] [place] [address] [address] Performing Lab: [facility] [place] [place] [address] [address] [facility] [place] [facility] CBC AND DIFF (AUTO) MONOCYTES [#/VOLUME] IN BLOOD BY AUTOMATED COUNT 0.42 10*3/u L 0.30 - 1.10 02/19 Specimen Type: BLOOD No comment entered. Ordering Provider: KIRA PARADA Report Released Date/Time: Feb 19, 2025 09:18 AM Reporting Lab: [facility] [address] [phone] Performing Lab: [facility] [place] [address] [address] [facility] CBC AND DIFF (AUTO) MCH [ENTITIC MASS] BY AUTOMATED COUNT 31.5 pg 26.2 - 32.6 02/19 Specimen Type: BLOOD No comment entered. Ordering Provider: KIRA PARADA Report Released Date/Time: Feb 19, 2025 09:18 AM Reporting Lab: [facility] [address] [facility] [address] Performing Lab: [facility] [address] [facility] [address] [facility] CBC AND DIFF (AUTO) NEUTROPHILS /100 LEUKOCYTES IN BLOOD BY AUTOMATED COUNT 42.9 43.7 - 75.8 02/19 L Specimen Type: BLOOD No comment entered. Ordering Provider: KIRA PARADA Report Released Date/Time: Feb 19, 2025 09:18 AM Reporting Lab: [facility] [address] [place] [phone] Performing Lab: [facility] [address] [place] [phone] [facility] CBC AND DIFF (AUTO) LYMPHOCYTES /100 LEUKOCYTES IN BLOOD BY AUTOMATED COUNT 46.3 14.0 - 42.3 02/19 H Specimen Type: BLOOD No comment entered. Ordering Provider: KIRA PARADA Report Released Date/Time: Feb 19, 2025 09:18 AM Reporting Lab: [facility] [address] [place] [phone] Performing Lab: [facility] [address] [place] [phone] [facility] CBC AND DIFF (AUTO) MONOCYTES/1 00 LEUKOCYTES IN BLOOD BY AUTOMATED COUNT 7.1 5.1 - 13.7 02/19 Specimen Type: BLOOD No comment entered. Ordering Provider: KIRA PARADA Report Released Date/Time: Feb 19, 2025 09:18 AM Reporting Lab: [facility] [address] [place] [address] Performing Lab: [facility] [address] [facility] [address] [facility] CBC AND DIFF (AUTO) EOSINOPHILS /100 LEUKOCYTES IN BLOOD BY AUTOMATED COUNT 3.1 0.4 - 6.8 02/19 Specimen Type: BLOOD No comment entered. Ordering Provider: KIRA PARADA Report Released Date/Time: Feb 19, 2025 09:18 AM Reporting Lab: [facility] [address] [facility] [address] Performing Lab: [facility] [address] [facility] [address] [facility] CBC AND DIFF (AUTO) BASOPHILS/1 00 LEUKOCYTES IN BLOOD BY AUTOMATED COUNT 0.3 0.1 - 2.0 02/19 Specimen Type: BLOOD No comment entered. Ordering Provider: KIRA PARADA Report Released Date/Time: Feb 19, 2025 09:18 AM Reporting Lab: [facility] [address] [facility] [address] Performing Lab: [facility] [address] [facility] [address] [facility] CBC AND DIFF (AUTO) NEUTROPHILS [#/VOLUME] IN BLOOD BY AUTOMATED COUNT 2.53 10*3/u L 2.20 - 7.60 02/19 Specimen Type: BLOOD No comment entered. Ordering Provider: KIRA PARADA Report Released Date/Time: Feb 19, 2025 09:18 AM Reporting Lab: [facility] [address] [facility] [address] Performing Lab: [facility] [address] [address] [facility] CBC AND DIFF (AUTO) LYMPHOCYTES [#/VOLUME] IN BLOOD BY AUTOMATED COUNT 2.73 10*3/u L 1.00 - 3.20 02/19 Specimen Type: BLOOD No comment entered. Ordering Provider: KIRA PARADA Report Released Date/Time: Feb 19, 2025 09:18 AM Reporting Lab: [facility] [address] [facility] [address] Performing Lab: [facility] [address] [facility] [address] [facility] CBC AND DIFF (AUTO) EOSINOPHILS [#/VOLUME] IN BLOOD BY AUTOMATED COUNT 0.18 10*3/u L 0.03 - 0.44 02/19 Specimen Type: BLOOD No comment entered. Ordering Provider: KIRA PARADA Report Released Date/Time: Feb 19, 2025 09:18 AM Reporting Lab: [facility] [address] [facility] [address] Performing Lab: [facility] [address] [facility] [address] [facility] CBC AND DIFF (AUTO) BASOPHILS [#/VOLUME] IN BLOOD BY AUTOMATED COUNT 0.02 10*3/u L 0.01 - 0.13 02/19 Specimen Type: BLOOD No comment entered. Ordering Provider: KIRA PARADA Report Released Date/Time: Feb 19, 2025 09:18 AM Reporting Lab: [facility] [address] [facility] [address] Performing Lab: [facility] [address] [facility] [address] [facility] CBC AND DIFF (AUTO) IMMATURE GRANULOCYTE S/100 LEUKOCYTES IN BLOOD BY AUTOMATED COUNT 0.3 0.0 - 0.7 02/19 Specimen Type: BLOOD No comment entered. Ordering Provider: KIRA PARADA Report Released Date/Time: Feb 19, 2025 09:18 AM Reporting Lab: [facility] [address] [facility] [address] Performing Lab: [facility] [address] [facility] [address] [facility] CBC AND DIFF (AUTO) IMMATURE GRANULOCYTE S [#/VOLUME] IN BLOOD BY AUTOMATED COUNT 0.02 10*3/u L 0.00 - 0.06 02/19 Specimen Type: BLOOD No comment entered. Ordering Provider: KIRA PARADA Report Released Date/Time: Feb 19, 2025 09:18 AM Reporting Lab: [facility]PITALRBRYAN [facility] HOSPITALTRN [facility] [address] Performing Lab: [facility]OSPITALRBRYAN WHIT[facility] HOSPITALTRN [facility]ITALUSE[address] [address] [facility]OSPITALRVETERANS AFFAIRS MEDICAL CENTER-BIRMINGHAMN [facility] HOSPITALUSE [facility] CBC AND DIFF (AUTO) NUCLEATED ERYTHROCYTE S/100 LEUKOCYTES [RATIO] IN BLOOD BY AUTOMATED COUNT 0.0 0.0 - 0.0 02/19 Specimen Type: BLOOD No comment entered. Ordering Provider: KIRA PARADA Report Released Date/Time: Feb 19, 2025 09:18 AM Reporting Lab: [facility] [address] [address] Performing Lab: [facility] HOSPITALRBRYAN WHIT[facility]ORIAL HOSPITALTRN [facility]ITALUSE[address] [address] [facility]OSPITALUSE [facility] CBC AND DIFF (AUTO) NUCLEATED ERYTHROCYTE S [#/VOLUME] IN BLOOD BY AUTOMATED COUNT 0.00 10*3/u L 0.00 - 0.00 02/19 Specimen Type: BLOOD No comment entered. Ordering Provider: KIRA PARADA Report Released Date/Time: Feb 19, 2025 09:18 AM Reporting Lab: [facility]OSPITALRBRYAN WHIT[facility] HOSPITALTRN [facility]ITALUSE[address] [address] Performing Lab: [facility] HOSPITALRL TRN [facility] HOSPITALUSETS [address] [address] [facility] HOSPITALRVETERANS AFFAIRS MEDICAL CENTER-BIRMINGHAMN [facility] HOSPITALUSE [facility] BASIC METABOLIC PANEL (fasting) UREA NITROGEN [MASS/VOLUM E] IN SERUM OR PLASMA 21 mg/dL 8 - 26 02/14 Specimen Type: SERUM No comment entered. Ordering Provider: REBA LANDRY Report Released Date/Time: Feb 13, 2025 12:44 PM Reporting Lab: [facility] HOSPITALRVETERANS AFFAIRS MEDICAL CENTER-BIRMINGHAMN [facility]OSPITALUSE[address] [address] Performing Lab: [facility] [address] [facility] [address] [place] BASIC METABOLIC PANEL (fasting) GLUCOSE [MASS/VOLUM E] IN SERUM OR PLASMA 120 mg/dL 65 - 100 02/14 H Specimen Type: SERUM No comment entered. Ordering Provider: REBA LANDRY Report Released Date/Time: Feb 13, 2025 12:44 PM Reporting Lab: [facility] [address] [facility] [address] Performing Lab: [facility] [address] [facility] [address] [place] BASIC METABOLIC PANEL (fasting) SODIUM [MOLES/VOLU ME] IN SERUM OR PLASMA 140 mmol/L 136 - 145 02/14 Specimen Type: SERUM No comment entered. Ordering Provider: REBA LANDRY Report Released Date/Time: Feb 13, 2025 12:44 PM Reporting Lab: [facility] [address] [facility] [address] Performing Lab: [facility] [address] [address] [place] BASIC METABOLIC PANEL (fasting) POTASSIUM [MOLES/VOLU ME] IN SERUM OR PLASMA 4.3 mmol/L 3.5 - 5.1 02/14 Specimen Type: SERUM No comment entered. Ordering Provider: REBA LANDRY Report Released Date/Time: Feb 13, 2025 12:44 PM Reporting Lab: [facility]ERN [facility] HOSPITALUSENYU [facility] [address] [facility] [address] Performing Lab: [facility]ERN [facility]OSPITALUSE[address] [address] [place] BASIC METABOLIC PANEL (fasting) CHLORIDE [MOLES/VOLU ME] IN SERUM OR PLASMA 105 mmol/L 98 - 107 02/14 Specimen Type: SERUM No comment entered. Ordering Provider: REBA LANDRY Report Released Date/Time: Feb 13, 2025 12:44 PM Reporting Lab: [facility] [address] [address] Performing Lab: [facility] [address] [address] [place] BASIC METABOLIC PANEL (fasting) CARBON DIOXIDE, TOTAL [MOLES/VOLU ME] IN SERUM OR PLASMA 27 meq/L 23 - 31 02/14 Specimen Type: SERUM No comment entered. Ordering Provider: REBA LANDRY Report Released Date/Time: Feb 13, 2025 12:44 PM Reporting Lab: [facility]ITALUSE[address] [address] Performing Lab: [facility] [address] [address] [place] BASIC METABOLIC PANEL (fasting) CALCIUM [MASS/VOLUM E] IN SERUM OR PLASMA 8.9 mg/dL 8.8 - 10 02/14 Specimen Type: SERUM No comment entered. Ordering Provider: REBA LANDRY Report Released Date/Time: Feb 13, 2025 12:44 PM Reporting Lab: [facility]ERN [facility]ITALUSE[address] [address] Performing Lab: [facility]ERN [facility]ITALUSE[address] [address] [place] BASIC METABOLIC PANEL (fasting) CREATININE [MASS/VOLUM E] IN SERUM OR PLASMA 0.92 mg/dL 0.72 - 1.25 02/14 Specimen Type: SERUM No comment entered. Ordering Provider: REBA LANDRY Report Released Date/Time: Feb 13, 2025 12:44 PM Reporting Lab: [facility] [address] [address] Performing Lab: [facility]OSPITALUSE[address] [address] [place] BASIC METABOLIC PANEL (fasting) GLOMERULAR FILTRATION RATE/1.73 SQ M.PREDICTED [VOLUME RATE/AREA] IN SERUM, PLASMA OR BLOOD BY CREATININE- BASED FORMULA (CKD-EPI 2020) >90mL/ min 60 02/14 Specimen Type: SERUM No comment entered. Ordering Provider: REBA LANDRY Report Released Date/Time: Feb 13, 2025 12:44 PM Reporting Lab: [facility] [address] [facility] [address] Performing Lab: [facility]ERN [facility] HOSPITALUSENYU [facility] [address] [facility] [address] [place] LIPID PANEL FASTING CHOLESTEROL [MASS/VOLUM E] IN SERUM OR PLASMA 128 mg/dL 02/14 Specimen Type: SERUM No comment entered. Ordering Provider: REBA LANDRY Report Released Date/Time: Feb 13, 2025 12:44 PM Reporting Lab: [facility] [address] [facility] [address] Performing Lab: [facility] [address] [address] [place] LIPID PANEL FASTING TRIGLYCERID E [MASS/VOLUM E] IN SERUM OR PLASMA 132 mg/dL 0 - 150 02/14 Specimen Type: SERUM No comment entered. Ordering Provider: REBA LANDRY Report Released Date/Time: Feb 13, 2025 12:44 PM Reporting Lab: [facility] [address] [address] Performing Lab: [facility]ERN [facility]PITALUSE[address] [address] [place] LIPID PANEL FASTING CHOLESTEROL IN LDL [MASS/VOLUM E] IN SERUM OR PLASMA BY CALCULATION 62 mg/dL 0 - 129 02/14 Specimen Type: SERUM No comment entered. Ordering Provider: REBA LANDRY Report Released Date/Time: Feb 13, 2025 12:44 PM Reporting Lab: [facility] [address] [address] Performing Lab: [facility]ERN [facility]PITALUSE[address] [address] [place] LIPID PANEL FASTING CHOLESTEROL .TOTAL/CHOL ESTEROL IN HDL [MASS RATIO] IN SERUM OR PLASMA 3.2 02/14 Specimen Type: SERUM No comment entered. Ordering Provider: REBA LANDRY Report Released Date/Time: Feb 13, 2025 12:44 PM Reporting Lab: [facility]USENYU [facility] [address] [facility] [address] Performing Lab: [facility]ERN L[facility] HOSPITALUSETS [facility] [address] [facility] [address] [place] LIPID PANEL FASTING CHOLESTEROL IN HDL [MASS/VOLUM E] IN SERUM OR PLASMA 40 mg/dL 40 02/14 Specimen Type: SERUM No comment entered. Ordering Provider: REBA LANDRY Report Released Date/Time: Feb 13, 2025 12:44 PM Reporting Lab: [facility] [address] [facility] [address] Performing Lab: [facility]ERN [facility]ITALUSE[address] [address] [place] LIVER FUNCTION PROTEIN [MASS/VOLUM E] IN SERUM OR PLASMA 7.4 g/dL 6.4 - 8.3 02/14 Specimen Type: SERUM No comment entered. Ordering Provider: REBA LANDRY Report Released Date/Time: Feb 13, 2025 12:44 PM Reporting Lab: [facility]ITALUSE[address] [address] Performing Lab: [facility]ITALUSE[address] [address] [place] LIVER FUNCTION ALBUMIN [MASS/VOLUM E] IN SERUM OR PLASMA BY BROMOCRESOL PURPLE (BCP) DYE BINDING METHOD 3.7 g/dL 3.2 - 4.6 02/14 Specimen Type: SERUM No comment entered. Ordering Provider: REBA LANDRY Report Released Date/Time: Feb 13, 2025 12:44 PM Reporting Lab: [facility]ITALUSE[address] [address] Performing Lab: [facility]ITALUSE[address] [address] [place] LIVER FUNCTION ALKALINE PHOSPHATASE [ENZYMATIC ACTIVITY/VO LUME] IN SERUM OR PLASMA 73 U/L 40 - 150 02/14 Specimen Type: SERUM No comment entered. Ordering Provider: REBA LANDRY Report Released Date/Time: Feb 13, 2025 12:44 PM Reporting Lab: [facility] [place] [facility] [address] [facility] [address] Performing Lab: [facility] [place] [facility] [address] [facility] [address] [place] LIVER FUNCTION ASPARTATE AMINOTRANSF ERASE [ENZYMATIC ACTIVITY/VO LUME] IN SERUM OR PLASMA BY WITH P-5'-P 23 U/L 5 - 34 02/14 Specimen Type: SERUM No comment entered. Ordering Provider: REBA LANDRY Report Released Date/Time: Feb 13, 2025 12:44 PM Reporting Lab: [facility] [place] [facility] [address] [facility] [address] Performing Lab: [facility]OSPITALUSETS [address] [address] [place] LIVER FUNCTION ALANINE AMINOTRANSF ERASE [ENZYMATIC ACTIVITY/VO LUME] IN SERUM OR PLASMA BY WITH P-5'-P 17 U/L 0 - 55 02/14 Specimen Type: SERUM No comment entered. Ordering Provider: REBA LANDRY Report Released Date/Time: Feb 13, 2025 12:44 PM Reporting Lab: [facility] [place] [facility] [address] [facility] [address] Performing Lab: [facility]OSPITALUSETS [address] [address] [place] LIVER FUNCTION BILIRUBIN.T OTAL [MASS/VOLUM E] IN SERUM OR PLASMA 0.4 mg/dL 0.2 - 1.2 02/14 Specimen Type: SERUM No comment entered. Ordering Provider: REBA LANDRY Report Released Date/Time: Feb 13, 2025 12:44 PM Reporting Lab: [facility] [address] Performing Lab: [facility]ITAL[facility] [address] [place] HEMOGLOBI N A1C PANEL HEMOGLOBIN A1C/HEMOGLO BIN.TOTAL IN BLOOD BY [facility] PROTOCOL 5.7 4.0 - 5.6 02/14 H Specimen Type: BLOOD Comment: Values obtained from A1C measurement s can vary. For atypical A1C assays, a reported value of 7.0 could actually be between 6.72 and 7.28 if measured by a reference method. A reported value of 9.0 could actually be between 8.73 and 9.27. Ref: http://www. ngsp.org/[place] Pdata.asp Ordering Provider: REBA LANDRY Report Released Date/Time: Feb 13, 2025 12:44 PM Reporting Lab: [facility] [address] [facility] [address] Performing Lab: [employer] [address] [facility] [address] [facility] Vital Signs Combined list of inpatient and outpatient Vital Signs from Department of Defense and [facility] Affairs, ranging from 12 months to all on record, depending upon the facility. Vital Sign Value Date Comments Source SYSTOLIC BLOOD PRESSURE 110 12/18/2024 09:03:48 [place] DIASTOLIC BLOOD PRESSURE 71 12/18/2024 09:03:48 [place] PULSE OXIMETRY 97 12/18/2024 09:03:48 [facility] TEMPERATURE 98.3 12/18/2024 09:03:48 [facility] 12/18/2024 09:03:48 [place] RESPIRATION 16 12/18/2024 09:03:48 [facility] SYSTOLIC BLOOD PRESSURE 136 08/27/2024 13:44:42 [place] DIASTOLIC BLOOD PRESSURE 86 08/27/2024 13:44:42 [place] PULSE OXIMETRY 96 08/27/2024 13:44:42 [place] WEIGHT 199 08/27/2024 13:44:42 [place] BMI 29 kg/m2 08/27/2024 13:44:42 [place] PULSE 96 08/27/2024 13:44:42 [place] Encounters Combined list of: 1) Encounters from Department of Veterans Affairs facilities going backup to the last 18 months, not all [place] inpatient encounters are included; 2) Encounters from the Department of [facility] facilities going backup to 280 months. Location Location Details Encounter Type Encounter Number Reason For Visit Attending Provider ADM Date DC Date Status Disposition Source [facility] En[facility] [id number] 09/03 [facility] [id number] 05/27 [facility]counter [id number] 06/06 [facility] En[facility] [id number] 1.06/23 [facility] [id number] 06/25 [facility] En[facility] [id number] [facility] [place] Outpatient Encounter [id number] 07/23 [place] [facility] Encounter [id number] 1.07/23 [facility] [id number] 1.08/27 [facility] En[facility] [id number] 1.08/27 [facility] [place] OFFICE O/P NEW [place] 60 MIN [id number] Diagnos is: ICD-10- CM I10 Essenti al (primar y) hyperte nsion MARY ALICE YANEZ C 08/27 [place] [facility] En[facility] [id number] 08/27 [facility] En[facility] [id number] 09/01 [facility] En[facility] [id number] 10/24 [facility] FIT SPECTACLES MULTIFOCAL [id number] 1. Diagnos is: ICD-10- CM Z46.0 Encount er for fit/adj st of spectac les and contact lenses ARIES CRUZ 11/04 [facility] En[facility] [id number] 1.11/04 [facility] [place] OFF/OP EST FEBRUARY X REQ PHY/QHP [id number] Diagnos is: ICD-10- CM R68.89 Other general symptom s and signs AMAIRANI,ER IC K 12/18 [place] [facility] Encounter [id number] 12/18 [facility] PSYCL/NR[place] TST PHY/[place] [id number] 1. 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, predom inatten tive type LAITH SERRATO 12/30 [facility] En[facility] [id number] 01/10 [facility] En[facility] [id number] 01/10 [facility] NRPSY[place] [id number] 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, predom inatten tive type LAITH SERRATO 01/16 [facility] En[facility] [id number] 02/15 [facility] [place] Outpatient Encounter [id number] 02/24 [place] [facility] Encounter [id number] [facility] Encounter [id number] 02/25 [facility] En[facility] [id number] [facility] OFFICE O/P EST MOD 30 MIN [id number] Diagnos is: ICD-10- CM Z77.090 Contact with and (suspec eladio) exposur e to aspen DASH SA RA 02/25 [facility] Outpatient Encounter [id number] 02/27 [facility] Social History Combined list of available smoking, tobacco, and other social history from Department of Defense and Veterans Affairs facilities. Social History Type Response Date Comment Source Tobacco smoking status [facility]-TOBACCO FORMER USER 08/27/2024 [facility] of [facility]2024 [facility] OR [facility] 05/26/2021 [employer] [facility] [facility] History of tobacco use [facility] FOR[facility] 11/17/2019 [employer] [facility] History of tobacco use QUIT TOBACCO USE > 7 YEARS AGO 10/22/2009 Pt. quit smoking in 1995 [facility] Plan of Care List of future care activities from [facility] facilities. Additional future care activities may be listed in the Assessment and Plan section. Date/Time Care Activity Care Activity Detail Facili ty 03/03/2025 AMBULATORY - MEDICINE AMBULATORY - MEDICI [facility] Advance Directives List of completed, amended, or rescinded Advance Directives on record at [facility] facilities. An actual copy of the Directive is not included. Date Advance Directive Provider Source 08/27/2024 ADVANCE DIRECTIVE SHAY MILLER
--- OUTSIDE RECORDS SUMMARY | 2025-03-03 14:10 | XMS_ITS ---
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 Date/Time Encounter Type Encounter Description Reason Pro vider Source February 25, 2025 12:47 PM Outpatient Encounter ADMIN PAT ACTIVTIES (MASNONCT) [...] 20 appointments. The data comes from all [place] treatment facilities. Appointment Date/Time Appointment Type Appointme nt Facility Name March 03, 2025 02:00 PM AMBULATORY [facility]ICINE [facility] [place] [facility] March 04, 2025 01:00 PM [facility] March 07, 2025 02:00 PM AMBULATORY - NONE [facility] [place] [facility] Mar 28, 2025 09:00 AM AMBULATORY - PSYCHIATRY [facility] Apr 03, 2025 01:00 PM AMBULATORY - NONE [facility] [place] [facility] Apr 03, 2025 01:15 PM AMBULATORY - NONE [facility] [place] [facility] Aug 25, 2025 01:00 PM [facility] Active, Pending, and Scheduled Orders This section includes a listing of several types of active, pending, and scheduled orders, including clinic medications orders, diagnostic test orders, procedure orders and consult orders; where the start date of the order is 45 days before the date of the Encounter or 45 days after the date of theEncounter. The data comes from all [place] treatment facilities. Test Date/Time Test Type Test Details Facility Name Jan 16, 2025 03:50 PM Consult Order CBT[facility] OUTPT Cons Strategic Account Director's Choice [facility] Jan 16, 2025 03:50 PM Consult Order [facility] OUTPT Cons Strategic Account Director's [facility] [place] [facility] Feb 15, 2025 12:00 AM Laboratory - Chemistry Order OCCULT BLOOD FIT X1 SCREEN(IN-HOUSE) ST[facility] February 26, 2025 08:40 AM Procedure Order PULMONARY FUNCTION TEST CP PULMONARY FUNCTION TEST Proc Strategic Account Director's Choice [facility] February 26, 2025 08:40 AM Consult Order COMM[facility]ITY [facility]ARE-PULMONARY Cons Strategic Account Director's Choice [facility] [place] [facility] Apr 03, 2025 12:00 AM Imaging - Ultrasou nd Order ULTRASOUND AAA SCREENING [facility] Apr 03, 2025 12:00 AM Imaging - CT Scan Order CT THORAX W/O CONT [facility] Lab Results: +/- 30 days of the encounter This section includes the Chemistry and Hematology Lab Results on record with [place] for the patient. Radiology Reports and Pathology Reports are provided separately, in subsequent sections. Lab Results This section contains the Chemistry/Hematology Results that were resulted 30 days before or 30 daysafter the date of the Encounter. Date/Time Source Result Type Result - Unit Interpretation Reference Range Specimen Type Comment Feb 19, 2025 09:20 AM [facility] LIPID PANEL FASTING SERUM Specimen Type: SERUM No comment entered. Ordering Provider: JESUS PARADA Report Released Date/Time: Feb 19, 2025 09:18 AM Reporting Lab: [address] [address] Performing Lab: [address] [address] CHOLESTEROL 135 mg/dL TRIGLYCERIDE 84 mg/dL 0-150 LDL calculated 71 mg/dL 0-129 CHOL/HDL 2.9 HDL CHOLESTEROL 47 mg/dL >40 Feb 19, 2025 09:20 AM [facility] BASIC METABOLIC PANEL (fasting) SERUM Specime n Type: SERUM No comment entered. Ordering Provider: JESUS PARADA Report Released Date/Time: Feb 19, 2025 09:18 AM Reporting Lab: [address] [address] Performing Lab: [address] [address] UREA NITROGEN 17 mg/dL 8-26 GLUCOSE 101 mg/dL H 65-100 SODIUM 142 mmol/L 136-145 POTASSIUM 4.0 mmol/L 3.5-5.1 CHLORIDE 108 mmol/L H 98-107 CO2 27 meq/L 23-31 CALCIUM 9.3 mg/dL 8.8-10 CREATININE, Serum 0.90 mg/dL 0.72-1.25 eGFR(CKD-EPI 2020) >90 mL/min >60 Feb 19, 2025 09:20 AM [facility] LIVER FUNCTION SERUM Specimen Type: SERUM No comment entered. Ordering Provider: JESUS PARADA Report Released Date/Time: Feb 19, 2025 09:18 AM Reporting Lab: [facility] [address] [facility] [address] Performing Lab: [facility] [address] [facility] [address] PROTEIN,TOTAL 7.4 g/dL 6.4-8.3 ALBUMIN 3.8 g/dL 3.2-4.6 ALKALINE PHOSPHATASE 70 U/L 40-150 AST 27 U/L 5-34 ALT 23 U/L 0-55 BILIRUBIN, TOTAL 0.7 mg/dL 0.2-1.2 Feb 19, 2025 09:20 AM [facility] HEMOGLOBIN A1C PANEL BLOOD Specimen Type: BLO [...] Feb 19, 2025 09:18 AM Reporting Lab: [facility] [address] [facility] [address] Performing Lab: [address] [address] HEMOGLOBIN A1C 5.8 H 4.0-5.6 Feb 19, 2025 09:20 AM [facility] SERUM Specimen Type: SERUM No comment entered. Ordering Provider: JESUS PARADA Report Released Date/Time: Feb 19, 2025 09:18 AM Reporting Lab: [facility] [address] [facility] [address] Performing Lab: [address] [address] TSH 4.14 u[IU]/mL 0.35-4.94 Feb 19, 2025 09:20 AM [facility] CBC AND DIFF (AUTO) BLOOD Specimen Type: BLOO D No comment entered. Ordering Provider: JESUS PARADA Report Released Date/Time: Feb 19, 2025 09:18 AM Reporting Lab: [facility] [address] [facility] [address] Performing Lab: [facility] [address] [facility] [address] WBC 5.90 10*3/uL 4.50-11.00 RBC 4.25 10*6/uL [...] 10*3/uL 0.00-0.00 Feb 14, 2025 01:30 PM [facility] BASIC METABOLIC PANEL (fasting) SERUM Specimen Type: SERUM No comment entered. Ordering Provider: JOHANN LANDRY Report Released Date/Time: Feb 13, 2025 12:44 PM Reporting Lab: [address] [address] Performing Lab: [address] [address] UREA NITROGEN 21 mg/dL 8-26 GLUCOSE 120 mg/dL H 65-100 SODIUM 140 mmol/L 136-145 POTASSIUM 4.3 mmol/L 3.5-5.1 CHLORIDE 105 mmol/L 98-107 CO2 27 meq/L 23-31 CALCIUM 8.9 mg/dL 8.8-10 CREATININE, Serum 0.92 mg/dL 0.72-1.25 eGFR(CKD-EPI 2020) >90 mL/min >60 Feb 14, 2025 01:30 PM [facility] LIPID PANEL FASTING SERUM Specimen Ty pe: SERUM No comment entered. Ordering Provider: JOHANN LANDRY Report Released Date/Time: Feb 13, 2025 12:44 PM Reporting Lab: [address] [address] Performing Lab: [address] [address] CHOLESTEROL 128 mg/dL TRIGLYCERIDE 132 mg/dL 0-150 LDL calculated 62 mg/dL 0-129 CHOL/HDL 3.2 HDL CHOLESTEROL 40 mg/dL >40 Feb 14, 2025 01:30 PM [facility] LIVER FUNCTION SERUM Specimen Type: SERUM No comment entered. Ordering Provider: JOHANN LANDRY Report Released Date/Time: Feb 13, 2025 12:44 PM Reporting Lab: [address] [address] Performing Lab: [address] [address] PROTEIN,TOTAL 7.4 g/dL 6.4-8.3 ALBUMIN 3.7 g/dL 3.2-4.6 ALKALINE PHOSPHATASE 73 U/L 40-150 AST 23 U/L 5-34 ALT 17 U/L 0-55 BILIRUBIN, TOTAL 0.4 mg/dL 0.2-1.2 Feb 14, 2025 01:30 PM [facility] HEMOGLOBIN A1C PANEL BLOOD Specimen T ype: [...] Feb 13, 2025 12:44 PM Reporting Lab: [address] [address] Performing Lab: [address] [address] HEMOGLOBIN A1C 5.7 H 4.0-5.6 Feb 14, 2025 01:30 PM [facility] SERUM Sp ecimen Type: SERUM No comment entered. Ordering Provider: JOHANN LANDRY Report Released Date/Time: Feb 13, 2025 12:44 PM Reporting Lab: [address] [address] [facility] [address] [address] TSH 2.56 u[IU]/mL 0.35-4.94 Feb 14, 2025 01:30 PM [facility] CBC AND DIFF (AUTO) BLOOD Specimen Ty pe: BLOOD No comment entered. Ordering Provider: JOHANN LANDRY Report Released Date/Time: Feb 13, 2025 12:44 PM Reporting Lab: [address] [address] [facility]: [facility] [address] [address] WBC 5.92 10*3/uL 4.50-11.00 RBC 3.94 10*6/uL [...] 10*3/uL 0.00-0.00 Feb 14, 2025 01:30 PM [facility] IRON & TIBC PANEL SERUM Specimen Type : SERUM No comment entered. Ordering Provider: JOHANN LANDRY Report Released Date/Time: Feb 17, 2025 09:08 AM Reporting Lab: [address] [address] Performing Lab: [address] [address] TIBC 224 ug/dL 204-475 IRON 64 ug/dL L 65-175 Transferrin Saturation 28.5 15-45 Transferrin (TRF) 170 mg/dL L 180-382 Feb 14, 2025 01:30 PM [facility] FERRITIN SERUM Sp ecimen Type: SERUM No comment entered. Ordering Provider: JOHANN LANDRY Report Released Date/Time: Feb 17, 2025 09:08 AM Reporting Lab: [address] [address] Performing Lab: [address] [address] FERRITIN 158.0 ng/mL 21.8-274.7 Feb 14, 2025 01:30 PM [facility] VITAMIN B12 SERUM Specimen Type: SERUM No comment entered. Ordering Provider: JOHANN LANDRY Report Released Date/Time: Feb 17, 2025 09:08 AM Reporting Lab: [facility] [address] [facility] [address] Performing Lab: [facility] [address] [facility] [address] VITAMIN B12 935 pg/mL H 213-816 Social History: Smoking Status (Most current) and Tobacco Use (All prior to encounter date) This section includes the most current, and the historical, smoking and tobacco- related health factors from the [place] facility where the Encounter took place. Current Smoking Status This section includes the most current smoking, or tobacco-related health factor, from the [place] facility where the Encounter took place. Date/Time Current Smoking Status Comment Facil ity May 26, 2021 08:00 AM [place]-TOBACCO FORMER USER [facility] Tobacco Use History This section includes a history of the smoking, or tobacco-related health factors, that were collected on or before the date of the Encounter. The data comes from the [place] facility where the Encounter took place. Date/Time Smoking Status/Tobacco Use Comment F acility May 26, 2021 08:00 AM [place]-TOBACCO QUIT 15 YRS OR MORE [facility] Nov 17, 2019 11:32 AM [place]-TOBACCO FORMER USER [facility] Nov 17, 2019 11:32 AM [place]-TOBACCO QUIT 15 YRS OR MORE [facility] Advance Directives: All historical and current Section Date Range: From patient's date of to the date document was created. This section includes ALL of a patient's completed or amended [place] Advance and Rescinded Directives. The entries below indicate that a directive exists for the patient, but an actual copy is not included with this document. The data comes from all [place] facilities. Date Advance Directives Provider Source Aug 27, 2024 [facility] En[facility] Notes: All associated encounter notes This section contains the clinical notes associated to the Encounter. Date/Time Encounter Note(s) Provider Source February 25, 2025 12:48 PM PREVENTIVE MEDICIN E NURSING NOTE: LOCAL TITLE: CLINICAL REMINDERS/NURSING STANDARD TITLE: PREVENTIVE MEDICINE NURSING NOTE DATE OF NOTE: FEBRUARY 25, 2025@12:48 ENTRY DATE: FEBRUARY 25, 2025@12:48:16 AUTHOR: WANDA GUO EXP COSIGNER: URGENCY: STATUS: COMPLETED Colonoscopy GAP Reminder: Recommendations are needed in the clinical reminder system following the patient's most recent colorectal cancer screening/surveillance test (Colonoscopy, Sigmoidoscopy or CT Colonography) Additional CRC screening/surveillance testing was completed elsewhere and we are waiting for results. Results expected: Colonoscopy Pneumococcal Conjugate Vaccine (PCV15/PCV20/PCV21): [facility] - Patient educated on the need for receiving Pneumococcal conjugate vaccine either at [place] or outside facility. COVID-19 Immunization: Virtual/Telehealth Visit - Patient educated on the need for receiving COVID-19 (SARS-CoV-2) immunization either at [place] or outside facility. Tdap Immunization: Phone/Virtual/Telehealth Visit - Patient educated on the need for receiving Tdap immunization either at [place] or outside facility. Herpes Zoster (Shingles) Vaccine: Phone/Virtual/Telehealth Visit - Patient educated on the need for receiving Herpes Zoster (Shingles) immunization either at [facility] or outside facility. RSV Immunization: Respiratory Syncytial Virus (RSV) Vaccine: Phone/ Virtual/Telehealth Visit - Patient educated on the need for receiving Respiratory Syncytial Virus vaccine either at [place] or outside facility. // WANDA GUO LPN LICENSED PRACTICAL NURSE Signed: 02/25/2025 12:49 [facility]DA GUO [facility]
--- NOTE | 2025-03-03 14:25 | A.OFFVIS_ITS ---
Intake Visit Reasons: 1y/PSA Intake Note: Patient presents today for a 1 year follow-up/PSA * 02/12 PSA:1.84 Uroology Meds:Tamsulosin & Sildenafil Allergies to Antibiotic: No Known Allergies Blood Thinner: none PVR:14ml Supervising Nurse Required: No Accompanied by: Self / Same As Patient Allergies No Known Allergies Allergy (Verified 03/03/25 14:27) HPI Comments Details: 03/03/25-- 64-year-old male presenting with concerns related to his history of Benign Prostatic Hyperplasia (BPH) and previously elevated Prostate-Specific Antigen (PSA) levels. Initially evaluated due to elevated PSA, subsequent monitoring has shown normalization of PSA levels. Current management of BPH symptoms includes daily administration of tamsulosin. The patient utilizes sildenafil as needed. Urinary symptoms are reported stable; notably, nocturia has decreased from two to three nightly episodes to once a night. There is no difficulty or discomfort with urination reported. Changes in concurrent medications have been managed, with essential lipids being in the desirable range, demonstrating effective control over hyperlipidemia. Urinary Symptoms Review - Only wakes once nightly to urinate - No problems with urine flow reported - Urinary symptoms managed with daily tamsulosin administration - Occasional use of sildenafil - Noted previous nocturia was more frequent, now reduced Results - Lab Results: Normal Prostate-Specific Antigen (PSA) levels Discussion Notes During the consultation, I reviewed the patient's stable condition concerning BPH and normalizing PSA levels. We agreed on maintaining the current medication regimen, given the efficacy observed. Given the patient's stable urinary symptoms and overall improvement, a follow-up was proposed in one year, with interim monitoring via phone or telehealth as necessary. Plan The management plan focuses on continuing with the established medications for BPH and monitoring PSA levels given the current stability. Tamsulosin effectively controls urinary symptoms, thus no changes are necessary. Surveillance of PSA is requisite due to prior concerns. Elevated lipids are managed with increased atorvastatin, which has stabilized cholesterol levels. Dose adjustments in clonidine align with the effective therapeutic plan. A follow-up is scheduled for one year, considering potential symptoms warrant earlier review. Patient Instructions - Continue taking tamsulosin every evening. - Use sildenafil occasionally as needed. - Keep taking atorvastatin as prescribed. - Follow up in one year through a video call. - Call if there are any changes in urination or other symptoms. - Notify the office of any new health concerns promptly. Patient was informed and verbally consented to the use of an ambient scribe for clinic note documentation during this visit. 01/01/2024----Bharathi is a 63-year-old male was initially evaluated elevated PSA. PSA in March 2022 was 8.67. Follow-up PSAs since then has been normal. He is on tamsulosin for lower urinary tract symptoms from BPH. I have reviewed recent PSA obtained on 12/20/2023--0.98 ng/mL The patient complains that he had a contact sexual exposure 0n 11/29/23 with someone and he is concerned about obtaining an STD. He did go to a clinic on 12/01/2023 was tested and was started on prophylactic HIV retroviral medication. He is advised that he needed to have the HIV antibody antigen retested in 4-6 weeks. He is requesting that I order the lab work. He denies any new urinary symptoms. He states he is having right knee surgery done in February and orthopedics is requesting clearance. 30 minutes spent in review of records pertaining to this visit and including [id number] discussion with the patient and documentation of this visit. 07/03/23--Bharathi is a 62-year-old male who presents today via tele-health visit for a follow-up. He is followed today for PSA. He was last seen by me on 12/30/2022 for elevated PSA. The patient was advised will continue to monitor closely, and to follow-up with PSA in 6 months. Discussed prostate bx to be considered pending repeat PSA. FU PSA was WNL. The patient has been taking Flomax and notes that he had improved urine flow at this time. Reviewed recent PSA- 06/28/23--1.3 Review of chart: PSA 04/05/22 -- 8.67. He is on tamsulosin for LUTS hesitency, nocturia. Denies gross hematuria, denies urinary incontinence.? PSA-12/02/2022- 1.24 ng/mL [facility] Medical History Vertigo ADHD (attention deficit hyperactivity disorder) Osteoarthritis COPD (chronic obstructive pulmonary disease) Sleep apnea Overweight (BMI 25.0-29.9) Insomnia Essential hypertension Exercise-induced asthma Benign prostatic hyperplasia Pure hypercholesterolemia Surgical History Hx of arthroscopy of shoulder Hx of excision of mass Hx of colonoscopy History of repair of hiatal hernia Hx of right inguinal hernia repair Hx of arthroscopy of right knee History of rotator cuff surgery Family History Father Dementia Social History Housing: House Are you a primary hospice care transitions coordinator to a significant other at home: No Do you presently have visiting nurse or other home services: No Patient Tobacco Use Status: Former Tobacco user Tobacco use type: Cigarette Years Smoked: 14 e-Cigarette/Vaping Use: Former Use Second Hand Smoke Exposure: No service: Yes Current occupational status: retired Current occupational exposures/hazards: No Cognitive needs: Yes Hearing needs: No Vision needs: Yes Office Procedures Post Void Residual Post Residual Void Post Void Residual (PVR): 14 [id number] Void Residual by ultrasound Results AMB Urinalysis, Automated UA Leukoctes 0 Raulito/uL Last Edit by Malu Briscoe on 03/03/25 16:35 UA Nitrite Negative Last Edit by Malu Briscoe on 03/03/25 16:35 UA Urobilinogen 0.2 mg/dL Last Edit by Malu Briscoe on 03/03/25 16:35 UA Protein 15 mg/dL Last Edit by Malu Briscoe on 03/03/25 16:35 UA pH 5.0 Last Edit by Malu Briscoe on 03/03/25 16:35 UA Blood 0 Paulo/uL Last Edit by Malu Briscoe on 03/03/25 16:35 UA Specific [place] 1.030 Last Edit by Malu Briscoe on 03/03/25 16:35 UA Ketone Negative Last Edit by Malu Briscoe on 03/03/25 16:35 UA Bilirubin 0 mg/dL Last Edit by Malu Briscoe on 03/03/25 16:35 UA Glucose 0 mg/dL Last Edit by Malu Briscoe on 03/03/25 16:35 Assessment & Plan Assessment & Plan Orders: Orders AMB Urinalysis Automated Today Z13.9 - Encounter for screening, unspecified Coding CPT Codes Post Residual Void - PVR CPT Code: 92273-[id number] Void Residual by ultrasound ([id number])
== END 2025-03-03 15:02 | disposition home or self-care (01) ==
LOC: HO.HUSH 13:53
PROVIDERS: PCP Internal Medicine; Visit Provider Urology
DX: Z13.9 Encounter for screening, unspecified (principal)

== ENCOUNTER → 2025-03-03 13:52 | Outpatient (BNVA) | payer OTHER, SELFPAY | PROVIDERS: PCP Internal Medicine; Visit Provider Urology | DX: N40.1 Benign prostatic hyperplasia with lower urinary tract symptoms (principal); N13.8 Other obstructive and reflux uropathy | CPT/HCPCS: 51798; 81003 ==

== ENCOUNTER 2025-03-07 13:21 | Outpatient (AMB) | payer OTHER, SELFPAY ==
--- OUTSIDE RECORDS SUMMARY | 2025-03-07 13:24 | XMS_ITS | Continuity of Care Document ---
Author Name [facility] Organization [facility] Care Team Providers Care Manager [place] Name Role Phone [facility] Unavailable Unavailable Problems Combined list of problems from Department of Defense and Veterans Affairs facilities. It does not include entries that were removed or entered in error. Problem Status Onset Date Problem Type Date of Resolution Comments Source Cognitive impairment Active 999 Condition Sep 01, 2024 Entered By: ZOHAIB YANEZ Comment: hx multiple concussions [facility] ADD - Attention deficit disorder Active Condition [facility] Asthma Active Condition Sep 01 Entered By: ZOHAIB YANEZ Comment: mild intermittentMar 2013 Entered By: EDGAR GONZALES Comment: Mixture of COPD and AsthmaMar 2013 Entered By: EDGAR GONZALES Comment: last CXR JAN 03: No Acute Processes [facility] Depression Active Condition [facility] [place] [...] Aug Entered By: ZOHAIB YANEZ Comment: smoked [id number], 1ppd [facility] H/O: [...] By: ZOHAIB YANEZ Comment: 09/08/2020 negative FIT [facility] Under care of multiple providers Active Condition Sep 01 024 Entered By: ZOHAIB YANEZ Comment: Ortho - Saman Quesada OrthoSep 01, 2024 Entered By: ZOHAIB YANEZ Comment: urology - Dr. Nguyen 2023 Entered By: ZOHAIB YANEZ Comment: Ophthalmology - Dr. Lopez [facility] Ventral hernia [facility] Depressive disorder (SNOMED CT 10964226) Inactive Condition 08/27/2024 [facility] Gastroesophageal reflux disease with hiatal hernia Inactive Condition 08/27/2024 [facility] Retinal Hemorrhage (ICD-9-CM 362.81) Inactive Condition 09/01/2024 Nov 13 10 Entered By: SKYE OLIVA OD Comment: isolated cluster of small dot hemorrhages [facility] Diagnosis: ICD-10-CM Z77.090 Contact with and (suspected) exposure to asbestos Active Diagnosis [facility] Diagnosis: ICD-10-CM F90.0 Attn-defct hyperactivity disorder, predom inattentive type Active Diagnosis [facility] Diagnosis: ICD-10-CM R68.89 Other general symptoms and signs Active Diagnosis [facility] Diagnosis: ICD-10-CM Z46.0 Encounter for fit/adjst of spectacles and contact lenses Active Diagnosis [facility] Diagnosis: ICD-10-CM I10 Essential (primary) hypertension Active Diagnosis [facility] Medications Combined list of outpatient medications from [...] [facility] (INHAL ATION) ACTIVE 08/28/2025 [id number] Jim YANEZ 2023 3 [place] ATORVASTATI N CA 40MG TAB TAKE ONE-HALF TABLET BY MOUTH AT BEDTIME FOR HIGH CHOLESTE ROL ORAL DISCONT INUED (EDIT) 08/28/2025 [id number] Jim YANEZ 2023 45 [facility] IELD ATORVASTATI N CA 80MG TAB TAKE ONE-HALF TABLET BY MOUTH AT BEDTIME FOR HIGH CHOLESTE ROL ORAL ACTIVE 02/26/2026 [id number] Yolande DASH 2024 45 [facility] CLONIDINE HCL 0.1MG TAB TAKE ONE TABLET BY MOUTH ONCE DAILY TO CONTROL BLOOD PRESSURE ORAL ACTIVE 08/28/2025 [id number] Jim YANEZ 2023 90 [place] DIPHENHYDRA MINE HCL 50MG CAP TAKE ONE CAPSULE BY MOUTH AT BEDTIME NEEDED FOR INSOMNIA ORAL ACTIVE 03/27/2025 [id number] Yolande DASH 2024 30 [facility] NAPROXEN 500MG TAB TAKE ONE TABLET BY MOUTH AT BEDTIME FOR PAIN TAKE WITH FOOD ORAL ACTIVE 08/28/2025 [id number] 5 Jim YANEZ 2023 90 [place] TAMSULOSIN HCL 0.4MG CAP TAKE ONE CAPSULE BY MOUTH AT BEDTIME FOR ENLARGED PROSTATE ORAL ACTIVE 08/28/2025 [id number] Jim YANEZ 2023 90 [place] Allergies, Adverse Reactions, Alerts Combined list of allergies from Department of Defense and Veterans Affairs facilities. It does not include entries that were removed or entered in error. Substance Category Reaction Severity Reaction type Status Date Reported Comments Source NAPROXEN Propensity to adverse reactions to drug (finding) Indigestion active 8 [facility] NAPROXEN Propensity to adverse reactions to drug (finding) active 6 [facility] Immunizations Combined list of available immunizations from the Department of Defense and Veterans Affairs facilities. Immunization Series Date Given Administered By Site Reaction Lot Number CVX Code Drug Clerical Manager Status Comments Source INFLUENZA, UNSPECIFIED FORMULATION 2023 88 complet ed HISTORICA L INFORMATI ON - SOURCE UNSPECIFI ED, [facility] COVID-19 (MODERNA), MRNA, LNP-S, PF, 100 MCG OR 50 MCG DOSE 3 2020 207 complet ed MOD; [id number]; 2 [place] COVID-19 (MODERNA), MRNA, LNP-S, PF, 100 MCG/0.5 ML DOSE 2 2020 207 complet ed [facility] [place] COVID-19 (MODERNA), MRNA, LNP-S, PF, 100 MCG/0.5 ML DOSE 1 2020 207 complet ed [facility] [place] [facility] INFLUENZA, INJECTABLE, QUADRIVALENT, PRESERVATIVE FREE 2019 150 complet ed [facility] [place] [facility] FLU,3 YRS (HISTORICAL) 2008 88 complet ed 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 [facility] [place] [facility] [facility] Results Combined list of recent chemistry, hematology and other laboratory results from Department of Defense and Veterans Affairs, ranging from 15 months to all on record, depending upon the facility. Order Name Results Value Reference Range Date Interpretation Specimen Comments Source OCCULT BLOOD FIT X1 SCREEN(I N-HOUSE) HEMOGLOBIN .GASTROINT ESTINAL.LO WER [PRESENCE] IN STOOL BY IMMUNOASSA Y NEGATIVE 02/24 Specimen Type: FECES No comment entered. Ordering Provider: REBA LANDRY Report Released Date/Time: Feb 15, 2025 12:31 PM Reporting Lab: [facility] [place] [facility] [address] [address] Performing Lab: [facility] [address] [facility] LIPID PANEL FASTING CHOLESTERO L [MASS/VOLU ME] IN SERUM OR PLASMA 135 mg/dL 02/19 Specimen Type: SERUM No comment entered. Ordering Provider: KIRA PARADA Report Released Date/Time: Feb 19, 2025 09:18 AM Reporting Lab: [facility] [address] [address] Performing Lab: [facility] [address] [address] [facility] LIPID PANEL FASTING TRIGLYCERI DE [MASS/VOLU ME] IN SERUM OR PLASMA 84 mg/dL 0 - 150 02/19 Specimen Type: SERUM No comment entered. Ordering Provider: KIRA PARADA Report Released Date/Time: Feb 19, 2025 09:18 AM Reporting Lab: [facility] [address] Performing Lab: [facility] [place] [facility] [address] [address] [facility] [place] [facility] LIPID PANEL FASTING CHOLESTERO L IN LDL [MASS/VOLU ME] IN SERUM OR PLASMA BY CALCULAANIO N 71 mg/dL 0 - 129 02/19 Specimen Type: SERUM No comment entered. Ordering Provider: KIRA PARADA Report Released Date/Time: Feb 19, 2025 09:18 AM Reporting Lab: [facility] [place] [facility] [address] [address] Performing Lab: [facility] [place] [facility] [address] [address] [facility] [place] [facility] LIPID PANEL FASTING CHOLESTERO L.TOTAL/CH OLESTEROL IN HDL [MASS RATIO] IN SERUM OR PLASMA 2.9 02/19 Specimen Type: SERUM No comment entered. Ordering Provider: KIRA PARADA Report Released Date/Time: Feb 19, 2025 09:18 AM Reporting Lab: [facility] [place] [facility] [address] [address] Performing Lab: [facility] [place] [facility] [address] [address] [facility] [place] [facility] LIPID PANEL FASTING CHOLESTERO L IN HDL [MASS/VOLU ME] IN SERUM OR PLASMA 47 mg/dL 40 02/19 Specimen Type: SERUM No comment entered. Ordering Provider: KIRA PARADA Report Released Date/Time: Feb 19, 2025 09:18 AM Reporting Lab: [facility] [place] [facility] [address] [address] Performing Lab: [facility] [place] [facility] [address] [address] [facility] [place] [facility] BASIC METABOLI C PANEL (fasting ) UREA NITROGEN [MASS/VOLU ME] IN SERUM OR PLASMA 17 mg/dL 8 - 26 02/19 Specimen Type: SERUM No comment entered. Ordering Provider: KIRA PARADA Report Released Date/Time: Feb 19, 2025 09:18 AM Reporting Lab: [facility] [place] [facility] [address] [address] Performing Lab: [facility] [place] [facility] [address] [address] [facility] [place] [facility] BASIC METABOLI C PANEL (fasting ) GLUCOSE [MASS/VOLU ME] IN SERUM OR PLASMA 101 mg/dL 65 - 100 02/19 H Specimen Type: SERUM No comment entered. Ordering Provider: KIRA PARADA Report Released Date/Time: Feb 19, 2025 09:18 AM Reporting Lab: [facility] [place] [facility] [address] [address] Performing Lab: [facility] [place] [facility] [address] [address] [facility] [place] [facility] BASIC METABOLI C PANEL (fasting ) SODIUM [MOLES/VOL UME] IN SERUM OR PLASMA 142 mmol/L 136 - 145 02/19 Specimen Type: SERUM No comment entered. Ordering Provider: KIRA PARADA Report Released Date/Time: Feb 19, 2025 09:18 AM Reporting Lab: [facility] [place] [facility] [address] [address] Performing Lab: [facility] [place] [facility] [address] [address] [facility]N [facility] BASIC METABOLI C PANEL (fasting ) POTASSIUM [MOLES/VOL UME] IN SERUM OR PLASMA 4.0 mmol/L 3.5 - 5.1 02/19 Specimen Type: SERUM No comment entered. Ordering Provider: KIRA PARADA Report Released Date/Time: Feb 19, 2025 09:18 AM Reporting Lab: [facility] [place] [facility] [address] [address] Performing Lab: [facility] [place] [facility] [address] [address] [facility] [place] [facility] BASIC METABOLI C PANEL (fasting ) CHLORIDE [MOLES/VOL UME] IN SERUM OR PLASMA 108 mmol/L 98 - 107 04/30 /2025 H Specimen Type: SERUM No comment entered. Ordering Provider: KIRA PARADA Report Released Date/Time: Feb 19, 2025 09:18 AM Reporting Lab: [facility] [address] [address] Performing Lab: [facility]RL TRN [address] [address] [facility] BASIC METABOLI C PANEL (fasting ) CARBON DIOXIDE, TOTAL [MOLES/VOL UME] IN SERUM OR PLASMA 27 meq/L 23 - 31 02/19 Specimen Type: SERUM No comment entered. Ordering Provider: KIRA PARADA Report Released Date/Time: Feb 19, 2025 09:18 AM Reporting Lab: [facility] TRN [facility] [address] Performing Lab: [facility] TRN [facility] [address] [facility]PITALRRANDOLPH MEDICAL CENTERTRN [facility] BASIC METABOLI C PANEL (fasting ) CALCIUM [MASS/VOLU ME] IN SERUM OR PLASMA 9.3 mg/dL 8.8 - 10 02/19 Specimen Type: SERUM No comment entered. Ordering Provider: KIRA PARADA Report Released Date/Time: Feb 19, 2025 09:18 AM Reporting Lab: [facility] [address] Performing Lab: [facility] [address] [facility] TRN [facility] BASIC METABOLI C PANEL (fasting ) CREATININE [MASS/VOLU ME] IN SERUM OR PLASMA 0.90 mg/dL 0.72 - 1.25 02/19 Specimen Type: SERUM No comment entered. Ordering Provider: KIRA PARADA Report Released Date/Time: Feb 19, 2025 09:18 AM Reporting Lab: [facility] [address] Performing Lab: [facility] TRN [facility] [address] [facility] BASIC METABOLI C PANEL (fasting ) GLOMERULAR FILTRATION RATE/1.73 SQ M.PREDICTE D [VOLUME RATE/AREA] IN SERUM, PLASMA OR BLOOD BY CREATININE -BASED FORMULA (CKD-EPI 2020) >90mL/mi n 60 02/19 Specimen Type: SERUM No comment entered. Ordering Provider: KIRA PARADA Report Released Date/Time: Feb 19, 2025 09:18 AM Reporting Lab: [facility]PITALRRANDOLPH MEDICAL CENTERTRN [facility] [address] [address] Performing Lab: [facility]PITALRCL[facility] COUNTY [facility]OSPITALN [address] [address] [facility] LIVER FUNCTION PROTEIN [MASS/VOLU ME] IN SERUM OR PLASMA 7.4 g/dL 6.4 - 8.3 02/19 Specimen Type: SERUM No comment entered. Ordering Provider: KIRA PARADA Report Released Date/Time: Feb 19, 2025 09:18 AM Reporting Lab: [facility]ITAL[facility] TRN [facility] [address] Performing Lab: [facility] HOSPITALRL [facility] [address] [facility] LIVER FUNCTION ALBUMIN [MASS/VOLU ME] IN SERUM OR PLASMA BY BROMOCRESO L PURPLE (BCP) DYE BINDING METHOD 3.8 g/dL 3.2 - 4.6 02/19 Specimen Type: SERUM No comment entered. Ordering Provider: KIRA PARADA Report Released Date/Time: Feb 19, 2025 09:18 AM Reporting Lab: [facility]PITALRRANDOLPH MEDICAL CENTERTRN [facility] [address] Performing Lab: [facility]PITALRRANDOLPH MEDICAL CENTERTRN [facility] [address] [facility] LIVER FUNCTION ALKALINE PHOSPHATAS E [ENZYMATIC ACTIVITY/V OLUME] IN SERUM OR PLASMA 70 U/L 40 - 150 02/19 Specimen Type: SERUM No comment entered. Ordering Provider: KIRA PARADA Report Released Date/Time: Feb 19, 2025 09:18 AM Reporting Lab: [facility] [place] [facility] [address] [address] Performing Lab: [facility] [place] [facility] [address] [address] [facility] [place] [facility] LIVER FUNCTION ASPARTATE AMINOTRANS FERASE [ENZYMATIC ACTIVITY/V OLUME] IN SERUM OR PLASMA BY WITH P-5'-P 27 U/L 5 - 34 02/19 Specimen Type: SERUM No comment entered. Ordering Provider: KIRA PARADA Report Released Date/Time: Feb 19, 2025 09:18 AM Reporting Lab: [facility] [place] [facility] [address] [address] Performing Lab: [facility] [place] [facility] [address] [address] [facility] [place] [facility] LIVER FUNCTION ALANINE AMINOTRANS FERASE [ENZYMATIC ACTIVITY/V OLUME] IN SERUM OR PLASMA BY WITH P-5'-P 23 U/L 0 - 55 02/19 Specimen Type: SERUM No comment entered. Ordering Provider: KIRA PARADA Report Released Date/Time: Feb 19, 2025 09:18 AM Reporting Lab: [facility] [place] [facility] [address] [address] Performing Lab: [facility] [place] [facility] [address] [address] [facility] [place] [facility] LIVER FUNCTION BILIRUBIN. TOTAL [MASS/VOLU ME] IN SERUM OR PLASMA 0.7 mg/dL 0.2 - 1.2 02/19 Specimen Type: SERUM No comment entered. Ordering Provider: KIRA PARADA Report Released Date/Time: Feb 19, 2025 09:18 AM Reporting Lab: [facility] [place] [facility] [address] [address] Performing Lab: [facility] [place] [facility] [address] [address] [facility] [place] [facility] HEMOGLOB IN A1C PANEL HEMOGLOBIN A1C/HEMOGL OBIN.TOTAL IN BLOOD BY IF PROTOCOL 5.8 4.0 - 5.6 02/19 H [...] Feb 19, 2025 09:18 AM Reporting Lab: [facility]ITALRCL[facility]PITALN [facility] [address] Performing Lab: [facility] [address] [address] [facility]N [facility] TSH THYROTROPI N [UNITS/VOL UME] IN SERUM OR PLASMA BY DETECTION LIMIT <= 0.005 MIU/L 4.14 u[IU]/mL 0.35 - 4.94 02/19 Specimen Type: SERUM No comment entered. Ordering Provider: KIRA PARADA Report Released Date/Time: Feb 19, 2025 09:18 AM Reporting Lab: [facility]ITALRCL[facility] HOSPITALN [facility] [address] Performing Lab: [facility]PITALRCLAY COUNTY HOSPITALN [address] [address] [place], [place] [address] [facility] CBC AND DIFF (AUTO) LEUKOCYTES [#/VOLUME] IN BLOOD BY AUTOMATED COUNT 5.90 10*3/uL 4.50 - 11.00 02/19 Specimen Type: BLOOD No comment entered. Ordering Provider: KIRA PARADA Report Released Date/Time: Feb 19, 2025 09:18 AM Reporting Lab: [facility]ITALRRANDOLPH MEDICAL CENTERTRN [facility] [address] Performing Lab: [facility] [address] [address] [facility]ITALRCL[facility] COUNTY HOSPITALN [facility] CBC AND DIFF (AUTO) ERYTHROCYT ES [#/VOLUME] IN BLOOD BY AUTOMATED COUNT 4.25 10*6/uL 4.23 - 5.66 02/19 Specimen Type: BLOOD No comment entered. Ordering Provider: KIRA PARADA Report Released Date/Time: Feb 19, 2025 09:18 AM Reporting Lab: [facility]ITALRRANDOLPH MEDICAL CENTERTRN [place] [facility] [address] [address] Performing Lab: [facility] [place] [facility] [address] [address] [facility]ITALRL TRN [place] [facility] CBC AND DIFF (AUTO) HEMOGLOBIN [MASS/VOLU ME] IN BLOOD 13.4 g/dL 12.8 - 17 02/19 Specimen Type: BLOOD No comment entered. Ordering Provider: KIRA PARADA Report Released Date/Time: Feb 19, 2025 09:18 AM Reporting Lab: [facility]ITALRRANDOLPH [facility]ICAL CENTERTRN [place] [address] [address] Performing Lab: [facility]ITALRL TRN [place] [address] [address] [facility]ITALRCL[facility]PITALN [place] [facility] CBC AND DIFF (AUTO) HEMATOCRIT [VOLUME FRACTION] OF BLOOD BY AUTOMATED COUNT 38.3 39.2 - 50.4 02/19 L Specimen Type: BLOOD No comment entered. Ordering Provider: KIRA PARADA Report Released Date/Time: Feb 19, 2025 09:18 AM Reporting Lab: [facility]ITALRRANDOLPH MED[facility] CENTERTRN [place] [address] [address] Performing Lab: [facility] TRN [place] [facility] [address] [address] [facility] [place] [facility] CBC AND DIFF (AUTO) MCV [ENTITIC VOLUME] BY AUTOMATED COUNT 90.1 fL 82 - 99 02/19 Specimen Type: BLOOD No comment entered. Ordering Provider: KIRA PARADA Report Released Date/Time: Feb 19, 2025 09:18 AM Reporting Lab: [facility]ITALRRANDOLPH [facility] CENTERTRN [place] [address] [address] Performing Lab: [place] [facility] [place] [address] [address] [facility] [place] [facility] CBC AND DIFF (AUTO) MCHC [MASS/VOLU ME] BY AUTOMATED COUNT 35.0 g/dL 30.8 - 35.1 02/19 Specimen Type: BLOOD No comment entered. Ordering Provider: KIRA PARADA Report Released Date/Time: Feb 19, 2025 09:18 AM Reporting Lab: [facility] [place] [facility] [address] [address] Performing Lab: [facility] [place] [facility] [address] [address] [facility] [place] [facility] CBC AND DIFF (AUTO) PLATELETS [#/VOLUME] IN BLOOD BY AUTOMATED COUNT 246 10*3/uL 140 - 360 02/19 Specimen Type: BLOOD No comment entered. Ordering Provider: KIRA PARADA Report Released Date/Time: Feb 19, 2025 09:18 AM Reporting Lab: [facility] [place] [address] [address] Performing Lab: [facility] [place] [address] [address] [facility] [place] [facility] CBC AND DIFF (AUTO) PLATELET MEAN VOLUME [ENTITIC VOLUME] IN BLOOD BY AUTOMATED COUNT 11.0 fL 9.2 - 12.4 02/19 Specimen Type: BLOOD No comment entered. Ordering Provider: KIRA PARADA Report Released Date/Time: Feb 19, 2025 09:18 AM Reporting Lab: [facility] [place] [address] [address] Performing Lab: [facility] [place] [address] [address] [facility] [place] [facility] CBC AND DIFF (AUTO) ERYTHROCYT E DISTRIBUTI ON WIDTH [RATIO] BY AUTOMATED COUNT 13.1 12.0 - 16.0 02/19 Specimen Type: BLOOD No comment entered. Ordering Provider: KIRA PARADA Report Released Date/Time: Feb 19, 2025 09:18 AM Reporting Lab: [facility] [place] [facility] [address] [address] Performing Lab: [facility] [place] [facility] [address] [address] [facility] [place] [facility] CBC AND DIFF (AUTO) MONOCYTES [#/VOLUME] IN BLOOD BY AUTOMATED COUNT 0.42 10*3/uL 0.30 - 1.10 02/19 Specimen Type: BLOOD No comment entered. Ordering Provider: KIRA PARADA Report Released Date/Time: Feb 19, 2025 09:18 AM Reporting Lab: [facility] [place] [facility] [address] [address] Performing Lab: [facility] [place] [facility] [address] [address] [facility] [place] [facility] CBC AND DIFF (AUTO) MCH [ENTITIC MASS] BY AUTOMATED COUNT 31.5 pg 26.2 - 32.6 02/19 Specimen Type: BLOOD No comment entered. Ordering Provider: KIRA PARADA Report Released Date/Time: Feb 19, 2025 09:18 AM Reporting Lab: [facility] [place] [facility] [address] [address] Performing Lab: [facility] [place] [facility] [address] [address] [facility] [place] [facility] CBC AND DIFF (AUTO) NEUTROPHIL S/100 LEUKOCYTES IN BLOOD BY AUTOMATED COUNT 42.9 43.7 - 75.8 02/19 L Specimen Type: BLOOD No comment entered. Ordering Provider: KIRA PARADA Report Released Date/Time: Feb 19, 2025 09:18 AM Reporting Lab: [facility] [place] [facility] [address] [address] Performing Lab: [facility] [place] [facility] [address] [address] [facility] [place] [facility] CBC AND DIFF (AUTO) LYMPHOCYTE S/100 LEUKOCYTES IN BLOOD BY AUTOMATED COUNT 46.3 14.0 - 42.3 02/19 H Specimen Type: BLOOD No comment entered. Ordering Provider: KIRA PARADA Report Released Date/Time: Feb 19, 2025 09:18 AM Reporting Lab: [facility] [place] [facility] [address] [address] Performing Lab: [facility] [place] [facility] [address] [address] [facility] [place] [facility] CBC AND DIFF (AUTO) MONOCYTES/ 100 LEUKOCYTES IN BLOOD BY AUTOMATED COUNT 7.1 5.1 - 13.7 02/19 Specimen Type: BLOOD No comment entered. Ordering Provider: KIRA PARADA Report Released Date/Time: Feb 19, 2025 09:18 AM Reporting Lab: [facility] [place] [facility] [address] [address] Performing Lab: [facility] [place] [facility] [address] [address] [facility] [place] [facility] CBC AND DIFF (AUTO) EOSINOPHIL S/100 LEUKOCYTES IN BLOOD BY AUTOMATED COUNT 3.1 0.4 - 6.8 02/19 Specimen Type: BLOOD No comment entered. Ordering Provider: KIRA PARADA Report Released Date/Time: Feb 19, 2025 09:18 AM Reporting Lab: [facility] [place] [facility] [address] [address] Performing Lab: [facility] [place] [facility] [address] [address] [facility] [place] [facility] CBC AND DIFF (AUTO) BASOPHILS/ 100 LEUKOCYTES IN BLOOD BY AUTOMATED COUNT 0.3 0.1 - 2.0 02/19 Specimen Type: BLOOD No comment entered. Ordering Provider: KIRA PARADA Report Released Date/Time: Feb 19, 2025 09:18 AM Reporting Lab: [facility] [place] [facility] [address] [facility] [address] Performing Lab: [facility] [address] [facility] [facility] [address] [facility] CBC AND DIFF (AUTO) NEUTROPHIL S [#/VOLUME] IN BLOOD BY AUTOMATED COUNT 2.53 10*3/uL 2.20 - 7.60 02/19 Specimen Type: BLOOD No comment entered. Ordering Provider: KIRA PARADA Report Released Date/Time: Feb 19, 2025 09:18 AM Reporting Lab: [facility] [address] [address] Performing Lab: [facility] [address] [address] [facility] CBC AND DIFF (AUTO) LYMPHOCYTE S [#/VOLUME] IN BLOOD BY AUTOMATED COUNT 2.73 10*3/uL 1.00 - 3.20 02/19 Specimen Type: BLOOD No comment entered. Ordering Provider: KIRA PARADA Report Released Date/Time: Feb 19, 2025 09:18 AM Reporting Lab: [facility] [address] [address] Performing Lab: [facility] [address] [address] [facility] CBC AND DIFF (AUTO) EOSINOPHIL S [#/VOLUME] IN BLOOD BY AUTOMATED COUNT 0.18 10*3/uL 0.03 - 0.44 02/19 Specimen Type: BLOOD No comment entered. Ordering Provider: KIRA PARADA Report Released Date/Time: Feb 19, 2025 09:18 AM Reporting Lab: [facility] [address] [address] Performing Lab: [facility] [address] [address] [facility] CBC AND DIFF (AUTO) BASOPHILS [#/VOLUME] IN BLOOD BY AUTOMATED COUNT 0.02 10*3/uL 0.01 - 0.13 02/19 Specimen Type: BLOOD No comment entered. Ordering Provider: KIRA PARADA Report Released Date/Time: Feb 19, 2025 09:18 AM Reporting Lab: [facility] [address] [address] Performing Lab: [facility] [address] [facility] [facility] [address] [facility] CBC AND DIFF (AUTO) IMMATURE GRANULOCYT ES/100 LEUKOCYTES IN BLOOD BY AUTOMATED COUNT 0.3 0.0 - 0.7 02/19 Specimen Type: BLOOD No comment entered. Ordering Provider: KIRA PARADA Report Released Date/Time: Feb 19, 2025 09:18 AM Reporting Lab: [facility] [address] [facility] [facility] [address] Performing Lab: [facility] [address] [facility] [address] [facility] CBC AND DIFF (AUTO) IMMATURE GRANULOCYT ES [#/VOLUME] IN BLOOD BY AUTOMATED COUNT 0.02 10*3/uL 0.00 - 0.06 02/19 Specimen Type: BLOOD No comment entered. Ordering Provider: KIRA PARADA Report Released Date/Time: Feb 19, 2025 09:18 AM Reporting Lab: [facility] [address] [facility] [address] Performing Lab: [facility] [address] [facility] [address] [facility] CBC AND DIFF (AUTO) NUCLEATED ERYTHROCYT ES/100 LEUKOCYTES [RATIO] IN BLOOD BY AUTOMATED COUNT 0.0 0.0 - 0.0 02/19 Specimen Type: BLOOD No comment entered. Ordering Provider: KIRA PARADA Report Released Date/Time: Feb 19, 2025 09:18 AM Reporting Lab: [facility] [address] [facility] [address] Performing Lab: [facility] [address] [facility] [address] [facility] CBC AND DIFF (AUTO) NUCLEATED ERYTHROCYT ES [#/VOLUME] IN BLOOD BY AUTOMATED COUNT 0.00 10*3/uL 0.00 - 0.00 02/19 Specimen Type: BLOOD No comment entered. Ordering Provider: KIRA PARADA Report Released Date/Time: Feb 19, 2025 09:18 AM Reporting Lab: [facility] [address] [facility] [address] Performing Lab: [facility] [address] [facility] [address] [facility] LIPID PANEL FASTING CHOLESTERO L [MASS/VOLU ME] IN SERUM OR PLASMA 128 mg/dL 02/14 Specimen Type: SERUM No comment entered. Ordering Provider: REBA LANDRY Report Released Date/Time: Feb 13, 2025 12:44 PM Reporting Lab: [facility] [facility] [address] [facility] [address] Performing Lab: [facility] [address] [address] [place] LIPID PANEL FASTING TRIGLYCERI DE [MASS/VOLU ME] IN SERUM OR PLASMA 132 mg/dL 0 - 150 02/14 Specimen Type: SERUM No comment entered. Ordering Provider: REBA LANDRY Report Released Date/Time: Feb 13, 2025 12:44 PM Reporting Lab: [facility] [facility] [address] [facility] [address] Performing Lab: [facility] [address] [facility] [address] [place] LIPID PANEL FASTING CHOLESTERO L IN LDL [MASS/VOLU ME] IN SERUM OR PLASMA BY IVETT Hitchcock 62 mg/dL 0 - 129 02/14 Specimen Type: SERUM No comment entered. Ordering Provider: REBA LANDRY Report Released Date/Time: Feb 13, 2025 12:44 PM Reporting Lab: [facility] [facility] [address] [facility] [address] Performing Lab: [facility] [address] [address] [place] LIPID PANEL FASTING CHOLESTERO L.TOTAL/CH OLESTEROL IN HDL [MASS RATIO] IN SERUM OR PLASMA 3.2 02/14 Specimen Type: SERUM No comment entered. Ordering Provider: REBA LANDRY Report Released Date/Time: Feb 13, 2025 12:44 PM Reporting Lab: [facility] [address] [address] Performing Lab: [facility] [address] [address] [place] LIPID PANEL FASTING CHOLESTERO L IN HDL [MASS/VOLU ME] IN SERUM OR PLASMA 40 mg/dL 40 02/14 Specimen Type: SERUM No comment entered. Ordering Provider: REBA LANDRY Report Released Date/Time: Feb 13, 2025 12:44 PM Reporting Lab: [address] [address] Performing Lab: [address] [address] [place] BASIC METABOLI C PANEL (fasting ) UREA NITROGEN [MASS/VOLU ME] IN SERUM OR PLASMA 21 mg/dL 8 - 26 02/14 Specimen Type: SERUM No comment entered. Ordering Provider: REBA LANDRY Report Released Date/Time: Feb 13, 2025 12:44 PM Reporting Lab: [address] [address] Performing Lab: [address] [address] [place] BASIC METABOLI C PANEL (fasting ) GLUCOSE [MASS/VOLU ME] IN SERUM OR PLASMA 120 mg/dL 65 - 100 02/14 H Specimen Type: SERUM No comment entered. Ordering Provider: REBA LANDRY Report Released Date/Time: Feb 13, 2025 12:44 PM Reporting Lab: [address] [address] Performing Lab: [address] [address] [place] BASIC METABOLI C PANEL (fasting ) SODIUM [MOLES/VOL UME] IN SERUM OR PLASMA 140 mmol/L 136 - 145 02/14 Specimen Type: SERUM No comment entered. Ordering Provider: REBA LANDRY Report Released Date/Time: Feb 13, 2025 12:44 PM Reporting Lab: [facility] [address] [address] Performing Lab: [facility] [address] [address] [place] BASIC METABOLI C PANEL (fasting ) POTASSIUM [MOLES/VOL UME] IN SERUM OR PLASMA 4.3 mmol/L 3.5 - 5.1 02/14 Specimen Type: SERUM No comment entered. Ordering Provider: REBA LANDRY Report Released Date/Time: Feb 13, 2025 12:44 PM Reporting Lab: [facility] [address] [address] Performing Lab: [facility] [address] [address] [place] BASIC METABOLI C PANEL (fasting ) CHLORIDE [MOLES/VOL UME] IN SERUM OR PLASMA 105 mmol/L 98 - 107 02/14 Specimen Type: SERUM No comment entered. Ordering Provider: REBA LANDRY Report Released Date/Time: Feb 13, 2025 12:44 PM Reporting Lab: [facility] [address] [address] Performing Lab: [facility] [address] [address] [place] BASIC METABOLI C PANEL (fasting ) CARBON DIOXIDE, TOTAL [MOLES/VOL UME] IN SERUM OR PLASMA 27 meq/L 23 - 31 02/14 Specimen Type: SERUM No comment entered. Ordering Provider: REBA LANDRY Report Released Date/Time: Feb 13, 2025 12:44 PM Reporting Lab: [facility] [address] Performing Lab: [facility] [address] [address] [place] BASIC METABOLI C PANEL (fasting ) CALCIUM [MASS/VOLU ME] IN SERUM OR PLASMA 8.9 mg/dL 8.8 - 10 02/14 Specimen Type: SERUM No comment entered. Ordering Provider: REBA LANDRY Report Released Date/Time: Feb 13, 2025 12:44 PM Reporting Lab: [address] [address] Performing Lab: [address] [address] [place] BASIC METABOLI C PANEL (fasting ) CREATININE [MASS/VOLU ME] IN SERUM OR PLASMA 0.92 mg/dL 0.72 - 1.25 02/14 Specimen Type: SERUM No comment entered. Ordering Provider: REBA LANDRY Report Released Date/Time: Feb 13, 2025 12:44 PM Reporting Lab: [address] [address] Performing Lab: [address] [address] [employer] BASIC METABOLI C PANEL (fasting ) GLOMERULAR FILTRATION RATE/1.73 SQ M.PREDICTE D [VOLUME RATE/AREA] IN SERUM, PLASMA OR BLOOD BY CREATININE -BASED FORMULA (CKD-EPI 2020) >90mL/mi n 60 02/14 Specimen Type: SERUM No comment entered. Ordering Provider: REBA LANDRY Report Released Date/Time: Feb 13, 2025 12:44 PM Reporting Lab: [facility] [address] [address] Performing Lab: [facility] [address] [address] [place] LIVER FUNCTION PROTEIN [MASS/VOLU ME] IN SERUM OR PLASMA 7.4 g/dL 6.4 - 8.3 02/14 Specimen Type: SERUM No comment entered. Ordering Provider: REBA LANDRY Report Released Date/Time: Feb 13, 2025 12:44 PM Reporting Lab: [address] [address] Performing Lab: [facility] [address] [address] [facility] LIVER FUNCTION ALBUMIN [MASS/VOLU ME] IN SERUM OR PLASMA BY BROMOCRESO L PURPLE (BCP) DYE BINDING METHOD 3.7 g/dL 3.2 - 4.6 02/14 Specimen Type: SERUM No comment entered. Ordering Provider: REBA LANDRY Report Released Date/Time: Feb 13, 2025 12:44 PM Reporting Lab: [facility] [address] [address] Performing Lab: [address] [address] [facility] LIVER FUNCTION ALKALINE PHOSPHATAS E [ENZYMATIC ACTIVITY/V OLUME] IN SERUM OR PLASMA 73 U/L 40 - 150 02/14 Specimen Type: SERUM No comment entered. Ordering Provider: REBA LANDRY Report Released Date/Time: Feb 13, 2025 12:44 PM Reporting Lab: [facility] [address] [address] Performing Lab: [address] [address] [facility] LIVER FUNCTION ASPARTATE AMINOTRANS FERASE [ENZYMATIC ACTIVITY/V OLUME] IN SERUM OR PLASMA BY WITH P-5'-P 23 U/L 5 - 34 02/14 Specimen Type: SERUM No comment entered. Ordering Provider: REBA LANDRY Report Released Date/Time: Feb 13, 2025 12:44 PM Reporting Lab: [facility] [address] [address] Performing Lab: [address] [address] [facility] LIVER FUNCTION ALANINE AMINOTRANS FERASE [ENZYMATIC ACTIVITY/V OLUME] IN SERUM OR PLASMA BY WITH P-5'-P 17 U/L 0 - 55 02/14 Specimen Type: SERUM No comment entered. Ordering Provider: REBA LANDRY Report Released Date/Time: Feb 13, 2025 12:44 PM Reporting Lab: [facility] [address] [address] Performing Lab: [facility] [address] [address] [facility] LIVER FUNCTION BILIRUBIN. TOTAL [MASS/VOLU ME] IN SERUM OR PLASMA 0.4 mg/dL 0.2 - 1.2 02/14 Specimen Type: SERUM No comment entered. Ordering Provider: REBA LANDRY Report Released Date/Time: Feb 13, 2025 12:44 PM Reporting Lab: [address] [address] Performing Lab: [address] [address] [facility] Vital Signs Combined list of inpatient and outpatient Vital Signs from [facility] and [facility], ranging from 12 months to all on record, depending upon the facility. Vital Sign Value Date Comments Source SYSTOLIC BLOOD PRESSURE 110 12/18/2024 09:03:48 [facility] DIASTOLIC BLOOD PRESSURE 71 12/18/2024 09:03:48 [facility] PULSE OXIMETRY 97 12/18/2024 09:03:48 [facility] TEMPERATURE 98.3 12/18/2024 09:03:[facility] PULSE 92 12/18/2024 09:03:48 [place] RESPIRATION 16 12/18/2024 09:03:48 [facility] SYSTOLIC BLOOD PRESSURE 136 08/27/2024 13:44:42 [facility] DIASTOLIC BLOOD PRESSURE 86 08/27/2024 13:44:42 [facility] PULSE OXIMETRY 96 08/27/2024 13:44:42 [place] WEIGHT 199 08/27/2024 13:44:42 [place] BMI 29 kg/m2 08/27/2024 13:44:42 [place] PULSE 96 08/27/2024 13:44:42 [place] Encounters Combined list of: 1) Encounters from Department of Veterans Affairs facilities going backup to the last 18 months, not all ID inpatient encounters are included; 2) Encounters from the Department of Defense facilities going backup to 280 months. Location Location Details Encounter Type Encounter Number Reason For Visit Attending Provider ADM Date DC Date Status Disposition Source [facility] Encounter [id number] 05/27 [facility] Encounter [id number] 06/06 [facility]counter [id number] 1[facility]06/23 [facility] Encounter [id number] 1.06/25 [facility]counter [id number] 1.07/19 [facility] [place] Outpatient Encounter [id number] [place] [facility] En[facility] [id number] 1.07/23 [facility] Encounter [id number] 1.08/27 [facility] Encounter [id number] 1.08/27 [facility] [place] OFFICE O/P [place] 60 MIN [id number] Diagnos is: ICD-10- CM I10 Essenti al (primar y) hyperte MARY ALICE Roland 08/27 [place] [facility] Out[facility] Encounter [id number] 1.08/27 [facility] [id number] 09/01 [facility] Out[facility] Encounter [id number] 10/24 [facility] FIT SPECTACLES MULTIFOCAL [id number] 1. Diagnos is: ICD-10- CM Z46.0 Encount er for fit/adj st of spectac les and contact lenses ARIES CRUZ 11/04 [facility] Out[facility] Encounter [id number] 1.11/04 [facility] [place] OFF/OP EST FEBRUARY X REQ PHY/QHP [id number] Diagnos is: ICD-10- CM R68.89 Other general symptom s and signs AMAIRANI,ER IC K 12/18 [place] [facility] Out[facility] Encounter [id number] 12/18 [facility] PSYCL/NR[place] Y[place] TST PHY/[place] [id number] 1. 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, predom inatten tive type LAITH SERRATO 12/30 [facility] En[facility] [id number] 01/10 [facility] Out[facility] Encounter [id number] 01/10 [facility] NRPSY[place] [id number] 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, predom inatten tive type LAITH SERRATO W 01/16 [facility] Encounter [id number] 02/15 [facility] [place] Outpatient Encounter [id number] 02/24 [place] [facility] Out[facility] Encounter [id number] 02/25 [facility] Outpatient Encounter [id number] 02/25 [facility] Outpatient Encounter [id number] [facility] OFFICE O/P EST MOD 30 MIN [id number] Diagnos is: ICD-10- CM Z77.090 Contact with and (suspec eladio) exposur e to [facility] Spence 02/25 [place] [facility] Outpatient Encounter [id number] 02/27 [facility] Social History Combined list of available smoking, tobacco, and other social history from Department of Defense and Veterans Affairs facilities. Social History Type Response Date Comment Source Tobacco smoking status [facility] VA-TOBACCO FORMER USER 08/27/2024 [facility] History of tobacco use ID-TOBACCO QUIT 15 YRS OR MORE 08/27/2024 [facility] History of tobacco use ID-TOBACCO FORMER USER 05/26/2021 [facility] History of tobacco use VA-TOBACCO FORMER USER 11/17/2019 [facility] History of tobacco use QUIT TOBACCO USE > 7 YEARS AGO 10/22/2009 Pt. quit smoking in 1995 [facility] Plan of Care List of future care activities from [facility] facilities. Additional future care activities may be listed in the Assessment and Plan section. Date/Time Care Activity Care Activity Detail Facili ty 03/07/2025 AMBULATORY - NONE AMBULATORY - NONE [facility] Advance Directives List of completed, amended, or rescinded Advance Directives on record at [facility] facilities. An actual copy of the Directive is not included. Date Advance Directive Provider Source 08/27/2024 ADVANCE DIRECTIVE SHAY MILLER
--- NOTE | 2025-03-07 13:40 | A.OFFVIS_ITS ---
Vital Signs 3 03/07/25 13:52 Height 5 ft 9.5 in Weight 199 lb 6 oz BMI 29.0 BP 130/78 Blood Pressure Location Lt brachial Position Sitting Pulse 74 Intake Visit Reasons: [place] screening r/s 12/19 Intake Note: Patient new consult for pre colonoscopy screening. 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 He is referred by Clark Anguiano. PMX ADHD Asthma/COPD FREDERICK High cholesterol Hypertension Osteoarthritis of the knees Rotator cuff arthropathy BPH Erectile dysfunction Anxiety Tubular adenoma-2010, [facility] * SURGICAL HISTORY Right shoulder arthroscopy Excision of mass left forearm Colonoscopy-2011 [facility]= TA patient declined repeat colonoscopy and had a negative Cologuard 04/2022 Hiatal hernia repair Right inguinal hernia repair Right knee arthroscopy Rotator cuff surgery * ALLERGIES: NKDA * [facility] [employer] LABS: None since last year TODAY'S VISIT This is his second colonoscopy, he had a bad experience with gas trapping and abd pain after the last one. He had occasional bowel cramps but no otehr bowel or upper GI problems. He has frederick and his asthma/COPD is well controlled and he denies any cardiac problems. THere are no prior problems with anesthesia or sedation. No ID problems THere is a lot of cancer in his family, but he is unsure of CRC - again he had a past polyps. [facility] Medical History (Updated 03/07/25 @ 14:27 by VIMAL Colbert) Preoperative examination Pure hypercholesterolemia COPD (chronic obstructive pulmonary disease) Exercise-induced asthma Benign prostatic hyperplasia Essential hypertension Laboratory exam ordered as part of routine general medical examination Adult general medical exam History of COVID-19 Screening for prostate cancer Screening for colon cancer Hyperkalemia Neoplasm of uncertain behavior of skin Viral illness Abnormal lung sounds Elevated PSA Elevated TSH Cerumen impaction Knee pain Osteoarthritis of right knee Osteoarthritis of left knee Left knee pain Left shoulder pain Vertigo ADHD (attention deficit hyperactivity disorder) Osteoarthritis Sleep apnea Overweight (BMI 25.0-29.9) Insomnia Surgical History Hx of arthroscopy of shoulder Hx of excision of mass Hx of colonoscopy History of repair of hiatal hernia Hx of right inguinal hernia repair Hx of arthroscopy of right knee History of rotator cuff surgery Family History Father Dementia Social History Housing: House Are you a primary care coordinator to a significant other at home: No Do you presently have visiting nurse or other home services: No Patient Tobacco Use Status: Former Tobacco user Tobacco use type: Cigarette Years Smoked: 14 e-Cigarette/Vaping Use: Former Use Second Hand Smoke Exposure: No service: Yes Current occupational status: retired Current occupational exposures/hazards: No Cognitive needs: Yes Hearing needs: No Vision needs: Yes Review of Systems Const Denies fatigue, Denies fever(s), Denies night sweats, Denies poor appetite and Denies weight loss Eyes Details: glasses Reports requires corrective lenses ENT Details: multiple piercings Reports Normal hearing present, Denies dental pain, Denies dysphagia, Denies hearing loss, Denies mouth pain, Denies odynophagia, Denies throat swelling, Denies tongue swelling and Reports other (Dentition adequate) GI Details: Denies abdominal pain, Denies melena, Denies bloating, Denies hematochezia, Denies constipation, Denies GI cramping, Denies dysphagia, Denies excessive flatus, Denies early satiety, Denies heartburn, Denies diarrhea, Denies nausea, Denies odynophagia, Denies vomiting and Denies hematemesis Skin/Breast Denies pruritus, Denies lesions, Denies rash and Denies jaundice Neuro Reports Normal hearing present and Denies Abnormal speech present Endo Denies fatigue Aller/Immun Denies throat swelling and Denies tongue swelling Physical Exam Const General: cooperative, no acute distress, well developed and well groomed Nutritional Appearance: well nourished and obese Orientation/consciousness: oriented to person, oriented to place and oriented to time Limitations: No language barrier HEENT Head: Yes normocephalic and Yes atraumatic Eyes General: appearance normal, both eyes and all related structures Pupils: Equal, round and reactive pupils present Neck Neck: Yes normal visual inspection and Yes no lymphadenopathy Thyroid: Thyroid normal Resp Effort & Inspection: normal respiratory effort and able to speak in complete sentences Auscultation: clear to auscultation bilaterally Cardio Rate: regular rate Rhythm: regular rhythm Heart sounds: Normal, physiologic split S2 sound present Peripheral pulses: radial pulses present and posterior tibial pulses present GI Inspection: No distended, No Abdominal panniculus present and Yes obesity Palpation (GI): Soft to palpation, nontender, no guarding, not rigid and No hepatosplenomegaly present Percussion: Yes normal to percussion Auscultation: normal bowel sounds Rectal Exam - Male: Yes deferred Abdomen image: 2 1. surgical scar Skin General skin exam: no rashes or lesions noted, turgor normal, skin not dry, no jaundice, No spider nevi and no striae Rashes: no rashes Nails: normal Neuro General: oriented to person, oriented to place and oriented to time Cranial nerves: Yes Equal, round and reactive pupils present and Yes Normal hearing present Speech: No Abnormal speech present Extrem General: Yes normal to inspection, No clubbing, No cyanosis, Yes edema (mild) and Yes venous stasis dermatitis Psych Appearance: grossly normal and well kempt Mental Status: mental status grossly normal Speech and movement: Normal speech and movement present Affect: normal affect Attitude: cooperative Thought process: Normal thought process present and not confabulating Thought content: Normal thought content present Insight: Good insight present (Psych) Judgement: Good judgement present (Psych) Assessment & Plan Assessment & Plan (1) Preoperative examination: Code(s): Z01.818 - Encounter for other preprocedural examination Category: Medical (2) Tubular adenoma of colon: Comment: 2010 - [facility]=1TA Code(s): D12.6 - Benign neoplasm of colon, unspecified Category: Medical (3) COPD (chronic obstructive pulmonary disease): Code(s): J44.9 - Chronic obstructive pulmonary disease, unspecified Category: Medical (4) Sleep apnea: Code(s): G47.30 - Sleep apnea, unspecified Category: Medical (5) Encounter for colorectal cancer screening using Cologuard test: Comment: -04/2022 Code(s): Z12.11 - Encounter for screening for malignant neoplasm of colon; Z12.12 - Encounter for screening for malignant neoplasm of rectum Category: Medical Plan This is his second colonoscopy, he had a bad experience with gas trapping and abd pain after the last one. He had occasional bowel cramps but no otehr bowel or upper GI problems. He has frederick and his asthma/COPD is well controlled and he denies any cardiac problems. THere are no prior problems with anesthesia or sedation. No ID problems THere is a lot of cancer in his family, but he is unsure of CRC - again he had a past polyps. Orders: Orders 2 Colonoscopy - GI Use Only Today G47.30 - Sleep apnea, unspecified, J44.9 - Chronic obstructive pulmonary disease, unspecified, Z01.818 - Encounter for other preprocedural examination, Z12.11 - Encounter for screening for malignant neoplasm of colon, Z12.12 - Encounter for screening for malignant neoplasm of rectum Comprehensive Met. Panel Today G47.30 - Sleep apnea, unspecified, J44.9 - Chronic obstructive pulmonary disease, unspecified, Z01.818 - Encounter for other preprocedural examination, Z12.11 - Encounter for screening for malignant neoplasm of colon, Z12.12 - Encounter for screening for malignant neoplasm of rectum Complete Blood Count Auto Diff Today G47.30 - Sleep apnea, unspecified, J44.9 - Chronic obstructive pulmonary disease, unspecified, Z01.818 - Encounter for other preprocedural examination, Z12.11 - Encounter for screening for malignant neoplasm of colon, Z12.12 - Encounter for screening for malignant neoplasm of rectum Medications: New 2 simethicone for before and after colonoscopy 360 mg (2 x 180 mg) PO BID 30 days 120 caps 0RF D12.6 - Benign neoplasm of colon, unspecified sodium,potassium,mag sulfates 17.5-3.13-1.6 gram (Suprep Bowel Prep Kit) 480 mL orally; FOR COLONOSCOPY PREP 354 mL 0RF Coding Level of Care Code New Pt Level 3 (70175) Diagnoses Preoperative examination Z01.818 Tubular adenoma of colon D12.6 COPD (chronic obstructive pulmonary disease) J44.9 Sleep apnea G47.30 Encounter for colorectal cancer screening using Cologuard test Z12.11; Z12.12
[2025-03-07 13:52] VITALS: BP 130/78; PULSE 74; BMI 29.0
== END 2025-03-07 14:29 | disposition home or self-care (01) ==
LOC: HO.HGI 13:22
PROVIDERS: PCP Internal Medicine; Visit Provider Nurse Practitioner
DX: Z01.818 Encounter for other preprocedural examination (principal); Z12.11 Encounter for screening for malignant neoplasm of colon; Z86.0100 Personal history of colon polyps, unspecified; J44.9 Chronic obstructive pulmonary disease, unspecified; G47.30 Sleep apnea, unspecified; Z12.12 Encounter for screening for malignant neoplasm of rectum
CPT/HCPCS: S0285

== ENCOUNTER 2025-05-15 13:14 | Outpatient (REF) | payer OTHER, SELFPAY ==
[2025-05-15 15:37] LABS: Prostate Specific Antigen 1.20 ng/mL (<0.05-4.0)
== END 2025-05-15 13:15 | disposition home or self-care (01) ==
LOC: HO.LAB 13:14
PROVIDERS: Urology; PCP Nurse Practitioner Gerontology; Visit Provider Orthopaedic Surgery
DX: M25.561 Pain in right knee (principal); M25.562 Pain in left knee; M17.0 Bilateral primary osteoarthritis of knee; N40.1 Benign prostatic hyperplasia with lower urinary tract symptoms; R97.20 Elevated prostate specific antigen [PSA]; Z79.899 Other long term (current) drug therapy
CPT/HCPCS: 36415; 84153; 99212

== ENCOUNTER 2025-05-15 13:14 | Outpatient (AMB) | payer OTHER, SELFPAY ==
--- NOTE | 2025-05-15 13:19 | MHC.OFFVIS ---
Vital Signs 05/15/25 13:21 Height 5 ft 9 in Weight 199 lb BMI 29.4 Intake Visit Reasons: Bilateral knee pains Intake Note: Bharathi is a 64 year old male who presents with complaints of bilateral knee pains. He describes his pains as sharp in nature. He has failed the last 3 months of conservative treatment which has included Tylenol, anti-inflammatory medicines and a home exercise program. He has had cortisone injections in the past which gave him minimal relief. He has also had Euflexxa viscosupplementation injections which gave him fairly good relief. He wishes to hold off on surgery for as long as possible. At this point his bilateral knee pains are interfering with his activities of daily living and his ability to sleep well through the night. Allergies No Known Allergies Allergy (Verified 05/15/25 13:20) Medication List - Last Reconciled 05/15/25 by Claudy Cox MD albuterol sulfate 90 mcg/actuation 2 puffs inhalation Q4-6H PRN 30 days atorvastatin 40 mg PO BEDTIME clonidine HCl 0.2 mg (2 x 0.1 mg) PO BEDTIME 30 days diphenhydramine HCl 50 mg PO BEDTIME PRN naproxen 500 mg PO BID sildenafil 100 mg PO DAILY PRN 28 days simethicone 360 mg (2 x 180 mg) PO BID 30 days sodium,potassium,mag sulfates 17.5-3.13-1.6 gram (Suprep Bowel Prep Kit) DILUTE each bottle with 16oz of water; drink first bottle 4pm evening before procedure AND second bottle at 10pm; follow each bottle with at least 32 oz.of water within 1 hour after each bottle. sodium,potassium,mag sulfates 17.5-3.13-1.6 gram (Suprep Bowel Prep Kit) 480 mL orally; FOR COLONOSCOPY PREP sulfamethoxazole-trimethoprim 800-160 mg (Bactrim DS) 1 tab PO BID 14 days tamsulosin (Flomax) 0.4 mg PO BEDTIME 90 days turmeric 400 mg PO QAM vitamin B complex (B Complex-Vitamin B12 tablet) 1 tab PO DAILY walker Folding Front wheeled walker [facility] Medical History (Updated 05/15/25 @ 14:05 by Claudy Cox MD) Osteoarthritis of left knee Osteoarthritis of right knee Preoperative examination Pure hypercholesterolemia COPD (chronic obstructive pulmonary disease) Exercise-induced asthma Benign prostatic hyperplasia Essential hypertension Laboratory exam ordered as part of routine general medical examination Adult general medical exam History of COVID-19 Screening for prostate cancer Screening for colon cancer Hyperkalemia Neoplasm of uncertain behavior of skin Viral illness Abnormal lung sounds Elevated PSA Elevated TSH Cerumen impaction Knee pain Left knee pain Left shoulder pain Vertigo ADHD (attention deficit hyperactivity disorder) Osteoarthritis Sleep apnea Overweight (BMI 25.0-29.9) Insomnia Surgical History Hx of arthroscopy of shoulder Hx of excision of mass Hx of colonoscopy History of repair of hiatal hernia Hx of right inguinal hernia repair Hx of arthroscopy of right knee History of rotator cuff surgery Family History Father Dementia Social History Housing: House Are you a primary care nurse rn to a significant other at home: No Do you presently have visiting nurse or other home services: No Patient Tobacco Use Status: Former Tobacco user Tobacco use type: Cigarette Years Smoked: 14 e-Cigarette/Vaping Use: Former Use Second Hand Smoke Exposure: No service: Yes Current occupational status: retired Current occupational exposures/hazards: No Cognitive needs: Yes Hearing needs: No Vision needs: Yes Physical Exam Vital Signs: BMI result Body Mass Index 29.4 Const Other: Well-nourished well-developed very friendly male awake alert and oriented x3 in no acute distress Extrem Other: Bilateral lower extremity examination shows good capillary refill, no skin lesions noted, normal sensation light touch Bilateral knee examination shows minimal effusions, palpable crepitus with range of motion, pain with range of motion, no instability Results Reviewed Results Reviewed: X-rays of the patient's bilateral knees taken previously show joint space narrowing, subchondral sclerosis, no acute bony abnormalities Assessment & Plan Assessment & Plan (1) Osteoarthritis of right knee: Code(s): M17.11 - Unilateral primary osteoarthritis, right knee Category: Medical Qualifiers: Osteoarthritis type: primary Qualified Code(s): M17.11 - Unilateral primary osteoarthritis, right knee (2) Osteoarthritis of left knee: Code(s): M17.12 - Unilateral primary osteoarthritis, left knee Category: Medical Plan Mr. Sandoval presents with bilateral knee pains due to osteoarthritis. I had a lengthy discussion with the patient regarding the treatment options. He wishes to hold off on surgery for as long as possible. I agree with this plan. I will see if the patient's insurance company will cover a another series of 3 Euflexxa injections for both of his knees. I will see him back once the injections are available. Feel free to call me at any time should questions regarding his orthopedic management arise. I spent 21 minutes in reviewing the patient's records and imaging studies, seeing the patient and documenting in the medical record. Coding Level of Care Code Est Pt Level 3 (02911) Complex EM visit Add On G2211 Diagnoses Primary osteoarthritis of right knee M17.11 Osteoarthritis type: primary Osteoarthritis of left knee M17.12
[2025-05-15 13:21] VITALS: BMI 29.4
--- OUTSIDE RECORDS SUMMARY | 2025-05-15 13:26 | XMS_ITS | Clinical Summary ---
Author Organization [employer] Address [address] [place] [address] [address] [address] Care Team Providers Care Guidance And Control System Engineer Name Role Phone Unavailable Primary Care Provider [...] 69 11/30/2023 10:27 AM EST Temperature 36.7 C (98 F) 11/30/2023 10:27 AM EST Respiratory Rate 16 [...] 2024 09/09/2023, 10/20/2022, 10/02/2021, Additional history exists Tobacco Screening 11/30/2024 11/30/2023 Influenza Vaccine (#1) 2025 08/24/2023 RSV Patients and Patients Aged 60 years or older Completed 08/24/2023 Pneumococcal Vaccine: 50+ Years Completed 09/09/2023, 10/20/2022 [...] patient's age to complete this topic Meningococcal B Vaccine Aged Out No l onger eligible based on patient's age to complete [...] AM EDT) Hepatitis C Antibody Nonreactive Nonreactive [facility] Comment:Antibodies to HCV no t detected; does not exclude early acuteHCV infection. Blood Venous blood specimen / Unknown 01/18/2024 11:44 AM EDT 01/18/2024 11:44 AM EDT us Nura Eddy MD LAB BLOOD ORDERABLES Final Resul t [facility] [address] [place] [address] [phone] from Last 3 Months or Most Recently Relevant to Health Maintenance Insurance [facility] MEDICARE
--- OUTSIDE RECORDS SUMMARY | 2025-05-15 13:26 | XMS_ITS | Patient Health Record ---
Author Organization [facility] Address [address] [place] [address] Care Team Providers Care Regional Owner Operator Truck Driver Name Role Phone Catalina Dunn MD Primary Care Provider Migue Milligan [phone] Reason For Referral No Information Medications Medication SIG (Take, Route, Fr equency, Duration) Notes Start Date End Date Status MoviPrep 100 GM as directed Orally 09/20/2011 01/0 10/2024 Active Problems Problem Type SNOMED Code ICD Code Onset Dates Problem Status W/U Status Risk Notes Problem Screening for malignant neoplasm of colon (661713902) Special screening for malignant neoplasms, colon (V76.51) Active confirmed Plan Of Treatment Future Test Test Name Order Date COLONOSCOPY 09/20/2011 Insurance Providers Payer Name Payer Address Payer Phone Subscriber Number Group Number Insured Name Patient Relationship to Insured Coverage Start Date Coverage End Date [facility] [address] [place] [phone] [id number] JETT MARIN Self - patient is the insured Medical (General) History Medical History History ICD Code Denies [place],DM,CVA,Lung disease,renal dise ase Surgical History Surgery Date(Month/Year) right hand right knee hernia right shoulder and left shoulder lipoma removed from his left arm
== END 2025-05-15 13:47 | disposition home or self-care (01) ==
LOC: HO.HOS 13:15
PROVIDERS: PCP Internal Medicine; Visit Provider Orthopaedic Surgery
DX: M17.0 Bilateral primary osteoarthritis of knee (principal)
CPT/HCPCS: 99214; G2211

== ENCOUNTER 2025-05-16 15:50 | Outpatient (AMB) | payer OTHER, SELFPAY ==
--- OUTSIDE RECORDS SUMMARY | 2025-05-16 15:53 | XMS_ITS | Clinical Summary ---
Author Organization [employer] Address [address] [place] [address] [address], [place] [address] Care Team Providers Care Administrative Office Specialist Name Role Phone Unavailable Primary Care Provider [...] t [facility] [address] [place] [address] [phone] from Last 3 Months or Most Recently Relevant to Health Maintenance Insurance [facility] MEDICARE
--- OUTSIDE RECORDS SUMMARY | 2025-05-16 15:53 | XMS_ITS | Patient Health Record ---
Author Organization [facility] Address [address] [place] [address] Care Team Providers Care Critical Care Unit Nurse Name Role Phone Catalina Dunn MD Primary Care Provider Migue Milligan [phone] Reason For Referral No Information Medications Medication SIG (Take, Route, Fr equency, Duration) Notes Start Date End Date Status MoviPrep 100 GM as directed Orally 09/20/2011 01/0 10/2024 Active Problems Problem Type SNOMED Code ICD Code Onset Dates Problem Status W/U Status Risk Notes Problem Screening for malignant neoplasm of colon (509030446) Special screening for malignant neoplasms, colon (V76.51) Active confirmed Plan Of Treatment Future Test Test Name Order Date COLONOSCOPY 09/20/2011 Insurance Providers Payer Name Payer Address Payer Phone Subscriber Number Group Number Insured Name Patient Relationship to Insured Coverage Start Date Coverage End Date [facility] [address] [place] [phone] [id number] JETT MARIN Self - patient is the insured Medical (General) History Medical History History ICD Code Denies [place],DM,CVA,Lung disease,renal dise ase Surgical History Surgery Date(Month/Year) right hand right knee hernia right shoulder and left shoulder lipoma removed from his left arm
--- NOTE | 2025-05-16 16:09 | MHC.OFFVIS ---
Intake Visit Reasons: follow up PSA Intake Note: Patient presents today for a 1 year follow-up/PSA 05/15 PSA:1.20 Uroology Meds:Tamsulosin Allergies to Antibiotic: No Known Allergies Blood Thinner: none PVR:7ml Stock Feeder Required: No Accompanied by: Self / Same As Patient Allergies No Known Allergies Allergy (Verified 05/16/25 16:09) Medication List - Last Reconciled 05/16/25 by Curt Mccarty MD albuterol sulfate 90 mcg/actuation 2 puffs inhalation Q4-6H PRN 30 days atorvastatin 40 mg PO BEDTIME clonidine HCl 0.2 mg (2 x 0.1 mg) PO BEDTIME 30 days diphenhydramine HCl 50 mg PO BEDTIME PRN doxycycline hyclate 100 mg PO BID 14 days naproxen 500 mg PO BID simethicone 360 mg (2 x 180 mg) PO BID 30 days sodium,potassium,mag sulfates 17.5-3.13-1.6 gram (Suprep Bowel Prep Kit) DILUTE each bottle with 16oz of water; drink first bottle 4pm evening before procedure AND second bottle at 10pm; follow each bottle with at least 32 oz.of water within 1 hour after each bottle. sodium,potassium,mag sulfates 17.5-3.13-1.6 gram (Suprep Bowel Prep Kit) 480 mL orally; FOR COLONOSCOPY PREP sulfamethoxazole-trimethoprim 800-160 mg (Bactrim DS) 1 tab PO BID 14 days tamsulosin (Flomax) 0.4 mg PO BEDTIME 90 days turmeric 400 mg PO QA walker Folding Front wheeled walker [facility] Comments Details: 05/16/25--Bharathi is a 64-year-old male who I am following due to history of prior elevated PSA and BPH. He is on tamsulosin. Follow-up PSA 05/15/2025 is 1.20 03/03/25-- 64-year-old male presenting with concerns related to his history of Benign Prostatic Hyperplasia (BPH) and previously elevated Prostate-Specific Antigen (PSA) levels. Initially evaluated due to elevated PSA, subsequent monitoring has shown normalization of PSA levels. Current management of BPH symptoms includes daily administration of tamsulosin. The patient utilizes sildenafil as needed. Urinary symptoms are reported stable; notably, nocturia has decreased from two to three nightly episodes to once a night. There is no difficulty or discomfort with urination reported. Results - Lab Results: Normal Prostate-Specific Antigen (PSA) levels, 02/12/25--1.84 ng/mL Plan - cont Tamsulosin. PSA screening 01/01/2024----Bharathi is a 63-year-old male was initially evaluated elevated PSA. PSA in March 2022 was 8.67. Follow-up PSAs since then has been normal. He is on tamsulosin for lower urinary tract symptoms from BPH. I have reviewed recent PSA obtained on 12/20/2023--0.98 ng/mL The patient complains that he had a contact sexual exposure 0n 11/29/23 with someone and he is concerned about obtaining an STD. He did go to a clinic on 12/01/2023 was tested and was started on prophylactic HIV retroviral medication. He is advised that he needed to have the HIV antibody antigen retested in 4-6 weeks. He is requesting that I order the lab work. He denies any new urinary symptoms. He states he is having right knee surgery done in February and orthopedics is requesting clearance. 30 minutes spent in review of records pertaining to this visit and including [id number] discussion with the patient and documentation of this visit. 07/03/23--Bharathi is a 62-year-old male who presents today via tele-health visit for a follow-up. He is followed today for PSA. He was last seen by me on 12/30/2022 for elevated PSA. The patient was advised will continue to monitor closely, and to follow-up with PSA in 6 months. Discussed prostate bx to be considered pending repeat PSA. FU PSA was WNL. The patient has been taking Flomax and notes that he had improved urine flow at this time. Reviewed recent PSA- 06/28/23--1.3 Review of chart: PSA 04/05/22 -- 8.67. He is on tamsulosin for LUTS hesitency, nocturia. Denies gross hematuria, denies urinary incontinence.? PSA-12/02/2022- 1.24 ng/mL [facility] Medical History Osteoarthritis of left knee Osteoarthritis of right knee Preoperative examination Pure hypercholesterolemia COPD (chronic obstructive pulmonary disease) Exercise-induced asthma Benign prostatic hyperplasia Essential hypertension Laboratory exam ordered as part of routine general medical examination Adult general medical exam History of COVID-19 Screening for prostate cancer Screening for colon cancer Hyperkalemia Neoplasm of uncertain behavior of skin Viral illness Abnormal lung sounds Elevated PSA Elevated TSH Cerumen impaction Knee pain Left knee pain Left shoulder pain Vertigo ADHD (attention deficit hyperactivity disorder) Osteoarthritis Sleep apnea Overweight (BMI 25.0-29.9) Insomnia Surgical History Hx of arthroscopy of shoulder Hx of excision of mass Hx of colonoscopy History of repair of hiatal hernia Hx of right inguinal hernia repair Hx of arthroscopy of right knee History of rotator cuff surgery Family History Father Dementia Social History Housing: House Are you a primary patient care technician to a significant other at home: No Do you presently have visiting nurse or other home services: No Patient Tobacco Use Status: Former Tobacco user Tobacco use type: Cigarette Years Smoked: 14 e-Cigarette/Vaping Use: Former Use Second Hand Smoke Exposure: No service: Yes Current occupational status: retired Current occupational exposures/hazards: No Cognitive needs: Yes Hearing needs: No Vision needs: Yes Results AMB Urinalysis, Automated UA Leukoctes 0 Raulito/uL Last Edit by Malu Briscoe on 05/16/25 16:44 UA Nitrite Negative Last Edit by Malu Briscoe on 05/16/25 16:44 UA Urobilinogen 3.5 mg/dL Last Edit by Malu Briscoe on 05/16/25 16:44 UA Protein 1 mg/dL Last Edit by Malu Briscoe on 05/16/25 16:44 UA pH 5.0 Last Edit by Malu Briscoe on 05/16/25 16:44 UA Blood 0 Paulo/uL Last Edit by Malu Briscoe on 05/16/25 16:44 UA Specific [place] 1.030 Last Edit by Malu Briscoe on 05/16/25 16:44 UA Ketone Negative Last Edit by Malu Briscoe on 05/16/25 16:44 UA Bilirubin 0 mg/dL Last Edit by Malu Briscoe on 05/16/25 16:44 UA Glucose 0 mg/dL Last Edit by Malu Briscoe on 05/16/25 16:44 Assessment & Plan Assessment & Plan Orders: Orders AMB Urinalysis Automated Today N40.1 - Benign prostatic hyperplasia with lower urinary tract symptoms, R33.9 - Retention of urine, unspecified, R97.20 - Elevated prostate specific antigen [PSA] AMB Post Void Residual by ultrasound Today N40.1 - Benign prostatic hyperplasia with lower urinary tract symptoms, R33.9 - Retention of urine, unspecified, R97.20 - Elevated prostate specific antigen [PSA] Medications: New doxycycline hyclate 100 mg PO BID 14 days 28 tabs 0RF Coding
== END 2025-05-16 16:40 | disposition home or self-care (01) ==
LOC: HO.HUSH 15:51
PROVIDERS: PCP Internal Medicine; Visit Provider Urology
DX: R97.20 Elevated prostate specific antigen [PSA] (principal); N40.1 Benign prostatic hyperplasia with lower urinary tract symptoms; R33.9 Retention of urine, unspecified

== ENCOUNTER → 2025-05-16 15:50 | Outpatient (BNVA) | payer OTHER, SELFPAY | PROVIDERS: PCP Internal Medicine; Visit Provider Urology | DX: N40.1 Benign prostatic hyperplasia with lower urinary tract symptoms (principal); N13.8 Other obstructive and reflux uropathy; R36.1 Hematospermia; N50.819 Testicular pain, unspecified; R97.20 Elevated prostate specific antigen [PSA] | CPT/HCPCS: 81003; 99212 ==

== ENCOUNTER 2025-07-28 08:18 | Outpatient (REF) | payer OTHER, SELFPAY ==
--- NOTE | ~2025-07-28 | US_ITS ---
CLINICAL HISTORY: N40.1 - Benign prostatic hyperplasia with lower urinary tract symptoms US Renal Comparison: US/SR - US KIDNEY BILATERAL - 10/12/22 13:32 EST Findings: Right kidney normal size and echotexture, 10.5 cm length. Left kidney normal size and echotexture, 11.5 cm length. 6 x 5 x 7 mm upper pole stone. No collecting system dilatation of either kidney. Normal color Doppler. Urinary bladder is unremarkable. Prevoid volume 384 mL. Postvoid volume 41 mL. Bilateral ureteral jets are visualized. The prostate gland is enlarged with volume of 34 mL. IMPRESSION: Nonobstructing left kidney stone. No hydronephrosis. Prostatomegaly. This document has been electronically signed by: Mary Thomas MD on 07/28/2025 17:10:28
--- OUTSIDE RECORDS SUMMARY | 2025-07-28 08:38 | XMS_ITS | Clinical Summary ---
Author Organization [employer] Address [address] [place] [address] [address] [address] Care Team Providers Care Air Pollution Compliance Inspector Name Role Phone Unavailable Primary Care Provider [...] 1977 Zoster Vaccines (1 of 2) 2008 Tobacco Screening 11/30/2024 11/30/2023 COVID-19 Vaccine (6 - season) 2025 09/09/2023, 10/20/2022, 10/02/2021, Additional history exists Influenza Vaccine (#1) 2025 08/24/2023 RSV Patients [...] AM EDT) Hepatitis C Antibody Nonreactive Nonreactive [facility] Comment:Antibodies to HCV no t detected; does not exclude early acuteHCV infection. Blood Venous blood specimen / Unknown 01/18/2024 11:44 AM EDT 01/18/2024 11:44 AM EDT us Nura Eddy MD LAB BLOOD ORDERABLES Final Resul t [facility] [address] [place] [address] [phone] from Last 3 Months or Most Recently Relevant to Health Maintenance Insurance [facility] MEDICARE
--- OUTSIDE RECORDS SUMMARY | 2025-07-28 08:38 | XMS_ITS | Patient Health Record ---
Author Organization [facility] Address [address] [place] [address] Care Team Providers Care Business Strategist Name Role Phone Catalina Dunn MD Primary Care Provider Migue Milligan [phone] Reason For Referral No Information Medications Medication SIG (Take, Route, Fr equency, Duration) Notes Start Date End Date Status MoviPrep 100 GM as directed Orally 09/20/2011 01/0 10/2024 Active Problems Problem Type SNOMED Code ICD Code Onset Dates Problem Status W/U Status Risk Notes Problem Screening for malignant neoplasm of colon (814883758) Special screening for malignant neoplasms, colon (V76.51) Active confirmed Plan Of Treatment Future Test Test Name Order Date COLONOSCOPY 09/20/2011 Insurance Providers Payer Name Payer Address Payer Phone Subscriber Number Group Number Insured Name Patient Relationship to Insured Coverage Start Date Coverage End Date [facility] [address] [place] [phone] [id number] JETT MARIN Self - patient is the insured Medical (General) History Medical History History ICD Code Denies HI,DM,CVA,Lung disease,renal dise ase Surgical History Surgery Date(Month/Year) right hand right knee hernia right shoulder and left shoulder lipoma removed from his left arm
== END 2025-07-28 08:19 | disposition home or self-care (01) ==
LOC: HO.US 08:18
PROVIDERS: PCP Internal Medicine; Visit Provider Urology
DX: N40.1 Benign prostatic hyperplasia with lower urinary tract symptoms (principal); R97.20 Elevated prostate specific antigen [PSA]; R33.9 Retention of urine, unspecified; N52.9 Male erectile dysfunction, unspecified
CPT/HCPCS: 76770

== ENCOUNTER → 2025-07-28 08:21 | Outpatient (BNV) | payer OTHER, SELFPAY | PROVIDERS: PCP Internal Medicine; Visit Provider Nuclear Medicine | DX: N20.0 Calculus of kidney (principal); N40.0 Benign prostatic hyperplasia without lower urinary tract symptoms | CPT/HCPCS: 76770 ==

== ENCOUNTER 2025-07-31 14:12 | Outpatient (AMB) | payer OTHER, SELFPAY ==
--- NOTE | 2025-07-31 15:18 | A.OFFVIS_ITS ---
Intake Visit Reasons: Cysto/US Intake Note: Patient presents today for a cystoscopy/US * 07/28 [facility] Uroology Meds:Tamsulosin Allergies to Antibiotic: No Known Allergies Blood Thinner: none Lot #:[id number] Exp:03/31/28 Smoke And Flame Specialist Required: No Accompanied by: Self / Same As Patient Allergies No Known Allergies Allergy (Verified 07/31/25 15:18) HPI Comments Details: 07/31/25--here for office cystoscopy. Renal ultrasound 07/29/2025 7 mm left kidney stone. History of Present Illness The patient is a 64-year-old male presenting with nephrolithiasis and benign prostatic hyperplasia. The renal ultrasound conducted on July 29 revealed a 7 mm stone in the left kidney. The patient reported passing a stone-like object approximately two months ago, but the ultrasound was performed after this event. The patient has been experiencing urinary symptoms, including a sudden stop in the urinary stream and a sensation of pressure during urination. He is currently taking tamsulosin to manage these symptoms. During the cystoscopy, the urethra appeared normal, but there was noted thickening of the bladder wall. The prostate was found to be enlarged, consistent with benign prostatic hyperplasia. Results - Renal ultrasound: 7 mm stone in the left kidney -Cystoscopy findings: prostatic urethra trilobar enlargement, bulbous urethra WNL, no suspicious bladder lesions visualized Plan 1. Nephrolithiasis (Kidney Stone) - Plan to perform Left shockwave lithotripsy to break up the kidney stone. 2. Benign Prostatic Hyperplasia - Continue tamsulosin to manage urinary symptoms. - Add proscar - Discuss potential for green light laser therapy after three months of medication. 05/16/25--Bharathi is a 64-year-old male who I am following due to history of prior elevated PSA, hematospermia and BPH. He is on tamsulosin. Follow-up PSA 05/15/2025 is 1.20 - The patient is a 64-year-old male presenting with management of Benign P rostatic Hyperplasia (BPH) and monitoring of Prostate-Specific Antigen (PSA) levels. - History of elevated PSA and BPH, currently managed with tamsulosin. - Recent PSA level was 1.20, indicating stability. - Reports hematospermia with initial brownish discoloration progressing to bright red, now lessening. - No associated pain with urination or erections, but urethral sensitivity noted. - History of testicular trauma with long-standing sensitivity, now resolved. - Patient has been taking doxycycline, but its effectiveness was compromised due to calcium intake. - Patient is on PrEP (tenofovir) for HIV prevention, not previously disclosed. Results - Labs: PSA level of 1.20 on 05/15/25 Plan - Continue monitoring PSA levels to assess stability of BPH. - Prescribe doxycycline for 14 days to address hematospermia, considering previous calcium interaction. - Plan for cystoscopy to evaluate bladder and urethra for underlying causes of hematospermia. - Order ultrasound to reassess kidneys and prostate area. - Discussed the importance of condom use to prevent infections related to sexual activity. 03/03/25-- 64-year-old male presenting with concerns related to his history of Benign Prostatic Hyperplasia (BPH) and previously elevated Prostate-Specific Antigen (PSA) levels. Initially evaluated due to elevated PSA, subsequent monitoring has shown normalization of PSA levels. Current management of BPH symptoms includes daily administration of tamsulosin. The patient utilizes sildenafil as needed. Urinary symptoms are reported stable; notably, nocturia has decreased from two to three nightly episodes to once a night. There is no difficulty or discomfort with urination reported. Results - Lab Results: Normal Prostate-Specific Antigen (PSA) levels, 02/12/25--1.84 ng/mL Plan - cont Tamsulosin. PSA screening 01/01/2024----Bharathi is a 63-year-old male was initially evaluated elevated PSA. PSA in March 2022 was 8.67. Follow-up PSAs since then has been normal. He is on tamsulosin for lower urinary tract symptoms from BPH. I have reviewed recent PSA obtained on 12/20/2023--0.98 ng/mL The patient complains that he had a contact sexual exposure 0n 11/29/23 with someone and he is concerned about obtaining an STD. He did go to a clinic on 12/01/2023 was tested and was started on prophylactic HIV retroviral medication. He is advised that he needed to have the HIV antibody antigen retested in 4-6 weeks. He is requesting that I order the lab work. He denies any new urinary symptoms. He states he is having right knee surgery done in February and orthopedics is requesting clearance. 30 minutes spent in review of records pertaining to this visit and including [id number] discussion with the patient and documentation of this visit. 07/03/23--Bharathi is a 62-year-old male who presents today via tele-health visit for a follow-up. He is followed today for PSA. He was last seen by me on 12/30/2022 for elevated PSA. The patient was advised will continue to monitor closely, and to follow-up with PSA in 6 months. Discussed prostate bx to be considered pending repeat PSA. FU PSA was WNL. The patient has been taking Flomax and notes that he had improved urine flow at this time. Reviewed recent PSA- 06/28/23--1.3 Review of chart: PSA 04/05/22 -- 8.67. He is on tamsulosin for LUTS hesitency, nocturia. Denies gross hematuria, denies urinary incontinence.? PSA-12/02/2022- 1.24 ng/mL [facility] Medical History Osteoarthritis of left knee Osteoarthritis of right knee Preoperative examination Pure hypercholesterolemia COPD (chronic obstructive pulmonary disease) Exercise-induced asthma Benign prostatic hyperplasia Essential hypertension Laboratory exam ordered as part of routine general medical examination Adult general medical exam History of COVID-19 Screening for prostate cancer Screening for colon cancer Hyperkalemia Neoplasm of uncertain behavior of skin Viral illness Abnormal lung sounds Elevated PSA Elevated TSH Cerumen impaction Knee pain Left knee pain Left shoulder pain Vertigo ADHD (attention deficit hyperactivity disorder) Osteoarthritis Sleep apnea Overweight (BMI 25.0-29.9) Insomnia Surgical History Hx of arthroscopy of shoulder Hx of excision of mass Hx of colonoscopy History of repair of hiatal hernia Hx of right inguinal hernia repair Hx of arthroscopy of right knee History of rotator cuff surgery Family History Father Dementia Social History Housing: House Are you a primary dog day care attendant to a significant other at home: No Do you presently have visiting nurse or other home services: No Patient Tobacco Use Status: Former Tobacco user Tobacco use type: Cigarette Years Smoked: 14 e-Cigarette/Vaping Use: Former Use Second Hand Smoke Exposure: No service: Yes Current occupational status: retired Current occupational exposures/hazards: No Cognitive needs: Yes Hearing needs: No Vision needs: Yes Office Procedures Cystoscopy Consent Discussed risk and benefit or proposed procedure with the patient. Information consent for procedure given to the patient. Discussed technical aspects, risks, benefits and alternatives in full. Addressed all of the patient's questions and concerns regarding the procedure. The patient demonstrated knowledge and understanding. They wish to proceed with this procedure. Preparation The patient was prepped in the usual manner. A flag maker was present and in the room. Genitalia was prepped with betadine solution in a sterile manner. Lidocaine Jelly 2% was placed into the urethra and 16Fr flexible Olympus cystoscope was inserted into the meatus after adequate lubrication. Procedure Time out per protocol performed. The flexible cystoscope is passed transurethrally: The bladder was inspected in its entirety with utilization retroflexion displaying: Tumor(s): no suspicious bladder lesions visualized Trabeculation: Moderate with cellule changes, Mucosal Erthema: Orifices: normal shape and position Urethra: normal Cystoscopy findings: prostatic urethra trilobar enlargement, bulbous urethra WNL, no suspicious bladder lesions visualized [id number] DISPOSABLE SCOPE URO-G FLEXIBLE SCOPE Procedure code (CPT) selection complete Office Meds lidocaine HCl 2 % mucosal jelly in applicator Performing Provider: Curt Mccarty MD Performing Location: [facility] Administered by: Quiana Kwon RN on 07/31/25 15:34 Dose Route Admin Location Dispensed Lot Number Expiration Date ND [employer] Chief 10 mL intra-urethral 20 mL ciprofloxacin HCl 500 mg tablet Performing Provider: Curt Mccarty MD Performing Location: [facility] Administered by: Quiana Kwon RN on 07/31/25 15:34 Dose Route Admin Location Dispensed Lot Number Expiration Date NDC Intelligence Chief 500 mg PO 1 tab phenazopyridine 200 mg tablet Performing Provider: Curt Mccarty MD Performing Location: [facility] Administered by: Quiana Kwon RN on 07/31/25 15:34 Dose Route Admin Location Dispensed Lot Number Expiration Date NDC [employer] Chief 200 mg PO 1 tab Results AMB Urinalysis, Automated UA Leukoctes 0 Raulito/uL Last Edit by Malu Briscoe on 07/31/25 16:38 UA Nitrite Negative Last Edit by Crystal Briscoe on 07/31/25 16:38 UA Urobilinogen 0.2 mg/dL Last Edit by Crystal Briscoe on 07/31/25 16:38 UA Protein 0 mg/dL Last Edit by Crystal Briscoe on 07/31/25 16:38 UA pH 6.0 Last Edit by Crystal Briscoe on 07/31/25 16:38 UA Blood 0 Paulo/uL Last Edit by Crystal Briscoe on 07/31/25 16:38 UA Specific [place] 1.015 Last Edit by Crystal Briscoe on 07/31/25 16:38 UA Ketone Negative Last Edit by Crystal Briscoe on 07/31/25 16:38 UA Bilirubin 0 mg/dL Last Edit by Crystal Briscoe on 07/31/25 16:38 UA Glucose 0 mg/dL Last Edit by Crystal Briscoe on 07/31/25 16:38 Results Reviewed Results Reviewed: Laboratory Last Values Urine pH (Auto) 6.0 07/31/25 16:11 Specific [place] (Auto) 1.015 07/31/25 16:11 Urine Protein (Auto) 0 mg/dL 07/31/25 16:11 Glucose (UA)(Auto) 0 mg/dL 07/31/25 16:11 Urine Ketones (Auto) Negative 07/31/25 16:11 Urine Blood (Auto) 0 Paulo/uL 07/31/25 16:11 Urine Nitrite (Auto) Negative 07/31/25 16:11 Urine Bilirubin (Auto) 0 mg/dL 07/31/25 16:11 Urine Urobilinogen (Auto) 0.2 mg/dL 07/31/25 16:11 Leukocyte Esterase (Auto) 0 Raulito/uL 07/31/25 16:11 Date of Service: 07/28/25 CLINICAL HISTORY: N40.1 - Benign prostatic hyperplasia with lower urinary tract symptoms US Renal Comparison: US/SR - US KIDNEY BILATERAL - 10/12/22 13:32 EST Findings: Right kidney normal size and echotexture, 10.5 cm length. Left kidney normal size and echotexture, 11.5 cm length. 6 x 5 x 7 mm upper pole stone. No collecting system dilatation of either kidney. Normal color Doppler. Urinary bladder is unremarkable. Prevoid volume 384 mL. Postvoid volume 41 mL. Bilateral ureteral jets are visualized. The prostate gland is enlarged with volume of 34 mL. IMPRESSION: Nonobstructing left kidney stone. No hydronephrosis. Prostatomegaly. Assessment & Plan Assessment & Plan (1) BPH loc w urin obs/LUTS: Code(s): N40.1 - Benign prostatic hyperplasia with lower urinary tract symptoms Category: Medical Plan Plan 1. Nephrolithiasis (Kidney Stone) - Plan to perform Left shockwave lithotripsy to break up the kidney stone. 2. Benign Prostatic Hyperplasia - Continue tamsulosin to manage urinary symptoms. Orders: Orders AMB Cystoscopy 07/31/25 N40.1 - Benign prostatic hyperplasia with lower urinary tract symptoms AMB Urinalysis Automated 07/31/25 N40.1 - Benign prostatic hyperplasia with lower urinary tract symptoms Medications: New finasteride (Proscar) 5 mg PO DAILY 90 tabs 3RF N40.1 - Benign prostatic hyperplasia with lower urinary tract symptoms Patient Instructions: The patient had an opportunity to ask questions regarding treatment plan. The patient expressed understanding and agreement with the above treatment plan. The patient is aware they should contact our office by phone for worsening of their current condition or the appearance of new symptoms. Compliance is encouraged with any medications and followup testing that is ordered. It is a privilege to be allowed the opportunity to participate in the urologic care of your patient. If you have any questions or concerns regarding treatment for the above conditions please do not hesitate to contact me. The office telephone contact is [phone]. This note is constructed in part using voice recognition software. While every effort has been made to ensure accuracy public speaking coach errors may have been included. Yours sincerely, Curt Mccarty MD Scribe Plan - Not visible on output: Patient was informed and verbally consented to the use of an ambient scribe for clinic note documentation during this visit. Coding Level of Care Code Est Pt Level 4 (49621) Diagnoses BPH loc w urin obs/LUTS N40.1 CPT Codes Cystoscopy - CPT: 36606-[id number] ([id number])
== END 2025-07-31 15:54 | disposition home or self-care (01) ==
LOC: HO.HUSH 14:12
PROVIDERS: PCP Internal Medicine; Visit Provider Urology
DX: N40.1 Benign prostatic hyperplasia with lower urinary tract symptoms (principal)
CPT/HCPCS: 52000

== ENCOUNTER → 2025-07-31 14:12 | Outpatient (BNVA) | payer OTHER, SELFPAY | PROVIDERS: PCP Internal Medicine; Visit Provider Urology | DX: N20.0 Calculus of kidney (principal); N40.1 Benign prostatic hyperplasia with lower urinary tract symptoms | CPT/HCPCS: 52000; 81003 ==

== ENCOUNTER 2025-09-24 07:21 | Day surgery (SDC) | payer OTHER, SELFPAY ==
--- OUTSIDE RECORDS SUMMARY | 2025-09-10 23:17 | XMS_ITS | Clinical Summary ---
Author Organization [employer] Address [address] [place] [address] [address] [address] Care Team Providers Care Special Investigation Unit Investigator Name Role Phone Unavailable Primary Care Provider [...] AM EDT) Hepatitis C Antibody Nonreactive Nonreactive [facility] Comment:Antibodies to HCV no t detected; does not exclude early acuteHCV infection. Blood Venous blood specimen / Unknown 01/18/2024 11:44 AM EDT 01/18/2024 11:44 AM EDT us Nura Eddy MD LAB BLOOD ORDERABLES Final Resul t [facility] [address] [place] [address] [phone] from Last 3 Months or Most Recently Relevant to Health Maintenance Insurance [facility] MEDICARE
[2025-09-22 11:28] VITALS: BMI 27.8
--- NOTE | ~2025-09-24 | XR_ITS ---
EXAMINATION: XR ABDOMEN KUB CLINICAL INDICATION: pre left ESWL COMPARISON: Ultrasound of the retroperitoneum on July 28, 2025 describes nonobstructing left kidney stone. TECHNIQUE: AP view of the abdomen. FINDINGS: Unremarkable bowel gas pattern. Approximately 0.5 cm oval vague density projecting over the expected location of the upper pole of the left kidney could correlate with the sonographically described renal stone or bowel content. No calcified or radiopaque structures overlie the right renal shadow. Osseous structures are intact. XR/XR KUB IMPRESSION: Vague opacity overlying the expected location of upper pole of the left kidney could possibly correlate with sonographically described nonobstructing renal stone, or alternatively, could represent bowel content. Electronically signed by: Bart Luis MD 09/24/2025 07:44 AM [facility]
[2025-09-24 08:36] VITALS: BP 145/83; PULSE 63; RESP 18; TEMP 36.6; O2SAT 92
[2025-09-24] MEDS: Lactated Ringers 1,000 ML 100 ML IVCONT (08:39)
[2025-09-24] MEDS: Lactated Ringers 500 ML 999 ML IV (08:39)
--- NOTE | 2025-09-24 09:52 | HO.ANESPROP2 ---
Documented by User: Harmony Jay NP 09/22/25 10:06 HPI - Anesthesia Eval Consult details Narrative: 64 yr old male for left lithotripsy ESW PMFSH Active Problems Active Problems: All Active Problems Testicular pain (Acute) Hematospermia (Acute) Osteoarthritis of left knee (Acute) Osteoarthritis of right knee (Acute) Tubular adenoma of colon (Acute) Preoperative examination (Acute) Encounter for colorectal cancer screening using Cologuard test (Acute) Osteoarthritis of knees, bilateral (Acute) Rotator cuff arthropathy of left shoulder (Acute) Twitch (Acute) Elevated PSA (Acute) BPH loc w urin obs/LUTS (Acute) Elevated fasting glucose (Acute) Erectile dysfunction (Acute) Sleep apnea (Acute) Hypercholesterolemia (Acute) Memory changes (Acute) Hand tendonitis (Acute) Urinary retention (Acute) Xanthelasma (Acute) Asthma (Acute) COPD (chronic obstructive pulmonary disease) (Acute) Hypertension (Acute) Anxiety (Acute) Overweight (BMI 25.0-29.9) (Acute) Insomnia (Acute) Past Medical History Medical History Osteoarthritis of left knee Osteoarthritis of right knee Preoperative examination Pure hypercholesterolemia COPD (chronic obstructive pulmonary disease) Exercise-induced asthma Benign prostatic hyperplasia Essential hypertension Laboratory exam ordered as part of routine general medical examination Adult general medical exam History of COVID-19 Screening for prostate cancer Screening for colon cancer Hyperkalemia Neoplasm of uncertain behavior of skin Viral illness Abnormal lung sounds Elevated PSA Elevated TSH Cerumen impaction Knee pain Left knee pain Left shoulder pain Vertigo ADHD (attention deficit hyperactivity disorder) Osteoarthritis Sleep apnea Overweight (BMI 25.0-29.9) Insomnia Family History Family History Father Dementia Surgical History Surgical History Hx of arthroscopy of shoulder Hx of excision of mass Hx of colonoscopy History of repair of hiatal hernia Hx of right inguinal hernia repair Hx of arthroscopy of right knee History of rotator cuff surgery Social History Social History Housing: House Are you a primary long term acute care registered nurse to a significant other at home: No Do you presently have visiting nurse or other home services: No Patient Tobacco Use Status: Former Tobacco user Tobacco use type: Cigarette Years Smoked: 14 e-Cigarette/Vaping Use: Former Use Second Hand Smoke Exposure: No Use of substances other than those prescribed or required for medical reasons: No Have you been hit, kicked, punched, or otherwise hurt by someone within the past year? If so, by whom?: No Are you DNR?: No Advance Directives: No Advance Directives Information Provided: Yes Advance Directives on File: No service: Yes Current occupational status: retired Current occupational exposures/hazards: No Cognitive needs: Yes Hearing needs: No Vision needs: Yes Meds Allergies Allergy/AdvReac Type Severity Reaction Status Date / Time No Known Allergies Allergy Verified 07/31/25 15:18 Home Medications ?Medication ?Instructions ?Recorded ?Confirmed ?Last Taken ?Type turmeric 400 mg capsule 400 mg PO QAM 02/26/24 09/22/25 Unknown History atorvastatin 40 mg tablet 40 mg PO BEDTIME 03/03/25 09/22/25 Unknown History diphenhydramine HCl 50 mg tablet 50 mg PO BEDTIME PRN Insomnia 03/07/25 09/22/25 Unknown History naproxen 500 mg tablet 500 mg PO BID 05/16/25 09/22/25 Unknown History Documented by User: Maisha aJvier DO 09/24/25 09:53 PMFSH Past Medical History Medical History Osteoarthritis of left knee Osteoarthritis of right knee Preoperative examination Pure hypercholesterolemia COPD (chronic obstructive pulmonary disease) Exercise-induced asthma Benign prostatic hyperplasia Essential hypertension Laboratory exam ordered as part of routine general medical examination Adult general medical exam History of COVID-19 Screening for prostate cancer Screening for colon cancer Hyperkalemia Neoplasm of uncertain behavior of skin Viral illness Abnormal lung sounds Elevated PSA Elevated TSH Cerumen impaction Knee pain Left knee pain Left shoulder pain Vertigo ADHD (attention deficit hyperactivity disorder) Osteoarthritis Sleep apnea Overweight (BMI 25.0-29.9) Insomnia Family History Family History Father Dementia Family history of problems with anesthesia: No Surgical History Surgical History Hx of arthroscopy of shoulder Hx of excision of mass Hx of colonoscopy History of repair of hiatal hernia Hx of right inguinal hernia repair Hx of arthroscopy of right knee History of rotator cuff surgery History of Problems with Anesthesia: No Social History Social History Housing: House Are you a primary long term acute care registered nurse to a significant other at home: No Do you presently have visiting nurse or other home services: No Patient Tobacco Use Status: Former Tobacco user Tobacco use type: Cigarette Years Smoked: 14 e-Cigarette/Vaping Use: Former Use Second Hand Smoke Exposure: No Use of substances other than those prescribed or required for medical reasons: No Have you been hit, kicked, punched, or otherwise hurt by someone within the past year? If so, by whom?: No Are you DNR?: No Advance Directives: No Advance Directives Information Provided: Yes Advance Directives on File: No service: Yes Current occupational status: retired Current occupational exposures/hazards: No Cognitive needs: Yes Hearing needs: No Vision needs: Yes Meds Allergies Allergy/AdvReac Type Severity Reaction Status Date / Time No Known Allergies Allergy Verified 07/31/25 15:18 Home Medications ?Medication ?Instructions ?Recorded ?Confirmed ?Last Taken ?Type turmeric 400 mg capsule 400 mg PO QAM 02/26/24 09/22/25 Unknown History atorvastatin 40 mg tablet 40 mg PO BEDTIME 03/03/25 09/22/25 Unknown History diphenhydramine HCl 50 mg tablet 50 mg PO BEDTIME PRN Insomnia 03/07/25 09/22/25 Unknown History naproxen 500 mg tablet 500 mg PO BID 05/16/25 09/22/25 Unknown History Exam Exam Date and Time: 09/24/25 0952 Height,Weight and Vital Signs: Height 5 ft 9.5 in Weight 86.636 kg Vital Signs Temperature 97.9 F 09/24/25 08:36 Pulse Rate 63 09/24/25 08:36 Respiratory Rate 18 09/24/25 08:36 Blood Pressure 145/83 H 09/24/25 08:36 Pulse Oximetry 92 09/24/25 08:36 Oxygen Delivery Method Room Air 09/24/25 08:36 Temperature 97.9 F 09/24/25 08:36 Pulse Rate 63 09/24/25 08:36 Respiratory Rate 18 09/24/25 08:36 Blood Pressure 145/83 H 09/24/25 08:36 Pulse Oximetry 92 09/24/25 08:36 Oxygen Delivery Method Room Air 09/24/25 08:36 Airway Mallampati Class: II TM Dist: >3cm Neck ROM: Full Loose/Missing/Broken Teeth: Yes (multiple missing teeth) Heart: S1S2 Lungs: CTAB Assessment and Plan Assessment Anesthesia Assessment: Anesthesia Plan Discussed and Chart Reviewed Final Anesthetic Review Family History of Problems with Anesthesia: No History of Problems with Anesthesia: No NPO: Yes ASA Class: II Final Preanesthetic Review: No Changes in Pt Med Stat, Meds/Allgs Chart Reviewed, Consent Obtained/Reviewed and Anes Risks/Benef Reviewed Patient Risk: Low Procedure Risk: Low Anesthetic Plan Anesthetic Plan: MAC: and Agree w/ Assess. and Plan Disposition: Standard PACU
--- NOTE | 2025-09-24 10:19 | MHC.SHP ---
Pre-Procedural Eval Section A - 24 Hr Update-Section A only Date of Service: 09/24/25 The patient is an INPATIENT: No The patient has been examined within 24 hours of the surgical procedure. The History & Physical has been completed within 30 days and I have reviewed it.: Yes Section B - Complete if H&P > 30 days Chief Complaint: Calculus of kidney, left Allergies: Allergies Allergy/AdvReac Type Severity Reaction Status Date / Time No Known Allergies Allergy Verified 07/31/25 15:18 Plan Diagnosis/Plan: Unchanged I have reviewed the history and physical and performed a pertinent physical examination on my patient. No changes have occurred unless specified. Left ESWL. Discussed risks to include but not limited to, blood in the urine, bruising to the skin, kidney hematoma, possible need for another procedure if a stone fragment obstructs the ureter while passing, possible need to repeat procedure if stone is not completely fragmented. Time Spent With Patient Time: Total time managing care of this patient today ____ minutes.
--- NOTE | 2025-09-24 10:20 | W.PM.OPN ---
Operative Note Operative Note Date of Service: 09/24/25 Narrative: PreOperative Diagnosis:? ? Left Renal stone Post Operative Diagnosis:?Left? Renal stone Procedure:?Left? ESWL Surgeon:?Dr Curt Mccarty Anesthesia:? MAC Indications for procedure: The patient understands there is a risk of bruising or hematoma to the kidney, infection, and stone migration following the procedure and subsequent intervention may be required.? - Imaging 6x6 mm stone Procedure: After informed consent was verified the patient was brought to the operating room and placed in a supine position.? Anesthesia was performed per protocol. Safety pause time-out was performed. Imaging was displayed in the room and laterality confirmed. ESWL was performed.?The stone was visualized on both fluoroscopy and ultrasound.? Shockwave lithotripsy was performed, with a maximum rate of 120 hertz. After the first 300 shocks a pause for 3 minutes was completed.? A total of 2500 shocks to a maximum of power of 20 with a maximum rate of 120 hertz.? Some fragmentation of the stone was appreciated. The patient tolerated the procedure well and was transferred to the recovery area upon completion. Complications: None
[2025-09-24 11:13] VITALS: BP 98/57; PULSE 60; RESP 16; TEMP 36.3; O2SAT 95
[2025-09-24 11:18] VITALS: BP 103/61; PULSE 50; RESP 16; O2SAT 95
[2025-09-24 11:28] VITALS: BP 115/63; PULSE 63; RESP 16; O2SAT 96
[2025-09-24 11:44] VITALS: BP 111/59; PULSE 56; RESP 16; TEMP 36.2; O2SAT 98
== END 2025-09-24 12:29 | disposition home or self-care (01) ==
PROVIDERS: PCP Internal Medicine; Visit Provider Urology
PROC: (CPT 50590; principal; 2025-09-24 09:30)
DX: N20.0 Calculus of kidney (principal); N40.1 Benign prostatic hyperplasia with lower urinary tract symptoms; R39.12 Poor urinary stream; N32.89 Other specified disorders of bladder; J44.9 Chronic obstructive pulmonary disease, unspecified; I10 Essential (primary) hypertension; Z79.899 Other long term (current) drug therapy; Z87.891 Personal history of nicotine dependence
CPT/HCPCS: 50590; 74018; J0131; J0690; J1100; J1938; J2003; J2250; J2405; J2704

== ENCOUNTER → 2025-09-24 07:21 | Outpatient (BNV) | payer OTHER, SELFPAY | PROVIDERS: PCP Internal Medicine; Visit Provider Urology | DX: N20.0 Calculus of kidney (principal) | CPT/HCPCS: 50590 ==

== ENCOUNTER → 2025-09-24 07:29 | Outpatient (BNV) | payer OTHER, SELFPAY | PROVIDERS: PCP Internal Medicine; Visit Provider Radiology Body Imaging | DX: N20.0 Calculus of kidney (principal) | CPT/HCPCS: 74018 ==

== ENCOUNTER 2025-10-01 14:22 | Outpatient (AMB) | payer OTHER, SELFPAY ==
--- NOTE | 2025-10-01 14:32 | MHC.OFFVIS ---
Vital Signs 10/01/25 14:35 Height 5 ft 10 in Weight 205 lb BMI 29.4 Intake Visit Reasons: B/L Euflexxa #1 Intake Note: Bharathi is a 64 year old male who presents with complaints of progressively worsening bilateral knee pains. The patient describes his pains as sharp in nature. He has failed the last 3 months of conservative treatment. He wishes to hold off on surgery if at all possible. Allergies No Known Allergies Allergy (Verified 07/31/25 15:18) Medication List - Last Reconciled 10/02/25 by Claudy Cox MD albuterol sulfate 90 mcg/actuation 2 puffs inhalation Q4-6H PRN 30 days atorvastatin 40 mg PO BEDTIME clonidine HCl 0.2 mg (2 x 0.1 mg) PO BEDTIME 30 days diphenhydramine HCl 50 mg PO BEDTIME PRN doxycycline hyclate 100 mg PO BID 14 days finasteride (Proscar) 5 mg PO DAILY naproxen 500 mg PO BID oxycodone 5 mg PO .[id number] PRN simethicone 360 mg (2 x 180 mg) PO BID 30 days sodium,potassium,mag sulfates 17.5-3.13-1.6 gram (Suprep Bowel Prep Kit) DILUTE each bottle with 16oz of water; drink first bottle 4pm evening before procedure AND second bottle at 10pm; follow each bottle with at least 32 oz.of water within 1 hour after each bottle. sodium,potassium,mag sulfates 17.5-3.13-1.6 gram (Suprep Bowel Prep Kit) 480 mL orally; FOR COLONOSCOPY PREP sulfamethoxazole-trimethoprim 800-160 mg (Bactrim DS) 1 tab PO BID 14 days tamsulosin (Flomax) 0.8 mg (2 x 0.4 mg) PO BEDTIME 90 days turmeric 400 mg PO QAM walker Folding Front wheeled walker [facility] Medical History Osteoarthritis of left knee Osteoarthritis of right knee Preoperative examination Pure hypercholesterolemia COPD (chronic obstructive pulmonary disease) Exercise-induced asthma Benign prostatic hyperplasia Essential hypertension Laboratory exam ordered as part of routine general medical examination Adult general medical exam History of COVID-19 Screening for prostate cancer Screening for colon cancer Hyperkalemia Neoplasm of uncertain behavior of skin Viral illness Abnormal lung sounds Elevated PSA Elevated TSH Cerumen impaction Knee pain Left knee pain Left shoulder pain Vertigo ADHD (attention deficit hyperactivity disorder) Osteoarthritis Sleep apnea Overweight (BMI 25.0-29.9) Insomnia Surgical History Hx of arthroscopy of shoulder Hx of excision of mass Hx of colonoscopy History of repair of hiatal hernia Hx of right inguinal hernia repair Hx of arthroscopy of right knee History of rotator cuff surgery Family History Father Dementia Social History Housing: House Are you a primary nurse behavioral health care to a significant other at home: No Do you presently have visiting nurse or other home services: No Patient Tobacco Use Status: Former Tobacco user Tobacco use type: Cigarette Years Smoked: 14 e-Cigarette/Vaping Use: Former Use Second Hand Smoke Exposure: No service: Yes Current occupational status: retired Current occupational exposures/hazards: No Cognitive needs: Yes Hearing needs: No Vision needs: Yes Physical Exam Vital Signs: BMI result Body Mass Index 29.4 Extrem Other: Bilateral knee examination shows minimal effusions, palpable crepitus with range of motion, pain with range of motion, no instability Office Procedures AMB Joint Injection/Aspiration Joint Injection/Aspiration Primary Site: Left Knee Prep: site was prepped using aseptic technique Injected: 20 mg of, Euflexxa, with 3 mL of and 1% plain Lidocaine Procedure: The patient tolerated the procedure well Coding 50671 - Large joint Procedure code (CPT) selection complete AMB Joint Injection/Aspiration Joint Injection/Aspiration Primary Site: Right Knee Prep: site was prepped using aseptic technique Injected: 20 mg of, Euflexxa, with 3 mL of and 1% plain Lidocaine Procedure: The patient tolerated the procedure well Coding 43957 - Large joint Procedure code (CPT) selection complete Results Reviewed Results Reviewed: X-rays of the patient's bilateral knees taken previously show joint space narrowing, subchondral sclerosis, no acute bony abnormalities Assessment & Plan Assessment & Plan (1) Osteoarthritis of left knee: Code(s): M17.12 - Unilateral primary osteoarthritis, left knee Category: Medical (2) Osteoarthritis of right knee: Code(s): M17.11 - Unilateral primary osteoarthritis, right knee Category: Medical Qualifiers: Osteoarthritis type: primary Qualified Code(s): M17.11 - Unilateral primary osteoarthritis, right knee Plan Mr. Sandoval presents with bilateral knee pains due to osteoarthritis. The risks and benefits of a set of bilateral knee Euflexxa viscosupplementation injections were discussed at length with the patient. The patient wishes to proceed. He tolerated the 1st set of injections well. He will continue with his home exercise program. He will follow up next week as scheduled. Feel free to call me at any time should questions regarding his orthopedic management arise. I spent 20 minutes in reviewing the patient's records and imaging studies, seeing the patient and documenting in the medical record. Orders: Orders AMB Joint Injection/Aspiration 10/01/25 M17.11 - Unilateral primary osteoarthritis, right knee AMB Joint Injection/Aspiration 10/01/25 M17.12 - Unilateral primary osteoarthritis, left knee Coding Level of Care Code Est Pt Level 3 (23416) Add On Problem Visit Only Diagnoses Osteoarthritis of left knee M17.12 Primary osteoarthritis of right knee M17.11 Osteoarthritis type: primary CPT Codes Coding - 46266 Large joint: 98546 - Large joint ([id number]) Coding - 87613 Large joint: 15195 - Large joint ([id number])
[2025-10-01 14:35] VITALS: BMI 29.4
--- OUTSIDE RECORDS SUMMARY | 2025-10-01 22:35 | XMS_ITS | Clinical Summary ---
Author Organization [facility] [employer] Address [address] [place] [address] [address], [place] [address] Care Team Providers Care Supervisor Bridges [employer] Buildings Name Role Phone Unavailable Primary Care Provider [...] AM EDT) Hepatitis C Antibody Nonreactive Nonreactive [facility] Comment:Antibodies to HCV no t detected; does not exclude early acuteHCV infection. Blood Venous blood specimen / Unknown 01/18/2024 11:44 AM EDT 01/18/2024 11:44 AM EDT us Nura Eddy MD LAB BLOOD ORDERABLES Final Resul t [facility] [address] [place] [address] [phone] from Last 3 Months or Most Recently Relevant to Health Maintenance Insurance [facility] MEDIC[facility]
--- OUTSIDE RECORDS SUMMARY | 2025-10-01 22:35 | XMS_ITS | Patient Health Record ---
Author Organization [facility] Address [address] [place] [address] Care Team Providers Care Workforce Management Manager Name Role Phone Catalina Dunn MD Primary Care Provider Migue Milligan [phone] Reason For Referral No Information Medications Medication SIG (Take, Route, Frequency, Duration) Notes Start Date End Date Status MoviPrep 100 GM Solution Reconstituted as directed Orally 09/20/2011 Active Social History Social History Additional Details Category Social Info Options Details Miscellaneous: Marital status: He lives w ith his girlfriend 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[place] [employer] Section Notes: He does not smoke or use any significant amounts of alcohol Problems Problem Type SNOMED Code ICD Code Onset Dates Problem Status W/U Status Risk Notes Problem Screening for malignant neoplasm of colon (710268577) Special screening for malignant neoplasms, colon (V76.51) Active confirmed Plan Of Treatment Future Test Test Name Order Date COLONOSCOPY 09/20/2011 Insurance Providers Payer Name Payer Address Payer Phone Subscriber Number Group Number Insured Name Patient Relationship to Insured Coverage Start Date Coverage End Date [facility] [address] [place] [phone] [id number] JETT MARIN Self - patient is the insured Medical (General) History Medical History History ICD Code Denies [place],DM,CVA,Lung disease,renal dise ase Surgical History Surgery Date(Month/Year) right hand right knee hernia right shoulder and left shoulder lipoma removed from his left arm
== END 2025-10-01 14:52 | disposition home or self-care (01) ==
PROVIDERS: PCP Internal Medicine; Visit Provider Orthopaedic Surgery
DX: M17.0 Bilateral primary osteoarthritis of knee (principal)
CPT/HCPCS: 20610

== ENCOUNTER → 2025-10-01 14:22 | Outpatient (BNVA) | payer OTHER, SELFPAY | PROVIDERS: PCP Internal Medicine; Visit Provider Orthopaedic Surgery | DX: M17.0 Bilateral primary osteoarthritis of knee (principal) | CPT/HCPCS: 20610; J2003; J7323 ==

== ENCOUNTER 2025-10-08 10:24 | Outpatient (AMB) | payer OTHER, SELFPAY ==
[2025-10-08 10:45] VITALS: BMI 29.4
--- NOTE | 2025-10-08 10:45 | A.OFFVIS_ITS ---
Vital Signs 10/08/25 10:45 Height 5 ft 10 in Weight 205 lb BMI 29.4 Intake Visit Reasons: B/L Knees Euflexxa #2 Intake Note: Bharathi is a 64 year old male who presents with complaints of bilateral knee pains. He states that he got mild relief from the 1st set of Euflexxa injections. He continues with his home exercise program. Allergies No Known Allergies Allergy (Verified 10/08/25 10:45) Medication List - Last Reconciled 10/08/25 by Claudy Cox MD albuterol sulfate 90 mcg/actuation 2 puffs inhalation Q4-6H PRN 30 days atorvastatin 40 mg PO BEDTIME clonidine HCl 0.2 mg (2 x 0.1 mg) PO BEDTIME 30 days diphenhydramine HCl 50 mg PO BEDTIME PRN doxycycline hyclate 100 mg PO BID 14 days finasteride (Proscar) 5 mg PO DAILY naproxen 500 mg PO BID oxycodone 5 mg PO .[id number] PRN simethicone 360 mg (2 x 180 mg) PO BID 30 days sodium,potassium,mag sulfates 17.5-3.13-1.6 gram (Suprep Bowel Prep Kit) DILUTE each bottle with 16oz of water; drink first bottle 4pm evening before procedure AND second bottle at 10pm; follow each bottle with at least 32 oz.of water within 1 hour after each bottle. sodium,potassium,mag sulfates 17.5-3.13-1.6 gram (Suprep Bowel Prep Kit) 480 mL orally; FOR COLONOSCOPY PREP sulfamethoxazole-trimethoprim 800-160 mg (Bactrim DS) 1 tab PO BID 14 days tamsulosin 0.8 mg (2 x 0.4 mg) PO BEDTIME 90 days turmeric 400 mg PO QAM walker Folding Front wheeled walker [facility] Medical History Osteoarthritis of left knee Osteoarthritis of right knee Preoperative examination Pure hypercholesterolemia COPD (chronic obstructive pulmonary disease) Exercise-induced asthma Benign prostatic hyperplasia Essential hypertension Laboratory exam ordered as part of routine general medical examination Adult general medical exam History of COVID-19 Screening for prostate cancer Screening for colon cancer Hyperkalemia Neoplasm of uncertain behavior of skin Viral illness Abnormal lung sounds Elevated PSA Elevated TSH Cerumen impaction Knee pain Left knee pain Left shoulder pain Vertigo ADHD (attention deficit hyperactivity disorder) Osteoarthritis Sleep apnea Overweight (BMI 25.0-29.9) Insomnia Surgical History Hx of arthroscopy of shoulder Hx of excision of mass Hx of colonoscopy History of repair of hiatal hernia Hx of right inguinal hernia repair Hx of arthroscopy of right knee History of rotator cuff surgery Family History Father Dementia Social History Housing: House Are you a primary pediatric acute care unit nurse to a significant other at home: No Do you presently have visiting nurse or other home services: No Patient Tobacco Use Status: Former Tobacco user Tobacco use type: Cigarette Years Smoked: 14 e-Cigarette/Vaping Use: Former Use Second Hand Smoke Exposure: No service: Yes Current occupational status: retired Current occupational exposures/hazards: No Cognitive needs: Yes Hearing needs: No Vision needs: Yes Physical Exam Vital Signs: BMI result Body Mass Index 29.4 Extrem Other: Bilateral knee examination shows minimal effusions, palpable crepitus with range of motion, pain with range of motion, no instability Office Procedures AMB Joint Injection/Aspiration Joint Injection/Aspiration Primary Site: Left Knee Prep: site was prepped using aseptic technique Injected: 20 mg of, Euflexxa, with 3 mL of and 1% plain Lidocaine Procedure: The patient tolerated the procedure well Coding 78638 - Large joint Procedure code (CPT) selection complete AMB Joint Injection/Aspiration Joint Injection/Aspiration Primary Site: Right Knee Prep: site was prepped using aseptic technique Injected: 20 mg of, Euflexxa, with 3 mL of and 1% plain Lidocaine Procedure: The patient tolerated the procedure well Coding 82796 - Large joint Procedure code (CPT) selection complete Assessment & Plan Assessment & Plan (1) Osteoarthritis of left knee: Code(s): M17.12 - Unilateral primary osteoarthritis, left knee Category: Medical (2) Osteoarthritis of right knee: Code(s): M17.11 - Unilateral primary osteoarthritis, right knee Category: Medical Qualifiers: Osteoarthritis type: primary Qualified Code(s): M17.11 - Unilateral primary osteoarthritis, right knee Plan Bharathi presents with bilateral knee pains due to osteoarthritis. The risks and benefits of a 2nd set of Euflexxa injections were discussed at length with the patient. The patient wished to proceed. He tolerated the injections well. He will continue with his home exercise program. He will contact me prior to his follow-up appointment next weeks should any questions or concerns arise. Feel free to call me at any time should questions regarding his orthopedic management arise. I spent 22 minutes in reviewing the patient's records and imaging studies, seeing the patient and documenting in the medical record. Orders: Orders AMB Joint Injection/Aspiration Today M17.12 - Unilateral primary osteoarthritis, left knee AMB Joint Injection/Aspiration Today M17.11 - Unilateral primary osteoarthritis, right knee Coding Level of Care Code Procedure Only Diagnoses Osteoarthritis of left knee M17.12 Primary osteoarthritis of right knee M17.11 Osteoarthritis type: primary CPT Codes Coding - 15732 Large joint: 38465 - Large joint ([id number]) Coding - 05785 Large joint: 52055 - Large joint ([id number])
--- OUTSIDE RECORDS SUMMARY | 2025-10-08 12:55 | XMS_ITS | Patient Health Record ---
Author Organization [facility] Address [address] [place] [address] Care Team Providers Care Gallery Or Museum Guide Name Role Phone Catalina Dunn MD Primary Care Provider Migue Milligan [phone] Reason For Referral No Information Medications Medication SIG (Take, Route, Frequency, Duration) Notes Start Date End Date Status MoviPrep 100 GM Solution Reconstituted as directed Orally 09/20/2011 Active Social History Social History Additional Details Category Social Info Options Details Miscellaneous: Marital status: He lives w ith his girlfriend 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 Section Notes: He does not smoke or use any significant amounts of alcohol Problems Problem Type SNOMED Code ICD Code Onset Dates Problem Status W/U Status Risk Notes Problem Screening for malignant neoplasm of colon (608241454) Special screening for malignant neoplasms, colon (V76.51) Active confirmed Plan Of Treatment Future Test Test Name Order Date COLONOSCOPY 09/20/2011 Insurance Providers Payer Name Payer Address Payer Phone Subscriber Number Group Number Insured Name Patient Relationship to Insured Coverage Start Date Coverage End Date [facility] [address] [place] [phone] [id number] JETT MARIN Self - patient is the insured Medical (General) History Medical History History ICD Code Denies [place],DM,CVA,Lung disease,renal dise ase Surgical History Surgery Date(Month/Year) right hand right knee hernia right shoulder and left shoulder lipoma removed from his left arm
--- OUTSIDE RECORDS SUMMARY | 2025-10-08 12:55 | XMS_ITS | Clinical Summary ---
Author Organization [employer] Address [address] [place] [address] [address] [address] Care Team Providers Care Sand Tester Name Role Phone Unavailable Primary Care Provider [...] AM EDT) Hepatitis C Antibody Nonreactive Nonreactive [facility] Comment:Antibodies to HCV no t detected; does not exclude early acuteHCV infection. Blood Venous blood specimen / Unknown 01/18/2024 11:44 AM EDT 01/18/2024 11:44 AM EDT us Nura Eddy MD LAB BLOOD ORDERABLES Final Resul t [facility] [address] [place] [address] [phone] from Last 3 Months or Most Recently Relevant to Health Maintenance Insurance [facility]
== END 2025-10-08 10:59 | disposition home or self-care (01) ==
LOC: HO.HOS 10:25
PROVIDERS: PCP Internal Medicine; Visit Provider Orthopaedic Surgery
DX: M17.0 Bilateral primary osteoarthritis of knee (principal)
CPT/HCPCS: 20610

== ENCOUNTER → 2025-10-08 10:24 | Outpatient (BNVA) | payer OTHER, SELFPAY | PROVIDERS: PCP Internal Medicine; Visit Provider Orthopaedic Surgery | DX: M17.0 Bilateral primary osteoarthritis of knee (principal) | CPT/HCPCS: 20610; J2003; J7323 ==

== ENCOUNTER 2025-10-15 07:32 | Outpatient (AMB) | payer OTHER, SELFPAY ==
--- OUTSIDE RECORDS SUMMARY | 2025-10-15 07:34 | XMS_ITS | Clinical Summary ---
Author Organization [employer] Address [address] [place] [address] [address] [address] Care Team Providers Care Optician Name Role Phone Unavailable Primary Care Provider [...] AM EDT) Hepatitis C Antibody Nonreactive Nonreactive [facility] Comment:Antibodies to HCV no t detected; does not exclude early acuteHCV infection. Blood Venous blood specimen / Unknown 01/18/2024 11:44 AM EDT 01/18/2024 11:44 AM EDT us Nura Eddy MD LAB BLOOD ORDERABLES Final Resul t [facility] [address] [place] [address] [phone] from Last 3 Months or Most Recently Relevant to Health Maintenance Insurance [facility]
--- OUTSIDE RECORDS SUMMARY | 2025-10-15 07:34 | XMS_ITS | Patient Health Record ---
Author Organization [facility] Address [address] [place] [address] Care Team Providers Care Hazardous Materials Waste Technician Name Role Phone Catalina Dunn MD Primary Care Provider Migue Milligan [phone] Reason For Referral No Information Medications Medication [...] Problem Screening for malignant neoplasm of colon ([id number]) Special screening for malignant neoplasms, colon (V76.51) Active confirmed Plan Of Treatment Future Test Test Name Order Date COLONOSCOPY 09/20/2011 Insurance Providers Payer Name Payer Address Payer Phone Subscriber Number Group Number Insured Name Patient Relationship to Insured Coverage Start Date Coverage End Date [facility] [address] [place] [phone] [id number] JETT MARIN Self - patient is the insured Medical (General) History Medical History History ICD Code Denies [place],DM,CVA,Lung disease,renal dise ase Surgical History Surgery Date(Month/Year) right hand right knee hernia right shoulder and left shoulder lipoma removed from his left arm
--- NOTE | 2025-10-15 07:41 | MHC.OFFVIS ---
Intake Visit Reasons: B/L Knees Euflexxa #3 Intake Note: Bharathi is a 64 year old male who presents today for his 3rd bilateral knee Euflexxa gel injections. He states that he has gotten fairly good relief from the 1st 2 sets of injections. He continues with his home exercise program. Allergies No Known Allergies Allergy (Verified 10/15/25 07:42) Medication List - Last Reconciled 10/15/25 by Claudy Cox MD albuterol sulfate 90 mcg/actuation 2 puffs inhalation Q4-6H PRN 30 days atorvastatin 40 mg PO BEDTIME clonidine HCl 0.2 mg (2 x 0.1 mg) PO BEDTIME 30 days diphenhydramine HCl 50 mg PO BEDTIME PRN doxycycline hyclate 100 mg PO BID 14 days finasteride (Proscar) 5 mg PO DAILY naproxen 500 mg PO BID oxycodone 5 mg PO .[id number] PRN simethicone 360 mg (2 x 180 mg) PO BID 30 days sodium,potassium,mag sulfates 17.5-3.13-1.6 gram (Suprep Bowel Prep Kit) DILUTE each bottle with 16oz of water; drink first bottle 4pm evening before procedure AND second bottle at 10pm; follow each bottle with at least 32 oz.of water within 1 hour after each bottle. sodium,potassium,mag sulfates 17.5-3.13-1.6 gram (Suprep Bowel Prep Kit) 480 mL orally; FOR COLONOSCOPY PREP sulfamethoxazole-trimethoprim 800-160 mg (Bactrim DS) 1 tab PO BID 14 days tamsulosin 0.8 mg (2 x 0.4 mg) PO BEDTIME 90 days turmeric 400 mg PO QAM walker Folding Front wheeled walker [facility] Medical History Osteoarthritis of left knee Osteoarthritis of right knee Preoperative examination Pure hypercholesterolemia COPD (chronic obstructive pulmonary disease) Exercise-induced asthma Benign prostatic hyperplasia Essential hypertension Laboratory exam ordered as part of routine general medical examination Adult general medical exam History of COVID-19 Screening for prostate cancer Screening for colon cancer Hyperkalemia Neoplasm of uncertain behavior of skin Viral illness Abnormal lung sounds Elevated PSA Elevated TSH Cerumen impaction Knee pain Left knee pain Left shoulder pain Vertigo ADHD (attention deficit hyperactivity disorder) Osteoarthritis Sleep apnea Overweight (BMI 25.0-29.9) Insomnia Surgical History Hx of arthroscopy of shoulder Hx of excision of mass Hx of colonoscopy History of repair of hiatal hernia Hx of right inguinal hernia repair Hx of arthroscopy of right knee History of rotator cuff surgery Family History Father Dementia Social History Housing: House Are you a primary child care specialist to a significant other at home: No Do you presently have visiting nurse or other home services: No Patient Tobacco Use Status: Former Tobacco user Tobacco use type: Cigarette Years Smoked: 14 e-Cigarette/Vaping Use: Former Use Second Hand Smoke Exposure: No service: Yes Current occupational status: retired Current occupational exposures/hazards: No Cognitive needs: Yes Hearing needs: No Vision needs: Yes Physical Exam Extrem Other: Bilateral knee examination shows minimal effusions, palpable crepitus with range of motion, pain with range of motion, no instability Office Procedures AMB Joint Injection/Aspiration Joint Injection/Aspiration Primary Site: Left Knee Prep: site was prepped using aseptic technique Injected: 20 mg of, Euflexxa, with 3 mL of and 1% plain Lidocaine Procedure: The patient tolerated the procedure well Coding 14628 - Large joint Procedure code (CPT) selection complete AMB Joint Injection/Aspiration Joint Injection/Aspiration Primary Site: Right Knee Prep: site was prepped using aseptic technique Injected: 20 mg of, Euflexxa, with 3 mL of and 1% plain Lidocaine Procedure: The patient tolerated the procedure well Coding 27336 - Large joint Procedure code (CPT) selection complete Assessment & Plan Assessment & Plan (1) Osteoarthritis of left knee: Code(s): M17.12 - Unilateral primary osteoarthritis, left knee Category: Medical (2) Osteoarthritis of right knee: Code(s): M17.11 - Unilateral primary osteoarthritis, right knee Category: Medical Qualifiers: Osteoarthritis type: primary Qualified Code(s): M17.11 - Unilateral primary osteoarthritis, right knee Plan Mr. Sandoval presents with bilateral knee pains due to osteoarthritis. The risks and benefits of the 3rd set of Euflexxa injections were discussed at length with the patient. The patient wished to proceed. He tolerated the injections well. He will continue with his home exercise program. He will contact me prior to his follow-up appointment in 3 months should any questions or concerns arise. Feel free to call me at any time should questions regarding his orthopedic management arise. Orders: Orders AMB Joint Injection/Aspiration Today M17.11 - Unilateral primary osteoarthritis, right knee AMB Joint Injection/Aspiration Today M17.12 - Unilateral primary osteoarthritis, left knee Coding Level of Care Code Procedure Only Diagnoses Osteoarthritis of left knee M17.12 Primary osteoarthritis of right knee M17.11 Osteoarthritis type: primary CPT Codes Coding - 00474 Large joint: 17494 - Large joint ([id number]) Coding - 56926 Large joint: 55122 - Large joint ([id number])
== END 2025-10-15 07:55 | disposition home or self-care (01) ==
LOC: HO.HOS 07:32
PROVIDERS: PCP Internal Medicine; Referring Provider Orthopaedic Surgery; Visit Provider Orthopaedic Surgery
DX: M17.0 Bilateral primary osteoarthritis of knee (principal)
CPT/HCPCS: 20610

== ENCOUNTER → 2025-10-15 07:32 | Outpatient (BNVA) | payer OTHER, SELFPAY | PROVIDERS: PCP Internal Medicine; Visit Provider Orthopaedic Surgery | DX: M17.0 Bilateral primary osteoarthritis of knee (principal) | CPT/HCPCS: 20610; J2003; J7323 ==